=== PATIENT | male | born 1945 | race Caucasian/White ===

== ENCOUNTER 2017-01-08 10:52 | Inpatient (IN) ==
[2017-01-08] MEDS ORDERED: CeFAZolin Pre 2,000 MG/100 ML 2,000 MG/100 ML BAG IVPB ONE (11:15)
[2017-01-08] MEDS ORDERED: Ringers Solution, Lactated 1,000 ML IVC SCH (11:15)
[2017-01-08] MEDS ORDERED: Albuterol 2.5 MG/3 ML NEBULIZER IH ONE (11:15)
--- NOTE | 2017-01-08 11:17 | Anesthesia Evaluation PreOp ---
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: Other (carotid stenosis (bilateral)) Other Medical History: Renal (CKD), Diabetes Type II (uses insulin), GERD Anesthesia History: No Prior Anesthetic Complications, Past Anesthesia (CABG) Alcohol Use: none Drug use: none Medications and Allergies Atorvastatin [Lipitor] 40 mg PO HS 03/12/15 [History] Insulin Aspart Prot/Insuln Asp [Novolog Mix 70-30 Flexpen Syrn] 35 unit SQ HS [History] Levothyroxine [Synthroid] 50 mcg PO QAM 03/12/15 [History] NIFEdipine [Nifedipine ER] 30 mg PO QAM 03/12/15 [History] Cholecalciferol (Vitamin D3) [Vitamin D3] 2,000 unit PO DAILY 03/27/15 [History] Losartan [Cozaar] 50 mg PO DAILY 03/27/15 [History] Aspirin 81 mg PO DAILY #30 tab.chew 04/02/15 [Rx] Metoprolol XL (24 HR) Succ [Toprol XL] 100 mg PO DAILY 04/12/15 [History] Furosemide [Lasix] 40 mg PO DAILY 12/07/16 [History] Omeprazole [PriLOSEC] 20 mg PO DAILY 12/07/16 [History] 3 Allergy/AdvReac Type Severity Reaction Status Date / Time No Known Allergies Allergy Verified 03/12/15 15:44 - Meds/Allergy Pre-op Review Medications Reviewed: Yes Allergies Reviewed: Yes Beta Blockers on Current Med List: Yes (metoprolol) If Beta Blockers taken, Date/Time (Last Dose taken): 01-08-17 metoprolol 6 am Anesthesia Results - Labs Laboratory Tests 04/13/15 08/01/16 08/01/16 11:15 07:41 07:41 WBC Hgb Hct Plt Count PT INR APTT Sodium Potassium Chloride Carbon Dioxide BUN Creatinine Est GFR ( Amer) Est GFR (Non-Af Amer) POC Glucose 218 H BUN/Creatinine Ratio Glucose Est Mean Plasma Glucose 186 Hemoglobin A1c 8.1 H Calculated Osmolality Calcium Phosphorus 3.2 12/05/16 12/05/16 12/05/16 16:32 16:32 16:32 WBC 8.7 Hgb 14.5 Hct 45.2 Plt Count 162 PT 14.6 H INR 1.3 APTT 38.0 H Sodium 138 Potassium 4.2 Chloride 104 Carbon Dioxide 24 BUN 23 Creatinine 1.38 H Est GFR ( Amer) > 60 Est GFR (Non-Af Amer) 51 L POC Glucose BUN/Creatinine Ratio 17 Glucose 127 H Est Mean Plasma Glucose Hemoglobin A1c Calculated Osmolality 291 Calcium 9.4 Phosphorus - Imaging EKG: report reviewed, image reviewed (Normal sinus rhythm SEPTAL MYOCARDIAL INFARCTION, PROBABLY OLD) Additional studies: TTE: Impressions: LVEF 35-40%. There is evidence of severely elevated filling pressures of the left ventricle. Normal RV size with moderate reduction in function. Normal right atrial size. Mildly enlarged left atrial size. Mild mitral regurgitation. Mild tricuspid regurgitation. Estimated RVSP was 31 mmHg. No pulmonary hypertension. The IVC is not dilated. Anesthesia Exam Last Vital Signs Temp 97.4 F L 01/08/17 11:14 Pulse 69 01/08/17 11:14 Resp 18 01/08/17 11:14 BP 141/75 01/08/17 11:14 Pulse Ox 95 01/08/17 11:14 Blood glucose: 64 Weight: 94 kg - HEENT Pupil (Motor): Pupils equal, EOMI Mallampati: III Teeth: Edentulous Oral Opening: Greater than 3 - APPLICATION DESIGNER LOC: Oriented APPLICATION DESIGNER Motor: Normal RUE, Normal LUE, Normal RLE, Normal LLE, Normal Face - Cardiac Rhythm: Regular Murmur: None - Pulmonary Breath Sounds: bilateral Clear Respiratory Effort: Symmetrical Anesthesia Assess/Plan ASA Score: 3 Modified Maria M Scale for Level of Consciousness: Cooperative, oriented, and tranquil Anesthetic Plan: General Monitoring Plan: Standard Monitors, A-Line Recovery Plan: PACU
--- NOTE | 2017-01-08 11:29 | History & Physical Report ---
Date of Encounter: 01/08/17 Time of Encounter: 11:29 24 Hour HP Update - Instructions Instructions: If the History and Physical is less than 30 days old and was completed prior to A.M. admission and or procedure and has NOT been updated on calendar day of procedure please complete this update prior to performing procedure. - Update Patient reports changes in Medical Condition: No Changes in examination, assessment, or condition: No Changes in Medication: No Preop tests/diagnostics Reviewed: Yes Surgery Remains Indicated: Yes Consent for Planned Operative Procedure(s) Verified: Yes - Pre-Operative Checklist Preoperative Checklist Indicated: Yes Prophylactic Antibiotic Ordered: Yes Home Medications Include Beta Elda: Yes Beta Elda Taken Today (Day of Surgery): Yes Beta Elda Taken Yesterday (Day Prior to Surgery): Yes Is VTE Prophylaxis Indicated?: Yes
[2017-01-08] MEDS ORDERED: Lidocaine 1% 20 ML MDV ONE (11:40)
[2017-01-08] MEDS ORDERED: Heparin 1,000 UNITS/500 mL NS 500 ML ONE (11:41)
[2017-01-08] MEDS ORDERED: *HR* FentaNYL (PF) 100 MCG/2 ML VIAL ONE (11:41)
[2017-01-08] MEDS ORDERED: Dexmedetomidine HCl 200 MCG/50 ML MLS IVC ONE (11:45)
[2017-01-08] MEDS ORDERED: Acetaminophen IV 1,000 MG/100 ML INFUS..BTL ONE (11:49)
[2017-01-08] MEDS ORDERED: Ondansetron 4 MG/2 ML VIAL IVP PRN ×2 (11:52→16:35)
[2017-01-08] MEDS ORDERED: *HR* Labetalol 20 MG/4 ML SYRINGE IVP PRN (11:52)
[2017-01-08] MEDS ORDERED: *HR* HYDROmorphone (PF) 1 MG/ML SYRINGE IVP PRN (11:52)
[2017-01-08] MEDS ORDERED: *HR* Etomidate 40 MG/20 ML VIAL IVP ONE (11:58)
--- NOTE | 2017-01-08 12:46 | Anesthesia Procedures ---
Date of Encounter: 01/08/17 Time of Encounter: 12:15 Procedures: Anesthesia - Arterial Line Consent obtained: written consent Time out performed: Yes Sedation: Fentanyl (mcg): 100 Supplemental Oxygen via Nasal Cannula (L/min): 15 (circuit) Local Anesthetic: Lidocaine 1% Amount of Anesthetic used (mls): 1 Size (Gauge): 20 Length (inches): 1 3/4 Technique Used: sterile prep, guide wire technique, direct puncture technique Post-Procedure: line taped into place, dry sterile dressing placed Patient tolerated procedure: well, no complications Complications: none Site: Radial L Vitals: see anesthesia record
[2017-01-08] MEDS ORDERED: EPHEDrine 50 MG/ML VIAL ONE (12:49)
[2017-01-08] MEDS ORDERED: *HR* Heparin 5,000 UNIT/ML VIAL ONE ×2 (13:02→14:25)
[2017-01-08] MEDS ORDERED: Neostigmine Methylsulfate 3 MG/3 ML SYRINGE ONE (13:53)
[2017-01-08] MEDS ORDERED: Dexamethasone 4 MG/ML VIAL ONE (13:53)
[2017-01-08] MEDS ORDERED: Ondansetron 4 MG/2 ML VIAL ONE (13:53)
[2017-01-08] MEDS ORDERED: Ketorolac 30 MG/ML VIAL ONE (14:15)
[2017-01-08] MEDS ORDERED: *HR* Dextrose 50 % in Water (Syg) 50 ML SYRINGE ONE (14:23)
--- NOTE | 2017-01-08 15:31 | Operative Note ---
Date of procedure: 01/08/17 Pre-op diagnosis: right carotid stenosis Post-op diagnosis: same Procedure: right carotid endarterectomy with 8 Fr shunt and patch angioplasty Complications: none Anesthesia: HERLINDAA Surgeon: Marcelino Ruiz Estimated blood loss (cc): 150 Specimen: none Condition: stable Disposition: PACU Procedure in Detail: History Torrey Beaulieu is a 71-year-old white male who has known peripheral vascular and coronary vascular disease. He was discovered to have a worsening carotid system and an abnormal duplex scan. He then went on to have an angiogram which demonstrated a significant right internal carotid artery stenosis. He now comes to the operating room for surgical correction of this lesion. He is neurologically asymptomatic. Procedure After informed consent was obtained the patient was taken to the operating room. General endotracheal anesthesia was established under teary line pressure monitoring. The right neck was sterilely prepped and draped. The patient had a clearly demarcated skin crease that ran transversely in the neck. This was selected then as the site for placement of the incision. After a timeout protocol an incision was then made in a transverse orientation. Dissection was then carried down to reveal the anterior border of the sternocleidomastoid muscle. The muscle was retracted laterally and dissection was carried to into the carotid sheath. Selective control was obtained of the carotid arteries. The nervous structures were preserved. 5000 units of heparin were administered intravenously. The vessels were then clamped with the internal carotid artery clamped first. Using an 11 blade knife and Corcoran scissors the artery was opened. An 8 [place] shunt was then inserted atraumatically. Patency of the shunt was confirmed by the use of intraoperative Doppler. Evaluation of the plaque revealed a homogeneous thick plaque that extended more proximally than indicated by the angiogram and as well up into the external carotid artery. In order to find an appropriate dissection plane the dissection was actually begun on the internal carotid artery and was then carried proximally to the common carotid. The amount of plaque at the common required that an extension of the arteriotomy be made for distance of approximately 1 cm. This allowed the residual bulk of the plaque proximally to be removed. The orifice of the external carotid artery was endarterectomized that there was residual material. This required a transverse incision distal to this. Thyroid artery. With this done the plaque could be dissected and removed totally. The endpoint on the internal carotid artery was smooth. No tacking sutures were necessary. The bed of the vessel was then inspected for any residual debris. After this was assured a Hemashield patch was then sewn onto the arteriotomy. This was sewn in position using 2 6-0 Prolene sutures. Leaving a small space open on the suture line the 8 [place] shunt was clamped divided and removed. The final few sutures were then placed. The internal was allowed to backbleed and then reclamped. The external and common were opened and finally the internal was reopened. The patient tolerated this maneuver without hemodynamic distress. Excellent Doppler signals and palpable pulses were identified throughout the carotid system. Hemostasis was achieved. A superficial cervical block using half percent Marcaine was performed. The wound was then closed in layers using absorbable suture. No drains were placed. A dry sterile dressing was applied. The patient was then extubated. He was found to be neurologically intact. He was then transported from the operating room to the recovery room in stable condition.
--- NOTE | 2017-01-08 16:09 | Anesthesia Evaluation Post Op ---
Date of Encounter: 01/08/17 Time of Encounter: 16:09 - Vital Signs Vital Signs: Vital Signs/O2 Sat/Glucose, Most Current Temp Pulse Resp BP Pulse Ox 01/08/17 16:01 57 16 83/60 98 01/08/17 15:51 58 12 88/61 100 01/08/17 15:41 97.2 F L 59 14 97/62 97 - Lungs Lungs: Clear Ascult./Percussion - Airway Airway: Non-obstructed - Cardiovascular Regular Rate - Mental Status Mental Status: Alert & Oriented, Answers Appropriately - Pain Pain Scale: 0 - Nausea Vomiting Nausea Vomiting: Not Present - Hydration Hydration: Ice chips - Discharge PostOp Status: Transfer Patient to floor
[2017-01-08] MEDS ORDERED: ceFAZolin 2,000 MG in D5% in Water 100 ML IVPB SCH (16:35)
[2017-01-08] MEDS ORDERED: *HR* HYDROcodone/Acet 5/325 mg TABLET PO PRN (16:35)
[2017-01-08] MEDS ORDERED: Naloxone 0.4 MG/ML INJ IVP PRN (16:35)
[2017-01-08] MEDS ORDERED: Acetaminophen 325 MG TABLET PO PRN (16:35)
[2017-01-08] MEDS ORDERED: *HR* Morphine 2 MG/ML SYRINGE IVP PRN (16:35)
[2017-01-08] MEDS ORDERED: Dextrose Gel 15 GM PO PRN ×2 (16:58)
[2017-01-08] MEDS ORDERED: *HR* Dextrose 50 % in Water (Syg) 50 ML SYRINGE IVP PRN (16:58)
[2017-01-08] MEDS ORDERED: D5% in Water 1,000 ML IVC PRN (16:58)
[2017-01-08] MEDS ORDERED: Insulin NPH/REG 70/30 100 UNIT/ML (x5UNIT) SQ SCH (21:00)
[2017-01-08] MEDS ORDERED: *HR* Metformin 500 MG TABLET PO SCH (21:00)
[2017-01-08] MEDS: ceFAZolin 2,000 MG in D5% in Water 100 ML IVPB SCH (21:19)
[2017-01-09 04:05] LABS: Basophils % 0.3 %; Hematocrit 38.6 % (37.5-50.1); Hemoglobin 12.7 g/dL (12.9-16.9); Immature Granulocytes % 0.3 % (0-4); Lymphocytes # 0.6 K/mcL (0.6-4.6); Lymphocytes % 8.1 %; Mean Corpuscular HGB Conc 32.9 g/dL (31.6-35.5); Mean Corpuscular Hemoglobin 29.3 pg (28.0-33.3); Mean Corpuscular Volume 89.1 fL (83.0-100.0); Mean Platelet Volume 11.3 fL (9.4-12.4); Monocytes # 0.4 K/mcL (0.0-1.3); Monocytes % 5.7 %; Neutrophils # 6.5 K/mcL (1.6-8.9); Platelet Count 134 K/mcL (140-400); Red Blood Count 4.33 M/mcL (4.19-5.50); Red Cell Distribution Width 15.2 % (11.5-14.5); Segmented Neutrophils % 85.6 %
[2017-01-09 04:21] LABS: BUN/Creatinine Ratio 22 (6-26); Blood Urea Nitrogen 28 mg/dL (8-26); Calcium 8.5 mg/dL (8.6-10.8); Carbon Dioxide 22 mEq/L (19-29); Chloride 104 mEq/L (98-109); Glucose 93 mg/dL (70-99); Osmolality,Calculated 287 (280-300); Potassium 4.5 mEq/L (3.5-4.5); Sodium 136 mEq/L (136-145); eGFR For African Americans > 60 (> 60); eGFR For Non-African Americans 54 (> 60)
[2017-01-09] MEDS: ceFAZolin 2,000 MG in D5% in Water 100 ML IVPB SCH ×2 (04:53→11:37)
[2017-01-09] MEDS: Metoprolol XL (24 HR) Succ 50 MG TAB.ER.24H PO SCH ×2 (07:23→08:40)
[2017-01-09] MEDS ORDERED: Aspirin 81 MG TAB.CHEW PO SCH (09:00)
[2017-01-09] MEDS ORDERED: NIFEdipine XL (24 HR) 30 MG TAB.ER.24 PO SCH (09:00)
[2017-01-09] MEDS ORDERED: Cholecalciferol (D-3) 1,000 UNIT TABLET PO SCH (09:00)
[2017-01-09] MEDS ORDERED: Furosemide 40 MG TABLET PO SCH (09:00)
[2017-01-09 16:41] VITALS: BP 121/75
--- NOTE | 2017-01-09 17:40 | Discharge Summary ---
Date of Encounter: 01/09/17 Time of Encounter: 17:38 - Discharge Diagnosis (1) Carotid arterial disease Priority: Primary Status: Acute Comments: Patient was identified as having a significant right carotid artery stenosis by duplex scanning and confirmed on angiography. He underwent a right carotid endarterectomy without incident. He had an uneventful postoperative course. Qualifiers: Laterality: right Qualified Code(s): I77.9 - Disorder of arteries and arterioles, unspecified (2) CAD (coronary artery disease) Priority: Secondary Status: Chronic Comments: Patient is under medical treatment for his coronary artery disease. He is status post previous open heart bypass grafting. Qualifiers: Coronary Disease-Associated Artery/Lesion type: [place] artery [place] vs. transplanted heart: [place] heart Associated angina: without angina Qualified Code(s): I25.10 - Atherosclerotic heart disease of [place] coronary artery without angina pectoris (3) DM2 (diabetes mellitus, type 2) Priority: Secondary Status: Chronic Comments: Patient is under medical control for his diabetes. Qualifiers: Diabetes mellitus complication status: with circulatory complication Diabetes mellitus complication detail: with peripheral angiopathy without gangrene Diabetes mellitus terminal gauger insulin use: with terminal gauger use Qualified Code(s): E11.51 - Type 2 diabetes mellitus with diabetic peripheral angiopathy without gangrene; Z79.4 - custodial (current) use of insulin (4) Tobacco abuse Priority: Secondary Status: Chronic Comments: Patient was counseled again about complete tobacco cessation. - Discharge Medications Home Medications: Atorvastatin [Lipitor] 40 mg PO HS 03/12/15 [History] Insulin Aspart Prot/Insuln Asp [Novolog Mix 70-30 Flexpen Syrn] 35 unit SQ HS [History] Levothyroxine [Synthroid] 50 mcg PO QAM 03/12/15 [History] NIFEdipine [Nifedipine ER] 30 mg PO QAM 03/12/15 [History] Cholecalciferol (Vitamin D3) [Vitamin D3] 2,000 unit PO DAILY 03/27/15 [History] Losartan [Cozaar] 50 mg PO DAILY 03/27/15 [History] Aspirin 81 mg PO DAILY #30 tab.chew 04/02/15 [Rx] Metoprolol XL (24 HR) Succ [Toprol XL] 100 mg PO DAILY 04/12/15 [History] Furosemide [Lasix] 40 mg PO DAILY 12/07/16 [History] Omeprazole [PriLOSEC] 20 mg PO DAILY 12/07/16 [History] metFORMIN [Glucophage] 1,500 mg PO HS 01/08/17 [History] Allergies/Adverse Reactions: 3 Allergy/AdvReac Type Severity Reaction Status Date / Time No Known Allergies Allergy Verified 01/08/17 11:33 Date of admission: 01/08/17 16:22 Primary care physician: Osman Martinez MD Consults: None Procedure(s) Performed: Right carotid endarterectomy with patch angioplasty Discharging clinician: Marcelino Ruiz Anticipated date of discharge: 01/09/17 - Patient Status Disposition: Home, Self-Care Condition: Good Functional capacity at discharge: independent ambulation Overall status at discharge: patient is progressing back to baseline - Discharge Instructions Follow Up With: Osman Martinez MD [Primary Care Provider] - (SENT WEB REQUEST ON 01-08-17@ [phone] ) Marcelino Ruiz MD [Partnered Physician] - 01/30/17 10:45 am Additional Instructions: Use ice pack on right neck for the next 2-3 days at home Continue usual home medicines No lifting greater than 10 pounds. No automobile driving. No manual labor. Keep right neck incision dry for a total of 5 days following surgery. - Diet and Activity Activity: increase activity as tolerated Diet: diabetic diet, low fat, low cholesterol - Hospital Course Hospital course: Mr. Beaulieu is a 71 year old male With significant right carotid artery disease. He underwent a right carotid endarterectomy with patch angioplasty. The patient had no periprocedural complications. He did well following surgery and was neurologically intact. He was felt fit for discharge on the afternoon of postoperative day #1. Time spent discussing smoking cessation with patient: 3 to 10 minutes - Time Spent with Patient Total time spent providing and/or coordinating discharge services: Exam Vital Signs, Last 4 Hours Temp Pulse Resp BP Pulse Ox 01/09/17 16:36 97.5 F L 63 16 121/75 98 General: Present: Conversant, No Apparent Distress, Well developed, Well nourished HEENT: Present: Atraumatic, Normocephaly, Trachea midline, Pupils equal Neck: Absent: JVD, Left Carotid bruit, Right Carotid bruit, Midline deformity, Tracheal deviation Cardiac: Present: Reg Rate and Rhythm, Normal S1 and S2, No Murmur Lungs: Present: Normal Breath Sounds Neuro: Present: Alert and responsive, No focal deficits noted, Cranial nerves grossly intact, Motor nerves grossly intact, Sensory nerves grossly intact Abdomen: Present: Soft Vascular: Present: Normal capillary refill - VTE Documentation of Mechanical Device: Intermittent pneumatic compression device
== END 2017-01-09 18:15 | disposition home or self-care (01) | DRG 38 ==
LOC: SAMDAY 10:52 → 2NNU 16:22
PROVIDERS: ADMIT Surgery Vascular Surgery; ATTEND Surgery Vascular Surgery

== ENCOUNTER 2017-11-26 09:56 | Inpatient (IN) ==
[~2017-11-26 09:56] MED LIST: Vancomycin 1,000 MG, Sodium Chloride IRRigation 1,000 ML IR ONE; ceFAZolin 1,000 MG, Sodium Chloride IRRigation 1,000 ML IR ONE
[2017-11-26] MEDS ORDERED: CeFAZolin Syr 2,000MG/20 ML 2,000 MG/20 ML SYRINGE IVPB ONE (10:15)
[2017-11-26] MEDS ORDERED: Ringers Solution, Lactated 1,000 ML IVC SCH (10:15)
[2017-11-26] MEDS ORDERED: LIDOCAINE 1% PF 2 ML AMPUL ONE (10:38)
[2017-11-26] MEDS ORDERED: Albuterol 2.5 MG/3 ML NEBULIZER IH ONE (10:39)
[2017-11-26] MEDS ORDERED: Albuterol 2.5 MG/3 ML NEBULIZER ONE (10:41)
--- NOTE | 2017-11-26 11:04 | Anesthesia Evaluation PreOp ---
Date of Encounter: 11/26/17 Time of Encounter: 11:02 - Past History Planned Operation: R brachial aa cut down, R angioplasty Cardiac History: CHF (ECHO 08/2017: Impressions: LVEF 35%. Atypical septal motion consistent with post-operative status. RV is mildly dilated. There is moderate reduction in function. No significant valvular dysfunction. No pulmonary hypertension.), HTN, Hyperlipidemia, Cardiac Surgery (CAD s/p CABG), Cardiac Stent (s/p stent placed 09/2017 on DAPT, took plavix today), Other ([facility] Procedures Performed: LEFT HEART CATH W/ GRAFTS Stent w/ PTCA Single Major Vessel Indications: Cardiomyopathy, Unstable Angina Impressions: There is severe three vessel coronary artery disease. Mild global LV dysfunction. EF 45% Patient had successful PTCA/Drug-Eluting Stent placement in the distal Left Main/ramus. S/P CABG 2 of 4 patent bypass grafts. Recommendations: DAPT. Optimal medical therapy of patient's disease. 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: Other (carotid stenosis) Other Medical History: Renal (CKD) Anesthesia History: No Prior Anesthetic Complications, Past Anesthesia (CABG, hernia repair, R subclavian stent, renal stent) Alcohol Use: none Drug use: none Medications and Allergies Albuterol Sulfate [Albuterol Inhaler] 2 puff IH Q4HR PRN 11/26/17 [History] Aspirin [Lo-Dose Aspirin EC] 81 mg PO HS 11/26/17 [History] Atorvastatin [Lipitor] 40 mg PO HS 11/26/17 [History] Cholecalciferol (D-3) [Vitamin D] 2,000 unit PO HS 11/26/17 [History] Clopidogrel [Plavix] 75 mg PO DAILY 11/26/17 [History] Furosemide [Lasix] 40 mg PO DAILY 11/26/17 [History] Levothyroxine [Synthroid] 50 mcg PO 0630 11/26/17 [History] Losartan [Cozaar] 25 mg PO DAILY 11/26/17 [History] Metoprolol Succinate [Toprol Xl] 25 mg PO DAILY 11/26/17 [History] Omeprazole [PriLOSEC] 20 mg PO DAILY 11/26/17 [History] Spironolactone [Aldactone] 50 mg PO DAILY 11/26/17 [History] metFORMIN [Glucophage] 500 mg PO HS 11/26/17 [History] 3 Allergy/AdvReac Type Severity Reaction Status Date / Time No Known Allergies Allergy Verified 11/26/17 10:55 - Meds/Allergy Pre-op Review Medications Reviewed: Yes Allergies Reviewed: Yes Beta Blockers on Current Med List: Yes If Beta Blockers taken, Date/Time (Last Dose taken): 1800 11/25/17 Anesthesia Results - Labs Laboratory Tests 10/16/17 11/11/17 11/11/17 16:56 14:32 14:32 WBC 8.6 Hgb 13.4 Hct 39.1 Plt Count 275 PT INR APTT Sodium 134 L Potassium 4.3 Chloride 101 Carbon Dioxide 26 BUN 26 H Creatinine 1.49 H Glucose 191 H POC Glucose 92 Est Mean Plasma Glucose Hemoglobin A1c 11/11/17 11/21/17 14:32 07:01 WBC Hgb Hct Plt Count PT 12.3 H INR 1.1 APTT 37.8 H Sodium Potassium Chloride Carbon Dioxide BUN Creatinine Glucose POC Glucose Est Mean Plasma Glucose 160 Hemoglobin A1c 7.2 H - Imaging EKG: report reviewed (09/2017 : Interpretive Statements sinus rhythm WITH FREQUENT VENTRICULAR PREMATURE COMPLEXES ST DEVIATION AND MODERATE T-WAVE ABNORMALITY, CONSIDER LATERAL ISCHEMIA ST DEVIATION AND MODERATE T-WAVE ABNORMALITY, CONSIDER INFERIOR ISCHEMIA Electronically Signed On 10-17-2017 8:48: 38 EDT by Praful Rodriguez) Anesthesia Exam O2 Sat Height 1.8 m Height 1.8 m Weight 83.007 kg Weight 83.007 kg O2 Sat by Pulse Oximetry 99 Vital Signs Temp Pulse Resp BP Pulse Ox 97.5 F L 62 18 142/63 99 11/26/17 10:34 11/26/17 10:34 11/26/17 10:34 11/26/17 10:34 11/26/17 10:34 Blood glucose: 91 Height: 71" Weight: 182lbs NPO (# of Hours): >8 Pain Scale: 0 Pain Scale Used: Numeric (1 - 10) - HEENT Pupil (Motor): Pupils equal, 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
[2017-11-26] MEDS ORDERED: *HR* FentaNYL (PF) 100 MCG/2 ML VIAL ONE (11:21)
[2017-11-26] MEDS ORDERED: *HR* Propofol 200 MG/20 ML VIAL IVP ONE (11:21)
[2017-11-26] MEDS ORDERED: Lidocaine -MPF 2% 2 ML VIAL ONE (11:22)
[2017-11-26] MEDS ORDERED: *HR* Succinylcholine 200 MG/10 ML VIAL IVP ONE (11:23)
[2017-11-26] MEDS ORDERED: Lidocaine -MPF 4% 5 ML AMPUL ONE (11:24)
[2017-11-26] MEDS ORDERED: Heparin 1,000 UNITS/500 mL 500 ML ONE (11:28)
[2017-11-26] MEDS ORDERED: *HR* Remifentanil 1 MG VIAL IVP ONE (11:55)
[2017-11-26] MEDS ORDERED: *HR* Phenylephrine 10 MG/ML VIAL ONE (12:00)
[2017-11-26] MEDS ORDERED: Heparin 1,000 UNITS/500 mL 1,000 ML ONE (12:03)
[2017-11-26] MEDS ORDERED: Bupivacaine-MPF 0.25% 10 ML VIAL ONE (12:03)
--- NOTE | 2017-11-26 12:10 | History & Physical Report ---
Date of Encounter: 11/26/17 Time of Encounter: 12:10 24 Hour HP Update - Instructions Instructions: If the History and Physical is less than 30 days old and was completed prior to A.M. admission and or procedure and has NOT been updated on calendar day of procedure please complete this update prior to performing procedure. - Update Patient reports changes in Medical Condition: No Changes in examination, assessment, or condition: No Changes in Medication: No Preop tests/diagnostics Reviewed: Yes Surgery Remains Indicated: Yes Consent for Planned Operative Procedure(s) Verified: Yes - Pre-Operative Checklist Preoperative Checklist Indicated: Yes Prophylactic Antibiotic Ordered: Yes Home Medications Include Beta Elda: Yes Beta Elda Taken Today (Day of Surgery): Yes Beta Elda Taken Yesterday (Day Prior to Surgery): Yes Is VTE Prophylaxis Indicated?: Yes
[2017-11-26] MEDS ORDERED: Isovue-300 50 ML VIAL IVP ONE ×2 (13:26→14:59)
[2017-11-26] MEDS ORDERED: Dexamethasone 4 MG/ML VIAL ONE (13:58)
[2017-11-26] MEDS ORDERED: Ondansetron 4 MG/2 ML VIAL ONE (13:58)
[2017-11-26] MEDS ORDERED: *HR* HYDROmorphone 2 MG/ML SYRINGE IVP PRN (14:15)
[2017-11-26] MEDS ORDERED: Ondansetron 4 MG/2 ML VIAL IVP PRN ×2 (14:15→17:46)
[2017-11-26] MEDS ORDERED: *HR* Labetalol 100 MG/20 ML MDV IVP PRN (14:15)
[2017-11-26] MEDS ORDERED: *HR* Heparin 5,000 UNIT/ML VIAL ONE (14:39)
[2017-11-26] MEDS ORDERED: Heparin 1,000 UNITS/500 mL 1,500 ML ONE (14:51)
[2017-11-26] MEDS ORDERED: Isovue-300 150 ML INFUS..BTL IV ONE (14:59)
--- NOTE | 2017-11-26 16:04 | Operative Note ---
Date of procedure: 11/26/17 Pre-op diagnosis: ischemic right fingers/right subclavian stent occlusion Post-op diagnosis: same Procedure: open exposure of right brachial artery right upper extremity angiogram balloon angioplasty of occluded right subclavian stent and right subclavian artery stenosis with standard and drug coated balloons Complications: none Anesthesia: GETA Surgeon: Marcelino Ruiz Was there an school bus driver/teacher assistant present: No Estimated blood loss (cc): 100 Specimen: 0 Condition: stable Disposition: PACU Procedure in Detail: History Torrey Beaulieu is a 71-year-old white male with known severe vascular disease affecting both the peripheral vasculature as his, cerebral vasculature, and coronary arteries. He has undergone previous multiple interventions. He was found to have ischemia of the right digits. Workup revealed occlusion of the right subclavian artery stent. Attempts at endovascular manipulation from an antegrade approach were unsuccessful. The patient now comes the operating room for retrograde approach through her open brachial exposure. Procedure After informed consent was obtained the patient was taken to the operating room. General endotracheal anesthesia was established under arterial line pressure monitoring. The right neck shoulder and right upper extremity were sterilely prepped and draped. A timeout protocol was observed. An oblique incision was made at the distal anteromedial aspect of the right forearm. Dissection was carried down in the subfascial location. The median nerve as well as the brachial veins were identified as was the brachial artery. Brachial artery was normal in size. The vessels soft. There were no pulses in the vessel as expected. The patient did have a flat and monophasic Doppler signal present. Control was obtained of this vessel. Using a micropuncture technique the vessel was punctured in a retrograde fashion. The guidewire was then inserted. This was followed by a 4-Malawian sheath and dilator. The dilator was removed and the sheath was flushed and aspirated. A guidewire was then inserted and under fluoroscopic control it was placed immediately distal to the occluded right subclavian stent. A 4-Malawian sheath was then placed. A 65 cm long angle-tipped glide catheter was then placed over the wire. Using this as support the guidewire was gently manipulated into the stent. The catheter was then passed behind the wire. The wire was then removed. A 30 gm [employer] wire was then advanced through the catheter. This was then gently advanced through the entire length of the occluded right subclavian stent. It was ascertained that the true lumen had been reentered into the aorta with contrast injection. The 4-Malawian glide catheter was then gently advanced through the stent and out into the arch of the aorta. The Victory wire was removed and the guidewire was reinserted. The tip of the guidewire was placed in the proximal abdominal aorta. With this done the sheath was exchanged for a 6-Malawian sheath in order to perform endovascular interventions. It should be noted that 5000 units heparin were administered once the guidewire and micropuncture device were used. A 4 mm x 40 balloon was then placed into the occluded stent. This was gently inflated in order to open a channel. With this done the balloon was then removed. A repeat Angiogram was performed of this area and then a 6 mm x 40 mm drug-coated balloon was placed into the occluded stent. This was inflated in position in the stent for 3 minutes. After this the balloon was deflated and gently removed. A completion angiogram demonstrated patency to the subclavian stent. However, an area of stenosis approximately 1 cm distal to the distal end of the subclavian stent was now identified. This was then treated with the drug-coated balloon again and a second completion angiogram was performed. This demonstrated resolution of the stenosis and wide patency of the stent with retrograde flow into the innominate artery and right common carotid artery. There was also flow noted in the right internal mammary artery and thyrocervical trunk. No flow was noted in the right vertebral artery. This was also not seen on the preliminary angiogram from earlier in the case as well as in the arch aortogram performed last week. With this done the devices were removed. The puncture site at the right brachial artery was evaluated and closed with a 6-0 Prolene suture. After appropriate backbleeding and flushing the artery was opened. Pulsatile flow was then returned to the right forearm and hand. The patient had excellent Doppler signals identified at the radial and ulnar artery at the wrist as well as in the distal hand in the area at the base of the long finger. The right arm incision was then irrigated and hemostasis achieved. The wound was closed in layers using absorbable suture. A dry sterile dressing was applied. The patient was extubated in the operating room. He was found to be neurologically intact. He was then transported from the operating room to the recovery room in stable condition. There were no intraoperative complications.
--- NOTE | 2017-11-26 16:56 | Anesthesia Evaluation Post Op ---
Date of Encounter: 11/26/17 Time of Encounter: 16:52 - Vital Signs Vital Signs: vss - Lungs Lungs: Clear Ascult./Percussion - Airway Airway: Non-obstructed - Cardiovascular Baseline Rhythm - Mental Status Mental Status: Alert & Oriented, Answers Appropriately - Pain Pain Scale used: Seth (Faces) - Nausea Vomiting Nausea Vomiting: Not Present - Hydration Hydration: Ice chips - Discharge PostOp Status: Transfer Patient to floor
[2017-11-26] MEDS ORDERED: Acetaminophen 325 MG TABLET PO PRN (17:46)
[2017-11-26] MEDS ORDERED: *HR* Labetalol 20 MG/4 ML SYRINGE IVP PRN (17:46)
[2017-11-26] MEDS ORDERED: *HR* OxyCODONE Immed Rel 5 MG TABLET PO PRN (17:46)
[2017-11-26] MEDS ORDERED: *HR* HYDROcodone/Acet 5/325 mg TABLET PO PRN (17:46)
[2017-11-26] MEDS ORDERED: Naloxone 0.4 MG/ML INJ IVP PRN (17:46)
[2017-11-26] MEDS: *HR* Metoprolol 5 MG/5 ML VIAL IVP SCH (18:48)
[2017-11-26] MEDS ORDERED: Aspirin Enteric Coated 81 MG Tablet PO SCH (21:00)
[2017-11-26] MEDS ORDERED: Cholecalciferol (D-3) 1,000 UNIT TABLET PO SCH (21:00)
[2017-11-27] MEDS: *HR* Metoprolol 5 MG/5 ML VIAL IVP SCH ×2 (01:05→05:50)
[2017-11-27 05:34] LABS: Basophils % 0.1 %; Hemoglobin 12.1 g/dL (12.9-16.9); Immature Granulocytes % 0.6 % (0-4); Lymphocytes # 0.9 K/mcL (0.6-4.6); Lymphocytes % 10.4 %; Mean Corpuscular HGB Conc 35.6 g/dL (31.6-35.5); Mean Corpuscular Hemoglobin 32.8 pg (28.0-33.3); Mean Corpuscular Volume 92.1 fL (83.0-100.0); Mean Platelet Volume 10.3 fL (9.4-12.4); Monocytes # 0.5 K/mcL (0.0-1.3); Monocytes % 5.3 %; Neutrophils # 7.3 K/mcL (1.6-8.9); Platelet Count 195 K/mcL (140-400); Red Blood Count 3.69 M/mcL (4.19-5.50); Red Cell Distribution Width 13.4 % (11.5-14.5); Segmented Neutrophils % 83.6 %
[2017-11-27 05:59] LABS: BUN/Creatinine Ratio 22 (6-26); Blood Urea Nitrogen 25 mg/dL (8-23); Calcium 8.7 mg/dL (8.6-10.3); Carbon Dioxide 20 mEq/L (23-29); Chloride 103 mEq/L (98-107); Glucose 174 mg/dL (70-105); Osmolality,Calculated 283 (280-300); Potassium 4.7 mEq/L (3.5-5.1); Sodium 132 mEq/L (136-145); eGFR For African Americans > 60 (> 60); eGFR For Non-African Americans > 60 (> 60)
[2017-11-27 06:28] LABS: Troponin I 0.03 ng/mL (< 0.04)
[2017-11-27] MEDS ORDERED: Metoprolol XL (24 HR) Succ 25 MG TAB.ER.24H PO SCH (09:00)
[2017-11-27] MEDS ORDERED: Furosemide 40 MG TABLET PO SCH (09:00)
[2017-11-27 16:28] VITALS: BP 94/43
--- NOTE | 2017-11-27 18:18 | Discharge Summary ---
Date of Encounter: 11/27/17 Time of Encounter: 18:15 - Discharge Diagnosis (1) S/P coronary artery stent placement Priority: Secondary Status: Chronic Comments: Patient has history of coronary artery disease and open heart bypass grafting. Patient had recent intervention. 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 This was addressed via a retrograde approach through a right brachial artery cutdown. This area was able to be angioplastied open using both a standard and then a drug coated balloon. The patient had lutheran of flow to the right (3) Carotid arterial disease Priority: Secondary Status: Chronic Comments: Patient is a carotid endarterectomy in 2017 Qualifiers: Laterality: bilateral Qualified Code(s): I77.9 - Disorder of arteries and arterioles, unspecified (4) DM2 (diabetes mellitus, type 2) Priority: Secondary Status: Chronic Comments: Patient has chronic history of diabetes Qualifiers: Diabetes mellitus intermediate designer insulin use: without longterm use Diabetes mellitus complication status: with circulatory complication Diabetes mellitus complication detail: with peripheral angiopathy without gangrene Qualified Code(s): E11.51 - Type 2 diabetes mellitus with diabetic peripheral angiopathy without gangrene - Hospital Course Hospital course: Mr. Beaulieu is a 71 year old male With ulcerations on the right third, fourth, and fifth fingers. Patient was identified as having a previous carotid subclavian artery bypass performed many years ago at [facility] which had occluded. The patient also had a right subclavian stent placed at an unknown hospital in the past and this was occluded. Attempts at addressing this disease in an antegrade fashion were unsuccessful. The patient was admitted for a brachial artery cutdown and intraoperative manipulation. This was successful and the occluded right subclavian stent was able to be angioplastied open. Patient had no periprocedural complications. He was feeling well. He is felt that for discharge on postoperative day #1. Postoperative teaching regarding wound care and medications were provided to the patient prior to discharge. - Time Spent with Patient Total time spent providing and/or coordinating discharge services: - Discharge Medications Home Medications: Albuterol Sulfate [Albuterol Inhaler] 2 puff IH Q4HR PRN 11/26/17 [History] Aspirin [Lo-Dose Aspirin EC] 81 mg PO HS 11/26/17 [History] Atorvastatin [Lipitor] 40 mg PO HS 11/26/17 [History] Cholecalciferol (D-3) [Vitamin D] 2,000 unit PO HS 11/26/17 [History] Clopidogrel [Plavix] 75 mg PO DAILY 11/26/17 [History] Furosemide [Lasix] 40 mg PO DAILY 11/26/17 [History] Levothyroxine [Synthroid] 50 mcg PO 0630 11/26/17 [History] Losartan [Cozaar] 25 mg PO DAILY 11/26/17 [History] Metoprolol Succinate [Toprol Xl] 25 mg PO DAILY 11/26/17 [History] Omeprazole [PriLOSEC] 20 mg PO DAILY 11/26/17 [History] Spironolactone [Aldactone] 50 mg PO DAILY 11/26/17 [History] metFORMIN [Glucophage] 500 mg PO HS 11/26/17 [History] Allergies/Adverse Reactions: 3 Allergy/AdvReac Type Severity Reaction Status Date / Time No Known Allergies Allergy Verified 11/26/17 10:55 Date of admission: 11/26/17 17:32 Primary care physician: Osman Martinez MD Consults: None Procedure(s) Performed: Right upper extremity angiogram Right subclavian artery stent balloon angioplasty with standard and drug coated balloons Discharging clinician: Marcelino Ruiz Anticipated date of discharge: 11/27/17 Exam Vital Signs, Last 4 Hours Temp Pulse Resp BP Pulse Ox 11/27/17 16:23 97.8 F 64 20 94/43 98 General: Present: Conversant, No Apparent Distress HEENT: Present: Atraumatic Neck: Absent: JVD Vascular: Present: Normal capillary refill, Pulse, absent (Was not able to palpate pulses at the right wrist but patient had excellent Doppler signals at both the radial and ulnar artery at the wrist and at the distal palmar area.), Color/Temperature (Right hand and fingers are warm and pink.), Surgical incisions (Right upper arm incision is clean and dry. Patient does have ecchymosis around the surgical site.) Skin: Present: No rashes noted on visualized skin - Patient Status Disposition: Home, Self-Care Condition: Good Functional capacity at discharge: independent ambulation Overall status at discharge: patient is progressing back to baseline - Discharge Instructions Follow Up With: Osman Martinez MD [Primary Care Provider] - 12/03/17 9:30 am Marcelino Ruiz MD [Partnered Physician] - 12/11/17 11:45 am Additional Instructions: Keep surgical site dry for total of 5 days following surgery. No lifting greater than 10 pounds with right upper extremity. No manual labor. Resume usual home medications with the exception of no metformin for a total of 2 days following surgery. - Diet and Activity Activity: increase activity as tolerated Diet: advance to your usual diet - VTE Documentation of Mechanical Device: Intermittent pneumatic compression device
--- NOTE | 2017-11-28 06:54 | Electrocardiograph Report ---
[address] [place], [place] [address] Test Date: 2017-11-27 Pat Name: Tor[facility] Department: 110 Room: 2N15 Gender: M Nursing Home Assistant: : 1945 Requested By: Tra Nickerson Order Number: [id number] Reading MD: Ric Díaz Measurements Intervals [place] Rate: 99 P: 78 MO: 194 QRS: 11 QRSD: 98 T: -52 QT: 368 QTc: 424 Interpretive Statements SINUS RHYTHM Poor R wave progression INFERIOR ISCHEMIA Electronically Signed On 11-28-2017 6:52:28 EDT by Ric Díaz
== END 2017-11-27 18:30 | disposition home or self-care (01) | DRG 253 ==
LOC: SAMDAY 09:56 → 2NNU 17:32
PROVIDERS: ADMIT Surgery Vascular Surgery; ATTEND Surgery Vascular Surgery

== ENCOUNTER 2018-11-06 08:29 | Inpatient (IN) ==
[2018-11-06] MEDS ORDERED: CeFAZolin Syr 2,000MG/20 ML 2,000 MG/20 ML SYRINGE IVPB ONE (09:05)
[2018-11-06] MEDS ORDERED: Ringers Solution, Lactated 1,000 ML IVC SCH (09:15)
[2018-11-06] MEDS ORDERED: Albuterol 2.5 MG/3 ML NEBULIZER ONE (09:28)
[2018-11-06] MEDS ORDERED: Albuterol 2.5 MG/3 ML NEBULIZER IH ONE (09:35)
[2018-11-06] MEDS ORDERED: Acetaminophen IV 1,000 MG/100 ML INFUS..BTL IVPB ONE (09:35)
[2018-11-06] MEDS ORDERED: Ondansetron 4 MG/2 ML VIAL IVP ONE (09:35)
[2018-11-06] MEDS ORDERED: *HR* Labetalol 20 MG/4 ML SYRINGE IVP PRN (09:35)
[2018-11-06] MEDS ORDERED: Famotidine 20 MG/2 ML VIAL IVP ONE (09:35)
[2018-11-06] MEDS ORDERED: Gabapentin 300 MG CAPSULE PO ONE (09:35)
[2018-11-06] MEDS ORDERED: *HR* OxyCODONE Immed Rel 5 MG TABLET PO PRN (09:35)
[2018-11-06] MEDS ORDERED: *HR* FentaNYL (PF) 100 MCG/2 ML VIAL IVP PRN (09:35)
[2018-11-06] MEDS ORDERED: *HR* Promethazine 25 MG/ML VIAL IVP PRN (09:35)
[2018-11-06] MEDS ORDERED: Lidocaine -MPF 2% 2 ML VIAL ONE (10:43)
[2018-11-06] MEDS ORDERED: *HR* Succinylcholine 200 MG/10 ML VIAL IVP ONE (10:43)
[2018-11-06] MEDS ORDERED: Dexamethasone 4 MG/ML VIAL ONE (10:43)
[2018-11-06] MEDS ORDERED: Ondansetron 4 MG/2 ML VIAL ONE (10:43)
[2018-11-06] MEDS ORDERED: *HR* FentaNYL (PF) 100 MCG/2 ML VIAL ONE (10:44)
[2018-11-06] MEDS ORDERED: *HR* Propofol 200 MG/20 ML VIAL IVP ONE (10:44)
[2018-11-06] MEDS ORDERED: *HR* Vasopressin 20 UNIT/ML VIAL ONE (10:46)
[2018-11-06] MEDS ORDERED: EPHEDrine 50 MG/ML VIAL ONE ×2 (11:34→13:46)
[2018-11-06] MEDS ORDERED: Albumin Human 5% 25.0 GM/500 ML VIAL ONE (13:09)
[2018-11-06 13:53] LABS: VBG Base Excess -7 mEq/L; VBG Chloride 106 mEq/L (98-107); VBG Glucose 85 mg/dl (65-95); VBG HCO3 20 mEq/L (21-27); VBG Ionized Calcium 1.13 mmol/L (1.15-1.35); VBG Oxygen Saturation 32 %; VBG PCO2 49 mmHg (41-51); VBG PH 7.23 pH Units (7.32-7.42); VBG PO2 24 mmHg (25-50); VBG Total CO2 22 mEq/L
[2018-11-06] MEDS ORDERED: Naloxone 0.4 MG/ML INJ IVP PRN (15:12)
[2018-11-06] MEDS ORDERED: *HR* HYDROcodone/Acet 5/325 mg TABLET PO PRN (15:12)
[2018-11-06] MEDS ORDERED: Insulin Regular, Human 100 UNIT/ML SQ PRN (15:12)
[2018-11-06 15:59] LABS: Hematocrit 27.2 % (37.5-50.1); Mean Corpuscular HGB Conc 33.1 g/dL (31.6-35.5); Mean Corpuscular Hemoglobin 30.1 pg (28.0-33.3); Mean Platelet Volume 10.7 fL (9.4-12.4); Platelet Count 170 K/mcL (140-400); Red Blood Count 2.99 M/mcL (4.19-5.50); Red Cell Distribution Width 14.2 % (11.5-14.5); White Blood Count 17.8 K/mcL (4.3-11.1)
[2018-11-06 16:16] LABS: Calcium 8.4 mg/dL (8.6-10.3); Potassium 5.4 mEq/L (3.5-5.1)
[2018-11-06] MEDS ORDERED: 0.9 % Sodium Chloride 250 ML ONE (16:26)
[2018-11-06] MEDS: Ipratropium/Albuterol Neb 3 ML IH SCH ×2 (16:36→20:02)
[2018-11-06] MEDS: 0.9 % Sodium Chloride 1,000 ML IVC SCH ×2 (16:53→23:10)
[2018-11-06] MEDS: Gabapentin 300 MG CAPSULE PO SCH ×2 (17:03→20:35)
[2018-11-06] MEDS: *HR* HYDROmorphone 2 MG/ML SYRINGE IVP PRN (18:40)
[2018-11-06] MEDS: Sennosides/Docusate Sodium TABLET PO SCH (20:35)
[2018-11-06] MEDS: Insulin DETEMIR 100 UNIT/ML X5UNITS SQ SCH (20:36)
[2018-11-06] MEDS: *HR* Heparin 5,000 UNIT/ML VIAL SQ SCH (20:36)
[2018-11-06] MEDS: Aspirin Enteric Coated 81 MG Tablet PO SCH (20:36)
[2018-11-06] MEDS: Famotidine 20 MG TABLET PO SCH (20:36)
[2018-11-06] MEDS: Latanoprost 2.5 ML BOTTLE LEFT EYE SCH (20:37)
[2018-11-06] MEDS ORDERED: *HR* Metformin 500 MG TABLET PO SCH (21:00)
[2018-11-07] MEDS: Ipratropium/Albuterol Neb 3 ML IH SCH ×7 (00:31→23:35)
[2018-11-07] MEDS: 0.9 % Sodium Chloride 1,000 ML IVC SCH ×3 (04:10→15:02)
[2018-11-07 04:53] LABS: Hematocrit 26.2 % (37.5-50.1); Hemoglobin 8.6 g/dL (12.9-16.9); Mean Corpuscular HGB Conc 32.8 g/dL (31.6-35.5); Mean Corpuscular Hemoglobin 29.8 pg (28.0-33.3); Mean Corpuscular Volume 90.7 fL (83.0-100.0); Mean Platelet Volume 11.6 fL (9.4-12.4); Platelet Count 181 K/mcL (140-400); Red Blood Count 2.89 M/mcL (4.19-5.50); Red Cell Distribution Width 15.2 % (11.5-14.5); White Blood Count 11.6 K/mcL (4.3-11.1)
[2018-11-07 05:05] LABS: Calcium 8.1 mg/dL (8.6-10.3); Magnesium 1.7 mg/dL (1.6-2.6); Potassium 5.8 mEq/L (3.5-5.1)
[2018-11-07] MEDS: *HR* Heparin 5,000 UNIT/ML VIAL SQ SCH ×3 (06:34→21:06)
[2018-11-07] MEDS: Famotidine 20 MG TABLET PO SCH ×2 (08:24→21:05)
[2018-11-07] MEDS: Isosorbide MONOnitrate (24 HR) 30 MG TAB.ER.24H PO SCH (08:24)
[2018-11-07] MEDS: Sennosides/Docusate Sodium TABLET PO SCH ×2 (08:24→21:05)
[2018-11-07] MEDS: Gabapentin 300 MG CAPSULE PO SCH ×2 (08:24→21:05)
[2018-11-07] MEDS ORDERED: Magnesium Sulfate 3 GM in 0.9 % Sodium Chloride 100 ML IVPB ONE (08:47)
[2018-11-07] MEDS ORDERED: Metoprolol XL (24 HR) Succ 50 MG TAB.ER.24H PO SCH (09:00)
[2018-11-07] MEDS ORDERED: D5% in Water 1,000 ML IVC PRN (10:14)
[2018-11-07] MEDS ORDERED: Dextrose Gel 15 GM/37.5 ML TUBE PO PRN ×2 (10:14)
[2018-11-07] MEDS ORDERED: *HR* Dextrose 50 % in Water (Syg) 50 ML SYRINGE IVP PRN (10:14)
[2018-11-07] MEDS ORDERED: 0.9 % Sodium Chloride 500 ML ONE (11:08)
[2018-11-07] MEDS: Insulin LISPRO 300 UNITS/3 ML VIAL SQ SCH ×3 (11:48→20:59)
[2018-11-07] MEDS ORDERED: Furosemide 40 MG TABLET PO SCH (14:26)
[2018-11-07] MEDS: Ondansetron 4 MG/2 ML VIAL IVP PRN (15:03)
[2018-11-07] MEDS ORDERED: 0.9 % Sodium Chloride 1,000 ML IVC ONE (15:50)
[2018-11-07] MEDS: Insulin DETEMIR 100 UNIT/ML X5UNITS SQ SCH (21:06)
[2018-11-07] MEDS: Aspirin Enteric Coated 81 MG Tablet PO SCH (21:06)
[2018-11-07] MEDS: Latanoprost 2.5 ML BOTTLE LEFT EYE SCH (21:06)
[2018-11-08] MEDS: *HR* HYDROcodone/Acet 7.5/325 mg TABLET PO PRN ×4 (01:22→16:46)
[2018-11-08] MEDS: *HR* HYDROmorphone 2 MG/ML SYRINGE IVP PRN (02:27)
[2018-11-08] MEDS: Ipratropium/Albuterol Neb 3 ML IH SCH ×6 (03:31→23:38)
[2018-11-08 04:36] LABS: Hematocrit 27.1 % (37.5-50.1); Hemoglobin 8.6 g/dL (12.9-16.9); Mean Corpuscular HGB Conc 31.7 g/dL (31.6-35.5); Mean Corpuscular Hemoglobin 28.9 pg (28.0-33.3); Mean Corpuscular Volume 90.9 fL (83.0-100.0); Mean Platelet Volume 11.1 fL (9.4-12.4); Platelet Count 140 K/mcL (140-400); Red Blood Count 2.98 M/mcL (4.19-5.50); Red Cell Distribution Width 15.7 % (11.5-14.5); White Blood Count 11.6 K/mcL (4.3-11.1)
[2018-11-08 04:59] LABS: Calcium 8.1 mg/dL (8.6-10.3); Potassium 5.5 mEq/L (3.5-5.1)
[2018-11-08] MEDS: *HR* Heparin 5,000 UNIT/ML VIAL SQ SCH ×3 (05:56→21:25)
[2018-11-08] MEDS: Gabapentin 300 MG CAPSULE PO SCH ×2 (07:42→21:24)
[2018-11-08] MEDS: Famotidine 20 MG TABLET PO SCH ×2 (07:43→21:24)
[2018-11-08] MEDS: Sennosides/Docusate Sodium TABLET PO SCH ×2 (07:43→21:24)
[2018-11-08] MEDS: 0.9 % Sodium Chloride 1,000 ML IVC SCH ×3 (07:43→16:46)
[2018-11-08] MEDS: Metoprolol XL (24 HR) Succ 25 MG TAB.ER.24H PO SCH (07:43)
[2018-11-08] MEDS: Isosorbide MONOnitrate (24 HR) 30 MG TAB.ER.24H PO SCH (07:43)
[2018-11-08] MEDS: Insulin LISPRO 300 UNITS/3 ML VIAL SQ SCH ×4 (07:44→21:26)
[2018-11-08] MEDS ORDERED: Naloxone 0.4 MG/ML INJ IVC ONE (09:35)
[2018-11-08] MEDS ORDERED: *HR* Atropine Sulfate 1 MG/10 ML SYRINGE IV ONE (09:35)
[2018-11-08 13:59] LABS: Sodium, Urine 31.2 mEq/L
[2018-11-08 15:04] LABS: Uric Acid 8.6 mg/dL (2.3-7.6)
[2018-11-08] MEDS: D5% in 0.45% NACL 1,000 ML IVC SCH (18:08)
[2018-11-08] MEDS ORDERED: Amiodarone Premix 150 MG/100 ML BAG IVPB ONE (21:05)
[2018-11-08] MEDS ORDERED: Amiodarone Premix 360 MG/200 ML BAG IVC ONE (21:05)
[2018-11-08] MEDS ORDERED: Amiodarone Premix 360 MG/200 ML BAG IVC SCH (21:15)
[2018-11-08] MEDS: Insulin DETEMIR 100 UNIT/ML X5UNITS SQ SCH (21:24)
[2018-11-08] MEDS: Aspirin Enteric Coated 81 MG Tablet PO SCH (21:24)
[2018-11-08] MEDS: Latanoprost 2.5 ML BOTTLE LEFT EYE SCH (21:28)
[2018-11-09] MEDS: Ipratropium/Albuterol Neb 3 ML IH SCH ×6 (03:51→23:30)
[2018-11-09] MEDS: *HR* Heparin 5,000 UNIT/ML VIAL SQ SCH ×3 (05:22→21:11)
[2018-11-09] MEDS: *HR* HYDROcodone/Acet 7.5/325 mg TABLET PO PRN ×2 (06:14→12:03)
[2018-11-09 06:56] LABS: Basophils # 0.1 K/mcL (0.0-0.2); Basophils % 0.4 %; Eosinophils # 0.1 K/mcL (0.0-0.6); Eosinophils % 0.3 %; Hemoglobin 8.9 g/dL (12.9-16.9); Immature Granulocytes % 0.5 % (0-4); Lymphocytes # 0.9 K/mcL (0.6-4.6); Lymphocytes % 6.6 %; Mean Corpuscular HGB Conc 31.8 g/dL (31.6-35.5); Mean Corpuscular Hemoglobin 29.6 pg (28.0-33.3); Mean Platelet Volume 11.8 fL (9.4-12.4); Monocytes # 1.7 K/mcL (0.0-1.3); Monocytes % 11.6 %; Neutrophils # 11.5 K/mcL (1.6-8.9); Nucleated Red Blood Cells 0.2 /100 WBC (0); Platelet Count 137 K/mcL (140-400); Red Blood Count 3.01 M/mcL (4.19-5.50); Red Cell Distribution Width 15.8 % (11.5-14.5); Segmented Neutrophils % 80.6 %; White Blood Count 14.3 K/mcL (4.3-11.1)
[2018-11-09 07:15] LABS: BUN/Creatinine Ratio 33 (6-26); Blood Urea Nitrogen 43 mg/dL (8-23); Calcium 8.3 mg/dL (8.6-10.3); Carbon Dioxide 19 mEq/L (23-29); Chloride 106 mEq/L (98-107); Glucose 190 mg/dL (70-105); Osmolality,Calculated 290 (280-300); Sodium 132 mEq/L (136-145); eGFR For African Americans > 60 (> 60); eGFR For Non-African Americans 53 (> 60)
[2018-11-09] MEDS: D5% in 0.45% NACL 1,000 ML IVC SCH ×2 (08:21→21:01)
[2018-11-09] MEDS: Insulin LISPRO 300 UNITS/3 ML VIAL SQ SCH ×4 (08:22→21:01)
[2018-11-09] MEDS: Gabapentin 300 MG CAPSULE PO SCH ×2 (08:33→21:10)
[2018-11-09] MEDS: Isosorbide MONOnitrate (24 HR) 30 MG TAB.ER.24H PO SCH (08:33)
[2018-11-09] MEDS: Famotidine 20 MG TABLET PO SCH ×2 (08:33→21:09)
[2018-11-09] MEDS: Sennosides/Docusate Sodium TABLET PO SCH ×2 (08:33→21:09)
[2018-11-09] MEDS: Metoprolol XL (24 HR) Succ 25 MG TAB.ER.24H PO SCH (08:33)
[2018-11-09 11:08] LABS: Bilirubin,Urine Small (Negative); Blood,Urine Large (Negative); Clarity,Urine Cloudy (Clear); Color,Urine Dark Yellow (Yellow); Glucose,Urine (UA) Normal (Normal); Ketones,Urine Negative (Negative); Leukocyte Esterase,Urine Negative (Negative); Nitrite,Urine Negative (Negative); Protein,Urine 100 mg/dL (Neg-Trace); Specific Gravity,Urine 1.011 (1.010-1.025); Urobilinogen,Urine Normal (Normal)
[2018-11-09 11:10] LABS: Bacteria,Urine None Seen per hpf (None-Few); Hyaline Casts,Urine Moderate per lpf (None-Few); Squamous Epithelial Cell,Urine Many per lpf (None-Few)
[2018-11-09 11:18] LABS: Creatine Kinase 750 Units/L (30-223); Uric Acid 7.9 mg/dL (2.3-7.6)
[2018-11-09 11:18] LABS: RBC,Urine 30-50 per hpf (0-3)
[2018-11-09] MEDS: Aspirin Enteric Coated 81 MG Tablet PO SCH (21:10)
[2018-11-09] MEDS: Latanoprost 2.5 ML BOTTLE LEFT EYE SCH (21:12)
[2018-11-09] MEDS: Insulin DETEMIR 100 UNIT/ML X5UNITS SQ SCH (21:12)
[2018-11-10] MEDS: Ipratropium/Albuterol Neb 3 ML IH SCH ×6 (04:15→23:48)
[2018-11-10 04:33] LABS: Basophils # 0.1 K/mcL (0.0-0.2); Basophils % 0.5 %; Eosinophils # 0.1 K/mcL (0.0-0.6); Eosinophils % 0.4 %; Hematocrit 30.6 % (37.5-50.1); Hemoglobin 9.4 g/dL (12.9-16.9); Immature Granulocytes % 0.6 % (0-4); Lymphocytes # 1.6 K/mcL (0.6-4.6); Lymphocytes % 9.3 %; Mean Corpuscular HGB Conc 30.7 g/dL (31.6-35.5); Mean Corpuscular Hemoglobin 29.5 pg (28.0-33.3); Mean Corpuscular Volume 95.9 fL (83.0-100.0); Monocytes % 16.9 %; Neutrophils # 12.6 K/mcL (1.6-8.9); Nucleated Red Blood Cells 0.7 /100 WBC (0); Platelet Count 178 K/mcL (140-400); Red Blood Count 3.19 M/mcL (4.19-5.50); Red Cell Distribution Width 15.4 % (11.5-14.5); Segmented Neutrophils % 72.3 %; White Blood Count 17.4 K/mcL (4.3-11.1)
[2018-11-10 04:52] LABS: Calcium 8.4 mg/dL (8.6-10.3); Potassium 5.6 mEq/L (3.5-5.1)
[2018-11-10 05:00] LABS: Monocytes # 2.9 K/mcL (0.0-1.3)
[2018-11-10 05:01] LABS: Ovalocytes 2+ (Not Present)
[2018-11-10 05:02] LABS: Burr Cells 1+ (Not Present); Platelet Estimate Slight Decrease (Normal)
[2018-11-10] MEDS: *HR* Heparin 5,000 UNIT/ML VIAL SQ SCH ×2 (06:50→19:31)
[2018-11-10] MEDS: Insulin LISPRO 300 UNITS/3 ML VIAL SQ SCH ×4 (08:12→20:21)
[2018-11-10] MEDS: Famotidine 20 MG TABLET PO SCH ×3 (09:25→20:48)
[2018-11-10] MEDS: Gabapentin 300 MG CAPSULE PO SCH ×3 (09:27→20:48)
[2018-11-10] MEDS: Sennosides/Docusate Sodium TABLET PO SCH ×3 (09:27→20:48)
[2018-11-10] MEDS: Isosorbide MONOnitrate (24 HR) 30 MG TAB.ER.24H PO SCH (09:27)
[2018-11-10] MEDS: Metoprolol XL (24 HR) Succ 25 MG TAB.ER.24H PO SCH (09:27)
[2018-11-10] MEDS ORDERED: *HR* Heparin 5,000 UNIT/ML VIAL IVP ONE (16:14)
[2018-11-10] MEDS ORDERED: *HR* Heparin 5,000 UNIT/ML VIAL IVP PRN ×2 (16:14)
[2018-11-10] MEDS: Heparin 25,000 UNIT/250 ML D5W 25,000 UNIT/250 ML IV.SOLN IVC SCH (17:11)
[2018-11-10] MEDS: levoFLOXacin 500 MG/100 ML 500 MG/100 ML BAG IVPB SCH (17:13)
[2018-11-10 17:53] LABS: Hemoglobin 9.4 g/dL (12.9-16.9); Mean Corpuscular HGB Conc 31.3 g/dL (31.6-35.5); Mean Corpuscular Hemoglobin 29.7 pg (28.0-33.3); Mean Corpuscular Volume 94.9 fL (83.0-100.0); Mean Platelet Volume 11.9 fL (9.4-12.4); Platelet Count 223 K/mcL (140-400); Red Blood Count 3.16 M/mcL (4.19-5.50); Red Cell Distribution Width 15.6 % (11.5-14.5); White Blood Count 16.2 K/mcL (4.3-11.1)
[2018-11-10 18:05] LABS: Heparin anti-factor XA UFH 0.04 IU/mL (0.30-0.70); INR 1.3; Prothrombin Time 14.7 Seconds (9.4-12.1)
[2018-11-10] MEDS ORDERED: Perflutren Lipid Microsphere 1.3 ML in 0.9 % Sodium Chloride 8.7 ML IVP ONE (18:57)
[2018-11-10] MEDS: D5% in 0.45% NACL 1,000 ML IVC SCH (19:31)
[2018-11-10] MEDS: Latanoprost 2.5 ML BOTTLE LEFT EYE SCH (20:20)
[2018-11-10] MEDS: Aspirin Enteric Coated 81 MG Tablet PO SCH (20:20)
[2018-11-10] MEDS: Insulin DETEMIR 100 UNIT/ML X5UNITS SQ SCH (20:58)
[2018-11-11] MEDS: Ipratropium/Albuterol Neb 3 ML IH SCH ×5 (04:07→20:13)
[2018-11-11 04:26] LABS: Hematocrit 28.2 % (37.5-50.1); Hemoglobin 9.2 g/dL (12.9-16.9); Mean Corpuscular HGB Conc 32.6 g/dL (31.6-35.5); Mean Corpuscular Hemoglobin 29.5 pg (28.0-33.3); Mean Corpuscular Volume 90.4 fL (83.0-100.0); Platelet Count 204 K/mcL (140-400); Red Blood Count 3.12 M/mcL (4.19-5.50); Red Cell Distribution Width 15.8 % (11.5-14.5); White Blood Count 18.5 K/mcL (4.3-11.1)
[2018-11-11 04:34] LABS: Calcium 8.5 mg/dL (8.6-10.3); Magnesium 2.3 mg/dL (1.6-2.6); Potassium 6.1 mEq/L (3.5-5.1)
[2018-11-11] MEDS: Gabapentin 300 MG CAPSULE PO SCH (07:50)
[2018-11-11] MEDS: Famotidine 20 MG TABLET PO SCH ×2 (07:50→21:07)
[2018-11-11] MEDS: Isosorbide MONOnitrate (24 HR) 30 MG TAB.ER.24H PO SCH (07:52)
[2018-11-11] MEDS: Sennosides/Docusate Sodium TABLET PO SCH ×2 (07:52→21:51)
[2018-11-11] MEDS: Metoprolol XL (24 HR) Succ 25 MG TAB.ER.24H PO SCH (07:52)
[2018-11-11] MEDS: levoFLOXacin 500 MG/100 ML 500 MG/100 ML BAG IVPB SCH (07:52)
[2018-11-11] MEDS: Insulin LISPRO 300 UNITS/3 ML VIAL SQ SCH ×4 (07:53→21:07)
[2018-11-11] MEDS: Sodium Bicarbonate 50 MEQ in 0.45 % Sodium Chloride 1,000 ML IVC SCH (13:13)
[2018-11-11 16:41] LABS: Calcium 8.5 mg/dL (8.6-10.3); Potassium 5.6 mEq/L (3.5-5.1)
[2018-11-11] MEDS: Nicotine 14 MG PATCH.TD24 TD SCH (21:06)
[2018-11-11] MEDS: Aspirin Enteric Coated 81 MG Tablet PO SCH (21:07)
[2018-11-11] MEDS: Latanoprost 2.5 ML BOTTLE LEFT EYE SCH (21:08)
[2018-11-12] MEDS: Ipratropium/Albuterol Neb 3 ML IH SCH ×7 (00:12→23:58)
[2018-11-12] MEDS: Sodium Bicarbonate 50 MEQ in 0.45 % Sodium Chloride 1,000 ML IVC SCH (00:20)
[2018-11-12] MEDS: Heparin 25,000 UNIT/250 ML D5W 25,000 UNIT/250 ML IV.SOLN IVC SCH ×2 (00:30→18:37)
[2018-11-12 02:17] LABS: Basophils % 0.2 %; Eosinophils # 0.1 K/mcL (0.0-0.6); Eosinophils % 0.8 %; Hematocrit 25.4 % (37.5-50.1); Hematocrit 25.6 % (37.5-50.1); Hemoglobin 8.3 g/dL (12.9-16.9); Mean Corpuscular HGB Conc 32.4 g/dL (31.6-35.5); Mean Corpuscular HGB Conc 32.7 g/dL (31.6-35.5); Mean Corpuscular Hemoglobin 29.7 pg (28.0-33.3); Mean Corpuscular Hemoglobin 30.1 pg (28.0-33.3); Mean Corpuscular Volume 92.8 fL (83.0-100.0); Mean Platelet Volume 10.9 fL (9.4-12.4); Monocytes # 1.8 K/mcL (0.0-1.3); Monocytes % 13.1 %; Neutrophils # 10.7 K/mcL (1.6-8.9); Nucleated Red Blood Cells 1.5 /100 WBC (0); Platelet Count 206 K/mcL (140-400); Platelet Count 209 K/mcL (140-400); Red Blood Count 2.76 M/mcL (4.19-5.50); Red Blood Count 2.79 M/mcL (4.19-5.50); Red Cell Distribution Width 15.7 % (11.5-14.5); Red Cell Distribution Width 15.9 % (11.5-14.5); Segmented Neutrophils % 77.9 %; White Blood Count 13.8 K/mcL (4.3-11.1)
[2018-11-12 02:29] LABS: Calcium 8.2 mg/dL (8.6-10.3); Potassium 4.9 mEq/L (3.5-5.1)
[2018-11-12] MEDS: Ondansetron 4 MG/2 ML VIAL IVP PRN ×2 (02:43→09:35)
[2018-11-12] MEDS: Nicotine 14 MG PATCH.TD24 TD SCH (08:14)
[2018-11-12] MEDS: Sennosides/Docusate Sodium TABLET PO SCH ×2 (08:15→21:14)
[2018-11-12] MEDS: Isosorbide MONOnitrate (24 HR) 30 MG TAB.ER.24H PO SCH (08:15)
[2018-11-12] MEDS: Metoprolol XL (24 HR) Succ 25 MG TAB.ER.24H PO SCH (08:15)
[2018-11-12] MEDS: levoFLOXacin 500 MG/100 ML 500 MG/100 ML BAG IVPB SCH (08:15)
[2018-11-12] MEDS: Famotidine 20 MG TABLET PO SCH ×2 (08:15→21:46)
[2018-11-12] MEDS: Insulin LISPRO 300 UNITS/3 ML VIAL SQ SCH ×4 (08:23→20:31)
[2018-11-12] MEDS: *HR* HYDROcodone/Acet 7.5/325 mg TABLET PO PRN (12:55)
[2018-11-12] MEDS ORDERED: Lidocaine -MPF 1% 5 ML AMPUL INFILT ONE (13:02)
[2018-11-12] MEDS: Aspirin Enteric Coated 81 MG Tablet PO SCH (21:46)
[2018-11-12] MEDS: Latanoprost 2.5 ML BOTTLE LEFT EYE SCH (21:47)
[2018-11-13] MEDS: *HR* HYDROcodone/Acet 7.5/325 mg TABLET PO PRN (02:52)
[2018-11-13] MEDS: Ipratropium/Albuterol Neb 3 ML IH SCH ×5 (04:01→19:55)
[2018-11-13 05:08] LABS: Hematocrit 27.1 % (37.5-50.1); Hemoglobin 8.7 g/dL (12.9-16.9); Mean Corpuscular HGB Conc 32.1 g/dL (31.6-35.5); Mean Corpuscular Hemoglobin 29.4 pg (28.0-33.3); Mean Corpuscular Volume 91.6 fL (83.0-100.0); Mean Platelet Volume 10.9 fL (9.4-12.4); Platelet Count 234 K/mcL (140-400); Red Blood Count 2.96 M/mcL (4.19-5.50); Red Cell Distribution Width 15.9 % (11.5-14.5); White Blood Count 8.1 K/mcL (4.3-11.1)
[2018-11-13 05:23] LABS: BUN/Creatinine Ratio 36 (6-26); Blood Urea Nitrogen 36 mg/dL (8-23); Calcium 7.8 mg/dL (8.6-10.3); Carbon Dioxide 21 mEq/L (23-29); Chloride 103 mEq/L (98-107); Glucose 163 mg/dL (70-105); Osmolality,Calculated 284 (280-300); Potassium 4.4 mEq/L (3.5-5.1); Sodium 131 mEq/L (136-145); eGFR For African Americans > 60 (> 60); eGFR For Non-African Americans > 60 (> 60)
[2018-11-13] MEDS: Heparin 25,000 UNIT/250 ML D5W 25,000 UNIT/250 ML IV.SOLN IVC SCH ×2 (05:31→20:22)
[2018-11-13] MEDS: *HR* Metoprolol 5 MG/5 ML VIAL IVP ONE ×2 (06:35→06:53)
[2018-11-13] MEDS ORDERED: Furosemide 40 MG/4 ML VIAL IVP ONE (08:09)
[2018-11-13] MEDS ORDERED: Iron Sucrose Complex 400 MG in 0.9 % Sodium Chloride 250 ML IVPB ONE (08:16)
[2018-11-13] MEDS: levoFLOXacin 500 MG/100 ML 500 MG/100 ML BAG IVPB SCH (08:46)
[2018-11-13] MEDS: Insulin LISPRO 300 UNITS/3 ML VIAL SQ SCH ×4 (08:49→20:23)
[2018-11-13] MEDS: Isosorbide MONOnitrate (24 HR) 30 MG TAB.ER.24H PO SCH (08:50)
[2018-11-13] MEDS: Famotidine 20 MG TABLET PO SCH ×2 (08:51→20:23)
[2018-11-13] MEDS: Sennosides/Docusate Sodium TABLET PO SCH ×2 (08:51→20:23)
[2018-11-13] MEDS: Metoprolol XL (24 HR) Succ 25 MG TAB.ER.24H PO SCH (08:52)
[2018-11-13] MEDS: Nicotine 14 MG PATCH.TD24 TD SCH (08:57)
[2018-11-13 14:45] LABS: BUN/Creatinine Ratio 32 (6-26); Blood Urea Nitrogen 30 mg/dL (8-23); Calcium 7.4 mg/dL (8.6-10.3); Carbon Dioxide 24 mEq/L (23-29); Chloride 102 mEq/L (98-107); Glucose 115 mg/dL (70-105); Magnesium 1.7 mg/dL (1.6-2.6); Osmolality,Calculated 281 (280-300); Potassium 3.9 mEq/L (3.5-5.1); Sodium 132 mEq/L (136-145); eGFR For African Americans > 60 (> 60); eGFR For Non-African Americans > 60 (> 60)
[2018-11-13] MEDS ORDERED: Magnesium Sulfate 4 GM in 0.9 % Sodium Chloride 100 ML IVPB ONE (15:12)
[2018-11-13] MEDS ORDERED: D5% in Water 1,000 ML IVC PRN (18:15)
[2018-11-13] MEDS ORDERED: *HR* Heparin 5,000 UNIT/ML VIAL IVP PRN ×2 (18:15)
[2018-11-13] MEDS ORDERED: Naloxone 0.4 MG/ML INJ IVP PRN (18:15)
[2018-11-13] MEDS ORDERED: Dextrose Gel 15 GM/37.5 ML TUBE PO PRN ×2 (18:15)
[2018-11-13] MEDS ORDERED: *HR* Dextrose 50 % in Water (Syg) 50 ML SYRINGE IVP PRN (18:15)
[2018-11-13] MEDS ORDERED: Ondansetron 4 MG/2 ML VIAL IVP PRN (18:15)
[2018-11-13] MEDS: Aspirin Enteric Coated 81 MG Tablet PO SCH (20:23)
[2018-11-13] MEDS: Latanoprost 2.5 ML BOTTLE LEFT EYE SCH (20:23)
[2018-11-14] MEDS: Ipratropium/Albuterol Neb 3 ML IH SCH ×6 (00:35→20:02)
[2018-11-14 03:51] LABS: Basophils % 0.6 %; Eosinophils # 0.3 K/mcL (0.0-0.6); Hemoglobin 8.2 g/dL (12.9-16.9); Immature Granulocytes % 1.4 % (0-4); Lymphocytes # 0.8 K/mcL (0.6-4.6); Mean Corpuscular HGB Conc 32.8 g/dL (31.6-35.5); Mean Corpuscular Hemoglobin 29.6 pg (28.0-33.3); Mean Corpuscular Volume 90.3 fL (83.0-100.0); Mean Platelet Volume 10.5 fL (9.4-12.4); Monocytes # 1.6 K/mcL (0.0-1.3); Monocytes % 22.6 %; Neutrophils # 4.4 K/mcL (1.6-8.9); Platelet Count 216 K/mcL (140-400); Red Blood Count 2.77 M/mcL (4.19-5.50); Red Cell Distribution Width 15.9 % (11.5-14.5); Segmented Neutrophils % 60.4 %; White Blood Count 7.2 K/mcL (4.3-11.1)
[2018-11-14 03:59] LABS: Heparin anti-factor XA UFH 0.36 IU/mL (0.30-0.70); INR 1.3; Prothrombin Time 15.2 Seconds (9.4-12.1)
[2018-11-14 04:13] LABS: BUN/Creatinine Ratio 27 (6-26); Blood Urea Nitrogen 25 mg/dL (8-23); Calcium 7.5 mg/dL (8.6-10.3); Carbon Dioxide 23 mEq/L (23-29); Chloride 103 mEq/L (98-107); Glucose 128 mg/dL (70-105); Magnesium 2.3 mg/dL (1.6-2.6); Osmolality,Calculated 280 (280-300); Platelet Estimate Normal (Normal); Potassium 4.4 mEq/L (3.5-5.1); Sodium 132 mEq/L (136-145); eGFR For African Americans > 60 (> 60); eGFR For Non-African Americans > 60 (> 60)
[2018-11-14 04:15] LABS: Anisocytosis 1+ (Not Present)
[2018-11-14 04:17] LABS: Poikilocytosis 1+ (Not Present); Polychromasia 1+ (Not Present)
[2018-11-14] MEDS: Insulin LISPRO 300 UNITS/3 ML VIAL SQ SCH ×4 (08:43→21:55)
[2018-11-14] MEDS: Famotidine 20 MG TABLET PO SCH ×2 (08:47→20:38)
[2018-11-14] MEDS ORDERED: Furosemide 20 MG/2 ML VIAL IVP ONE (08:47)
[2018-11-14] MEDS: Isosorbide MONOnitrate (24 HR) 30 MG TAB.ER.24H PO SCH (08:47)
[2018-11-14] MEDS: Metoprolol XL (24 HR) Succ 25 MG TAB.ER.24H PO SCH (08:48)
[2018-11-14] MEDS: *HR* Acetylcysteine 20% 600 MG/3 ML ORAL SYRINGE PO SCH ×2 (08:49→20:38)
[2018-11-14] MEDS: Sennosides/Docusate Sodium TABLET PO SCH ×2 (08:54→20:37)
[2018-11-14] MEDS: Nicotine 14 MG PATCH.TD24 TD SCH (08:54)
[2018-11-14] MEDS ORDERED: levoFLOXacin 500 MG TABLET PO SCH (09:00)
[2018-11-14] MEDS: Heparin 25,000 UNIT/250 ML D5W 25,000 UNIT/250 ML IV.SOLN IVC SCH (12:10)
[2018-11-14] MEDS: *HR* HYDROcodone/Acet 7.5/325 mg TABLET PO PRN ×2 (16:27→23:28)
[2018-11-14] MEDS: Aspirin Enteric Coated 81 MG Tablet PO SCH (20:38)
[2018-11-14] MEDS: Latanoprost 2.5 ML BOTTLE LEFT EYE SCH (20:40)
[2018-11-15] MEDS: Ipratropium/Albuterol Neb 3 ML IH SCH ×7 (00:32→23:27)
[2018-11-15 06:22] LABS: Hematocrit 25.2 % (37.5-50.1); Hemoglobin 7.8 g/dL (12.9-16.9); Mean Corpuscular Hemoglobin 28.4 pg (28.0-33.3); Mean Corpuscular Volume 91.6 fL (83.0-100.0); Mean Platelet Volume 10.4 fL (9.4-12.4); Platelet Count 201 K/mcL (140-400); Red Blood Count 2.75 M/mcL (4.19-5.50); Red Cell Distribution Width 16.4 % (11.5-14.5)
[2018-11-15 06:40] LABS: % Iron Saturation 24 % (20-55); Iron 48 mcg/dL (65-175); Transferrin 142 mg/dL (203-362)
[2018-11-15 06:41] LABS: BUN/Creatinine Ratio 23 (6-26); Blood Urea Nitrogen 25 mg/dL (8-23); Calcium 7.6 mg/dL (8.6-10.3); Carbon Dioxide 24 mEq/L (23-29); Chloride 99 mEq/L (98-107); Glucose 168 mg/dL (70-105); Osmolality,Calculated 282 (280-300); Potassium 4.1 mEq/L (3.5-5.1); Sodium 132 mEq/L (136-145); eGFR For African Americans > 60 (> 60); eGFR For Non-African Americans > 60 (> 60)
[2018-11-15] MEDS: Isosorbide MONOnitrate (24 HR) 30 MG TAB.ER.24H PO SCH (08:09)
[2018-11-15] MEDS: Metoprolol XL (24 HR) Succ 25 MG TAB.ER.24H PO SCH (08:09)
[2018-11-15] MEDS: Famotidine 20 MG TABLET PO SCH ×2 (08:09→20:04)
[2018-11-15] MEDS: Insulin LISPRO 300 UNITS/3 ML VIAL SQ SCH ×4 (08:10→20:06)
[2018-11-15] MEDS: Sennosides/Docusate Sodium TABLET PO SCH ×2 (08:10→20:04)
[2018-11-15] MEDS: *HR* Acetylcysteine 20% 600 MG/3 ML ORAL SYRINGE PO SCH ×2 (08:10→20:04)
[2018-11-15] MEDS: Nicotine 14 MG PATCH.TD24 TD SCH (08:16)
[2018-11-15] MEDS ORDERED: Iron Sucrose Complex 400 MG in 0.9 % Sodium Chloride 250 ML IVPB ONE ×2 (08:57→09:00)
[2018-11-15] MEDS: Furosemide 20 MG/2 ML VIAL IVP SCH ×2 (11:54→20:05)
[2018-11-15] MEDS: Heparin 25,000 UNIT/250 ML D5W 25,000 UNIT/250 ML IV.SOLN IVC SCH (15:25)
[2018-11-15] MEDS: *HR* HYDROcodone/Acet 7.5/325 mg TABLET PO PRN (20:03)
[2018-11-15] MEDS: Aspirin Enteric Coated 81 MG Tablet PO SCH (20:04)
[2018-11-15] MEDS: Latanoprost 2.5 ML BOTTLE LEFT EYE SCH (20:08)
[2018-11-16] MEDS: Ipratropium/Albuterol Neb 3 ML IH SCH ×6 (03:36→23:18)
[2018-11-16] MEDS: *HR* HYDROcodone/Acet 7.5/325 mg TABLET PO PRN (05:58)
[2018-11-16 06:09] LABS: Hematocrit 24.3 % (37.5-50.1); Hemoglobin 7.7 g/dL (12.9-16.9); Mean Corpuscular HGB Conc 31.7 g/dL (31.6-35.5); Mean Corpuscular Hemoglobin 29.2 pg (28.0-33.3); Mean Platelet Volume 10.1 fL (9.4-12.4); Platelet Count 194 K/mcL (140-400); Red Blood Count 2.64 M/mcL (4.19-5.50); Red Cell Distribution Width 16.8 % (11.5-14.5); White Blood Count 8.3 K/mcL (4.3-11.1)
[2018-11-16 06:26] LABS: BUN/Creatinine Ratio 20 (6-26); Blood Urea Nitrogen 20 mg/dL (8-23); Calcium 7.7 mg/dL (8.6-10.3); Carbon Dioxide 26 mEq/L (23-29); Chloride 98 mEq/L (98-107); Glucose 155 mg/dL (70-105); Osmolality,Calculated 280 (280-300); Potassium 3.8 mEq/L (3.5-5.1); Sodium 132 mEq/L (136-145); eGFR For African Americans > 60 (> 60); eGFR For Non-African Americans > 60 (> 60)
[2018-11-16] MEDS: Famotidine 20 MG TABLET PO SCH ×2 (09:36→19:58)
[2018-11-16] MEDS: Sennosides/Docusate Sodium TABLET PO SCH ×2 (09:36→19:58)
[2018-11-16] MEDS: Furosemide 20 MG/2 ML VIAL IVP SCH ×2 (09:36→19:57)
[2018-11-16] MEDS: Isosorbide MONOnitrate (24 HR) 30 MG TAB.ER.24H PO SCH (09:36)
[2018-11-16] MEDS: Metoprolol XL (24 HR) Succ 25 MG TAB.ER.24H PO SCH (09:37)
[2018-11-16] MEDS: Insulin LISPRO 300 UNITS/3 ML VIAL SQ SCH ×4 (09:37→21:12)
[2018-11-16] MEDS: Nicotine 14 MG PATCH.TD24 TD SCH (09:37)
[2018-11-16] MEDS: Heparin 25,000 UNIT/250 ML D5W 25,000 UNIT/250 ML IV.SOLN IVC SCH (18:26)
[2018-11-16] MEDS: Latanoprost 2.5 ML BOTTLE LEFT EYE SCH (20:00)
[2018-11-16] MEDS: Aspirin Enteric Coated 81 MG Tablet PO SCH (20:00)
[2018-11-17 02:31] LABS: Hematocrit 26.7 % (37.5-50.1); Hemoglobin 8.3 g/dL (12.9-16.9); Mean Corpuscular HGB Conc 31.1 g/dL (31.6-35.5); Mean Corpuscular Hemoglobin 28.6 pg (28.0-33.3); Mean Corpuscular Volume 92.1 fL (83.0-100.0); Mean Platelet Volume 10.1 fL (9.4-12.4); Platelet Count 203 K/mcL (140-400); Red Cell Distribution Width 17.4 % (11.5-14.5)
[2018-11-17 02:32] LABS: White Blood Count 13.5 K/mcL (4.3-11.1)
[2018-11-17 02:51] LABS: BUN/Creatinine Ratio 19 (6-26); Blood Urea Nitrogen 18 mg/dL (8-23); Calcium 7.8 mg/dL (8.6-10.3); Carbon Dioxide 26 mEq/L (23-29); Chloride 100 mEq/L (98-107); Glucose 117 mg/dL (70-105); Magnesium 1.7 mg/dL (1.6-2.6); Osmolality,Calculated 279 (280-300); Sodium 133 mEq/L (136-145); eGFR For African Americans > 60 (> 60); eGFR For Non-African Americans > 60 (> 60)
[2018-11-17] MEDS: Ipratropium/Albuterol Neb 3 ML IH SCH ×6 (03:09→23:22)
[2018-11-17] MEDS: Famotidine 20 MG TABLET PO SCH ×2 (07:39→19:50)
[2018-11-17] MEDS: *HR* HYDROcodone/Acet 7.5/325 mg TABLET PO PRN ×3 (07:40→17:45)
[2018-11-17] MEDS: Sennosides/Docusate Sodium TABLET PO SCH ×2 (07:40→19:50)
[2018-11-17] MEDS: Metoprolol XL (24 HR) Succ 25 MG TAB.ER.24H PO SCH (07:40)
[2018-11-17] MEDS: Nicotine 14 MG PATCH.TD24 TD SCH (07:40)
[2018-11-17] MEDS: Isosorbide MONOnitrate (24 HR) 30 MG TAB.ER.24H PO SCH (07:40)
[2018-11-17] MEDS: Insulin LISPRO 300 UNITS/3 ML VIAL SQ SCH ×4 (07:41→21:30)
[2018-11-17] MEDS: Heparin 25,000 UNIT/250 ML D5W 25,000 UNIT/250 ML IV.SOLN IVC SCH (12:27)
[2018-11-17] MEDS: Aspirin Enteric Coated 81 MG Tablet PO SCH (19:50)
[2018-11-17] MEDS: Latanoprost 2.5 ML BOTTLE LEFT EYE SCH (19:50)
[2018-11-18] MEDS: Ipratropium/Albuterol Neb 3 ML IH SCH ×6 (03:30→23:35)
[2018-11-18 04:48] LABS: Hematocrit 26.2 % (37.5-50.1); Hemoglobin 8.2 g/dL (12.9-16.9); Mean Corpuscular HGB Conc 31.3 g/dL (31.6-35.5); Mean Corpuscular Hemoglobin 29.8 pg (28.0-33.3); Mean Corpuscular Volume 95.3 fL (83.0-100.0); Mean Platelet Volume 10.2 fL (9.4-12.4); Platelet Count 189 K/mcL (140-400); Red Blood Count 2.75 M/mcL (4.19-5.50); Red Cell Distribution Width 18.4 % (11.5-14.5); White Blood Count 16.7 K/mcL (4.3-11.1)
[2018-11-18 05:07] LABS: BUN/Creatinine Ratio 18 (6-26); Blood Urea Nitrogen 17 mg/dL (8-23); Calcium 7.9 mg/dL (8.6-10.3); Carbon Dioxide 24 mEq/L (23-29); Chloride 99 mEq/L (98-107); Glucose 109 mg/dL (70-105); Osmolality,Calculated 272 (280-300); Potassium 4.3 mEq/L (3.5-5.1); Sodium 130 mEq/L (136-145); eGFR For African Americans > 60 (> 60); eGFR For Non-African Americans > 60 (> 60)
[2018-11-18] MEDS: Insulin LISPRO 300 UNITS/3 ML VIAL SQ SCH ×4 (07:23→21:59)
[2018-11-18] MEDS: Furosemide 40 MG TABLET PO SCH (07:23)
[2018-11-18] MEDS: Isosorbide MONOnitrate (24 HR) 30 MG TAB.ER.24H PO SCH (07:23)
[2018-11-18] MEDS: Famotidine 20 MG TABLET PO SCH ×2 (07:24→19:49)
[2018-11-18] MEDS: Nicotine 14 MG PATCH.TD24 TD SCH (07:24)
[2018-11-18] MEDS: Sennosides/Docusate Sodium TABLET PO SCH ×2 (07:25→19:49)
[2018-11-18] MEDS: Potassium Citrate 10 MEQ TABLET.ER PO SCH (07:25)
[2018-11-18] MEDS: Metoprolol XL (24 HR) Succ 25 MG TAB.ER.24H PO SCH (07:25)
[2018-11-18] MEDS: 0.9 % Sodium Chloride 1,000 ML IVC SCH ×2 (07:26→19:58)
[2018-11-18] MEDS: *HR* HYDROcodone/Acet 7.5/325 mg TABLET PO PRN ×4 (07:27→21:52)
[2018-11-18] MEDS: Heparin 25,000 UNIT/250 ML D5W 25,000 UNIT/250 ML IV.SOLN IVC SCH (07:42)
[2018-11-18] MEDS: cefTRIAXone 2,000 MG in Water for inj. (sterile) 20 ML IVP SCH (13:18)
[2018-11-18] MEDS: Aspirin Enteric Coated 81 MG Tablet PO SCH (19:49)
[2018-11-18] MEDS: Latanoprost 2.5 ML BOTTLE LEFT EYE SCH (19:50)
[2018-11-18] MEDS ORDERED: Furosemide 20 MG/2 ML VIAL IVP ONE (21:47)
[2018-11-18] MEDS: Furosemide 20 MG/2 ML VIAL IVP ONE ×2 (21:52→21:53)
[2018-11-19] MEDS: 0.9 % Sodium Chloride 1,000 ML IVC SCH ×2 (01:56→08:09)
[2018-11-19] MEDS: Ipratropium/Albuterol Neb 3 ML IH SCH ×6 (04:09→23:05)
[2018-11-19 04:19] LABS: Hematocrit 27.4 % (37.5-50.1); Hemoglobin 8.5 g/dL (12.9-16.9); Mean Corpuscular Hemoglobin 29.8 pg (28.0-33.3); Mean Corpuscular Volume 96.1 fL (83.0-100.0); Mean Platelet Volume 10.2 fL (9.4-12.4); Platelet Count 176 K/mcL (140-400); Red Blood Count 2.85 M/mcL (4.19-5.50); Red Cell Distribution Width 18.6 % (11.5-14.5); White Blood Count 17.3 K/mcL (4.3-11.1)
[2018-11-19 04:36] LABS: BUN/Creatinine Ratio 19 (6-26); Blood Urea Nitrogen 21 mg/dL (8-23); Calcium 8.1 mg/dL (8.6-10.3); Carbon Dioxide 24 mEq/L (23-29); Chloride 98 mEq/L (98-107); Glucose 176 mg/dL (70-105); Osmolality,Calculated 279 (280-300); Potassium 4.4 mEq/L (3.5-5.1); Sodium 131 mEq/L (136-145); eGFR For African Americans > 60 (> 60); eGFR For Non-African Americans > 60 (> 60)
[2018-11-19] MEDS: Sennosides/Docusate Sodium TABLET PO SCH ×2 (08:07→20:35)
[2018-11-19] MEDS: Potassium Citrate 10 MEQ TABLET.ER PO SCH (08:08)
[2018-11-19] MEDS: Famotidine 20 MG TABLET PO SCH ×2 (08:08→20:35)
[2018-11-19] MEDS: Furosemide 40 MG TABLET PO SCH (08:08)
[2018-11-19] MEDS: Metoprolol XL (24 HR) Succ 25 MG TAB.ER.24H PO SCH (08:09)
[2018-11-19] MEDS: Insulin LISPRO 300 UNITS/3 ML VIAL SQ SCH ×4 (08:09→20:39)
[2018-11-19] MEDS: Nicotine 14 MG PATCH.TD24 TD SCH (08:10)
[2018-11-19] MEDS: Isosorbide MONOnitrate (24 HR) 30 MG TAB.ER.24H PO SCH (08:10)
[2018-11-19] MEDS: cefTRIAXone 2,000 MG in Water for inj. (sterile) 20 ML IVP SCH (12:58)
[2018-11-19] MEDS: Aspirin Enteric Coated 81 MG Tablet PO SCH (20:35)
[2018-11-19] MEDS: Latanoprost 2.5 ML BOTTLE LEFT EYE SCH (20:35)
[2018-11-20] MEDS: Ipratropium/Albuterol Neb 3 ML IH SCH ×5 (03:24→20:03)
[2018-11-20] MEDS: *HR* HYDROcodone/Acet 7.5/325 mg TABLET PO PRN ×4 (03:26→18:10)
[2018-11-20 06:41] LABS: Hematocrit 26.3 % (37.5-50.1); Mean Corpuscular HGB Conc 30.4 g/dL (31.6-35.5); Mean Corpuscular Hemoglobin 29.2 pg (28.0-33.3); Mean Platelet Volume 10.3 fL (9.4-12.4); Platelet Count 158 K/mcL (140-400); Red Blood Count 2.74 M/mcL (4.19-5.50); Red Cell Distribution Width 18.7 % (11.5-14.5); White Blood Count 17.4 K/mcL (4.3-11.1)
[2018-11-20 07:00] LABS: % Iron Saturation 5 % (20-55); BUN/Creatinine Ratio 19 (6-26); Blood Urea Nitrogen 21 mg/dL (8-23); Calcium 8.2 mg/dL (8.6-10.3); Carbon Dioxide 25 mEq/L (23-29); Chloride 95 mEq/L (98-107); Glucose 155 mg/dL (70-105); Iron 10 mcg/dL (65-175); Magnesium 1.8 mg/dL (1.6-2.6); Osmolality,Calculated 274 (280-300); Potassium 4.3 mEq/L (3.5-5.1); Sodium 129 mEq/L (136-145); Transferrin 130 mg/dL (203-362); eGFR For African Americans > 60 (> 60); eGFR For Non-African Americans > 60 (> 60)
[2018-11-20] MEDS: Metoprolol XL (24 HR) Succ 25 MG TAB.ER.24H PO SCH (08:59)
[2018-11-20] MEDS: Furosemide 40 MG TABLET PO SCH (08:59)
[2018-11-20] MEDS: Isosorbide MONOnitrate (24 HR) 30 MG TAB.ER.24H PO SCH (08:59)
[2018-11-20] MEDS: Famotidine 20 MG TABLET PO SCH ×2 (09:00→21:16)
[2018-11-20] MEDS: Nicotine 14 MG PATCH.TD24 TD SCH (09:00)
[2018-11-20] MEDS: Sennosides/Docusate Sodium TABLET PO SCH ×2 (09:01→21:16)
[2018-11-20] MEDS: Potassium Citrate 10 MEQ TABLET.ER PO SCH (09:01)
[2018-11-20] MEDS: Insulin LISPRO 300 UNITS/3 ML VIAL SQ SCH ×4 (09:07→21:16)
[2018-11-20] MEDS: cefTRIAXone 2,000 MG in Water for inj. (sterile) 20 ML IVP SCH (12:24)
[2018-11-20] MEDS: Aspirin Enteric Coated 81 MG Tablet PO SCH (21:16)
[2018-11-20] MEDS: Latanoprost 2.5 ML BOTTLE LEFT EYE SCH (21:17)
[2018-11-21] MEDS: Ipratropium/Albuterol Neb 3 ML IH SCH ×7 (00:37→23:50)
[2018-11-21 04:47] LABS: Hematocrit 24.4 % (37.5-50.1); Hemoglobin 7.4 g/dL (12.9-16.9); Mean Corpuscular HGB Conc 30.3 g/dL (31.6-35.5); Mean Corpuscular Hemoglobin 28.9 pg (28.0-33.3); Mean Corpuscular Volume 95.3 fL (83.0-100.0); Platelet Count 143 K/mcL (140-400); Red Blood Count 2.56 M/mcL (4.19-5.50); Red Cell Distribution Width 18.3 % (11.5-14.5); White Blood Count 11.9 K/mcL (4.3-11.1)
[2018-11-21 05:13] LABS: Blood Urea Nitrogen 19 mg/dL (8-23); Calcium 6.7 mg/dL (8.6-10.3); Carbon Dioxide 21 mEq/L (23-29); Chloride 103 mEq/L (98-107); Glucose 117 mg/dL (70-105); Osmolality,Calculated 279 (280-300); Potassium 3.8 mEq/L (3.5-5.1); Sodium 133 mEq/L (136-145)
[2018-11-21 05:30] LABS: BUN/Creatinine Ratio 20 (6-26); eGFR For African Americans > 60 (> 60); eGFR For Non-African Americans > 60 (> 60)
[2018-11-21] MEDS: Nicotine 14 MG PATCH.TD24 TD SCH (08:10)
[2018-11-21] MEDS: Metoprolol XL (24 HR) Succ 25 MG TAB.ER.24H PO SCH (08:11)
[2018-11-21] MEDS: Insulin LISPRO 300 UNITS/3 ML VIAL SQ SCH ×4 (08:11→21:44)
[2018-11-21] MEDS: Famotidine 20 MG TABLET PO SCH ×2 (08:11→21:43)
[2018-11-21] MEDS: Potassium Citrate 10 MEQ TABLET.ER PO SCH (08:11)
[2018-11-21] MEDS: Furosemide 40 MG TABLET PO SCH (08:11)
[2018-11-21] MEDS: Sennosides/Docusate Sodium TABLET PO SCH ×2 (08:11→21:43)
[2018-11-21] MEDS: Isosorbide MONOnitrate (24 HR) 30 MG TAB.ER.24H PO SCH (08:11)
[2018-11-21] MEDS: cefTRIAXone 2,000 MG in Water for inj. (sterile) 20 ML IVP SCH (11:55)
[2018-11-21] MEDS: *HR* HYDROcodone/Acet 7.5/325 mg TABLET PO PRN (14:26)
[2018-11-21] MEDS ORDERED: *HR* Alteplase (Cathflo) 2 MG VIAL IVP ONE (19:50)
[2018-11-21] MEDS ORDERED: *HR* LORazepam 2 MG/ML VIAL IVP PRN (20:27)
[2018-11-21] MEDS: Latanoprost 2.5 ML BOTTLE LEFT EYE SCH (21:43)
[2018-11-21] MEDS: Aspirin Enteric Coated 81 MG Tablet PO SCH (21:43)
[2018-11-22] MEDS: Ipratropium/Albuterol Neb 3 ML IH SCH ×5 (04:01→20:25)
[2018-11-22] MEDS: Isosorbide MONOnitrate (24 HR) 30 MG TAB.ER.24H PO SCH (08:56)
[2018-11-22] MEDS: Famotidine 20 MG TABLET PO SCH ×2 (08:56→20:12)
[2018-11-22] MEDS: Sennosides/Docusate Sodium TABLET PO SCH ×2 (08:56→20:12)
[2018-11-22] MEDS: Metoprolol XL (24 HR) Succ 25 MG TAB.ER.24H PO SCH (08:56)
[2018-11-22] MEDS: Potassium Citrate 10 MEQ TABLET.ER PO SCH (08:56)
[2018-11-22] MEDS: Furosemide 40 MG TABLET PO SCH (08:56)
[2018-11-22] MEDS: Nicotine 14 MG PATCH.TD24 TD SCH (08:57)
[2018-11-22] MEDS: Insulin LISPRO 300 UNITS/3 ML VIAL SQ SCH ×4 (08:58→20:14)
[2018-11-22] MEDS: cefTRIAXone 2,000 MG in Water for inj. (sterile) 20 ML IVP SCH (12:45)
[2018-11-22] MEDS: *HR* HYDROcodone/Acet 7.5/325 mg TABLET PO PRN (14:21)
[2018-11-22] MEDS: Aspirin Enteric Coated 81 MG Tablet PO SCH (20:12)
[2018-11-22] MEDS: Latanoprost 2.5 ML BOTTLE LEFT EYE SCH (20:58)
[2018-11-23] MEDS: Ipratropium/Albuterol Neb 3 ML IH SCH ×7 (00:19→23:43)
[2018-11-23] MEDS: Insulin LISPRO 300 UNITS/3 ML VIAL SQ SCH ×4 (08:14→20:00)
[2018-11-23] MEDS: Potassium Citrate 10 MEQ TABLET.ER PO SCH (08:14)
[2018-11-23] MEDS: Famotidine 20 MG TABLET PO SCH ×2 (08:15→20:14)
[2018-11-23] MEDS: Isosorbide MONOnitrate (24 HR) 30 MG TAB.ER.24H PO SCH (08:15)
[2018-11-23] MEDS: Metoprolol XL (24 HR) Succ 25 MG TAB.ER.24H PO SCH (08:15)
[2018-11-23] MEDS: Sennosides/Docusate Sodium TABLET PO SCH ×2 (08:15→20:15)
[2018-11-23] MEDS: Furosemide 40 MG TABLET PO SCH (08:15)
[2018-11-23] MEDS: Nicotine 14 MG PATCH.TD24 TD SCH (08:16)
[2018-11-23] MEDS: cefTRIAXone 2,000 MG in Water for inj. (sterile) 20 ML IVP SCH (11:01)
[2018-11-23] MEDS: Aspirin Enteric Coated 81 MG Tablet PO SCH (20:15)
[2018-11-23] MEDS: Latanoprost 2.5 ML BOTTLE LEFT EYE SCH (20:17)
[2018-11-24 03:55] LABS: BUN/Creatinine Ratio 12 (6-26); Blood Urea Nitrogen 14 mg/dL (8-23); Calcium 8.5 mg/dL (8.6-10.3); Carbon Dioxide 28 mEq/L (23-29); Chloride 91 mEq/L (98-107); Glucose 154 mg/dL (70-105); Osmolality,Calculated 274 (280-300); Potassium 4.4 mEq/L (3.5-5.1); Sodium 130 mEq/L (136-145); eGFR For African Americans > 60 (> 60); eGFR For Non-African Americans > 60 (> 60)
[2018-11-24] MEDS: Ipratropium/Albuterol Neb 3 ML IH SCH ×3 (03:58→11:08)
[2018-11-24 04:35] LABS: Basophils # 0.1 K/mcL (0.0-0.2); Basophils % 0.5 %; Eosinophils # 0.3 K/mcL (0.0-0.6); Eosinophils % 2.5 %; Hematocrit 28.9 % (37.5-50.1); Hemoglobin 8.9 g/dL (12.9-16.9); Immature Granulocytes % 0.8 % (0-4); Lymphocytes # 0.9 K/mcL (0.6-4.6); Lymphocytes % 6.8 %; Mean Corpuscular HGB Conc 30.8 g/dL (31.6-35.5); Mean Corpuscular Hemoglobin 28.4 pg (28.0-33.3); Mean Corpuscular Volume 92.3 fL (83.0-100.0); Mean Platelet Volume 10.3 fL (9.4-12.4); Monocytes # 1.4 K/mcL (0.0-1.3); Monocytes % 10.1 %; Nucleated Red Blood Cells 0.1 /100 WBC (0); Platelet Count 240 K/mcL (140-400); Red Blood Count 3.13 M/mcL (4.19-5.50); Red Cell Distribution Width 18.7 % (11.5-14.5); Segmented Neutrophils % 79.3 %; White Blood Count 13.6 K/mcL (4.3-11.1)
[2018-11-24 04:37] LABS: Neutrophils # 10.8 K/mcL (1.6-8.9)
[2018-11-24 04:40] LABS: Anisocytosis 1+ (Not Present); Macrocytosis Present (Not Present); Microcytosis Present (Not Present); Platelet Estimate Normal (Normal); Polychromasia 1+ (Not Present)
[2018-11-24 07:28] VITALS: BP 116/61
[2018-11-24] MEDS: Insulin LISPRO 300 UNITS/3 ML VIAL SQ SCH (08:00)
[2018-11-24] MEDS: Potassium Citrate 10 MEQ TABLET.ER PO SCH (08:02)
[2018-11-24] MEDS: Furosemide 40 MG TABLET PO SCH (08:03)
[2018-11-24] MEDS: Isosorbide MONOnitrate (24 HR) 30 MG TAB.ER.24H PO SCH (08:03)
[2018-11-24] MEDS: Famotidine 20 MG TABLET PO SCH (08:04)
[2018-11-24] MEDS: Nicotine 14 MG PATCH.TD24 TD SCH ×2 (08:04→08:42)
[2018-11-24] MEDS: Sennosides/Docusate Sodium TABLET PO SCH (08:04)
[2018-11-24] MEDS: Metoprolol XL (24 HR) Succ 25 MG TAB.ER.24H PO SCH (08:05)
== END 2018-11-24 12:24 | disposition home or self-care (01) | DRG 166 ==
LOC: SAMDAY 08:29 → ICNU 15:10 → 2NNU 11-14 14:25
PROVIDERS: ADMIT Thoracic Surgery (Cardiothoracic Vascular Surgery); ATTEND Thoracic Surgery (Cardiothoracic Vascular Surgery)

== ENCOUNTER 2018-12-10 13:02 | Inpatient (IN) ==
[2018-12-10] MEDS ORDERED: levoFLOXacin 750 MG/150 ML 750 MG/150 ML BAG IVPB ONE (13:45)
[2018-12-10] MEDS ORDERED: Piperacillin/Tazobactam 3.375 GM in Water for inj. (sterile) 20 ML IVP ONE (13:45)
[2018-12-10] MEDS ORDERED: Isovue-370 500 ML BOTTLE IVP ONE (13:58)
[2018-12-10 14:07] LABS: Basophils # 0.2 K/mcL (0.0-0.2); Eosinophils # 0.4 K/mcL (0.0-0.6); Eosinophils % 2.5 %; Hematocrit 33.6 % (37.5-50.1); Hemoglobin 10.2 g/dL (12.9-16.9); Immature Granulocytes % 0.5 % (0-4); Lymphocytes # 0.9 K/mcL (0.6-4.6); Lymphocytes % 5.9 %; Mean Corpuscular HGB Conc 30.4 g/dL (31.6-35.5); Mean Corpuscular Hemoglobin 28.7 pg (28.0-33.3); Mean Corpuscular Volume 94.4 fL (83.0-100.0); Monocytes # 1.8 K/mcL (0.0-1.3); Monocytes % 11.5 %; Platelet Count 272 K/mcL (140-400); Red Blood Count 3.56 M/mcL (4.19-5.50); Red Cell Distribution Width 19.1 % (11.5-14.5); Segmented Neutrophils % 78.6 %; White Blood Count 15.3 K/mcL (4.3-11.1)
[2018-12-10 14:17] LABS: INR 1.5; Prothrombin Time 16.9 Seconds (9.4-12.1)
[2018-12-10 14:20] LABS: Activated Partial Thrombo Time 37.9 Seconds (26.0-36.0)
[2018-12-10 14:34] LABS: Albumin 2.9 g/dL (3.5-5.7); Albumin/Globulin Ratio 0.7 (1.1-2.2); Bilirubin,Direct 0.5 mg/dL (0.0-0.2); Bilirubin,Indirect 0.6 mg/dL (0.0-1.2); Bilirubin,Total 1.1 mg/dL (0.3-1.0); Globulin 4.2 g/dL (2.4-3.5); Magnesium 1.7 mg/dL (1.6-2.6); Phosphorous 3.2 mg/dL (2.7-4.5); Potassium 5.3 mEq/L (3.5-5.1); Total Protein 7.1 g/dL (6.4-8.9); Troponin I 0.07 ng/mL (< 0.04)
--- NOTE | 2018-12-10 15:07 | Emergency Department Note ---
Disposition Clinical Impression: Thoracostomy tube in place, Hospital-acquired pneumonia, Leukocytosis Disposition: Admitted As Inpatient Condition: Fair Time of Disposition: 16:13 General Adult HPI - General Chief complaint: ED General Medical Stated complaint: Multiple complaints Time Seen by Provider: 12/10/18 13:18 Source: patient Limitations: no limitations Nursing Notes Reviewed: Yes Vital Signs Reviewed: Yes - History of Present Illness HPI Narrative: 73-year-old male presented to the emergency department with chest tube drainage. Patient recently had a lobectomy approximately 4 weeks [address] done [address] Angel due to having a lung mass. He did have to undergo a few rounds of treatment prior to having the lobectomy done. She did have a pretty extensive surgical process reexpanded up having a right-sided FL during the procedure and then went into acute kidney injury. He was doing well then discharged approximately one week ago from the hospital. Has been doing well at home exudate did have follow-up with the cardiothoracic surgeon who said everything is going well. Approximately 3 days ago started knowing green/brown fluid coming from the chest tube that then became very foul-smelling. There is been no fevers no tachycardia they said he has been more weak and deftly altered were is not answering all questions and talking like he used to. Otherwise there is no other complaints at this time. Pain Scale: 0 - Related Data Home Medications Medication Instructions Recorded Confirmed Aspirin [Lo-Dose Aspirin EC] 81 mg PO HS 11/26/17 12/10/18 Atorvastatin [Lipitor] 40 mg PO DAILY 11/26/17 12/10/18 Cholecalciferol (D-3) [Vitamin D] 2,000 unit PO DAILY 11/26/17 12/10/18 Clopidogrel [Plavix] 75 mg PO DAILY 08/11/18 12/10/18 Latanoprost [Xalatan] 1 drop LEFT EYE HS 08/11/18 12/10/18 Spironolactone 50 mg PO DAILY 08/11/18 12/10/18 Insulin Glargine [Lantus] 28 unit SQ HS PRN 08/14/18 12/10/18 Metoprolol XL (24 HR) Succ [Toprol 25 mg PO DAILY 08/14/18 12/10/18 Xl] Omeprazole [PriLOSEC] 20 mg PO DAILY@0730 08/14/18 12/10/18 Albuterol Sulfate [Proair Hfa] 2 puff IH Q6H PRN 10/29/18 12/10/18 Budesonide/Formoterol 160/4.5 2 puff IH BIDR 10/29/18 12/10/18 [Symbicort 160/4.5] Furosemide [Lasix] 40 mg PO DAILY 10/29/18 12/10/18 Insulin Regular, Human [Novolin R] 12 unit SQ DAILY PRN 10/29/18 12/10/18 Isosorbide MONOnitrate [Isosorbide 30 mg PO DAILY 10/29/18 12/10/18 Mononitrate ER] Levothyroxine [Synthroid] 50 mcg PO DAILY 10/29/18 12/10/18 Nitroglycerin [Nitrostat] 0.4 mg SL Q5MIN PRN 10/29/18 12/10/18 Tiotropium [place] [Spiriva 2 puff IH DAILY 10/29/18 12/10/18 Respimat] Allergies Allergy/AdvReac Type Severity Reaction Status Date / Time gabapentin [From Neurontin] AdvReac Hallucinati Verified 11/13/18 07:15 ng lisinopril AdvReac See Verified 11/06/18 10:14 Comments Varenicline [From Chantix] AdvReac Hallucinati Verified 11/06/18 10:14 ng All systems ED: reviewed and negative except as stated. Review of Systems: As Per HPI Past Medical History - Past Medical History Attestation: Yes The following information was validated with the patient. Source: patient Medical history: Reports: CHF, coronary artery disease, diabetes, GERD, GI bleed, hyperlipidemia, hypertension, myocardial infarction, peripheral artery disease, renal disease Surgical history: Reports: cancer surgery, cholecystectomy, coronary bypass (CABG) Psychiatric history: Reports: no psych history - Social History Smoking Status: Former smoker Smokeless Tobacco Status: No Alcohol use: Reports: none Drug use: Reports: none Physical Exam - General Limitations: no limitations General appearance: alert - Head Head exam: atraumatic, normocephalic, normal inspection - Eye Eye exam: Present: normal appearance, PERRL, EOMI - ENT ENT exam: normal exam, normal oropharynx, mucous membranes moist - Neck Neck exam: Present: normal inspection, full ROM, trachea midline - Chest Chest inspection: Present: normal inspection, symmetric chest wall rise, other (Chest tube placed and left side of the chest. There is green/brown foul- smelling fluid coming from the in the Pleur-evac. There does seem to be a good seal at this time. It is currently draining at this time.) - Respiratory Respiratory exam: Present: normal lung sounds bilaterally - Cardiovascular Cardiovascular exam: Present: regular rate, normal rhythm, normal heart sounds - Abdominal Exam Abdominal exam: Present: soft, Non-Tender, normal bowel sounds. Absent: tenderness, distention, guarding, rebound, rigidity - Extremities Exam Extremities exam: Present: normal inspection, full ROM. Absent: tenderness, pedal edema - Back Exam Back exam: Present: normal inspection, full ROM. Absent: tenderness - Neurological Exam Neurological exam: Present: alert, oriented X3 - Skin Skin exam: Present: warm, dry, intact, normal color Course Course Narrative: Will get CBC BMP lactate blood cultures as well as a fluid culture coming from the chest tube. We will part start patient on broad-spectrum antibiotics including Zosyn, Levaquin, vancomycin. We will get chest CT with contrast to rule out any signs of abscess. Patient did have some history of kidney failure so we will be judicious with our vancomycin as well as creatinine. EKG as well will be done. - Consultations Consultation #1: I spoke with Dr. Angel who agreed with our management and recommended we speak with Dr. Faye as he is online marketing coordinator for cardiothoracic surgery and for him to speak with him if he has any questions. He recommended admission to the hospital with ID consultation CT consultation. Time: 13:30 Consultation #2: Spoke with infectious disease Dr. Ceja who agreed with my selection of antibiotics and recommended to continue the vancomycin trend keep troughs around 10 due to the history of acute kidney injury. They said they will consult when the patient gets to the floor. Time: 13:56 Consultation #3: Spoke with the on-call cart a thoracic surgeon Dr. Faye who agrees her plan says he will see the patient consultation when they get admitted. No further recommendations from Dr. Faye at this time. Time: 15:59 Vital Signs Temperature 97.3 F L 12/10/18 13:08 Pulse Rate 111 12/10/18 13:08 Respiratory Rate 12 12/10/18 13:08 Blood Pressure 123/74 12/10/18 13:08 O2 Sat by Pulse Oximetry 97 12/10/18 13:08 Temperature 97.3 F L 12/10/18 13:35 Pulse Rate 69 12/10/18 14:14 Respiratory Rate 18 12/10/18 14:14 Blood Pressure 117/66 12/10/18 14:14 O2 Sat by Pulse Oximetry 100 12/10/18 14:14 Oxygen Delivery Oxygen Delivery Nasal Cannula Medical Decision Making - MDM Narrative Medical decision making narrative: 73-year-old male presented to the emergency department complaining of a foul green/brown colored fluid coming out of his chest tube on the left side. Patient is stable at this time. He does not meet any Sirs criteria by believe he possibly could be septic as he is altered. Is unable to answer all the questions at this time. He is not having any chest pain at this time. Spoke with the surgeon that did the procedure and he recommended admission consult ID and starting antibiotics. We started vancomycin as well as Zosyn as well as Levaquin to get double pseudomonal coverage as well as is covering MRSA. I did consult with ID and agree with this plan. Spoke with Dr. Faye the procedures on-call for her thoracic surgeon he is okay to consult the patient as well. Blood cultures were received. Lactate was normal patient did have leukocytosis probably secondary to his multifocal pneumonia that occurring in the area of the chest tube. Chest tube looks well on exam. Patient will be admitted to the hospitalist service for further evaluation at this time. Spoke with Dr. Zuleta agreed to accept the patient to the hospitalist service. With consultations to infectious disease and cardiothoracic surgery. Chest CT 12/10/18 13:58 IMPRESSION: 1. Status post left lower lobectomy. 2. Moderate-sized left hydropneumothorax with chest tube in place. 3. Multifocal lung consolidation involving the lingula, right upper lobe, and right lower lobe. Findings most likely represent multifocal pneumonia. 4. Slightly enlarged mediastinal and right hilar lymph nodes since 09/04/2018. The nodes are likely reactive to the pneumonia. D/ / 12/10/2018 15:44:14 Wellington Sherman MD / [facility] Interpreting Provider: Wellington Sherman MD - Medical Records Medical records reviewed: Yes I reviewed the patient's medical records. - Lab Data Lab results reviewed: Yes I reviewed the patient's lab results. Result diagrams: 12/10/18 13:46 12/10/18 13:46 Lab Results 12/10/18 12/10/18 12/10/18 Range/Units 13:46 13:46 13:46 WBC 15.3 H (4.3-11.1) K/mcL RBC 3.56 L (4.19-5.50) M/mcL Hgb 10.2 L (12.9-16.9) g/dL Hct 33.6 L (37.5-50.1) % MCV 94.4 (83.0-100.0) fL MCH 28.7 (28.0-33.3) pg MCHC 30.4 L (31.6-35.5) g/dL RDW 19.1 H (11.5-14.5) % Plt Count 272 (140-400) K/mcL MPV 10.0 (9.4-12.4) fL Immature Gran % 0.5 (0-4) % Seg Neutrophils % 78.6 % Lymphocytes % 5.9 % Monocytes % 11.5 % Eosinophils % 2.5 % Basophils % 1.0 % Neutrophils # 12.0 H (1.6-8.9) K/mcL Lymphocytes # 0.9 (0.6-4.6) K/mcL Monocytes # 1.8 H (0.0-1.3) K/mcL Eosinophils # 0.4 (0.0-0.6) K/mcL Basophils # 0.2 (0.0-0.2) K/mcL PT 16.9 H (9.4-12.1) Seconds INR 1.5 APTT 37.9 H (26.0-36.0) Seconds Sodium 125 L (136-145) mEq/L Potassium 5.3 H (3.5-5.1) mEq/L Chloride 90 L (98-107) mEq/L Carbon Dioxide 29 (23-29) mEq/L BUN 21 (8-23) mg/dL Creatinine 1.60 H (0.70-1.30) mg/dL Est GFR ( Amer) 51 L (> 60) Est GFR (Non-Af Amer) 42 L (> 60) BUN/Creatinine Ratio 13 (6-26) Glucose 160 H (70-105) mg/dL Calculated Osmolality 266 L (280-300) Lactic Acid (0.5-2.2) mmol/L Calcium 9.0 (8.6-10.3) mg/dL Phosphorus 3.2 (2.7-4.5) mg/dL Magnesium 1.7 (1.6-2.6) mg/dL Total Bilirubin 1.1 H (0.3-1.0) mg/dL Direct Bilirubin 0.5 H (0.0-0.2) mg/dL Indirect Bilirubin 0.6 (0.0-1.2) mg/dL AST 23 (13-39) Units/L ALT 14 (7-52) Units/L Alkaline Phosphatase 106 H (34-104) Units/L Troponin I 0.07 H* (< 0.04) ng/mL Serum Total Protein 7.1 (6.4-8.9) g/dL Albumin 2.9 L (3.5-5.7) g/dL Globulin 4.2 H (2.4-3.5) g/dL Albumin/Globulin Ratio 0.7 L (1.1-2.2) 12/10/18 Range/Units 13:46 WBC (4.3-11.1) K/mcL RBC (4.19-5.50) M/mcL Hgb (12.9-16.9) g/dL Hct (37.5-50.1) % MCV (83.0-100.0) fL MCH (28.0-33.3) pg MCHC (31.6-35.5) g/dL RDW (11.5-14.5) % Plt Count (140-400) K/mcL MPV (9.4-12.4) fL Immature Gran % (0-4) % Seg Neutrophils % % Lymphocytes % % Monocytes % % Eosinophils % % Basophils % % Neutrophils # (1.6-8.9) K/mcL Lymphocytes # (0.6-4.6) K/mcL Monocytes # (0.0-1.3) K/mcL Eosinophils # (0.0-0.6) K/mcL Basophils # (0.0-0.2) K/mcL PT (9.4-12.1) Seconds INR APTT (26.0-36.0) Seconds Sodium (136-145) mEq/L Potassium (3.5-5.1) mEq/L Chloride (98-107) mEq/L Carbon Dioxide (23-29) mEq/L BUN (8-23) mg/dL Creatinine (0.70-1.30) mg/dL Est GFR ( Amer) (> 60) Est GFR (Non-Af Amer) (> 60) BUN/Creatinine Ratio (6-26) Glucose (70-105) mg/dL Calculated Osmolality (280-300) Lactic Acid 1.8 (0.5-2.2) mmol/L Calcium (8.6-10.3) mg/dL Phosphorus (2.7-4.5) mg/dL Magnesium (1.6-2.6) mg/dL Total Bilirubin (0.3-1.0) mg/dL Direct Bilirubin (0.0-0.2) mg/dL Indirect Bilirubin (0.0-1.2) mg/dL AST (13-39) Units/L ALT (7-52) Units/L Alkaline Phosphatase (34-104) Units/L Troponin I (< 0.04) ng/mL Serum Total Protein (6.4-8.9) g/dL Albumin (3.5-5.7) g/dL Globulin (2.4-3.5) g/dL Albumin/Globulin Ratio (1.1-2.2) - Radiology Data Radiology results reviewed: Yes I reviewed the patient's radiology results. - EKG Data EKG #2 EKG attestation: Yes I reviewed and interpreted this EKG. EKG results narrative: EKG done at 1330 review myself and the attending shows sinus rhythm at a rate of 76, DC interval 203, QRS 156, QTC 47. There is no acute ST changes no acute T- wave changes no other signs of ischemia. No signs of hypertrophy or heart rate. There is a right bundle branch block no other blocks. No WPW/Brugada/HOCM. EKG is unchanged when compared with old EKG done 11/11/18 Attestation Statement - Attestation Attestation: I, Erasmo Norris, examined this patient and my medical decision-making was reviewed with the PLANNING CONSULTANT/PA/Advanced Practice Nurse/Resident Physician. I agree with the documented findings, disposition and treatment plan as described except to the extent set forth below. 73-year-old male presents emergency department for evaluation of abnormal rashid inage from his left-sided chest tube as well as altered mental status and increased fatigue. Patient had resection of lung secondary to lung cancer by the cardiothoracic surgeon. Patient has been doing well at home however over the past few days he has had increased fatigue, confusion and today had yellow- green drainage with a foul smell from the left chest tube. states he is taking antibiotics at home but they are unsure of which one they are taking. During my evaluation the patient is awake alert and answering questions appropriately. CT showed likely loculated effusion versus multifocal pneumonia. Patient was started on Biaxin emergency department. He will be admitted to the hospitalist for further care and evaluation. Resident spoke with the cardiothoracic surgeon who agreed to follow the patient in the hospital.
[2018-12-10] MEDS ORDERED: Ondansetron 4 MG/2 ML VIAL IVP PRN (16:10)
[2018-12-10] MEDS ORDERED: Naloxone 0.4 MG/ML INJ IVP PRN (16:10)
[2018-12-10] MEDS ORDERED: Nitroglycerin 0.4 MG TAB.SUBL SL PRN (16:17)
[2018-12-10] MEDS ORDERED: NON-FORMULARY MEDICATION 1 EACH EACH (Insulin Glargine [Lantus] 28 UNIT) SQ PRN (16:17)
[2018-12-10 16:21] LABS: Bilirubin,Urine Negative (Negative); Blood,Urine Negative (Negative); Clarity,Urine Clear (Clear); Color,Urine Yellow (Yellow); Glucose,Urine (UA) Normal (Normal); Ketones,Urine Negative (Negative); Leukocyte Esterase,Urine Negative (Negative); Nitrite,Urine Negative (Negative); PH,Urine 6.5 pH Units (5.0-8.0); Protein,Urine Trace mg/dL (Neg-Trace); Specific Gravity,Urine 1.014 (1.010-1.025); Urobilinogen,Urine Normal (Normal)
[2018-12-10] MEDS ORDERED: Dextrose Gel 15 GM/37.5 ML TUBE PO PRN ×2 (16:21)
[2018-12-10] MEDS ORDERED: *HR* Dextrose 50 % in Water (Syg) 50 ML SYRINGE IVP PRN (16:21)
[2018-12-10] MEDS ORDERED: D5% in Water 1,000 ML IVC PRN (16:21)
[2018-12-10] MEDS ORDERED: Insulin DETEMIR 100 UNIT/ML X5UNITS SQ PRN (16:23)
--- NOTE | 2018-12-10 16:28 | Internal Med History&Physical ---
Date of Encounter: 12/10/18 Time of Encounter: 16:23 Internal Medicine - H&P: HPI Chief complaint: SOB and increased dirty secretions from chest tube Admitted From: Home History of present illness: Mr. Beaulieu is a 73 year old male with history of recently diagnosed lung cancer status post lobectomy 4 weeks ago status post chest tube placement, history of COPD with chronic respiratory failure on 2 L nasal cannula oxygen at home, history of insulin-dependent diabetes mellitus. Present today with possible infected chest tube, the patient is poor historian and I took the history from the medical record on from the patient's , patient had lobectomy approximately 4 weeks ago done by Dr. Angel due to a lung mass, underwent extensive surgical process with subsequent chest tube placement, patient noted increasing greenish/ brownish fluid drainage from the chest tube which became very foul-smelling sine approximately 3 days ago associated with increased shortness of breath, poor appetite, weight loss. However denied or chest pain, uncertain denied fever chills. Patient states also the patient mentation declining recently , became more drowsy, not eating much. CT chest in the ER revealed moderate-sized left hydropneumothorax with chest tube in place on there are multifocal lung consolidation involving the right upper lobe and the right lower lobe most likely representing multifocal pneumonia. Cardiothoracic surgeon was consulted by the ER physician. Past Med Surg Social Fam HX - Past Medical History Medical history: CHF, coronary artery disease, diabetes, GERD, GI bleed, hyperlipidemia, hypertension, myocardial infarction, peripheral artery disease, renal disease Additional medical history: LUMBAR DDD, CAROTID STENOSIS, [place], right eye blind Psychiatric history: no psych history - Past Surgical History Surgical History: cancer surgery, cholecystectomy, coronary bypass (CABG) Additional surgical history: Stent placed a year ago, Right subclavian bypass graft, skin cancer. - Social History Smoking Status: Former smoker Smokeless Tobacco Status: No Alcohol use: none Drug use: none - Family History Father Adopted: No Family Member Ethnicity: Non- Living Status: Hx Family Cardiac Disorders: No Hx Family Respiratory Disorders: No Hx Family Cancer: Yes Hx Family GI Disorders: No Hx Family Endocrine Disorder: No Hx Family Neuromuscular Disorders: No Hx Family Neurologic Disorders: No Hx Family HEENT Disorders: No Hx Family Autoimmune Disorders: No Mother Adopted: No Living Status: Hx Family Cardiac Disorders: No Hx Family Respiratory Disorders: No Hx Family Cancer: No Hx Family GI Disorders: No Hx Family Endocrine Disorder: No Hx Family Neuromuscular Disorders: No Hx Family Neurologic Disorders: No Hx Family HEENT Disorders: No Hx Family Autoimmune Disorders: No Internal Medicine - H&P: Meds Aspirin [Lo-Dose Aspirin EC] 81 mg PO HS 11/26/17 [History] Atorvastatin [Lipitor] 40 mg PO DAILY 11/26/17 [History] Cholecalciferol (D-3) [Vitamin D] 2,000 unit PO DAILY 11/26/17 [History] Clopidogrel [Plavix] 75 mg PO DAILY 08/11/18 [History] Latanoprost [Xalatan] 1 drop LEFT EYE HS 08/11/18 [History] Spironolactone 50 mg PO DAILY 08/11/18 [History] Insulin Glargine [Lantus] 28 unit SQ HS PRN 08/14/18 [History] Metoprolol XL (24 HR) Succ [Toprol Xl] 25 mg PO DAILY 08/14/18 [History] Omeprazole [PriLOSEC] 20 mg PO DAILY@0730 08/14/18 [History] Albuterol Sulfate [Proair Hfa] 2 puff IH Q6H PRN 10/29/18 [History] Budesonide/Formoterol 160/4.5 [Symbicort 160/4.5] 2 puff IH BIDR 10/29/18 [History] Furosemide [Lasix] 40 mg PO DAILY 10/29/18 [History] Insulin Regular, Human [Novolin R] 12 unit SQ DAILY PRN 10/29/18 [History] Isosorbide MONOnitrate [Isosorbide Mononitrate ER] 30 mg PO DAILY 10/29/18 [History] Levothyroxine [Synthroid] 50 mcg PO DAILY 10/29/18 [History] Nitroglycerin [Nitrostat] 0.4 mg SL Q5MIN PRN 10/29/18 [History] Tiotropium [place] [Spiriva Respimat] 2 puff IH DAILY 10/29/18 [History] Allergy/AdvReac Type Severity Reaction Status Date / Time gabapentin [From Neurontin] AdvReac Hallucinati Verified 11/13/18 07:15 ng lisinopril AdvReac See Verified 11/06/18 10:14 Comments Varenicline [From Chantix] AdvReac Hallucinati Verified 11/06/18 10:14 ng All Systems PM: A 10-system review of systems was performed and is negative for pertinent findings except as documented above in the HPI. Review of systems: Review of system: Regarding cardiology respiratory GI endocrine hematology musculoskeletal all negative except for multiple was mentioned in the H&P - Constitutional Vitals: Temp Pulse Resp BP Pulse Ox 97.3 F L 60 18 113/59 100 12/10/18 13:35 12/10/18 16:13 12/10/18 16:13 12/10/18 16:13 12/10/18 16:13 Exam: Physical examination: Gen.: Patient is alert but confused , in moderate respiratory distress , not in pain HEENT: perrla , EOMI, , no neck mass, supple neck Heart: S1 and S2 olvin, normal sinus rhythm, no cardiac murmur no gallop rhythm Chest: Decreased breathing bilaterally with scattered rhonchi, no wheezing, crackles or crepitation, chest tube placement noted with brownish secretion in the chest tube container Abdomen: Soft nontender nondistended positive bowel sounds, no organomegaly Extremities: +3 pitting edema, peripheral pulses palpable, no cyanosis tenderness Neuro: Able to move all 4 limbs, Internal Med - H&P Results - Labs CBC & Chem 7: 12/10/18 13:46 12/10/18 13:46 Labs: Short CBC 12/10/18 Range/Units 13:46 WBC 15.3 H (4.3-11.1) K/mcL Hgb 10.2 L (12.9-16.9) g/dL Hct 33.6 L (37.5-50.1) % Plt Count 272 (140-400) K/mcL Neutrophils # 12.0 H (1.6-8.9) K/mcL BMP 12/10/18 13:46 Sodium 125 L Potassium 5.3 H Chloride 90 L Carbon Dioxide 29 BUN 21 Creatinine 1.60 H Glucose 160 H Calcium 9.0 Cardiac Enzymes 12/10/18 Range/Units 13:46 Troponin I 0.07 H* (< 0.04) ng/mL Liver Function 12/10/18 Range/Units 13:46 Total Bilirubin 1.1 H (0.3-1.0) mg/dL Direct Bilirubin 0.5 H (0.0-0.2) mg/dL AST 23 (13-39) Units/L ALT 14 (7-52) Units/L Alkaline Phosphatase 106 H (34-104) Units/L Albumin 2.9 L (3.5-5.7) g/dL Urine 12/10/18 Range/Units 16:05 Urine Color Yellow (Yellow) Urine Clarity Clear (Clear) Urine pH 6.5 (5.0-8.0) pH Units Ur Specific [place] 1.014 (1.010-1.025) Urine Protein Trace (Neg-Trace) mg/dL Urine Glucose (UA) Normal (Normal) mg/dL - Impressions ITS Impressions Chest CT 12/10/18 13:58 IMPRESSION: 1. Status post left lower lobectomy. 2. Moderate-sized left hydropneumothorax with chest tube in place. 3. Multifocal lung consolidation involving the lingula, right upper lobe, and right lower lobe. Findings most likely represent multifocal pneumonia. 4. Slightly enlarged mediastinal and right hilar lymph nodes since 09/04/2018. The nodes are likely reactive to the pneumonia. D/ / 12/10/2018 15:44:14 Wellington Sherman MD / [facility] Interpreting Provider: Wellington Sherman MD - Summary of Assessment and Plan Summary of Assessment and Plan: 1- Infected chest tube with multifocal pneumonia and possible empyema: as ella cated by Ct chest continue on braod spectrum iv AB including vancomycin ( pharmacy does )and IV cefepime sent for pleural fluid cell count culture pH and protein CT surgery already consulted by ER for removal of chest tube and wash out of pleural space consult ID Has leukocytosis however hemodynamically stable 2- altered mental status most likely metabolic secondary to infected chest tube with pneumonia put NPO swallow evaluation check ABG 3- [place]: rubén 2/2 to prerenal due to dehydration on iv fluid hold nephrotoxic medication include lasix and spironolactone 4- hyponatremia: due to poor oral intake and possible lung cancer start on iv fluid monitor serum Na 5- mild hyperkalemia: on iv fluid hold spironolactone check another BMP at 20:00 6- insulin dependant DM: resume on long acting insulin and SSI check AIC 7- non zero troponin: rubén due to demand supply mismatch has elevated troponin follow lobectomy trend troponin has no Chest pain check ekg check echo 8- COPD with chronic respiratory failure on 2 L nasal cannula oxygen at home with recently diagnosed lung cancer status post lobectomy: Continue on supplemental oxygen and breathing treatments as needed 9- hypothyroidism on home dose levothyroxin , check TSH 10: GERD on PPI - Time Spent With Patient Total time spent is greater than 50% in coordination of care (as documented) at patient's floor/unit and/or counseling patient:
--- NOTE | 2018-12-10 16:31 | Cardiothoracic Consult Note ---
Date of Encounter: 12/10/18 Time of Encounter: 18:07 Assessment and Plan (1) Empyema lung Current Visit: Yes Status: Acute The patient has a possible left pleural empyema as result of his left lung pneumonia after his left lower lobectomy. He is being admitted for IV antibiotic therapy. He may require a left thoracotomy with decortication if the antibiotics do not clear his infection. The assessment and plan as outlined above was discussed with the patient and/or family members who expressed understanding and agreement. All questions were answered. - History of Present Illness Consult date: 12/10/18 Requesting physician: Prateek Sheets Consult reason: Left chest hydropneumothorax Chief complaint: Purulent chest tube drainage History of present illness: Mr. Beaulieu is a 73 year old type II diabetic, hypertensive man with known CAD, hypercholesterolemia, and Stage IIB squamous cell carcinoma. He underwent a left thoracotomy with left lower lobe resection Dr. Tra Angel on 11/06/2018. His hospital course was complicated by NSTEMI, acute renal failure, and left lung pneumonia. His renal function returned to baseline and he was treated with antibiotics for his pneumonia. He was discharged home on POD #18 with a chest tube attached to a mini express chest tube drainage device. He has seen Dr. Angel in the office and at that visit, he had no abnormal drainage from the chest tube. His states that 3 days ago, he began having a brownish discharge from his chest tube which had a foul odor. He has remained afebrile; however, his states that his ambulation is somewhat unsteady and that he has some confusion. He was taken to [facility] emergency department by his for evaluation. He underwent a chest CT which showed patchy areas of consoli dation in the lingula as well as a moderate amount of air last gas in the left lower hemithorax. A chest tube is positioned within the fluid collection. He has been admitted for IV antibiotics and other necessary intervention. Past Med Surg Social Fam HX - Past Medical History Medical history: cancer (Stage IIB squamous cell carcinoma involving the left lower lobe a seizure resected)), CHF, coronary artery disease, diabetes, GERD, GI bleed, hyperlipidemia, hypertension, myocardial infarction, peripheral artery disease, renal disease Additional medical history: Lumbar degenerative disc disease, carotid artery disease, right eye blind Psychiatric history: no psych history - Past Surgical History Surgical History: cancer surgery (Left lower lobectomy), cholecystectomy, coronary bypass (CABG) Additional surgical history: Stent placed a year ago, Right subclavian bypass graft, skin cancer. - Social History Smoking Status: Former smoker Smokeless Tobacco Status: No Alcohol use: none Drug use: none Occupational status: retired Current living situation: Home - Independent Activity Level: Independent ambulation Recent Out of Country Travel Within the Last 8 Weeks: No Exposure or Possible Exposure to Illness During Travel: No - Family History Father Adopted: No Family Member Ethnicity: Non- Living Status: Hx Family Cardiac Disorders: No Hx Family Respiratory Disorders: No Hx Family Cancer: Yes Hx Family GI Disorders: No Hx Family Endocrine Disorder: No Hx Family Neuromuscular Disorders: No Hx Family Neurologic Disorders: No Hx Family HEENT Disorders: No Hx Family Autoimmune Disorders: No Mother Adopted: No Living Status: Hx Family Cardiac Disorders: No Hx Family Respiratory Disorders: No Hx Family Cancer: No Hx Family GI Disorders: No Hx Family Endocrine Disorder: No Hx Family Neuromuscular Disorders: No Hx Family Neurologic Disorders: No Hx Family HEENT Disorders: No Hx Family Autoimmune Disorders: No Medications and Allergies Aspirin [Lo-Dose Aspirin EC] 81 mg PO HS 11/26/17 [History] Atorvastatin [Lipitor] 40 mg PO DAILY 11/26/17 [History] Cholecalciferol (D-3) [Vitamin D] 2,000 unit PO DAILY 11/26/17 [History] Clopidogrel [Plavix] 75 mg PO DAILY 08/11/18 [History] Latanoprost [Xalatan] 1 drop LEFT EYE HS 08/11/18 [History] Spironolactone 50 mg PO DAILY 08/11/18 [History] Insulin Glargine [Lantus] 28 unit SQ HS PRN 08/14/18 [History] Metoprolol XL (24 HR) Succ [Toprol Xl] 25 mg PO DAILY 08/14/18 [History] Omeprazole [PriLOSEC] 20 mg PO DAILY@0730 08/14/18 [History] Albuterol Sulfate [Proair Hfa] 2 puff IH Q6H PRN 10/29/18 [History] Budesonide/Formoterol 160/4.5 [Symbicort 160/4.5] 2 puff IH BIDR 10/29/18 [History] Furosemide [Lasix] 40 mg PO DAILY 10/29/18 [History] Insulin Regular, Human [Novolin R] 12 unit SQ DAILY PRN 10/29/18 [History] Isosorbide MONOnitrate [Isosorbide Mononitrate ER] 30 mg PO DAILY 10/29/18 [History] Levothyroxine [Synthroid] 50 mcg PO DAILY 10/29/18 [History] Nitroglycerin [Nitrostat] 0.4 mg SL Q5MIN PRN 10/29/18 [History] Tiotropium [place] [Spiriva Respimat] 2 puff IH DAILY 10/29/18 [History] Allergy/AdvReac Type Severity Reaction Status Date / Time gabapentin [From Neurontin] AdvReac Hallucinati Verified 11/13/18 07:15 ng lisinopril AdvReac See Verified 11/06/18 10:14 Comments Varenicline [From Chantix] AdvReac Hallucinati Verified 11/06/18 10:14 ng All Systems Review: The remainder of the systems were reviewed and are negative Physical Examination Vital Signs, Last 4 Hours Temp Pulse Resp BP Pulse Ox 12/10/18 14:14 69 18 117/66 100 12/10/18 13:52 100 12/10/18 13:41 100 12/10/18 13:35 97.3 F L 111 12 123/74 97 12/10/18 13:08 97.3 F L 111 12 123/74 97 General: Conversant, No Apparent Distress HEENT: Atraumatic, Normocephaly, Trachea midline Neck: No JVD, Normal carotid pulses Cardiac: Reg Rate and Rhythm, Normal S1 and S2, No Murmur Lungs: Normal Breath Sounds (Right lung sauer), Decreased breath sounds (Left base) Neuro: Alert and responsive, No focal deficits noted Vascular: Normal capillary refill Abdomen: Soft, Non-tender Skin: No rashes noted on visualized skin Musculoskeletal: No Chest Wall Tenderness Extremities: No Clubbing, No Cyanosis, No Edema Results 12/10/18 13:46 12/10/18 13:46 Lab Results, Last 24 hours 12/10/18 12/10/18 12/10/18 13:46 13:46 13:46 WBC 15.3 H Hgb 10.2 L Hct 33.6 L Plt Count 272 INR 1.5 APTT 37.9 H Sodium 125 L Potassium 5.3 H Chloride 90 L Carbon Dioxide 29 BUN 21 Creatinine 1.60 H Glucose 160 H Calcium 9.0 Magnesium 1.7 Total Bilirubin 1.1 H AST 23 ALT 14 Alkaline Phosphatase 106 H Troponin I 0.07 H* Consult Discharge Plan - Plan Referrals: Osman Martinez MD [Primary Care Provider] -
[2018-12-10 16:58] LABS: Estimated Average Glucose 123 mg/dl
[2018-12-10] MEDS ORDERED: Vancomycin (wt based) 1,000 MG VIAL IVPB SCH (17:00)
[2018-12-10 17:28] LABS: Thyroid Stimulating Hormone 3.296 mcIU/mL (0.340-5.600); Troponin I 0.07 ng/mL (< 0.04)
[2018-12-10] MEDS: Cefepime HCl 1,000 MG in Water for inj. (sterile) 10 ML IVP SCH (18:04)
[2018-12-10] MEDS: 0.9 % Sodium Chloride 1,000 ML IVC SCH (18:33)
[2018-12-10] MEDS: Insulin LISPRO 300 UNITS/3 ML VIAL SQ SCH (18:39)
[2018-12-10] MEDS: Aspirin Enteric Coated 81 MG Tablet PO SCH (20:10)
[2018-12-10 20:22] LABS: Calcium 8.6 mg/dL (8.6-10.3); Potassium 5.1 mEq/L (3.5-5.1)
[2018-12-11] MEDS ORDERED: Cefepime HCl 2,000 MG in Water for inj. (sterile) 20 ML IVP SCH
[2018-12-11] MEDS: Cefepime HCl 1,000 MG in Water for inj. (sterile) 10 ML IVP SCH ×3 (00:18→16:55)
[2018-12-11] MEDS: 0.9 % Sodium Chloride 1,000 ML IVC SCH (02:48)
[2018-12-11 04:28] LABS: Basophils # 0.1 K/mcL (0.0-0.2); Basophils % 0.9 %; Eosinophils # 0.3 K/mcL (0.0-0.6); Eosinophils % 2.7 %; Hematocrit 33.2 % (37.5-50.1); Hemoglobin 10.1 g/dL (12.9-16.9); Immature Granulocytes % 0.5 % (0-4); Lymphocytes # 0.8 K/mcL (0.6-4.6); Mean Corpuscular HGB Conc 30.4 g/dL (31.6-35.5); Mean Corpuscular Hemoglobin 28.5 pg (28.0-33.3); Mean Corpuscular Volume 93.8 fL (83.0-100.0); Mean Platelet Volume 10.3 fL (9.4-12.4); Monocytes # 1.2 K/mcL (0.0-1.3); Monocytes % 11.6 %; Neutrophils # 7.6 K/mcL (1.6-8.9); Platelet Count 219 K/mcL (140-400); Red Blood Count 3.54 M/mcL (4.19-5.50); Red Cell Distribution Width 18.8 % (11.5-14.5); Segmented Neutrophils % 76.3 %; White Blood Count 9.9 K/mcL (4.3-11.1)
[2018-12-11 04:48] LABS: Albumin 2.8 g/dL (3.5-5.7); Albumin/Globulin Ratio 0.7 (1.1-2.2); Calcium 8.5 mg/dL (8.6-10.3); Globulin 3.8 g/dL (2.4-3.5); Magnesium 1.7 mg/dL (1.6-2.6); Phosphorous 3.1 mg/dL (2.7-4.5); Total Protein 6.6 g/dL (6.4-8.9)
[2018-12-11] MEDS: Acetaminophen 325 MG TABLET PO PRN (05:24)
--- NOTE | 2018-12-11 06:39 | Cardiothoracic Progress Note ---
Date of Encounter: 12/11/18 Time of Encounter: 06:21 - Assessment and plan (1) Empyema lung Current Visit: Yes Status: Acute The patient has a possible left pleural empyema as result of his left lung pneumonia after his left lower lobectomy. He is being admitted for IV antibiotic therapy. He may require a left thoracotomy with decortication if the antibiotics do not clear his infection. The assessment and plan as outlined above was discussed with the patient and/or family members who expressed understanding and agreement. All questions were answered. - Subjective Interval history: The patient remained hemodynamically stable overnight. He is resting comfortably in his hospital bed. Vital Signs, Last 4 Hours Temp Pulse Resp BP Pulse Ox 12/11/18 04:51 97.8 F 66 18 106/61 100 Oxgyen Flow Rate Oxygen Flow Rate (LPM) 2 Clinical Data, last 8 Hours Output, Chest Tube Drainage 40 Amount [Left Mid-Axillary Chest] Weight 12/09/18 12/10/18 12/11/18 23:59 23:59 23:59 Weight 82.4 kg 82.1 kg - Physical Examination General: Conversant, No Apparent Distress Neck: No JVD, Normal carotid pulses Cardiac: Reg Rate and Rhythm, Normal S1 and S2, No Murmur Incision: No signs of infection, Dry/intact dressing Chest tubes: Minimal drainage, Other (No air leak) Lungs: Normal Breath Sounds (Right lung sauer), Decreased breath sounds (Left lung sauer) Neuro: Alert and responsive, No focal deficits noted Vascular: Normal capillary refill Extremities: No Clubbing, No Cyanosis, No Edema - Labs 12/11/18 04:11 12/11/18 04:11 Lab Results, Last 24 hours 12/10/18 12/10/18 12/10/18 13:46 13:46 13:46 WBC 15.3 H Hgb 10.2 L Hct 33.6 L Plt Count 272 INR 1.5 APTT 37.9 H Sodium 125 L Potassium 5.3 H Chloride 90 L Carbon Dioxide 29 BUN 21 Creatinine 1.60 H Glucose 160 H Calcium 9.0 Magnesium 1.7 Total Bilirubin 1.1 H AST 23 ALT 14 Alkaline Phosphatase 106 H Troponin I 0.07 H* B-Natriuretic Peptide TSH 12/10/18 12/10/18 12/10/18 16:30 16:30 19:40 WBC Hgb Hct Plt Count INR APTT Sodium 125 L Potassium 5.1 Chloride 92 L Carbon Dioxide 30 H BUN 20 Creatinine 1.59 H Glucose 123 H Calcium 8.6 Magnesium Total Bilirubin AST ALT Alkaline Phosphatase Troponin I 0.07 H* B-Natriuretic Peptide 3129 H TSH 3.296 12/10/18 12/11/18 12/11/18 22:21 04:11 04:11 WBC 9.9 Hgb 10.1 L Hct 33.2 L Plt Count 219 INR APTT Sodium 127 L Potassium 5.0 Chloride 93 L Carbon Dioxide 26 BUN 21 Creatinine 1.63 H Glucose 65 L Calcium 8.5 L Magnesium 1.7 Total Bilirubin 1.0 AST 22 ALT 13 Alkaline Phosphatase 98 Troponin I 0.08 H* B-Natriuretic Peptide TSH 12/11/18 04:11 WBC Hgb Hct Plt Count INR APTT Sodium Potassium Chloride Carbon Dioxide BUN Creatinine Glucose Calcium Magnesium Total Bilirubin AST ALT Alkaline Phosphatase Troponin I 0.07 H* B-Natriuretic Peptide TSH Consult Discharge Plan - Plan Referrals: Osman Martinez MD [Primary Care Provider] -
[2018-12-11] MEDS ORDERED: Perflutren Lipid Microsphere 1.3 ML in 0.9 % Sodium Chloride 8.7 ML IVP ONE (07:47)
[2018-12-11] MEDS: Insulin LISPRO 300 UNITS/3 ML VIAL SQ SCH ×3 (08:11→16:44)
[2018-12-11] MEDS: Metoprolol XL (24 HR) Succ 25 MG TAB.ER.24H PO SCH ×2 (08:23→11:43)
[2018-12-11] MEDS: Cholecalciferol (D-3) 1,000 UNIT (25MCG) TABLET PO SCH (08:23)
[2018-12-11] MEDS: Isosorbide MONOnitrate (24 HR) 30 MG TAB.ER.24H PO SCH (08:24)
--- NOTE | 2018-12-11 08:30 | Internal Med Progress Note ---
Hospitalist Progress Note - Encounter Date of Encounter: 12/11/18 Time of Encounter: 08:28 - Subjective Interval History: the patient was seen and examined at bedside. denies chest pain or SOB no fever mentation is better tolerate diet d/c iv fluid, discussed with nurse , had 80 ml brownish drainage from chest tube last night - Exam Vitals: Temp Pulse Resp BP Pulse Ox 97.8 F 71 14 107/64 100 12/11/18 07:18 12/11/18 07:18 12/11/18 07:18 12/11/18 07:18 12/11/18 07:18 Exam: Physical examination: Gen.: Patient is alert and awake , not in respiratory distress , not in pain HEENT: perrla , EOMI, , no neck mass, supple neck Heart: S1 and S2 olvin, normal sinus rhythm, no cardiac murmur no gallop rhythm Chest: Decreased breathing bilaterally , no wheezing, crackles or crepitation, chest tube placement noted with brownish secretion in the chest tube container Abdomen: Soft nontender nondistended positive bowel sounds, no organomegaly Extremities: +3 pitting edema, peripheral pulses palpable, no cyanosis tenderness Neuro: Able to move all 4 limbs, DVT Prophylaxis: Heparin - Summary of Assessment and Plan Summary of Assessment and Plan: 1- Infected chest tube with left lung pneumonia and left pleural empyema: as indicated by Ct chest continue on braod spectrum iv AB including vancomycin ( pharmacy does )and IV cefepime sent for pleural fluid cell count culture pH and protein CT surgery already consulted, recommend continue on iv AB and possible left thoractomy and decortication if iv AB not clear infection consult ID hemodynamically stable no fever leuocytosis resolved follow blood culture 2- altered mental status most likely metabolic secondary to infected chest tube with pneumonia improving on diabetic diet swallow evaluation 3- ISRRAEL: likley 2/2 to prerenal due to dehydration got enough fluid serum creatinine trend up slightly to 1.63 from 1.5 chek post void bladder scan and place FC if urine retention hold nephrotoxic medication include lasix and spironolactone consider consult cylinder inspector UA clear 4- hyponatremia: due to poor oral intake and possible lung cancer serum Na 127 from 125 seems chronic d/c iv fluid monitor serum Na 5- mild hyperkalemia: seru K today 5 hold spironolactone 6- insulin dependant DM: on SSI check AIC 5.9 hold long acting insulin due to low BS 7- non zero troponin: urbén due to demand supply mismatch has elevated troponin follow lobectomy trend troponin has no Chest pain check ekg check limited echo 8- COPD with chronic respiratory failure on 2 L nasal cannula oxygen at home with recently diagnosed lung cancer status post lobectomy: Continue on supplemental oxygen and breathing treatments as needed 9- hypothyroidism on home dose levothyroxin , TSH 3.2 10: GERD on PPI - Time Spent with Patient Total time spent is greater than 50% in coordination of care (as documented) at patient's floor/unit and/or counseling patient: Internal Medicine: Result - Labs CBC & Chem 7: 12/11/18 04:11 12/11/18 04:11 Labs: Short CBC 12/10/18 12/11/18 Range/Units 13:46 04:11 WBC 15.3 H 9.9 (4.3-11.1) K/mcL Hgb 10.2 L 10.1 L (12.9-16.9) g/dL Hct 33.6 L 33.2 L (37.5-50.1) % Plt Count 272 219 (140-400) K/mcL Neutrophils # 12.0 H 7.6 (1.6-8.9) K/mcL BMP 12/10/18 12/10/18 12/11/18 13:46 19:40 04:11 Sodium 125 L 125 L 127 L Potassium 5.3 H 5.1 5.0 Chloride 90 L 92 L 93 L Carbon Dioxide 29 30 H 26 BUN 21 20 21 Creatinine 1.60 H 1.59 H 1.63 H Glucose 160 H 123 H 65 L Calcium 9.0 8.6 8.5 L Cardiac Enzymes 12/10/18 12/10/18 12/10/18 Range/Units 13:46 16:30 22:21 Troponin I 0.07 H* 0.07 H* 0.08 H* (< 0.04) ng/mL 12/11/18 Range/Units 04:11 Troponin I 0.07 H* (< 0.04) ng/mL Liver Function 12/10/18 12/11/18 Range/Units 13:46 04:11 Total Bilirubin 1.1 H 1.0 (0.3-1.0) mg/dL Direct Bilirubin 0.5 H (0.0-0.2) mg/dL AST 23 22 (13-39) Units/L ALT 14 13 (7-52) Units/L Alkaline Phosphatase 106 H 98 (34-104) Units/L Albumin 2.9 L 2.8 L (3.5-5.7) g/dL Urine 12/10/18 Range/Units 16:05 Urine Color Yellow (Yellow) Urine Clarity Clear (Clear) Urine pH 6.5 (5.0-8.0) pH Units Ur Specific [place] 1.014 (1.010-1.025) Urine Protein Trace (Neg-Trace) mg/dL Urine Glucose (UA) Normal (Normal) mg/dL - ABG Interpretation ABG results: PT/INR, D-dimer PT 16.9 Seconds (9.4-12.1) H 12/10/18 13:46 - Impressions Impressions Chest CT 12/10/18 13:58 IMPRESSION: 1. Status post left lower lobectomy. 2. Moderate-sized left hydropneumothorax with chest tube in place. 3. Multifocal lung consolidation involving the lingula, right upper lobe, and right lower lobe. Findings most likely represent multifocal pneumonia. 4. Slightly enlarged mediastinal and right hilar lymph nodes since 09/04/2018. The nodes are likely reactive to the pneumonia. D/ / 12/10/2018 15:44:14 Wellington Sherman MD / avtar Interpreting Provider: Wellington Sherman MD Consult Discharge Plan - Plan Referrals: Osman Martinez MD [Primary Care Provider] -
--- NOTE | 2018-12-11 12:38 | Infectious Disease Consult ---
Infectious Disease-Consult - Encounter Date/Time Date of Encounter: 12/11/18 Time of Encounter: 12:37 - Data of Consult Patient: new to practice Reason for consult: Fluid in the Chest tube Consult date: 12/11/18 Requesting Physician: Prateek Sheets MD Primary Care Provider: Osman Martinez MD - HPI HPI: Patient is a 73-year-old gentleman who presented to [place] emergency room 12/10/2018 with purulence drainage are on the chest tube on the left side. We are consulted on 12/11/2018 for antibiotic recommendations. Briefly, patient is a 73-year-old gentleman who has an extensive past medical history mentioned below including diabetes mellitus type 2, coronary artery disease and CHF. He was recently diagnosed was [place] cell carcinoma of the left lower lobe stage to be. Patient was evaluated by cardiothoracic surgery and underwent a left thoracotomy with left lower lobe resection by Dr. Angel on 11/06/18. His hospital stay was complicated by non-ST AK, acute renal failure and left lung pneumonia. No causative organism was identified for the pneumonia. The patient was started on Rocephin on 11/18/2018. I do not see any antibiotics on discharge. Patient tells me that she has been having worsening shortness of breath. He denied any fevers or chills or night sweats. He denied worsening cough. He also had drainage from around his chest tube with foul-smelling pus. Patient's complaint were nonspecific and I do not think he was the best historian. Since admission, patient has been afebrile, tachycardic initially, without tachypnea. His presenting WC was 15.3 thousand with 79% neutrophils. Chemistry revealed BUN 20 creatinine 1.59 BNP 3129. A urinalysis was within normal limit. Blood cultures 2 were obtained and are no growth to date. Initial imaging revealed a CT chest which read "status post left lower lobectomy, moderate sized left hydropneumothorax was chest tube in place. Multifocal lung consolidation involving the lingula, right upper lobe, and right lower lobe. Findings most likely represent multifocal pneumonia." Patient was started empirically on vancomycin and cefepime were asked to evaluate the patient and make further recommendations. - ROS Review of Systems: 10 point review of systems done, negative other for what is mentioned in the history of present illness - Results CBC & Chem 7: 12/11/18 04:11 12/11/18 13:53 - Exam Vitals: Temp Pulse Resp BP Pulse Ox 97.8 F 71 14 120/71 100 12/11/18 11:47 12/11/18 11:47 12/11/18 11:47 12/11/18 11:47 12/11/18 11:47 Exam: GENERAL: Laying in bed, appears comfortable. HEAD: Normocephalic atraumatic EYES: PERRLA, EOMI, no conjunctival hemorrhage, sclera anicteric ENT: Mucous membranes moist, no oral thrush NECK: Supple. No meningeal signs. No masses LUNGS: Chest expanding symmetrically. Lungs sounds audible both lung sauer. No wheezing, no rhonchi CV: RRR, S1S2, ABDOMEN: Soft, nontender, nondistended. Bowel sounds audible BACK: No CVA tenderness. Normal inspection. No tenderness over the spine EXTREMITY: Adequate perfusion. No joint effusion. SKIN: Normal color. No rash. NEURO: Awake alert oriented 3. No obvious focal deficit PSYCH: Calm and appropriate. No agitation. Aspirin [Lo-Dose Aspirin EC] 81 mg PO HS 11/26/17 [History] Atorvastatin [Lipitor] 40 mg PO DAILY 11/26/17 [History] Cholecalciferol (D-3) [Vitamin D] 2,000 unit PO DAILY 11/26/17 [History] Clopidogrel [Plavix] 75 mg PO DAILY 08/11/18 [History] Latanoprost [Xalatan] 1 drop LEFT EYE HS 08/11/18 [History] Spironolactone 50 mg PO DAILY 08/11/18 [History] Insulin Glargine [Lantus] 28 unit SQ HS PRN 08/14/18 [History] Metoprolol XL (24 HR) Succ [Toprol Xl] 25 mg PO DAILY 08/14/18 [History] Omeprazole [PriLOSEC] 20 mg PO DAILY@0730 08/14/18 [History] Albuterol Sulfate [Proair Hfa] 2 puff IH Q6H PRN 10/29/18 [History] Budesonide/Formoterol 160/4.5 [Symbicort 160/4.5] 2 puff IH BIDR 10/29/18 [History] Furosemide [Lasix] 40 mg PO DAILY 10/29/18 [History] Insulin Regular, Human [Novolin R] 12 unit SQ DAILY PRN 10/29/18 [History] Isosorbide MONOnitrate [Isosorbide Mononitrate ER] 30 mg PO DAILY 10/29/18 [History] Levothyroxine [Synthroid] 50 mcg PO DAILY 10/29/18 [History] Nitroglycerin [Nitrostat] 0.4 mg SL Q5MIN PRN 10/29/18 [History] Tiotropium [employer] [Spiriva Respimat] 2 puff IH DAILY 10/29/18 [History] Allergy/AdvReac Type Severity Reaction Status Date / Time gabapentin [From Neurontin] AdvReac Hallucinati Verified 11/13/18 07:15 ng lisinopril AdvReac See Verified 11/06/18 10:14 Comments Varenicline [From Chantix] AdvReac Hallucinati Verified 11/06/18 10:14 ng - Assessment and Plan (1) Sepsis Current Visit: Yes Status: Acute 2 SIRS criteria on admission (tachycardia and leukocytosis) secondary to HCAP and infection around chest tube site and possible empyema? Qualifiers: Sepsis type: sepsis due to unspecified organism Qualified Code(s): A41.9 - Sepsis, unspecified organism SNOMED Code(s): 64968251 (2) Multifocal pneumonia Current Visit: Yes Status: Acute causative organism unknown Back in early October BAL 10/21/18 previous pneumonia in early November with unknown causative organism and was treated with 6 days of Rocephin 11/18-11/23 and previous to that received [address] chest 12/10: Moderate sized L hydropneumothorax with chest tube in place; multifocal lung consolidation involving the lingula, RUL and RLL. Appreciate CTS eval and recommendations; await to see if they are planning to send thoracentesis fluid for cell count, chemistry, gram stain and cultures? in the mean time, check MRSA screen, Urine antigen, sputum culture if possible agree with HCAP treatment add levofloxacin to the vanc/cefepime for now goal vanc trough around 10-15 monitor labs and for dug toxicity SNOMED Code(s): 527770564 (3) ISRRAEL (acute kidney injury) Current Visit: No Status: Acute likely multifactorial if continues to worsen, might have to stop vanc and start zyvox or ceftaroline SNOMED Code(s): 03199189, 24278146 (4) Cancer of lower lobe of left lung Current Visit: No Status: Acute Stage IIB Squamous cell carcinoma of the lung (cT1c cN1 M0) SNOMED Code(s): 188002748 (5) Diabetes mellitus, insulin dependent (IDDM), controlled Current Visit: No Status: Chronic SNOMED Code(s): 78897127, 228992078 (6) Hospital-acquired pneumonia Current Visit: Yes Status: Acute SNOMED Code(s): 406788229 (7) CAD (coronary artery disease) Current Visit: No Status: Chronic Qualifiers: Coronary Disease-Associated Artery/Lesion type: jackson artery [place] vs. transplanted heart: jackson heart Associated angina: angina presence unspecified Qualified Code(s): I25.10 - Atherosclerotic heart disease of jackson coronary artery without angina pectoris SNOMED Code(s): 46400328 (8) DM2 (diabetes mellitus, type 2) Current Visit: No Status: Chronic Qualifiers: Diabetes mellitus mcc insulin use: with financial center manager use Diabetes mellitus complication status: with circulatory complication Diabetes mellitus complication detail: with peripheral angiopathy without gangrene Qualified Code(s): E11.51 - Type 2 diabetes mellitus with diabetic peripheral angiopathy without gangrene; Z79.4 - rose grader (current) use of insulin SNOMED Code(s): 24333366 (9) Congestive heart failure Current Visit: No Status: Chronic SNOMED Code(s): 48491012 (10) Pleural effusion Current Visit: No Status: Acute SNOMED Code(s): 04237811 Past Med Surg Social Fam HX - Past Medical History Medical history: cancer, CHF, coronary artery disease, diabetes, GERD, GI bleed, hyperlipidemia, hypertension, myocardial infarction, peripheral artery disease, renal disease Additional medical history: Lumbar degenerative disc disease, carotid artery disease, right eye blind Psychiatric history: no psych history - Past Surgical History Surgical History: cancer surgery, cholecystectomy, coronary bypass (CABG) Additional surgical history: Stent placed a year ago, Right subclavian bypass graft, skin cancer. - Social History Smoking Status: Former smoker Smokeless Tobacco Status: No Alcohol use: none Drug use: none - Family History Father Adopted: No Family Member Ethnicity: Non- Living Status: Hx Family Cardiac Disorders: No Hx Family Respiratory Disorders: No Hx Family Cancer: Yes Hx Family GI Disorders: No Hx Family Endocrine Disorder: No Hx Family Neuromuscular Disorders: No Hx Family Neurologic Disorders: No Hx Family HEENT Disorders: No Hx Family Autoimmune Disorders: No Mother Adopted: No Living Status: Hx Family Cardiac Disorders: No Hx Family Respiratory Disorders: No Hx Family Cancer: No Hx Family GI Disorders: No Hx Family Endocrine Disorder: No Hx Family Neuromuscular Disorders: No Hx Family Neurologic Disorders: No Hx Family HEENT Disorders: No Hx Family Autoimmune Disorders: No Consult Discharge Plan - Plan Referrals: Osman Martinez MD [Primary Care Provider] -
--- NOTE | 2018-12-11 13:37 | Electrocardiograph Report ---
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
[2018-12-11 14:38] LABS: Uric Acid 6.5 mg/dL (2.3-7.6)
--- NOTE | 2018-12-11 15:57 | Nephrology Consult Note ---
Date of Encounter: 12/11/18 Time of Encounter: 15:54 Assessment and Plan (1) ISRRAEL (acute kidney injury) Current Visit: No Status: Acute ISRRAEL likely to dehydration. Urine and serum studies ordered. Retroperitoneal US ordered. 500 cc NS order for gentle hydration. Continue to hold nephrotoxic medications. Strict I/O Daily weights. Renal diet advised. 1.5 liter fluid restriction. (2) Empyema lung Current Visit: Yes Status: Acute Per ID. (3) Hospital-acquired pneumonia Current Visit: Yes Status: Acute Per ID. (4) Hyponatremia Current Visit: Yes Status: Acute 127 today. 1.5 Liter fluid restriction. Serum and urine studies ordered. NS ordered. (5) Hyperkalemia Current Visit: Yes Status: Acute K is 5. Renal diet advised. History of Present Illness - Reason for Consult Consult date: 12/11/18 Acute Kidney Injury, hyponatremia, hyperkalemia - Chief Complaint chest tube drainage - History of Present Illness Mr. Beaulieu is a 73 year old male who presented to ED with chest tube drainage. He underwent a left thoracotomy with left lower lobe resection Dr. Tra Angel on 11/06/2018. He presented to ED with drainage on 12/10/18. PMH: HTN, CAD and CKD. He is seen by Dr. Watters in the office. Denies chest pain or shortness of breath. Denies nausea, vomiting, diarrhea. Denies fever chills. GFR fluctuates often. GFR is 44 today, has leighann 60 in the past. ISRRAEL workup ordered. NA is 127, hyponatremia workup ordered. Pt is slightly hyperkalemic at 5. He lives at home with . He is a former smoker. Denies etoh or illicit drug use. Denies FH of CKD or HD. Has never been on HD in the past. Past Med Surg Social Fam HX - Past Medical History Medical history: cancer, CHF, coronary artery disease, diabetes, GERD, GI bleed, hyperlipidemia, hypertension, myocardial infarction, peripheral artery disease, renal disease Additional medical history: Lumbar degenerative disc disease, carotid artery disease, right eye blind Psychiatric history: no psych history - Past Surgical History Surgical History: cancer surgery, cholecystectomy, coronary bypass (CABG) Additional surgical history: Stent placed a year ago, Right subclavian bypass graft, skin cancer. - Social History Smoking Status: Former smoker Smokeless Tobacco Status: No Alcohol use: none Drug use: none - Family History Father Adopted: No Family Member Ethnicity: Non- Living Status: Hx Family Cardiac Disorders: No Hx Family Respiratory Disorders: No Hx Family Cancer: Yes Hx Family GI Disorders: No Hx Family Endocrine Disorder: No Hx Family Neuromuscular Disorders: No Hx Family Neurologic Disorders: No Hx Family HEENT Disorders: No Hx Family Autoimmune Disorders: No Mother Adopted: No Living Status: Hx Family Cardiac Disorders: No Hx Family Respiratory Disorders: No Hx Family Cancer: No Hx Family GI Disorders: No Hx Family Endocrine Disorder: No Hx Family Neuromuscular Disorders: No Hx Family Neurologic Disorders: No Hx Family HEENT Disorders: No Hx Family Autoimmune Disorders: No Medications and Allergies Aspirin [Lo-Dose Aspirin EC] 81 mg PO HS 11/26/17 [History] Atorvastatin [Lipitor] 40 mg PO DAILY 11/26/17 [History] Cholecalciferol (D-3) [Vitamin D] 2,000 unit PO DAILY 11/26/17 [History] Clopidogrel [Plavix] 75 mg PO DAILY 08/11/18 [History] Latanoprost [Xalatan] 1 drop LEFT EYE HS 08/11/18 [History] Spironolactone 50 mg PO DAILY 08/11/18 [History] Insulin Glargine [Lantus] 28 unit SQ HS PRN 08/14/18 [History] Metoprolol XL (24 HR) Succ [Toprol Xl] 25 mg PO DAILY 08/14/18 [History] Omeprazole [PriLOSEC] 20 mg PO DAILY@0730 08/14/18 [History] Albuterol Sulfate [Proair Hfa] 2 puff IH Q6H PRN 10/29/18 [History] Budesonide/Formoterol 160/4.5 [Symbicort 160/4.5] 2 puff IH BIDR 10/29/18 [Histo ry] Furosemide [Lasix] 40 mg PO DAILY 10/29/18 [History] Insulin Regular, Human [Novolin R] 12 unit SQ DAILY PRN 10/29/18 [History] Isosorbide MONOnitrate [Isosorbide Mononitrate ER] 30 mg PO DAILY 10/29/18 [History] Levothyroxine [Synthroid] 50 mcg PO DAILY 10/29/18 [History] Nitroglycerin [Nitrostat] 0.4 mg SL Q5MIN PRN 10/29/18 [History] Tiotropium [place] [Spiriva Respimat] 2 puff IH DAILY 10/29/18 [History] Allergy/AdvReac Type Severity Reaction Status Date / Time gabapentin [From Neurontin] AdvReac Hallucinati Verified 11/13/18 07:15 ng lisinopril AdvReac See Verified 11/06/18 10:14 Comments Varenicline [From Chantix] AdvReac Hallucinati Verified 11/06/18 10:14 ng Review of Systems All Systems review (narrative): The remainder of the systems are negative. Constitutional: no chills, no fatigue, no fever(s) Cardiovascular: no chest pain, no dyspnea Respiratory: no cough Gastrointestinal: no change in bowel habits, no diarrhea, no nausea, no vomiting Genitourinary Male: no hematuria, no urinary frequency, no urinary hesitancy Exam - Vital Signs Vital signs: Initial Vital Signs Temp Pulse Resp BP Pulse Ox 97.3 F L 111 12 123/74 97 12/10/18 13:08 12/10/18 13:08 12/10/18 13:08 12/10/18 13:08 12/10/18 13:08 Vital Signs - Last 8 Hours Temp Pulse Resp BP Pulse Ox 12/11/18 15:02 97.8 F 60 14 130/64 100 12/11/18 11:47 97.8 F 71 14 120/71 100 Intake and Output 12/10/18 12/11/18 12/11/18 23:59 07:59 15:59 Intake Total 460 / 480 1550 / 1550 0 / 1550 Output Total 250 / 250 245 / 535 290 / 535 Balance 210 / 230 1305 / 1015 -290 / 1015 Intake: IV Fluids 400 / 420 1010 / 1010 0.9 % Sodium Chloride 1,000 ML 1000 / 1000 @ 125 mls/hr IVC .Q8H [facility] Rx#: [id number] Maxipime 1,000 MG In Water for 10 inj. (sterile) 10 ML @ 300 mls/ hr IVP Q8H [facility] Rx#:[id number] Vancocin 1,250 MG In 0.9 % 250 / 250 Sodium Chloride 250 ML @ 167 mls/hr IVPB ONCE ONE Rx#: [id number] Levaquin Premix 750mg/150 mL 150 / 150 750 mg In 150 ml @ 100 mls/hr IVPB ONCE ONE Rx#:[id number] Oral 60 / 60 540 / 540 0 / 540 Output: Urine 250 / 250 125 / 375 250 / 375 Chest Tube Drainage 120 / 160 40 / 160 Left Mid-Axillary Chest 120 / 160 40 / 160 Other: Meal Lunch Percent of Meal Consumed 10% Weight 82.4 kg 82.1 kg Blood Glucose* 77 56 76 Patient Weight 12/11/18 23:59 Weight 82.1 kg - General Appearance General appearance: well-developed, well-nourished EENT: ATNC, hearing intact, vision intact Neck: supple Respiratory: clear Cardiology: no edema, normal S1, normal S2 Gastrointestinal: normoactive bowel sounds, no tenderness, no guarding Integumentary: no rash, warm and dry Neurologic: no focal deficit, alert and oriented x3 Musculoskeletal: no deformities, no erythema Psychiatric: mood/affect appropriate, cooperative Results - Lab Results 12/11/18 04:11 12/11/18 13:53 Most recent lab results 12/11/18 04:11 Calcium 8.5 L Phosphorus 3.1 Magnesium 1.7 Consult Discharge Plan - Plan Referrals: Osman Martinez MD [Primary Care Provider] -
[2018-12-11] MEDS ORDERED: 0.9 % Sodium Chloride 500 ML IVC SCH (16:00)
[2018-12-11 16:06] LABS: Appearance of Pleural Fl Cloudy (Clear)
[2018-12-11 16:09] LABS: Amylase,Pleural Fluid 12 Units/L (No Ref Range); Glucose,Pleural Fluid < 10 mg/dL (No Ref Range); LDH,Pleural Fluid > 1200 Units/L (No Ref Range); Total Protein,Pleural Fluid 3.4 g/dL
[2018-12-11] MEDS: *HR* Heparin 5,000 UNIT/ML VIAL SQ SCH ×2 (16:55→21:47)
[2018-12-11 17:42] LABS: Protein/Creatinine Ratio,Urine 0.46 mg/mg (0.00-0.20)
[2018-12-11] MEDS: Aspirin Enteric Coated 81 MG Tablet PO SCH (19:44)
[2018-12-11] MEDS: Nystatin SUSP 5 ML UD.LIQ PO SCH (19:45)
[2018-12-11] MEDS: Latanoprost 2.5 ML BOTTLE LEFT EYE SCH (19:46)
[2018-12-12] MEDS: Cefepime HCl 1,000 MG in Water for inj. (sterile) 10 ML IVP SCH ×2 (00:39→08:45)
[2018-12-12 05:29] LABS: Basophils # 0.1 K/mcL (0.0-0.2); Basophils % 0.9 %; Eosinophils # 0.2 K/mcL (0.0-0.6); Eosinophils % 2.6 %; Hematocrit 34.3 % (37.5-50.1); Hemoglobin 10.6 g/dL (12.9-16.9); Immature Granulocytes % 0.4 % (0-4); Lymphocytes # 0.7 K/mcL (0.6-4.6); Lymphocytes % 7.2 %; Mean Corpuscular HGB Conc 30.9 g/dL (31.6-35.5); Mean Corpuscular Hemoglobin 28.6 pg (28.0-33.3); Mean Corpuscular Volume 92.7 fL (83.0-100.0); Mean Platelet Volume 10.7 fL (9.4-12.4); Monocytes # 1.1 K/mcL (0.0-1.3); Neutrophils # 7.1 K/mcL (1.6-8.9); Platelet Count 212 K/mcL (140-400); Red Cell Distribution Width 18.8 % (11.5-14.5); Segmented Neutrophils % 76.9 %; White Blood Count 9.2 K/mcL (4.3-11.1)
[2018-12-12] MEDS: *HR* Heparin 5,000 UNIT/ML VIAL SQ SCH ×3 (05:31→21:37)
[2018-12-12 05:47] LABS: Albumin 2.7 g/dL (3.5-5.7); Albumin/Globulin Ratio 0.7 (1.1-2.2); Calcium 8.6 mg/dL (8.6-10.3); Globulin 3.7 g/dL (2.4-3.5); Magnesium 1.7 mg/dL (1.6-2.6); Phosphorous 2.5 mg/dL (2.7-4.5); Total Protein 6.4 g/dL (6.4-8.9)
[2018-12-12 06:02] LABS: Thyroid Stimulating Hormone 3.042 mcIU/mL (0.340-5.600)
[2018-12-12] MEDS ORDERED: Aminoglycoside Consult 1 EACH MC ONE (07:51)
[2018-12-12] MEDS: Nystatin SUSP 5 ML UD.LIQ PO SCH ×4 (08:45→19:58)
[2018-12-12] MEDS: Cholecalciferol (D-3) 1,000 UNIT (25MCG) TABLET PO SCH (08:45)
[2018-12-12] MEDS: levoFLOXacin 750 MG/150 ML 750 MG/150 ML BAG IVPB SCH (08:46)
[2018-12-12] MEDS: Isosorbide MONOnitrate (24 HR) 30 MG TAB.ER.24H PO SCH (08:47)
[2018-12-12] MEDS: Metoprolol XL (24 HR) Succ 25 MG TAB.ER.24H PO SCH (08:49)
--- NOTE | 2018-12-12 09:09 | Cardiothoracic Progress Note ---
Date of Encounter: 12/12/18 Time of Encounter: 09:07 - Assessment and plan (1) Cancer of lower lobe of left lung Current Visit: No Status: Acute The assessment and plan as outlined above was discussed with the patient and/or family members who expressed understanding and agreement. All questions were answered. The patient has been afebrile and his white blood cell count is decreasing. He has a chest tube in place which has minimal drainage. - Subjective Interval history: The patient has no complaints. He states that his appetite is poor. Vital Signs, Last 4 Hours Temp Pulse Resp BP Pulse Ox 12/12/18 07:57 97.5 F L 82 16 80/56 100 12/12/18 07:50 97.5 F L 12/12/18 07:16 92 16 89/66 100 Oxgyen Flow Rate Oxygen Flow Rate (LPM) 3 Weight 12/10/18 12/11/18 12/12/18 23:59 23:59 23:59 Weight 82.4 kg 82.1 kg Lungs are clear to percussion and auscultation. Heart is in a regular rate and rhythm. - Labs 12/12/18 04:40 12/12/18 04:40 Lab Results, Last 24 hours 12/11/18 12/12/18 12/12/18 13:53 04:40 04:40 WBC 9.2 Hgb 10.6 L Hct 34.3 L Plt Count 212 Sodium 126 L Potassium 5.0 Chloride 93 L Carbon Dioxide 25 BUN 22 Creatinine 1.55 H 1.49 H Glucose 130 H Calcium 8.6 Magnesium 1.7 Total Bilirubin 1.0 AST 21 ALT 14 Alkaline Phosphatase 108 H TSH 12/12/18 04:40 WBC Hgb Hct Plt Count Sodium Potassium Chloride Carbon Dioxide BUN Creatinine Glucose Calcium Magnesium Total Bilirubin AST ALT Alkaline Phosphatase TSH 3.042 Consult Discharge Plan - Plan Referrals: Osman Martinez MD [Primary Care Provider] -
[2018-12-12] MEDS: Acetaminophen 325 MG TABLET PO PRN (09:10)
[2018-12-12] MEDS: Insulin LISPRO 300 UNITS/3 ML VIAL SQ SCH ×3 (09:11→17:08)
[2018-12-12] MEDS ORDERED: 0.9 % Sodium Chloride 500 ML IVC ONE (09:35)
--- NOTE | 2018-12-12 09:51 | Internal Med Progress Note ---
Hospitalist Progress Note - Encounter Date of Encounter: 12/12/18 Time of Encounter: 09:48 - Subjective Interval History: the patient was seen and examined at bedside. patient this morning alert and awake, however nurse reported acute confusion last night denies CP , SOB , dizziness or lightheadedness BP is noted to be low hold B and order 500 cc bolus no fever, BC negative echo show ef 30%, minimal chest tube drainage - Exam Vitals: Temp Pulse Resp BP Pulse Ox 97.5 F L 82 16 80/56 100 12/12/18 07:57 12/12/18 07:57 12/12/18 07:57 12/12/18 07:57 12/12/18 07:57 Exam: Physical examination: Gen.: Patient is alert and awake , not in respiratory distress , not in pain HEENT: perrla , EOMI, , no neck mass, supple neck Heart: S1 and S2 olvin, normal sinus rhythm, no cardiac murmur no gallop rhythm Chest: Decreased breathing bilaterally , no wheezing, crackles or crepitation, chest tube placement noted with brownish secretion in the chest tube container Abdomen: Soft nontender nondistended positive bowel sounds, no organomegaly Extremities: +2 pitting edema, peripheral pulses palpable, no cyanosis tenderness Neuro: Able to move all 4 limbs, DVT Prophylaxis: Heparin - Summary of Assessment and Plan Summary of Assessment and Plan: 1- Infected chest tube with left lung pneumonia and left pleural empyema: as indicated by Ct chest continue on braod spectrum iv AB including vancomycin ( pharmacy does )and IV cefepime sent for pleural fluid cell count culture pH and protein, fluid analysis indicate exudative effusion, PH 8 CT surgery already consulted, recommend continue on iv AB and possible left thoractomy and decortication if iv AB not clear infection consult ID has low BP, cause not clear no feature of sepsis, leukocytosis resolved, BC negative, no fever give 500 bolus NS and hod BB check serum AM cotisole and lactic acid echo show ef 30% consistent with compnesated systolic heart failure 2- altered mental status most likely metabolic secondary to infected chest tube with pneumonia, low BP and hyponatremia improving today morning alert and awake on diabetic diet swallow evaluation 3- ISRRAEL: likley 2/2 to prerenal due to dehydration got enough fluid serum creatinine trend down to 1.49 with BUN 22 check post void bladder scan and place FC if urine retention hold nephrotoxic medication include lasix and spironolactone 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 monitor serum Na 5- mild hyperkalemia: seru K today 5 hold spironolactone 6- insulin dependant DM: on SSI check AIC 5.9 hold long acting insulin due to low BS 7- non zero troponin: rubén due to demand supply mismatch has elevated troponin follow lobectomy trend troponin has no Chest pain check ekg limited echo show ef 30-35% 8- COPD with chronic respiratory failure on 2 L nasal cannula oxygen at home with recently diagnosed lung cancer status post lobectomy: Continue on supplemental oxygen and breathing treatments as needed 9- hypothyroidism on home dose levothyroxin , TSH 3.2 10: GERD on PPI - Time Spent with Patient Total time spent is greater than 50% in coordination of care (as documented) at patient's floor/unit and/or counseling patient: Internal Medicine: Result - Labs CBC & Chem 7: 12/12/18 04:40 12/12/18 04:40 Labs: Short CBC 12/12/18 Range/Units 04:40 WBC 9.2 (4.3-11.1) K/mcL Hgb 10.6 L (12.9-16.9) g/dL Hct 34.3 L (37.5-50.1) % Plt Count 212 (140-400) K/mcL Neutrophils # 7.1 (1.6-8.9) K/mcL BMP 12/11/18 12/12/18 13:53 04:40 Sodium 126 L Potassium 5.0 Chloride 93 L Carbon Dioxide 25 BUN 22 Creatinine 1.55 H 1.49 H Glucose 130 H Calcium 8.6 Liver Function 12/12/18 Range/Units 04:40 Total Bilirubin 1.0 (0.3-1.0) mg/dL AST 21 (13-39) Units/L ALT 14 (7-52) Units/L Alkaline Phosphatase 108 H (34-104) Units/L Albumin 2.7 L (3.5-5.7) g/dL - ABG Interpretation ABG results: PT/INR, D-dimer PT 16.9 Seconds (9.4-12.1) H 12/10/18 13:46 - Impressions Impressions Echocardiogram Limited Views 12/11/18 00:00 Impressions: LVEF 30-35%. Atypical septal motion consistent with post-operative status. Definity echo contrast was used. There is no LV thrombus. Left Ventricular Wall Motion: Rest Echo Findings The apex, apical inferior, mid inferior, basal inferior, apical anterior, mid anterior, basal anterior, apical septal, mid inferior septal, basal inferior septal, apical lateral, mid anterior lateral, basal anterior lateral, mid anterior septal, mid inferior lateral, basal anterior septal and basal inferior lateral grider were hypokinetic. Findings: Study Quality * Technically adequate exam. ECG Findings * Probably paced rhythm. Left Ventricle * LVEF 30-35%. * Atypical septal motion consistent with post-operative status. * Definity echo contrast was used. * There is no LV thrombus. Right Ventricle * Right ventricular size is normal in these images. Function not optimally evaluated on Limited Echo. Aorta * Not well visualized. Retroperitoneum Ultrasound 12/11/18 22:00 IMPRESSION: Unremarkable ultrasound of the kidneys and urinary bladder. D/ / Hans Madera MD / Hans Madera MD Interpreting Provider: Hans Madera MD Consult Discharge Plan - Plan Referrals: Osman Martinez MD [Primary Care Provider] -
[2018-12-12 09:59] LABS: ABG Base Excess -2 mEq/L (-2 to 3); ABG HCO3 22 mEq/L (21-27); ABG Oxygen Saturation 99 % (95-98); ABG PCO2 34 mmHg (35-45); ABG PH 7.42 pH Units (7.32-7.45); ABG PO2 139 mmHg (85-104); ABG TCO2 23 mEq/L (20-26)
[2018-12-12] MEDS ORDERED: 0.9 % Sodium Chloride 250 ML IVC ONE (10:13)
[2018-12-12] MEDS: Ipratropium/Albuterol Neb 3 ML IH PRN ×2 (12:11→13:40)
--- NOTE | 2018-12-12 16:13 | Electrocardiograph Report ---
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
--- NOTE | 2018-12-12 18:21 | Nephrology Progress Note ---
Date of Encounter: 12/12/18 Time of Encounter: 16:00 - Assessment and Plan (1) ISRRAEL (acute kidney injury) Status: Resolved SCr about baseline at 1.49, GFR 46, which is great UOP noted at 1625cc in the past 24hrs which is good Would start flomax and recommend voiding trial tomorrow Continue to avoid nephrotoxins if possible (2) Hyponatremia Status: Resolved Sodium noted t 126. pt has not been using salt packets per . Encouraged to use No tolvaptan use indicated for now; just fluid restriction and increase salt use (3) Empyema lung Status: Acute Per ID and CTS. (4) Hospital-acquired pneumonia Status: Acute Per ID and primary team. Subjective Interval history: Interim noted, pt seen and examined sitting in chair with and granddaughter at bedside. Feels better. Jiménez placed last night for urine retention Objective - Vital Signs Vital signs: Vital Signs Temp Pulse Resp BP Pulse Ox 12/12/18 16:58 95/64 12/12/18 16:00 98.1 F 99 12 75/43 74 12/12/18 09:50 97.6 F 73 16 90/62 100 12/12/18 07:57 97.5 F L 82 16 80/56 100 12/12/18 07:50 97.5 F L 12/12/18 07:16 92 16 89/66 100 12/12/18 04:49 98.0 F 70 16 74/54 100 12/11/18 22:28 132/65 12/11/18 20:26 97.6 F 62 17 84/52 100 12/11/18 19:53 100 Intake and Output 12/12/18 12/12/18 12/12/18 07:59 15:59 23:59 Intake Total 10 / 470 200 / 470 260 / 470 Output Total 730 / 1310 520 / 1310 60 / 1310 Balance -720 / -840 -320 / -840 200 / -840 Intake: IV Fluids 10 / 10 Maxipime 1,000 MG In Water for 10 10 inj. (sterile) 10 ML @ 300 mls/ hr IVP Q8H [facility] Rx#:[id number] Oral 200 / 460 260 / 460 Output: Urine 0 / 0 Catheter 650 / 1150 500 / 1150 Wound Drainage 80 / 80 Left Chest 80 / 80 Chest Tube Drainage 20 / 80 60 / 80 Left Mid-Axillary Chest 20 / 80 60 / 80 Other: Meal Breakfast Dinner Percent of Meal Consumed 40% 50% Stool Size Smear Moderate Stool Consistency soft soft formed Stool Characteristics Normal for Patient Stool Color Brown Brown Yellow # Bowel Movements 1 1 Blood Glucose* 198 163 - General Appearance General appearance: Present: chronically ill (NAD) EENT: Present: ATNC, mucous membranes moist Neck: Present: no JVD, supple Additional Comments: decreased BS bases Cardiology: Present: edema (LE bialt), normal S1, normal S2 Gastrointestinal: Present: no tenderness, no guarding Integumentary: Present: warm and dry Neurologic: Present: no focal deficit Musculoskeletal: Present: no deformities Psychiatric: Present: mood/affect appropriate, cooperative - Lab 12/29/18 00:53 12/29/18 00:53 Most recent lab results 12/12/18 09:55 ABG pH 7.42 ABG pCO2 34 L ABG pO2 139 H ABG HCO3 22 ABG O2 Saturation 99 H Consult Discharge Plan - Plan Instructions: Furosemide (By mouth), Doxycycline (By mouth), Laxative, St imulant (By mouth), Amoxicillin/Clavulanate Potassium (By mouth), Oxycodone, Rapid Release (By mouth), Tamsulosin (By mouth), Miconazole (On the skin), Thoracotomy (DC), Tyler-Rocha Drain Care (DC) Additional Instructions: Please go to Out Patient testing on Jan 12, 2019 around 0750 AM to get an x-ray done before you go see Dr. Angel. The office is sending the order over to out patient testing at the [facility]. Referrals: Osman Martinez MD [Primary Care Provider] - 01/02/19 1:15 pm Tra Angel MD [Partnered Physician] - 01/12/19 8:50 am Prescriptions: Amoxicillin/Clavulanate [Augmentin] 875 mg PO BIDWM 9 Days #18 tablet Doxycycline 100 mg PO BID 9 Days #18 capsule Tamsulosin [Flomax] 0.4 mg PO DAILY 30 Days #30 capsule Furosemide [Lasix] 20 mg PO DAILY 30 Days #30 tablet Clotrimazole 1% CRM [Lotrimin 1%] 1 appl TP BID 10 Days #1 tube OxyCODONE Immed Rel [Roxicodone 5 MG] 5 mg PO Q4HR PRN 5 Days #10 tablet PRN Reason: Breakthrough Pain Sennosides/Docusate Sodium [Senna Plus] 1 each PO BID 30 Days #60 tablet
[2018-12-12] MEDS: Latanoprost 2.5 ML BOTTLE LEFT EYE SCH (19:58)
[2018-12-12] MEDS: Aspirin Enteric Coated 81 MG Tablet PO SCH (19:58)
[2018-12-13] MEDS: Ipratropium/Albuterol Neb 3 ML IH PRN ×2 (03:22→18:11)
[2018-12-13] MEDS: *HR* Heparin 5,000 UNIT/ML VIAL SQ SCH ×3 (05:32→21:37)
[2018-12-13 06:00] LABS: Basophils # 0.1 K/mcL (0.0-0.2); Basophils % 1.1 %; Eosinophils # 0.3 K/mcL (0.0-0.6); Eosinophils % 2.4 %; Hematocrit 34.3 % (37.5-50.1); Hemoglobin 10.8 g/dL (12.9-16.9); Immature Granulocytes % 0.4 % (0-4); Lymphocytes # 0.8 K/mcL (0.6-4.6); Lymphocytes % 6.8 %; Mean Corpuscular HGB Conc 31.5 g/dL (31.6-35.5); Mean Corpuscular Hemoglobin 28.5 pg (28.0-33.3); Mean Corpuscular Volume 90.5 fL (83.0-100.0); Mean Platelet Volume 10.7 fL (9.4-12.4); Monocytes # 1.5 K/mcL (0.0-1.3); Monocytes % 12.7 %; Neutrophils # 8.7 K/mcL (1.6-8.9); Platelet Count 214 K/mcL (140-400); Red Blood Count 3.79 M/mcL (4.19-5.50); Red Cell Distribution Width 18.7 % (11.5-14.5); Segmented Neutrophils % 76.6 %; White Blood Count 11.4 K/mcL (4.3-11.1)
[2018-12-13 06:32] LABS: Alanine Aminotransferase 12 Units/L (7-52); Albumin 2.9 g/dL (3.5-5.7); Albumin/Globulin Ratio 0.7 (1.1-2.2); Alkaline Phosphatase 121 Units/L (34-104); Aspartate Amino Transferase 29 Units/L (13-39); BUN/Creatinine Ratio 15 (6-26); Blood Urea Nitrogen 21 mg/dL (8-23); Calcium 8.8 mg/dL (8.6-10.3); Carbon Dioxide 17 mEq/L (23-29); Chloride 94 mEq/L (98-107); Globulin 4.2 g/dL (2.4-3.5); Glucose 109 mg/dL (70-105); Magnesium 1.7 mg/dL (1.6-2.6); Osmolality,Calculated 268 (280-300); Phosphorous 1.7 mg/dL (2.7-4.5); Potassium 5.2 mEq/L (3.5-5.1); Sodium 127 mEq/L (136-145); Total Protein 7.1 g/dL (6.4-8.9); eGFR For African Americans > 60 (> 60); eGFR For Non-African Americans 51 (> 60)
[2018-12-13] MEDS: Insulin LISPRO 300 UNITS/3 ML VIAL SQ SCH ×3 (08:44→17:26)
[2018-12-13] MEDS: Isosorbide MONOnitrate (24 HR) 30 MG TAB.ER.24H PO SCH (08:50)
[2018-12-13] MEDS: Nystatin SUSP 5 ML UD.LIQ PO SCH ×4 (08:50→21:37)
[2018-12-13] MEDS: Cefepime HCl 2,000 MG in Water for inj. (sterile) 20 ML IVP SCH (08:50)
[2018-12-13] MEDS: Cholecalciferol (D-3) 1,000 UNIT (25MCG) TABLET PO SCH (08:50)
--- NOTE | 2018-12-13 09:35 | Internal Med Progress Note ---
Hospitalist Progress Note - Encounter Date of Encounter: 12/13/18 Time of Encounter: 09:31 - Subjective Interval History: patient was seen and examined at bedside. looks better sitting in chair comfortably denies CP , SOB or feeling dizzy - Exam Vitals: Temp Pulse Resp BP Pulse Ox 98.2 F 98 16 104/65 92 12/13/18 07:42 12/13/18 07:42 12/13/18 07:42 12/13/18 07:42 12/13/18 08:40 Exam: Physical examination: Gen.: Patient is alert and awake , not in respiratory distress , not in pain HEENT: perrla , EOMI, , no neck mass, supple neck Heart: S1 and S2 olvin, normal sinus rhythm, no cardiac murmur no gallop rhythm Chest: Decreased breathing bilaterally , no wheezing, crackles or crepitation, chest tube placement noted with brownish secretion in the chest tube container Abdomen: Soft nontender nondistended positive bowel sounds, no organomegaly Extremities: +1 pitting edema, peripheral pulses palpable, no cyanosis tenderness Neuro: Able to move all 4 limbs, DVT Prophylaxis: Heparin - Summary of Assessment and Plan Summary of Assessment and Plan: 1- Infected chest tube with left lung pneumonia and left pleural empyema: as indicated by Ct chest continue on braod spectrum iv AB including vancomycin ( pharmacy does )and IV cefepime sent for pleural fluid cell count culture pH and protein, fluid analysis indicate exudative effusion, PH 8 CT surgery already consulted, recommend continue on iv AB and possible left thoractomy and decortication if iv AB not clear infection consult ID BP is more stable no feature of sepsis, leukocytosis resolved, BC negative, no fever check serum AM cotisole 19 LA 1.3 echo show ef 30% consistent with compnesated systolic heart failure 2- altered mental status most likely metabolic secondary to infected chest tube with pneumonia, low BP and hyponatremia improving today morning alert and awake on diabetic diet 3- ISRRAEL: likley 2/2 to prerenal due to dehydration got enough fluid serum creatinine trend down to 1.36 with BUN 21 has urianry retention s/p FC placement started on flomax hold nephrotoxic medication include lasix and spironolactone 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 clear augment BP 4- hyponatremia: due to poor oral intake and possible lung cancer serum Na 127 seems chronic nephrology onboard, no indication of tolvaptan on fluid restriction monitor serum Na 5- mild hyperkalemia: resolved hold spironolactone Hypophostemeia: on replacement 6- insulin dependant DM: on SSI AIC 5.9 hold long acting insulin due to low BS 7- non zero troponin: rubén due to demand supply mismatch has elevated troponin follow lobectomy trend troponin has no Chest pain check ekg limited echo show ef 30-35% 8- COPD with chronic respiratory failure on 2 L nasal cannula oxygen at home with recently diagnosed lung cancer status post lobectomy: Continue on supplemental oxygen and breathing treatments as needed 9- hypothyroidism on home dose levothyroxin , TSH 3.2 10: GERD on PPI - Time Spent with Patient Total time spent is greater than 50% in coordination of care (as documented) at patient's floor/unit and/or counseling patient: Internal Medicine: Result - Labs CBC & Chem 7: 12/13/18 05:46 12/13/18 08:39 Labs: Short CBC 12/13/18 Range/Units 05:46 WBC 11.4 H (4.3-11.1) K/mcL Hgb 10.8 L (12.9-16.9) g/dL Hct 34.3 L (37.5-50.1) % Plt Count 214 (140-400) K/mcL Neutrophils # 8.7 (1.6-8.9) K/mcL BMP 12/13/18 12/13/18 05:18 08:39 Sodium 127 L Potassium 5.2 H 4.9 Chloride 94 L Carbon Dioxide 17 L BUN 21 Creatinine 1.36 H Glucose 109 H Calcium 8.8 Liver Function 12/13/18 Range/Units 05:18 Total Bilirubin 1.0 (0.3-1.0) mg/dL AST 29 (13-39) Units/L ALT 12 (7-52) Units/L Alkaline Phosphatase 121 H (34-104) Units/L Albumin 2.9 L (3.5-5.7) g/dL - ABG Interpretation ABG results: ABG ABG pH 7.42 pH Units (7.32-7.45) 12/12/18 09:55 ABG pCO2 34 mmHg (35-45) L 12/12/18 09:55 ABG pO2 139 mmHg (85-104) H 12/12/18 09:55 ABG O2 Saturation 99 % (95-98) H 12/12/18 09:55 PT/INR, D-dimer PT 16.9 Seconds (9.4-12.1) H 12/10/18 13:46 - Impressions Impressions Chest X-Ray 12/13/18 00:01 IMPRESSION: Worsening opacity in the mid right lung. No significant change otherwise. D/ / Robyn Wilson MD / Robyn Wilson MD Interpreting Provider: Robyn Wilson MD Consult Discharge Plan - Plan Referrals: Osman Martinez MD [Primary Care Provider] -
--- NOTE | 2018-12-13 10:30 | Cardiothoracic Progress Note ---
Date of Encounter: 12/13/18 Time of Encounter: 10:28 - Assessment and plan (1) Cancer of lower lobe of left lung Current Visit: No Status: Acute We will continue to treat the patient for multifocal pneumonia. - Subjective Interval history: The patient has no complaints. Vital Signs, Last 4 Hours Temp Pulse Resp BP Pulse Ox 12/13/18 08:40 92 12/13/18 07:42 98.2 F 98 16 104/65 97 Oxgyen Flow Rate Oxygen Flow Rate (LPM) 2 Clinical Data, last 8 Hours Output, Chest Tube Drainage 40 Amount [Left Mid-Axillary Chest] Output, Urine Amount 0 Weight 12/11/18 12/12/18 12/13/18 23:59 23:59 23:59 Weight 82.1 kg 82 kg Lungs are clear to percussion and auscultation. The chest tube has an air leak and has purulent drainage. Chest x-ray reveals no pneumothorax. - Labs 12/13/18 05:46 12/13/18 08:39 Lab Results, Last 24 hours 12/13/18 12/13/18 12/13/18 05:18 05:46 08:39 WBC 11.4 H Hgb 10.8 L Hct 34.3 L Plt Count 214 Sodium 127 L Potassium 5.2 H 4.9 Chloride 94 L Carbon Dioxide 17 L BUN 21 Creatinine 1.36 H Glucose 109 H Calcium 8.8 Magnesium 1.7 Total Bilirubin 1.0 AST 29 ALT 12 Alkaline Phosphatase 121 H Consult Discharge Plan - Plan Referrals: Osman Martinez MD [Primary Care Provider] -
[2018-12-13] MEDS: Acetaminophen 325 MG TABLET PO PRN (14:47)
[2018-12-13] MEDS: Aspirin Enteric Coated 81 MG Tablet PO SCH (21:37)
[2018-12-13] MEDS: Latanoprost 2.5 ML BOTTLE LEFT EYE SCH (21:38)
[2018-12-14 03:26] LABS: Basophils # 0.1 K/mcL (0.0-0.2); Basophils % 1.1 %; Eosinophils # 0.4 K/mcL (0.0-0.6); Eosinophils % 4.6 %; Hematocrit 31.2 % (37.5-50.1); Hemoglobin 9.9 g/dL (12.9-16.9); Immature Granulocytes % 0.5 % (0-4); Lymphocytes # 0.9 K/mcL (0.6-4.6); Lymphocytes % 10.3 %; Mean Corpuscular HGB Conc 31.7 g/dL (31.6-35.5); Mean Corpuscular Hemoglobin 29.4 pg (28.0-33.3); Mean Corpuscular Volume 92.6 fL (83.0-100.0); Mean Platelet Volume 10.7 fL (9.4-12.4); Monocytes # 1.1 K/mcL (0.0-1.3); Monocytes % 12.5 %; Neutrophils # 6.2 K/mcL (1.6-8.9); Platelet Count 204 K/mcL (140-400); Red Blood Count 3.37 M/mcL (4.19-5.50); Red Cell Distribution Width 18.7 % (11.5-14.5); White Blood Count 8.8 K/mcL (4.3-11.1)
[2018-12-14 03:44] LABS: Alanine Aminotransferase 13 Units/L (7-52); Albumin 2.7 g/dL (3.5-5.7); Albumin/Globulin Ratio 0.8 (1.1-2.2); Alkaline Phosphatase 90 Units/L (34-104); Aspartate Amino Transferase 22 Units/L (13-39); BUN/Creatinine Ratio 14 (6-26); Bilirubin,Total 0.8 mg/dL (0.3-1.0); Blood Urea Nitrogen 18 mg/dL (8-23); Calcium 8.2 mg/dL (8.6-10.3); Carbon Dioxide 23 mEq/L (23-29); Chloride 98 mEq/L (98-107); Globulin 3.5 g/dL (2.4-3.5); Glucose 116 mg/dL (70-105); Magnesium 1.5 mg/dL (1.6-2.6); Osmolality,Calculated 275 (280-300); Phosphorous 2.1 mg/dL (2.7-4.5); Potassium 4.2 mEq/L (3.5-5.1); Sodium 131 mEq/L (136-145); Total Protein 6.2 g/dL (6.4-8.9); eGFR For African Americans > 60 (> 60); eGFR For Non-African Americans 56 (> 60)
[2018-12-14] MEDS: Ipratropium/Albuterol Neb 3 ML IH PRN (04:10)
[2018-12-14] MEDS: *HR* Heparin 5,000 UNIT/ML VIAL SQ SCH ×3 (06:06→21:38)
[2018-12-14] MEDS: Insulin LISPRO 300 UNITS/3 ML VIAL SQ SCH ×3 (09:14→16:36)
[2018-12-14] MEDS: Cefepime HCl 2,000 MG in Water for inj. (sterile) 20 ML IVP SCH (09:15)
[2018-12-14] MEDS: Nystatin SUSP 5 ML UD.LIQ PO SCH ×4 (09:16→21:35)
[2018-12-14] MEDS: Cholecalciferol (D-3) 1,000 UNIT (25MCG) TABLET PO SCH (09:16)
[2018-12-14] MEDS: levoFLOXacin 750 MG/150 ML 750 MG/150 ML BAG IVPB SCH (09:17)
[2018-12-14] MEDS: Isosorbide MONOnitrate (24 HR) 30 MG TAB.ER.24H PO SCH (09:17)
--- NOTE | 2018-12-14 09:21 | Cardiothoracic Progress Note ---
Date of Encounter: 12/14/18 Time of Encounter: 09:20 - Assessment and plan (1) Cancer of lower lobe of left lung Current Visit: No Status: Acute The patient is improving. His white blood cell count is normal and he is afebrile. - Subjective Interval history: The patient looks much better and has no complaints. Vital Signs, Last 4 Hours Temp Pulse Resp BP Pulse Ox 12/14/18 07:07 98.5 F 96 16 117/61 99 Oxgyen Flow Rate Oxygen Flow Rate (LPM) 2 Clinical Data, last 8 Hours Output, Chest Tube Drainage 60 Amount [Left Mid-Axillary Chest] Weight 12/12/18 12/13/18 12/14/18 23:59 23:59 23:59 Weight 82 kg 81.8 kg Lungs are clear to percussion and auscultation. Heart is in a normal sinus rhythm. His chest tube has an air leak and has purulent drainage. - Labs 12/14/18 02:42 12/14/18 02:42 Lab Results, Last 24 hours 12/13/18 12/14/18 12/14/18 08:39 02:42 02:42 WBC 8.8 Hgb 9.9 L Hct 31.2 L Plt Count 204 Sodium 131 L Potassium 4.9 4.2 Chloride 98 Carbon Dioxide 23 BUN 18 Creatinine 1.26 Glucose 116 H Calcium 8.2 L Magnesium 1.5 L Total Bilirubin 0.8 AST 22 ALT 13 Alkaline Phosphatase 90 Consult Discharge Plan - Plan Referrals: Osman Martinez MD [Primary Care Provider] -
--- NOTE | 2018-12-14 09:40 | Internal Med Progress Note ---
Hospitalist Progress Note - Encounter Date of Encounter: 12/14/18 Time of Encounter: 09:35 - Subjective Interval History: the patient was seen and examined at bedside. feel well pleural fluid analysis growing G- rods d/c vancomycin and continue on cefepime follow ID and sensitivity - Exam Vitals: Temp Pulse Resp BP Pulse Ox 98.5 F 96 16 117/61 99 12/14/18 07:07 12/14/18 07:07 12/14/18 07:07 12/14/18 07:07 12/14/18 07:07 Exam: Physical examination: Gen.: Patient is alert and awake , not in respiratory distress , not in pain HEENT: perrla , EOMI, , no neck mass, supple neck Heart: S1 and S2 olvin, normal sinus rhythm, no cardiac murmur no gallop rhythm Chest: Decreased breathing bilaterally , no wheezing, crackles or crepitation, chest tube placement noted with brownish secretion in the chest tube container Abdomen: Soft nontender nondistended positive bowel sounds, no organomegaly Extremities: +1 pitting edema, peripheral pulses palpable, no cyanosis tenderness Neuro: Able to move all 4 limbs, DVT Prophylaxis: Heparin - Summary of Assessment and Plan Summary of Assessment and Plan: 1- Infected chest tube with left lung pneumonia and left pleural empyema: as indicated by Ct chest pleural fluid growing G negative rods d/c vancom and continue on iv cefepime follow ID and sensitivity sent for pleural fluid cell count culture pH and protein, fluid analysis indicate exudative effusion, PH 8 CT surgery already consulted, recommend continue on iv AB and possible left t horactomy and decortication if iv AB not clear infection consult ID BP is more stable, resumed on BB no feature of sepsis, leukocytosis resolved, BC negative, no fever check serum AM cotisole 19 LA 1.3 echo show ef 30% consistent with compnesated systolic heart failure 2- altered mental status most likely metabolic secondary to infected chest tube with pneumonia, low BP and hyponatremia resolving on diabetic diet 3- ISRRAEL: likley 2/2 to prerenal due to dehydration got enough fluid serum creatinine trend down to 1.26 with BUN 18 has urianry retention s/p FC placement started on flomax hold nephrotoxic medication include lasix and spironolactone 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 4- hyponatremia: due to poor oral intake and possible lung cancer serum Na 131 today seems chronic nephrology onboard, no indication of tolvaptan on fluid restriction monitor serum Na 5- mild hyperkalemia: resolved hold spironolactone Hypophostemeia: on replacement 6- insulin dependant DM: on SSI AIC 5.9 hold long acting insulin due to low BS 7- non zero troponin: tresley due to demand supply mismatch has elevated troponin follow lobectomy trend troponin has no Chest pain check ekg limited echo show ef 30-35% resumed on BB with stabilization of BP 8- COPD with chronic respiratory failure on 2 L nasal cannula oxygen at home with recently diagnosed lung cancer status post lobectomy: Continue on supplemental oxygen and breathing treatments as needed 9- hypothyroidism on home dose levothyroxin , TSH 3.2 10: GERD on PPI - Time Spent with Patient Total time spent is greater than 50% in coordination of care (as documented) at patient's floor/unit and/or counseling patient: Internal Medicine: Result - Labs CBC & Chem 7: 12/14/18 02:42 12/14/18 02:42 Labs: Short CBC 12/14/18 Range/Units 02:42 WBC 8.8 (4.3-11.1) K/mcL Hgb 9.9 L (12.9-16.9) g/dL Hct 31.2 L (37.5-50.1) % Plt Count 204 (140-400) K/mcL Neutrophils # 6.2 (1.6-8.9) K/mcL BMP 12/14/18 02:42 Sodium 131 L Potassium 4.2 Chloride 98 Carbon Dioxide 23 BUN 18 Creatinine 1.26 Glucose 116 H Calcium 8.2 L Liver Function 12/14/18 Range/Units 02:42 Total Bilirubin 0.8 (0.3-1.0) mg/dL AST 22 (13-39) Units/L ALT 13 (7-52) Units/L Alkaline Phosphatase 90 (34-104) Units/L Albumin 2.7 L (3.5-5.7) g/dL - ABG Interpretation ABG results: ABG ABG pH 7.42 pH Units (7.32-7.45) 12/12/18 09:55 ABG pCO2 34 mmHg (35-45) L 12/12/18 09:55 ABG pO2 139 mmHg (85-104) H 12/12/18 09:55 ABG O2 Saturation 99 % (95-98) H 12/12/18 09:55 PT/INR, D-dimer PT 16.9 Seconds (9.4-12.1) H 12/10/18 13:46 Consult Discharge Plan - Plan Referrals: Osman Martinez MD [Primary Care Provider] -
--- NOTE | 2018-12-14 10:14 | Nephrology Progress Note ---
Date of Encounter: 12/13/18 Time of Encounter: 15:00 - Assessment and Plan (1) ISRRAEL (acute kidney injury) Current Visit: No Status: Acute SCr improve morecat 1.36, GFR 51, which is great UOP noted at 1330cc in the past 24hrs which is good Will start flomax and voiding trial today, nurse informed Continue to avoid nephrotoxins if possible (2) Hyponatremia Current Visit: Yes Status: Acute Sodium noted at 127, slightly improved with salt packets with meals. No tolvaptan use indicated for now; just fluid restriction and increase salt use (3) Empyema lung Current Visit: Yes Status: Acute Per ID and CTS. (4) Hospital-acquired pneumonia Current Visit: Yes Status: Acute Per ID and primary team. (5) Hyperkalemia Current Visit: Yes Status: Acute K is 4.9, resolved. Continue renal diet advised. Subjective Interval history: Pt seen and examined sitting in bed, feels better and appears at baseline mental status. wants hanna removed Objective - Vital Signs Vital signs: Vital Signs Temp Pulse Resp BP Pulse Ox 12/14/18 07:07 98.5 F 96 16 117/61 99 12/14/18 04:12 97.4 F L 94 15 115/81 94 12/14/18 04:10 16 98 12/14/18 00:33 98.5 F 87 16 121/79 98 12/13/18 21:06 97.6 F 88 16 128/91 99 12/13/18 18:13 16 96 12/13/18 15:22 97.6 F 76 16 110/69 96 12/13/18 11:47 97.6 F 80 16 126/66 96 Intake and Output 12/13/18 12/14/18 12/14/18 23:59 07:59 15:59 Intake Total 0 / 140 120 / 120 Output Total 430 / 1610 80 / 80 0 / 80 Balance -430 / -1470 -80 / 40 120 / 40 Intake: Oral 0 / 120 120 / 120 Output: Catheter 300 / 1400 Wound Drainage 20 / 60 Left Chest 20 / 60 Chest Tube Drainage 110 / 150 80 / 80 0 / 80 Left Mid-Axillary Chest 110 / 150 80 / 80 0 / 80 Other: Meal Dinner Breakfast Percent of Meal Consumed 0% 100% Stool Size Small Stool Consistency soft # Bowel Movements 1 Weight 81.8 kg Blood Glucose* 155 145 Patient Weight 12/14/18 23:59 Weight 81.8 kg - General Appearance General appearance: Present: chronically ill (NAD) EENT: Present: ATNC, mucous membranes moist Neck: Present: no JVD, supple Additional Comments: Good areation ant bilat with chest tube in place Cardiology: Present: edema (trace LE bilat), normal S1, normal S2 Gastrointestinal: Present: no tenderness, no guarding Integumentary: Present: warm and dry Neurologic: Present: no focal deficit Musculoskeletal: Present: no deformities Psychiatric: Present: mood/affect appropriate, cooperative - Lab 12/14/18 02:42 12/14/18 02:42 Most recent lab results 12/14/18 02:42 Calcium 8.2 L Phosphorus 2.1 L Magnesium 1.5 L Consult Discharge Plan - Plan Referrals: Osman Martinez MD [Primary Care Provider] -
--- NOTE | 2018-12-14 10:21 | Nephrology Progress Note ---
Date of Encounter: 12/14/18 Time of Encounter: 10:00 - Assessment and Plan (1) ISRRAEL (acute kidney injury) Status: Resolved SCr improved more at 1.26, GFR 56, which is great and better than baseline UOP noted at 1400cc in the past 24hrs which is good Continue to avoid nephrotoxins if possible Will sign off, please reconsult prn (2) Hyponatremia Status: Resolved Sodium noted at 131, improving with salt packets with meals. No tolvaptan use indicated for now; just fluid restriction and increase salt use (3) Empyema lung Status: Acute Per ID and CTS. (4) Hospital-acquired pneumonia Status: Acute Per ID and primary team. (5) Hyperkalemia Status: Acute K is 4.2, resolved. Continue renal diet advised. Subjective Interval history: Pt seen and examined with at bedside, no new complaints. Objective - Vital Signs Vital signs: Vital Signs Temp Pulse Resp BP Pulse Ox 12/14/18 07:07 98.5 F 96 16 117/61 99 12/14/18 04:12 97.4 F L 94 15 115/81 94 12/14/18 04:10 16 98 12/14/18 00:33 98.5 F 87 16 121/79 98 12/13/18 21:06 97.6 F 88 16 128/91 99 12/13/18 18:13 16 96 12/13/18 15:22 97.6 F 76 16 110/69 96 12/13/18 11:47 97.6 F 80 16 126/66 96 Intake and Output 12/13/18 12/14/18 12/14/18 23:59 07:59 15:59 Intake Total 0 / 140 120 / 120 Output Total 430 / 1610 80 / 80 0 / 80 Balance -430 / -1470 -80 / 40 120 / 40 Intake: Oral 0 / 120 120 / 120 Output: Catheter 300 / 1400 Wound Drainage 20 / 60 Left Chest 20 / 60 Chest Tube Drainage 110 / 150 80 / 80 0 / 80 Left Mid-Axillary Chest 110 / 150 80 / 80 0 / 80 Other: Meal Dinner Breakfast Percent of Meal Consumed 0% 100% Stool Size Small Stool Consistency soft # Bowel Movements 1 Weight 81.8 kg Blood Glucose* 155 145 Patient Weight 12/14/18 23:59 Weight 81.8 kg - General Appearance General appearance: Present: chronically ill (NAD) EENT: Present: ATNC, mucous membranes moist Neck: Present: no JVD, supple Additional Comments: decreased BS bases bilat Cardiology: Present: edema (trace LE bilat), normal S1, normal S2 Gastrointestinal: Present: no tenderness Integumentary: Present: warm and dry Neurologic: Present: no focal deficit Musculoskeletal: Present: no deformities Psychiatric: Present: mood/affect appropriate - Lab 12/29/18 00:53 12/29/18 00:53 Most recent lab results 12/14/18 02:42 Calcium 8.2 L Phosphorus 2.1 L Magnesium 1.5 L Consult Discharge Plan - Plan Instructions: Furosemide (By mouth), Doxycycline (By mouth), Laxative, St imulant (By mouth), Amoxicillin/Clavulanate Potassium (By mouth), Oxycodone, Rapid Release (By mouth), Tamsulosin (By mouth), Miconazole (On the skin), Thoracotomy (DC), Tyler-Rocha Drain Care (DC) Additional Instructions: Please go to Out Patient testing on Jan 12, 2019 around 0750 AM to get an x-ray done before you go see Dr. Angel. The office is sending the order over to out patient testing at the [facility]. Referrals: Osman Martinez MD [Primary Care Provider] - 01/02/19 1:15 pm Tra Angel MD [Partnered Physician] - 01/12/19 8:50 am Prescriptions: Amoxicillin/Clavulanate [Augmentin] 875 mg PO BIDWM 9 Days #18 tablet Doxycycline 100 mg PO BID 9 Days #18 capsule Tamsulosin [Flomax] 0.4 mg PO DAILY 30 Days #30 capsule Furosemide [Lasix] 20 mg PO DAILY 30 Days #30 tablet Clotrimazole 1% CRM [Lotrimin 1%] 1 appl TP BID 10 Days #1 tube OxyCODONE Immed Rel [Roxicodone 5 MG] 5 mg PO Q4HR PRN 5 Days #10 tablet PRN Reason: Breakthrough Pain Sennosides/Docusate Sodium [Senna Plus] 1 each PO BID 30 Days #60 tablet
[2018-12-14] MEDS: Metoprolol XL (24 HR) Succ 25 MG TAB.ER.24H PO SCH (11:25)
[2018-12-14] MEDS: Acetaminophen 325 MG TABLET PO PRN ×2 (14:33→21:36)
[2018-12-14] MEDS: Aspirin Enteric Coated 81 MG Tablet PO SCH (21:34)
[2018-12-14] MEDS: Latanoprost 2.5 ML BOTTLE LEFT EYE SCH (21:34)
[2018-12-15] MEDS ORDERED: traMADol 50 MG TABLET PO ONE (01:45)
[2018-12-15] MEDS: *HR* Heparin 5,000 UNIT/ML VIAL SQ SCH ×3 (07:43→21:37)
[2018-12-15 08:04] LABS: Hematocrit 32.3 % (37.5-50.1); Hemoglobin 10.2 g/dL (12.9-16.9); Mean Corpuscular HGB Conc 31.6 g/dL (31.6-35.5); Mean Corpuscular Hemoglobin 29.4 pg (28.0-33.3); Mean Corpuscular Volume 93.1 fL (83.0-100.0); Mean Platelet Volume 10.3 fL (9.4-12.4); Platelet Count 191 K/mcL (140-400); Red Blood Count 3.47 M/mcL (4.19-5.50); White Blood Count 8.9 K/mcL (4.3-11.1)
[2018-12-15] MEDS: Insulin LISPRO 300 UNITS/3 ML VIAL SQ SCH ×3 (08:22→15:34)
[2018-12-15] MEDS: Cholecalciferol (D-3) 1,000 UNIT (25MCG) TABLET PO SCH (08:23)
[2018-12-15] MEDS: Nystatin SUSP 5 ML UD.LIQ PO SCH ×4 (08:23→21:38)
[2018-12-15] MEDS: Metoprolol XL (24 HR) Succ 25 MG TAB.ER.24H PO SCH (08:23)
[2018-12-15] MEDS: Isosorbide MONOnitrate (24 HR) 30 MG TAB.ER.24H PO SCH (08:24)
[2018-12-15 08:25] LABS: Alanine Aminotransferase 12 Units/L (7-52); Albumin 2.8 g/dL (3.5-5.7); Albumin/Globulin Ratio 0.7 (1.1-2.2); Alkaline Phosphatase 106 Units/L (34-104); Aspartate Amino Transferase 22 Units/L (13-39); BUN/Creatinine Ratio 11 (6-26); Bilirubin,Total 0.8 mg/dL (0.3-1.0); Blood Urea Nitrogen 13 mg/dL (8-23); Calcium 8.6 mg/dL (8.6-10.3); Carbon Dioxide 26 mEq/L (23-29); Chloride 97 mEq/L (98-107); Globulin 3.9 g/dL (2.4-3.5); Glucose 134 mg/dL (70-105); Magnesium 1.5 mg/dL (1.6-2.6); Osmolality,Calculated 274 (280-300); Phosphorous 2.3 mg/dL (2.7-4.5); Potassium 4.6 mEq/L (3.5-5.1); Sodium 131 mEq/L (136-145); Total Protein 6.7 g/dL (6.4-8.9); eGFR For African Americans > 60 (> 60); eGFR For Non-African Americans 58 (> 60)
[2018-12-15] MEDS: Cefepime HCl 2,000 MG in Water for inj. (sterile) 20 ML IVP SCH (08:26)
--- NOTE | 2018-12-15 09:21 | Internal Med Progress Note ---
Hospitalist Progress Note - Encounter Date of Encounter: 12/15/18 Time of Encounter: 09:14 - Subjective Interval History: the patient was seen and examined at bedside. doing well fluid culture is growing proteus and G+ cocci on cefepime , add oral doxycycline to cover gram positive until get ID had 100 cc brownish fluid output last night - Exam Vitals: Temp Pulse Resp BP Pulse Ox 97.8 F 90 18 111/54 98 12/15/18 07:30 12/15/18 07:30 12/15/18 07:30 12/15/18 07:30 12/15/18 07:30 Exam: Physical examination: Gen.: Patient is alert and awake , not in respiratory distress , not in pain HEENT: perrla , EOMI, , no neck mass, supple neck Heart: S1 and S2 olvin, normal sinus rhythm, no cardiac murmur no gallop rhythm Chest: Decreased breathing bilaterally , no wheezing, crackles or crepitation, chest tube placement noted with brownish secretion in the chest tube container Abdomen: Soft nontender nondistended positive bowel sounds, no organomegaly Extremities: +1 pitting edema, peripheral pulses palpable, no cyanosis tenderness Neuro: Able to move all 4 limbs, DVT Prophylaxis: Heparin - Summary of Assessment and Plan Summary of Assessment and Plan: 1- Infected chest tube with left lung pneumonia and left pleural empyema: as indicated by Ct chest pleural fluid growing Proteus mirabilis and gram positive cocci continue on iv cefepime, add Po doxycyline 100 mg bid follow ID and sensitivity sent for pleural fluid cell count culture pH and protein, fluid analysis indicate exudative effusion, PH 8 CT surgery already consulted, recommend continue on iv AB and possible left t horactomy and decortication if iv AB not clear infection consult ID BP is more stable, resumed on BB no feature of sepsis, leukocytosis resolved, BC negative, no fever echo show ef 30% consistent with compnesated systolic heart failure 2- altered mental status most likely metabolic secondary to infected chest tube with pneumonia, low BP and hyponatremia resolving on diabetic diet 3- ISRRAEL: likley 2/2 to prerenal due to dehydration, resolved got enough fluid serum creatinine trend down to 1.26 with BUN 18 consistent with baseline has urianry retention s/p FC placement started on flomax hold nephrotoxic medication include lasix and spironolactone 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 4- hyponatremia: due to poor oral intake and possible lung cancer serum Na 131 today seems chronic nephrology onboard, no indication of tolvaptan on fluid restriction monitor serum Na 5- mild hyperkalemia: resolved hold spironolactone Hypophostemeia adn hypomagnesemia : on replacement 6- insulin dependant DM: on SSI AIC 5.9 hold long acting insulin due to low BS 7- non zero troponin: rubén due to demand supply mismatch has elevated troponin follow lobectomy trend troponin has no Chest pain limited echo show ef 30-35% resumed on BB with stabilization of BP 8- COPD with chronic respiratory failure on 2 L nasal cannula oxygen at home with recently diagnosed lung cancer status post lobectomy: Continue on supplemental oxygen and breathing treatments as needed 9- hypothyroidism on home dose levothyroxin , TSH 3.2 10: GERD on PPI - Time Spent with Patient Total time spent is greater than 50% in coordination of care (as documented) at patient's floor/unit and/or counseling patient: Internal Medicine: Result - Labs CBC & Chem 7: 12/15/18 07:46 12/15/18 07:46 Labs: Short CBC 12/15/18 Range/Units 07:46 WBC 8.9 (4.3-11.1) K/mcL Hgb 10.2 L (12.9-16.9) g/dL Hct 32.3 L (37.5-50.1) % Plt Count 191 (140-400) K/mcL BMP 12/15/18 07:46 Sodium 131 L Potassium 4.6 Chloride 97 L Carbon Dioxide 26 BUN 13 Creatinine 1.22 Glucose 134 H Calcium 8.6 Liver Function 12/15/18 Range/Units 07:46 Total Bilirubin 0.8 (0.3-1.0) mg/dL AST 22 (13-39) Units/L ALT 12 (7-52) Units/L Alkaline Phosphatase 106 H (34-104) Units/L Albumin 2.8 L (3.5-5.7) g/dL - ABG Interpretation ABG results: ABG ABG pH 7.42 pH Units (7.32-7.45) 12/12/18 09:55 ABG pCO2 34 mmHg (35-45) L 12/12/18 09:55 ABG pO2 139 mmHg (85-104) H 12/12/18 09:55 ABG O2 Saturation 99 % (95-98) H 12/12/18 09:55 PT/INR, D-dimer PT 16.9 Seconds (9.4-12.1) H 12/10/18 13:46 Consult Discharge Plan - Plan Referrals: Osman Martinez MD [Primary Care Provider] -
[2018-12-15] MEDS: traMADol 50 MG TABLET PO PRN (09:41)
--- NOTE | 2018-12-15 11:24 | Cardiology Consult Note ---
<Yamil Broderick - Last Filed: 12/15/18 13:04> Date of Encounter: 12/15/18 Time of Encounter: 11:23 Assessment and Plan (1) Elevated troponin Current Visit: No Status: Acute Troponins were 0.07, 0.07, 0.08, 0.07, 0.10 in setting of infected chest tube with left lung pneumonia and left pleural empyema: as indicated by Ct chest--pleural fluid growing Proteus mirabilis and gram positive cocci, [place] now resolved. Suspect demand ischemia, nondiagnostic for ACS. Of note, peak troponin 20.26 with downtrend on 11/12 and ischemic ECG changes s/p left thoractomy and left lower lobectomy on 11/06/18 for lung cancer. Post operative complications included NSTEMI (type I vs II), anemia (s/p 2 units PRBC), and [place]. TTE 11/10/18: LVEF 30-35%, severe global systolic dysfunction with regional variations--unchanged from previous (08/2018): LVEF 35%. Current TTE EF 30%, unchanged. Most recent [facility] 09/2017: EF 45%, successful PTCA/ROBER in the distal LM/ramus, s/p 2 of 4 patent bypass grafts. Decision was previously made to optimize medical therapy with no invasive evaluation at this time. Continue ASA, Plavix, Statin, BB. (2) CAD (coronary artery disease) Current Visit: No Status: Chronic Most recent [facility] 09/2017: EF 45%, successful PTCA/ROBER in the distal LM/ramus, s/p 2 of 4 patent bypass grafts. Continue ASA, Statin, Plavix, BB. Qualifiers: Coronary Disease-Associated Artery/Lesion type: [place] artery [place] vs. transplanted heart: [place] heart Associated angina: angina presence un specified Qualified Code(s): I25.10 - Atherosclerotic heart disease of [place] coronary artery without angina pectoris (3) Ischemic cardiomyopathy Current Visit: No Status: Chronic Known ICMP, LVEF 30%. TTE this admission demonstrates similar LVEF. Continue BB. Would recommend ACEi/ARB if BP/renal function will tolerate. Na/fluid restricted diet. Plan for outpatient consideration of ICD for primary prevention. (4) Arrhythmia Current Visit: Yes Status: Acute ECG 12/12/18 appears to be irregular rhythm. No documented hx of A-Fib. Currently SR on tele. Hx of GI bleed and had PRBC transfusion as recent as 10/2018 post op. Not a candidate for full AC. Continue ASA and Plavix. Continue to monitor tele. Qualifiers: Arrhythmia type: unspecified cardiac arrhythmia Qualified Code(s): I49.9 - Cardiac arrhythmia, unspecified Discussion w patient/family: The assessment and plan as outlined above was discussed with the patient and/or family members who expressed understanding and agreement. All questions were answered. Thank you for involving us in the care of your patient. Please call with any questions. History of Present Illness Consult date: 12/15/18 Consult reason: Elevated troponin, CMP History of present illness: Mr. Beaulieu is a 73 year old male with a relevant past medical history of CAD s/p CABG and PCI, ICM, DM, HTN, HLD, MT, carotid stenosis s/p CEA, CHF, GI bleed, cirrhosis, PAD s/p peripheral intervention, s/p lobectomy for lung cancer on 11/06/18 that presented 12/10 for brownish discharge from his chest tube which had a foul odor, confusion and weakness. He has been found to have and infected chest tube with left lung pneumonia and left pleural empyema: as indicated by Ct chest--pleural fluid growing Proteus mirabilis and gram positive cocci, [place] now resolved. Troponins were 0.07, 0.07, 0.08, 0.07, 0.10. Cardiology consulted for further recs. He denies chest pain or dyspnea. Reports BLE edema. Prior CV testing: [facility] 09/17/17: There is severe three vessel coronary artery disease. Mild global LV dysfunction. EF 45%. Patient had successful PTCA/Drug-Eluting Stent placement in the distal Left Main/ramus. S/P CABG 2 of 4 patent bypass grafts. TTE 09/16/18: Sinus bradycardia, HR 50's. LVEF 35%. Atypical septal motion consistent with post-operative status. LV diastolic dysfunction with elevated filling pressures. Definity echo contrast was used. There is no LV thrombus. Right ventricle is dilated with moderate reduction in function. Bi-atrial enlargement. Mild mitral regurgitation. Mild tricuspid regurgitation. Mild pul monary hypertension. TTE 12/11/18: LVEF 30-35%. Atypical septal motion consistent with post-operative status. Definity echo contrast was used. There is no LV thrombus. Past Med Surg Social Fam HX - Past Medical History Medical history: cancer, CHF, coronary artery disease, diabetes, GERD, GI bleed, hyperlipidemia, hypertension, myocardial infarction, peripheral artery disease, renal disease Additional medical history: Lumbar degenerative disc disease, carotid artery disease, right eye blind Psychiatric history: no psych history - Past Surgical History Surgical History: cancer surgery, cholecystectomy, coronary bypass (CABG) Additional surgical history: Stent placed a year ago, Right subclavian bypass graft, skin cancer. - Social History Smoking Status: Former smoker Smokeless Tobacco Status: No Alcohol use: none Drug use: none - Family History Father Adopted: No Family Member Ethnicity: Non- Living Status: Hx Family Cardiac Disorders: No Hx Family Respiratory Disorders: No Hx Family Cancer: Yes Hx Family GI Disorders: No Hx Family Endocrine Disorder: No Hx Family Neuromuscular Disorders: No Hx Family Neurologic Disorders: No Hx Family HEENT Disorders: No Hx Family Autoimmune Disorders: No Mother Adopted: No Living Status: Hx Family Cardiac Disorders: No Hx Family Respiratory Disorders: No Hx Family Cancer: No Hx Family GI Disorders: No Hx Family Endocrine Disorder: No Hx Family Neuromuscular Disorders: No Hx Family Neurologic Disorders: No Hx Family HEENT Disorders: No Hx Family Autoimmune Disorders: No Medications and Allergies RX: Aspirin [Lo-Dose Aspirin EC] 81 mg PO DAILY 11/26/17 [History] RX: Atorvastatin [Lipitor] 40 mg PO HS 11/26/17 [History] RX: Clopidogrel [Plavix] 75 mg PO DAILY 08/11/18 [History] RX: Latanoprost [Xalatan] 1 drop LEFT EYE HS 08/11/18 [History] RX: Metoprolol XL (24 HR) Succ [Toprol Xl] 25 mg PO DAILY 08/14/18 [History] RX: Omeprazole [PriLOSEC] 20 mg PO DAILY@0730 08/14/18 [History] Albuterol Sulfate [Proair Hfa] 2 puff IH Q6H PRN 10/29/18 [History] Budesonide/Formoterol 160/4.5 [Symbicort 160/4.5] 2 puff IH BIDR 10/29/18 [History] Furosemide [Lasix] 40 mg PO DAILY 10/29/18 [History] Isosorbide MONOnitrate [Isosorbide Mononitrate ER] 30 mg PO DAILY 10/29/18 [History] Nitroglycerin [Nitrostat] 0.4 mg SL Q5MIN PRN 10/29/18 [History] Tiotropium [place] [Spiriva Respimat] 2 puff IH DAILY 10/29/18 [History] Cefdinir [Omnicef] 300 mg PO BID 12/11/18 [History] Cholecalciferol (Vitamin D3) [Vitamin D] 2,000 unit PO DAILY 12/11/18 [History] Levothyroxine Sodium [Levoxyl] 50 mcg PO QAM 12/11/18 [History] RX: Fluconazole [Diflucan] 100 mg PO DAILY 12/11/18 [History] RX: Nystatin [Nystatin Suspension] 500,000 unit PO QID PRN 12/11/18 [History] Spironolactone [Aldactone] 50 mg PO DAILY 12/11/18 [History] Timolol Maleate 0.5% 1 drop LEFT EYE QAM 12/11/18 [History] Tramadol HCl [Ultram] 50 mg PO Q6H PRN 12/11/18 [History] Allergy/AdvReac Type Severity Reaction Status Date / Time gabapentin [From Neurontin] AdvReac Hallucinati Verified 12/11/18 17:43 ng lisinopril AdvReac Cough Verified 12/11/18 17:43 Varenicline [From Chantix] AdvReac Nightmare Verified 12/11/18 17:43 All Systems Review: The remainder of the systems were reviewed and are negative - Cardiovascular Cardiovascular: leg edema Physical Examination Vital Signs, Last 4 Hours Temp Pulse Resp BP Pulse Ox 12/15/18 07:30 97.8 F 90 18 111/54 98 Vital Signs Temp Pulse Resp BP Pulse Ox 12/15/18 07:30 97.8 F 90 18 111/54 98 12/15/18 04:41 97.8 F 94 18 135/59 98 12/14/18 20:07 98 F 103 17 105/65 98 12/14/18 15:28 97.8 F 98 16 106/83 99 Intake and Output 12/14/18 12/15/18 12/15/18 23:59 07:59 15:59 Intake Total 240 / 380 260 / 260 Output Total 1100 / 1180 100 / 100 Balance -860 / -800 -100 / 160 260 / 160 Intake: IV Fluids Maxipime 2,000 MG In Water for inj. (sterile) 20 ML @ 300 mls/ hr IVP Q24H [facility] Rx#:[id number] Oral 240 / 360 240 / 240 Output: Urine 800 / 800 Chest Tube Drainage 300 / 380 100 / 100 Left Mid-Axillary Chest 300 / 380 100 / 100 Other: Meal Lunch Breakfast Percent of Meal Consumed 0% 5% Stool Size Small Stool Consistency formed Stool Characteristics [place] Stool Color Brown # Bowel Movements 1 Blood Glucose* 169 135 General: Conversant, No Apparent Distress HEENT: Atraumatic, Normocephaly, Mucus Membranes Moist Neck: No JVD, Normal carotid pulses Cardiac: Reg Rate and Rhythm, Normal S1 and S2, No Murmur Lungs: Normal Breath Sounds, No Wheeze, Rales, Rhonchi Neuro: Alert and responsive, No focal deficits noted Abdomen: Soft, Non-Tender Skin: No rashes noted on visualized skin Musculoskeletal: No Chest Wall Tenderness Extremities: Other (moderate BLE edema) Results 12/15/18 07:46 12/15/18 07:46 Lab Results 12/15/18 12/15/18 07:46 07:46 WBC 8.9 Hgb 10.2 L Hct 32.3 L Plt Count 191 Sodium 131 L Potassium 4.6 Chloride 97 L Carbon Dioxide 26 BUN 13 Creatinine 1.22 Glucose 134 H Calcium 8.6 Magnesium 1.5 L Total Bilirubin 0.8 AST 22 ALT 12 Alkaline Phosphatase 106 H Troponin I 0.10 H* Short CBC 12/15/18 Range/Units 07:46 WBC 8.9 (4.3-11.1) K/mcL Hgb 10.2 L (12.9-16.9) g/dL Hct 32.3 L (37.5-50.1) % Plt Count 191 (140-400) K/mcL BMP 12/15/18 Range/Units 07:46 Sodium 131 L (136-145) mEq/L Potassium 4.6 (3.5-5.1) mEq/L Chloride 97 L (98-107) mEq/L Carbon Dioxide 26 (23-29) mEq/L BUN 13 (8-23) mg/dL Creatinine 1.22 (0.70-1.30) mg/dL Glucose 134 H (70-105) mg/dL Calcium 8.6 (8.6-10.3) mg/dL Cardiac Enzymes 12/15/18 Range/Units 07:46 Troponin I 0.10 H* (< 0.04) ng/mL Liver Function 12/15/18 Range/Units 07:46 Total Bilirubin 0.8 (0.3-1.0) mg/dL AST 22 (13-39) Units/L ALT 12 (7-52) Units/L Alkaline Phosphatase 106 H (34-104) Units/L Albumin 2.8 L (3.5-5.7) g/dL Active Medications Acetaminophen (Tylenol) 650 mg PO Q6HR PRN PRN Reason: Mild Pain/Fever Stop: 06/11/19 16:11 Last Admin: 12/14/18 21:36 Dose: 650 mg Documented by: Albuterol/Ipratropium (Duoneb) 3 ml IH [id number] PRN PRN Reason: Shortness Of Breath/Wheezing Stop: 06/11/19 16:35 Last Admin: 12/14/18 04:10 Dose: 3 ml Documented by: Aspirin (Aspirin Ec) 81 mg PO HS DAVIE Stop: 06/11/19 21:01 Last Admin: 12/14/18 21:34 Dose: 81 mg Documented by: Atorvastatin Calcium (Lipitor) 40 mg PO DAILY DAVIE Stop: 06/12/19 09:01 Last Admin: 12/15/18 08:24 Dose: 40 mg Documented by: Clopidogrel Bisulfate (Plavix) 75 mg PO DAILY DAVIE Stop: 06/12/19 09:01 Last Admin: 12/15/18 08:24 Dose: 75 mg Documented by: Dextrose/Water (Dextrose 50% (Syg)) 25 ml IVP AD PRN PRN Reason: Hypoglycemia Stop: 06/11/19 16:22 Doxycycline Hyclate (Doxycycline) 100 mg PO BID DAVIE Stop: 06/16/19 21:01 Glucagon (Glucagen) 1 mg IM ONCE PRN PRN Reason: Hypoglycemia Stop: 06/11/19 16:22 Glucose (Gluctose) 15 gm PO ONCE PRN PRN Reason: Hypoglycemia Stop: 06/11/19 16:22 Glucose (Gluctose) 30 gm PO ONCE PRN PRN Reason: Hypoglycemia Stop: 06/11/19 16:22 Heparin Sodium (Porcine) (Heparin) 5,000 unit SQ Q8HCO [facility] Stop: 06/12/19 14:01 Last Admin: 12/15/18 07:43 Dose: Not Given Documented by: Dextrose (Dextrose 5%) 1,000 mls @ 100 mls/hr IVC .Q10H PRN PRN Reason: HYPOGLYCEMIA Stop: 06/11/19 16:22 Cefepime HCl 2,000 mg/ Sterile (Water) 20 mls @ 300 mls/hr IVP Q24H [facility] Stop: 06/14/19 09:01 Last Infusion: 12/15/18 08:45 Dose: Infused Documented by: Sodium Phosphate 30 mmol/ (Sodium Chloride) 260 mls @ 42 mls/hr IVPB ONCE ONE Stop: 12/15/18 15:23 Insulin Human Lispro (Humalog) 0 units SQ TIDAC [facility]; Protocol Stop: 06/11/19 16:31 Last Admin: 12/15/18 08:22 Dose: Not Given Documented by: Isosorbide Mononitrate (Imdur) 30 mg PO DAILY [facility] Stop: 06/12/19 09:01 Last Admin: 12/15/18 08:24 Dose: 30 mg Documented by: Latanoprost (Xalatan) 1 drop LEFT EYE HS [facility]; Protocol Stop: 06/12/19 21:01 Last Admin: 12/14/18 21:34 Dose: 1 drop Documented by: Levothyroxine Sodium (Synthroid) 50 mcg PO 0630 [facility] Stop: 06/12/19 06:31 Last Admin: 12/15/18 07:38 Dose: 50 mcg Documented by: Metoprolol Succinate (Toprol Xl) 12.5 mg PO DAILY [facility] Stop: 06/15/19 09:46 Last Admin: 12/15/18 08:23 Dose: 12.5 mg Documented by: Naloxone HCl (Narcan) 0.4 mg IVP Q2MPRN PRN PRN Reason: SEE COMMENTS Stop: 06/11/19 16:11 Nitroglycerin (Nitroglycerin) 0.4 mg SL Q5MIN PRN PRN Reason: Chest Pain Stop: 06/11/19 16:18 Nystatin (Mycostatin Suspension) 5 ml PO QID [facility] Stop: 06/12/19 21:01 Last Admin: 12/15/18 08:23 Dose: 5 ml Documented by: Omeprazole (Prilosec) 20 mg PO DAILY@0730 [facility]; Protocol Stop: 06/12/19 07:31 Last Admin: 12/15/18 08:24 Dose: 20 mg Documented by: Ondansetron HCl (Zofran) 4 mg IVP Q8HR PRN PRN Reason: Nausea And Vomiting Stop: 06/11/19 16:11 Tamsulosin HCl (Flomax) 0.4 mg PO DAILY [facility]; Protocol Stop: 06/14/19 16:46 Last Admin: 12/15/18 08:24 Dose: 0.4 mg Documented by: Timolol Maleate (Timolol Maleate 0.5%) 1 drop LEFT EYE QAM [facility]; Protocol Stop: 06/13/19 09:01 Last Admin: 12/15/18 08:32 Dose: 1 drop Documented by: Tramadol HCl (Ultram) 25 mg PO Q6HR PRN PRN Reason: Pain Stop: 06/16/19 08:11 Last Admin: 12/15/18 09:41 Dose: 25 mg Documented by: Vitamin D (Vitamin D) 1,000 unit PO DAILY [facility] Stop: 06/12/19 09:01 Last Admin: 12/15/18 08:23 Dose: 1,000 unit Documented by: - Imaging and Cardiology Echo: report reviewed - EKG Interpretation EKG results cardiology: personally reviewed (SR, RBBB, anterior MT.), other (12 hr tele AVG HR 88, SR) Consult Discharge Plan - Plan Referrals: Osman Martinez MD [Primary Care Provider] - <Lena Noel - Last Filed: 12/15/18 16:35> Date of Encounter: 12/15/18 - Attending Attestation I examined this patient and my medical decision-making was reviewed with the Resident Physician. I agree with the documented findings, disposition and treatment plan as described. Mr. Beaulieu presents with left pleural empyema with chest tube in place. Troponins are flat and adynamic not telephone sales representative of ACS. Echo demonstrates no new changes in LVEF. No ischemic ECG changes. Patient without chest pain. No further cardiac testing appears warranted at this time. Assessment and Plan Discussion w patient/family: The assessment and plan as outlined above was discussed with the patient and/or family members who expressed understanding and agreement. All questions were answered. Thank you for involving us in the care of your patient. Please call with any questions. History of Present Illness History of present illness: Mr. Beaulieu is a 73 year old male All Systems Review: The remainder of the systems were reviewed and are negative Physical Examination Vital Signs, Last 4 Hours Temp Pulse Resp BP Pulse Ox 12/15/18 15:18 97.9 F 82 16 120/66 100 Results 12/15/18 07:46 12/15/18 07:46 Lab Results 12/15/18 12/15/18 12/15/18 07:46 07:46 14:18 WBC 8.9 Hgb 10.2 L Hct 32.3 L Plt Count 191 Sodium 131 L Potassium 4.6 Chloride 97 L Carbon Dioxide 26 BUN 13 Creatinine 1.22 Glucose 134 H Calcium 8.6 Magnesium 1.5 L Total Bilirubin 0.8 AST 22 ALT 12 Alkaline Phosphatase 106 H Troponin I 0.10 H* 0.09 H*
--- NOTE | 2018-12-15 11:25 | Infectious Disease Progress No ---
ID Progress Note Date of Encounter: 12/15/18 Time of Encounter: 11:24 - Subjective Subjective: Patient seen and examined. No acute events noted overnight. Patient states overall he feels well. Complains of chronic lower back pain and pain in his buttocks from lying in bed. Denies fevers, chills, or rigors. Denies chest pain, shortness of breath, or cough. Denies nausea, vomiting, or diarrhea. Denies abdominal pain or urinary complaints. Denies oral thrush or skin rashes. - Objective CBC & Chem 7: 12/15/18 07:46 12/15/18 07:46 - Line Documentation Line Documentation: Chest Tube (Left lateral chest wall) - Exam Vitals: Temp Pulse Resp BP Pulse Ox 97.8 F 90 18 111/54 98 12/15/18 07:30 12/15/18 07:30 12/15/18 07:30 12/15/18 07:30 12/15/18 07:30 Exam: Head: Atraumatic, normal inspection, normocephalic. Eye: EOMI, PERRLA, no scleral icterus noted. ENT: Mucous membranes moist. No odontogenic infection noted. Neck: Normal inspection, no meningismus. Respiratory: Crackles noted to the right base. Left base diminished. No respiratory distress, rhonchi, or wheezes noted. Chest tube noted to the left lateral chest wall with purulent drainage noted. No crepitus or air leak. Cardiovascular: Regular rate and rhythm, S1 and S2 audible. No murmurs, rubs, or gallops. GI: Soft, nondistended, normal bowel sounds. Non-tender. Extremities:No joint swelling, pedal edema, or tenderness noted. Neurological: Alert, oriented 3, no focal deficits. Psychiatric: normal affect, normal mood. Skin: Dry, intact, warm. Normal color. No rashes. - Assessment and Plan (1) Sepsis Current Visit: Yes Status: Acute The patient had two SIRS criteria on admission. Likely secondary to empyema and multifocal PNA. Improved. Blood cultures drawn 12/10/18 are negative x 2 sets. Qualifiers: Sepsis type: sepsis due to unspecified organism Qualified Code(s): A41.9 - Sepsis, unspecified organism SNOMED Code(s): 70143046 (2) Empyema lung Current Visit: Yes Status: Acute Location: Left lung. Causative organism: P. mirabilis and GPC, final ID and sensitivity pending. Cardiothoracic surgery consulted and following. Currently on Levaquin and Cefepime. SNOMED Code(s): 175311918 (3) Multifocal pneumonia Current Visit: Yes Status: Acute Causative organism: Unclear. Previous BAL cultures 10/2018 positive for PSEA. Previous PNA in early November (unknown causative organism) treated with 6 days of Rocephin 11/18-11/23 with Levaquin x 4 days prior to that. CT chest 12/10/18 moderate sized left hydropneumothorax with chest tube in place and multifocal lung consolidation involving the lingula, RUL, and RLL. MRSA screen negative. S. pneumo and Legionella UATs negative. Low index of suspicion for aspiration. Currently on Levaquin and cefepime. SNOMED Code(s): 726707970 (4) [place] (acute kidney injury) Current Visit: No Status: Acute Likely multifactorial. Resolved. SNOMED Code(s): 82413525, 63060944 (5) CAD (coronary artery disease) Current Visit: No Status: Chronic Qualifiers: Coronary Disease-Associated Artery/Lesion type: bypass graft [place] vs. 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 Status post diagnostic VATS, staging bronchoscopy, left thoracotomy pneumolysis, left lower lobectomy, and mediastinal lymph node dissection 11/06/[address] nAgel. SNOMED Code(s): 581067629 (7) Congestive heart failure Current Visit: No Status: Chronic Qualifiers: Heart failure type: unspecified Heart failure chronicity: chronic Qualified Code(s): I50.9 - Heart failure, unspecified SNOMED Code(s): 38962986 (8) Diabetes mellitus, insulin dependent (IDDM), controlled Current Visit: No Status: Chronic SNOMED Code(s): 38242409, 901267511 - Recommendations Recommendations: Await final ID and sensitivities on pleural fluid. Chest tube management per the CTS team. Continue cefepime 2 grams IV Q12H. Discontinue Levaquin. Duration of treatment depends on the clinical picture. Monitor renal function and dose-adjust antibiotics. Consult Discharge Plan - Plan Referrals: Osman Martinez MD [Primary Care Provider] - - Attending Attestation I have personally performed a face to face evaluation on this patient. I have reviewed and agree with the care plan. History and Exam by me shows: Assessment and plan: 1.Sepsis 2.Empyema of the long 3.Multifocal pneumonia 4.Acute kidney injury resolved Commendations Causative organism of the left lung empyema is Proteus mirabilis and gram- positive cocci For now continue cefepime and doxycycline Okay to DC levofloxacin Await cultures to finalize Discussed with Dr. Angel, patient will need a flap
[2018-12-15] MEDS: Ipratropium/Albuterol Neb 3 ML IH PRN (13:45)
--- NOTE | 2018-12-15 13:55 | Cardiothoracic Progress Note ---
Date of Encounter: 12/15/18 Time of Encounter: 13:53 - Assessment and plan (1) Empyema of pleura Current Visit: Yes Status: Acute The assessment and plan as outlined above was discussed with the patient and/or family members who expressed understanding and agreement. All questions were answered. patient will need a mm flap to obliterate the cavity in the lower chest (2) Elevated troponin Current Visit: No Status: Acute The assessment and plan as outlined above was discussed with the patient and/or family members who expressed understanding and agreement. All questions were an swered. patient will need a heart cath with or without intervention prior to thoracotomy and mm flap - Subjective Interval history: feels better since antibx and admission Vital Signs, Last 4 Hours Temp Pulse Resp BP Pulse Ox 12/15/18 11:45 97.9 F 86 16 115/73 97 [place] Flow Rate Oxygen Flow Rate (LPM) 2 Weight 12/13/18 12/14/18 12/15/18 23:59 23:59 23:59 Weight 82 kg 81.8 kg - Physical Examination General: Conversant, No Apparent Distress, Well developed, Well nourished HEENT: Atraumatic, Normocephaly Neck: No JVD Chest tubes: Minimal drainage, Air leak Neuro: Alert and responsive, No focal deficits noted, Cranial nerves intact - Labs 12/15/18 07:46 12/15/18 07:46 Lab Results, Last 24 hours 12/15/18 12/15/18 07:46 07:46 WBC 8.9 Hgb 10.2 L Hct 32.3 L Plt Count 191 Sodium 131 L Potassium 4.6 Chloride 97 L Carbon Dioxide 26 BUN 13 Creatinine 1.22 Glucose 134 H Calcium 8.6 Magnesium 1.5 L Total Bilirubin 0.8 AST 22 ALT 12 Alkaline Phosphatase 106 H Troponin I 0.10 H* Consult Discharge Plan - Plan Referrals: Osman Martinez MD [Primary Care Provider] -
[2018-12-15] MEDS ORDERED: Doxycycline 100 MG CAPSULE PO SCH (21:00)
[2018-12-15] MEDS: Doxycycline 100 MG CAPSULE PO SCH (21:38)
[2018-12-15] MEDS: Aspirin Enteric Coated 81 MG Tablet PO SCH (21:38)
[2018-12-15] MEDS: Latanoprost 2.5 ML BOTTLE LEFT EYE SCH (21:40)
[2018-12-16] MEDS: *HR* Heparin 5,000 UNIT/ML VIAL SQ SCH ×3 (06:13→21:32)
[2018-12-16] MEDS: Insulin LISPRO 300 UNITS/3 ML VIAL SQ SCH ×4 (07:52→17:34)
[2018-12-16] MEDS: Isosorbide MONOnitrate (24 HR) 30 MG TAB.ER.24H PO SCH (07:54)
[2018-12-16] MEDS: Metoprolol XL (24 HR) Succ 25 MG TAB.ER.24H PO SCH (07:54)
[2018-12-16] MEDS: Doxycycline 100 MG CAPSULE PO SCH ×2 (07:55→21:29)
[2018-12-16] MEDS: Cholecalciferol (D-3) 1,000 UNIT (25MCG) TABLET PO SCH (07:55)
[2018-12-16] MEDS: Nystatin SUSP 5 ML UD.LIQ PO SCH ×4 (07:56→21:29)
[2018-12-16] MEDS: Cefepime HCl 2,000 MG in Water for inj. (sterile) 20 ML IVP SCH (07:56)
--- NOTE | 2018-12-16 10:13 | Infectious Disease Progress No ---
ID Progress Note Date of Encounter: 12/16/18 Time of Encounter: 10:11 - Subjective Subjective: Patient seen and examined. No acute events noted overnight. Patient states overall he feels well. Denies pain this morning. Denies fevers, chills, or rigors. Denies chest pain, shortness of breath, or cough. Denies nausea, vomiting, or diarrhea. Denies abdominal pain or urinary complaints. Denies oral thrush or skin rashes. States appetite is good, but is currently NPO pending cardiology evaluation. - Objective CBC & Chem 7: 12/18/18 05:03 12/18/18 05:03 - Line Documentation Line Documentation: Chest Tube (Left lateral chest wall) - Exam Vitals: Temp Pulse Resp BP Pulse Ox 97.7 F 80 14 121/64 99 12/16/18 06:52 12/16/18 06:52 12/16/18 06:52 12/16/18 06:52 12/16/18 06:52 Exam: Head: Atraumatic, normal inspection, normocephalic. Eye: EOMI, PERRLA, no scleral icterus noted. ENT: Mucous membranes moist. No odontogenic infection noted. Neck: Normal inspection, no meningismus. Respiratory: Diminished bilateral bases. No respiratory distress, rhonchi, or wheezes noted. Chest tube noted to the left lateral chest wall with purulent drainage noted. No crepitus or air leak. Cardiovascular: Regular rate and rhythm, S1 and S2 audible. No murmurs, rubs, or gallops. GI: Soft, nondistended, normal bowel sounds. Non-tender. Extremities:No joint swelling, pedal edema, or tenderness noted. Neurological: Alert, oriented 3, no focal deficits. Psychiatric: normal affect, normal mood. Skin: Dry, intact, warm. Normal color. No rashes. - Assessment and Plan (1) Sepsis Current Visit: Yes Status: Acute The patient had two SIRS criteria on admission. Likely secondary to empyema and multifocal PNA. Improved. Blood cultures drawn 12/10/18 are negative x 2 sets. Qualifiers: Sepsis type: sepsis due to unspecified organism Qualified Code(s): A41.9 - Sepsis, unspecified organism SNOMED Code(s): 51220534 (2) Empyema lung Current Visit: Yes Status: Acute Location: Left lung. Causative organism: P. mirabilis and S. epi (oxacillin resistant). Cardiothoracic surgery consulted and following. Planning further intervention once cleared by cardiology. Currently on Cefepime and doxycycline. SNOMED Code(s): 995455844 (3) Multifocal pneumonia Current Visit: Yes Status: Acute Causative organism: Unclear. Previous BAL cultures 10/2018 positive for PSEA. Previous PNA in early November (unknown causative organism) treated with 6 days of Rocephin 11/18-11/23 with Levaquin x 4 days prior to that. CT chest 12/10/18 moderate sized left hydropneumothorax with chest tube in place and multifocal lung consolidation involving the lingula, RUL, and RLL. MRSA screen negative. S. pneumo and Legionella UATs negative. Low index of suspicion for aspiration. Currently on Po doxycycline and cefepime. SNOMED Code(s): 308703551 (4) ISRRAEL (acute kidney injury) Current Visit: Yes Status: Acute Likely multifactorial. Resolved. SNOMED Code(s): 25356428, 78527132 (5) CAD (coronary artery disease) Current Visit: No Status: Chronic Qualifiers: Coronary Disease-Associated Artery/Lesion type: bypass graft [place] vs. transplanted heart: [place] heart Associated angina: without angina Qualified Code(s): I25.810 - Atherosclerosis of coronary artery bypass graft(s) without angina pectoris SNOMED Code(s): 94086817 (6) Cancer of lower lobe of left lung Current Visit: No Status: Acute Stage IIB Squamous cell carcinoma of the lung (cT1c cN1 M0). Status post diagnostic VATS, staging bronchoscopy, left thoracotomy pneumolysis, left lower lobectomy, and mediastinal lymph node dissection 11/06/[address] Angel. SNOMED Code(s): 158226642 (7) Congestive heart failure Current Visit: No Status: Chronic Qualifiers: Heart failure type: unspecified Heart failure chronicity: chronic Qualified Code(s): I50.9 - Heart failure, unspecified SNOMED Code(s): 97156753 (8) Diabetes mellitus, insulin dependent (IDDM), controlled Current Visit: No Status: Chronic SNOMED Code(s): 53184304, 283138375 - Recommendations Recommendations: Repeat CBC and BMP. Chest tube management and further surgical intervention per the CTS team. Await recommendations from cardiology. Discontinue cefepime. Start Zosyn 3.375 grams IV Q8H (CrCl ~45). Continue doxycycline 100mg PO BID. Duration of treatment depends on the clinical picture. Monitor renal function and dose-adjust antibiotics. Consult Discharge Plan - Plan Referrals: Osman Martinez MD [Primary Care Provider] - - Attending Attestation I have personally performed a face to face evaluation on this patient. I have reviewed and agree with the care plan. History and Exam by me shows: Assessment and plan: 1.Sepsis 2.Empyema of the long 3.Multifocal pneumonia 4.Acute kidney injury resolved Recommendations: Start Zosyn 3.375 grams IV Q8H (CrCl ~45). Continue doxycycline 100mg PO BID. Duration of treatment depends on the clinical picture.
--- NOTE | 2018-12-16 12:32 | Cardiothoracic Progress Note ---
Date of Encounter: 12/16/18 Time of Encounter: 12:30 - Assessment and plan (1) Empyema of pleura Current Visit: Yes Status: Acute The assessment and plan as outlined above was discussed with the patient and/or family members who expressed understanding and agreement. All questions were answered. patient will need a mm flap to obliterate the cavity in the lower chest (2) Elevated troponin Current Visit: No Status: Acute The assessment and plan as outlined above was discussed with the patient and/or family members who expressed understanding and agreement. All questions were an swered. patient will need a heart cath with or without intervention prior to thoracotomy and mm flap given the intraoperative mi and renal failure during his last surgery, he needs a heart cath, preferably soon so kidneys can recover from any potential contrast prior to surgery this saturday - Subjective Interval history: feels better since antibx and admission frustrated waiting to hear about heart cath Vital Signs, Last 4 Hours Temp Pulse Resp BP Pulse Ox 12/16/18 11:20 97.8 F 81 14 108/61 99 [place]gy[place] Flow Rate Oxygen Flow Rate (LPM) 2 Clinical Data, last 8 Hours Output, Chest Tube Drainage 60 Amount [Left Mid-Axillary Chest] Output, Urine Amount 200 Output, Urine Amount 0 Weight 12/14/18 12/15/18 12/16/18 23:59 23:59 23:59 Weight 81.8 kg - Physical Examination General: Conversant, No Apparent Distress, Well developed, Well nourished HEENT: Atraumatic, Normocephaly Cardiac: Reg Rate and Rhythm, Normal S1 and S2 Incision: No signs of infection Chest tubes: Minimal drainage, Air leak Lungs: Decreased breath sounds Neuro: Alert and responsive, No focal deficits noted, Cranial nerves intact - Labs 12/15/18 07:46 12/15/18 07:46 Lab Results, Last 24 hours 12/15/18 14:18 Troponin I 0.09 H* Consult Discharge Plan - Plan Referrals: Osman Martinez MD [Primary Care Provider] -
[2018-12-16] MEDS: traMADol 50 MG TABLET PO PRN (15:51)
[2018-12-16] MEDS: Piperacillin/Tazobactam 3.375 GM in 0.9 % Sodium Chloride Mini Bag 100 ML IVPB SCH (15:52)
--- NOTE | 2018-12-16 16:39 | Cardiology Progress Note ---
<Clemencia Saleh - Last Filed: 12/16/18 16:37> Date of Encounter: 12/16/18 Time of Encounter: 11:30 Assessment and Plan (1) Elevated troponin Current Visit: No Status: Acute Per cardiology: -Troponins were 0.07, 0.07, 0.08, 0.07, 0.10, 0.09 in setting of infected chest tube with left lung pneumonia and left pleural empyema: as indicated by Ct chest--pleural fluid growing Proteus mirabilis and gram positive cocci, ISRRAEL now resolved. Suspect demand ischemia, nondiagnostic for ACS. -Of note, peak troponin 20.26 with downtrend on 11/12 and ischemic ECG changes s/p left thoractomy and left lower lobectomy on 11/06/18 for lung cancer. Post operative complications included NSTEMI (type I vs II), anemia (s/p 2 units PRBC), and ISRRAEL. -TTE 11/10/18: LVEF 30-35%, severe global systolic dysfunction with regional variations--unchanged from previous (08/2018): LVEF 35%. -Current TTE EF 30%, unchanged. -Most recent [facility] 09/2017: EF 45%, successful PTCA/ROBER in the distal LM/ramus, s/p 2 of 4 patent bypass grafts. -Demand ischemia, no cardiac rehab consult warranted. (2) Ischemic cardiomyopathy Current Visit: No Status: Chronic Per cardiology: -Known ICMP, LVEF 30%. TTE this admission demonstrates similar LVEF. -Continue BB. Would recommend ACEi/ARB if BP/renal function will tolerate. Na/fluid restricted diet. -Plan for outpatient consideration of ICD for primary prevention. (3) Arrhythmia Current Visit: Yes Status: Acute Per cardiology: -ECG 12/12/18 appears to be irregular rhythm. No documented hx of A-Fib. Currently SR on tele. -Hx of GI bleed and had PRBC transfusion as recent as 10/2018 post op. Not a candidate for full AC. Continue ASA and Plavix. -Continue to monitor tele. Qualifiers: Arrhythmia type: unspecified cardiac arrhythmia Qualified Code(s): I49.9 - Cardiac arrhythmia, unspecified (4) CAD (coronary artery disease) Current Visit: No Status: Chronic Per cardiology: -Most recent [facility] 09/2017: EF 45%, successful PTCA/ROBER in the distal LM/ramus, s/p 2 of 4 patent bypass grafts. -Continue current medical management. Qualifiers: Coronary Disease-Associated Artery/Lesion type: [place] artery [place] vs. transplanted heart: [place] heart Associated angina: angina presence unspecified Qualified Code(s): I25.10 - Atherosclerotic heart disease of [place] coronary artery without angina pectoris Discussion w patient/family: The assessment and plan as outlined above was discussed with the patient and/or family members who expressed understanding and agreement. All questions were answered. Thank you for involving us in the care of your patient. Please call with any questions. Discussed and reviewed with . Subjective Principal diagnosis: Empyema Interval history: Patient denies chest pain. Reports shortness of breath about baseline. Objective Vital Signs, Last 4 Hours Temp Pulse Resp BP Pulse Ox 12/16/18 15:33 97.9 F 80 14 99/69 99 General: Conversant, No Apparent Distress HEENT: Atraumatic, Normocephaly, Mucus Membranes Moist Neck: No JVD, Normal carotid pulses Cardiac: Reg Rate and Rhythm, Normal S1 and S2, No Murmur Lungs: Other (Lung sounds diminished to left lung. Left chest tube noted. ) Neuro: Alert and responsive, No focal deficits noted Abdomen: Soft, Non-Tender Skin: No rashes noted on visualized skin Musculoskeletal: No Chest Wall Tenderness Extremities: No Clubbing, No Cyanosis, No Edema, Normal Pulses Results 12/15/18 07:46 12/15/18 07:46 Active Medications Acetaminophen (Tylenol) 650 mg PO Q6HR PRN PRN Reason: Mild Pain/Fever Stop: 06/11/19 16:11 Last Admin: 12/14/18 21:36 Dose: 650 mg Documented by: Albuterol/Ipratropium (Duoneb) 3 ml IH [id number] PRN PRN Reason: Shortness Of Breath/Wheezing Stop: 06/11/19 16:35 Last Admin: 12/15/18 13:45 Dose: 3 ml Documented by: Atorvastatin Calcium (Lipitor) 40 mg PO DAILY [facility] Stop: 06/12/19 09:01 Last Admin: 12/16/18 07:55 Dose: 40 mg Documented by: Clopidogrel Bisulfate (Plavix) 75 mg PO DAILY [facility] Stop: 01/24/20 09:01 Last Admin: 12/16/18 07:55 Dose: 75 mg Documented by: Dextrose/Water (Dextrose 50% (Syg)) 25 ml IVP AD PRN PRN Reason: Hypoglycemia Stop: 06/11/19 16:22 Doxycycline Hyclate (Doxycycline) 100 mg PO BID [facility] [place] Stop: 06/16/19 21:01 Last Admin: 12/16/18 07:55 Dose: 100 mg Documented by: Glucagon (Glucagen) 1 mg IM ONCE PRN PRN Reason: Hypoglycemia Stop: 06/11/19 16:22 Glucose (Gluctose) 15 gm PO ONCE PRN PRN Reason: Hypoglycemia Stop: 06/11/19 16:22 Glucose (Gluctose) 30 gm PO ONCE PRN PRN Reason: Hypoglycemia Stop: 06/11/19 16:22 Heparin Sodium (Porcine) (Heparin) 5,000 unit SQ Q8HCO [facility] [place] Stop: 06/12/19 14:01 Last Admin: 12/16/18 15:41 Dose: Not Given Documented by: Dextrose (Dextrose 5%) 1,000 mls @ 100 mls/hr IVC .Q10H PRN PRN Reason: HYPOGLYCEMIA Stop: 06/11/19 16:22 Piperacillin Sod/Tazobactam (Sod 3.375 gm/ Sodium Chloride) 100 mls @ 25 mls/hr IVPB Q8HR [facility] [place] Stop: 06/17/19 16:01 Last Admin: 12/16/18 15:52 Dose: 25 mls/hr Documented by: Insulin Human Lispro (Humalog) 0 units SQ TIDAC [facility]; Protocol Stop: 06/11/19 16:31 Last Admin: 12/16/18 15:41 Dose: Not Given Documented by: Isosorbide Mononitrate (Imdur) 30 mg PO DAILY [facility] [place] Stop: 06/12/19 09:01 Last Admin: 12/16/18 07:54 Dose: 30 mg Documented by: Latanoprost (Xalatan) 1 drop LEFT EYE HS [facility] [place]; Protocol Stop: 06/12/19 21:01 Last Admin: 12/15/18 21:40 Dose: 1 drop Documented by: Levothyroxine Sodium (Synthroid) 50 mcg PO 0630 [facility] [place] Stop: 06/12/19 06:31 Last Admin: 12/16/18 06:20 Dose: 50 mcg Documented by: Metoprolol Succinate (Toprol Xl) 12.5 mg PO DAILY [facility] Stop: 06/15/19 09:46 Last Admin: 12/16/18 07:54 Dose: 12.5 mg Documented by: Naloxone HCl (Narcan) 0.4 mg IVP Q2MPRN PRN PRN Reason: SEE COMMENTS Stop: 06/11/19 16:11 Nitroglycerin (Nitroglycerin) 0.4 mg SL Q5MIN PRN PRN Reason: Chest Pain Stop: 06/11/19 16:18 Nystatin (Mycostatin Suspension) 5 ml PO QID [facility] [place] Stop: 06/12/19 21:01 Last Admin: 12/16/18 12:06 Dose: 5 ml Documented by: Omeprazole (Prilosec) 20 mg PO DAILY@729 [facility] [place]; Protocol Stop: 06/12/19 07:31 Last Admin: 12/16/18 07:55 Dose: 20 mg Documented by: Ondansetron HCl (Zofran) 4 mg IVP Q8HR PRN PRN Reason: Nausea And Vomiting Stop: 06/11/19 16:11 Tamsulosin HCl (Flomax) 0.4 mg PO DAILY [facility]; Protocol Stop: 06/14/19 16:46 Last Admin: 12/16/18 07:54 Dose: 0.4 mg Documented by: Timolol Maleate (Timolol Maleate 0.5%) 1 drop LEFT EYE QAM [facility] [place]; Protocol Stop: 06/13/19 09:01 Last Admin: 12/16/18 12:06 Dose: 1 drop Documented by: Tramadol HCl (Ultram) 25 mg PO Q6HR PRN PRN Reason: Pain Stop: 06/16/19 08:11 Last Admin: 12/16/18 15:51 Dose: 25 mg Documented by: Vitamin D (Vitamin D) 1,000 unit PO DAILY [facility] [place] Stop: 06/12/19 09:01 Last Admin: 12/16/18 07:55 Dose: 1,000 unit Documented by: Laboratory Tests 12/10/18 12/10/18 12/10/18 13:46 16:30 22:21 Hgb Creatinine Troponin I 0.07 H* 0.07 H* 0.08 H* 12/11/18 12/15/18 12/15/18 04:11 07:46 07:46 Hgb 10.2 L Creatinine 1.22 Troponin I 0.07 H* 0.10 H* 12/15/18 14:18 Hgb Creatinine Troponin I 0.09 H* - Imaging and Cardiology Chest Xray: report reviewed Echo: report reviewed Cardiac cath: report reviewed - EKG Interpretation EKG results cardiology: other (Telemetry reviewed with average HR previous 12 hours noted to be 83, SR. PVCs, couplets, PACs noted.) Consult Discharge Plan - Plan Referrals: Osman Martinez MD [Primary Care Provider] - <CassidyviridianaLena - Last Filed: 12/16/18 16:51> Date of Encounter: 12/16/18 Assessment and Plan Discussion w patient/family: I examined this patient and my medical decision-making was reviewed with the [facility]. I agree with the documented findings, disposition and treatment plan as described. Reviewed CTS progress notes requesting LHC prior to procedure. Discussed case with Interventional Cardiology. Plan for diagnostic LHC . Patient remains hemodynamically stable. No chest pain symptoms. LVEF stable. Recommend stopping aspirin in anticipation of surgery given recent history of bleeding requiring multiple transfusions. Plavix will be continued. Recommendations discussed with patient and and are in agreement with the plan. Objective Vital Signs, Last 4 Hours Temp Pulse Resp BP Pulse Ox 12/16/18 15:33 97.9 F 80 14 99/69 99 Results 12/15/18 07:46 12/15/18 07:46
--- NOTE | 2018-12-16 20:59 | Internal Med Progress Note ---
Hospitalist Progress Note - Encounter Date of Encounter: 12/16/18 Time of Encounter: 18:00 - Subjective Interval History: Per CT and cardiology consult Mr Beaulieu is planned for left heart catheter and thoracotomy Saturday GEN: Denies fever, chills or malaise HEENT: Denies headache blurriness, or dysphagia RESP: Denies SOB or cough CV: Denies chest pain or palpitations GI: Denies Nausea, vomiting, diarrhea or constipation Reviewed current in hospital medications with modifications see orders Reviewed Routine labs - Exam Vitals: Temp Pulse Resp BP Pulse Ox 97.7 F 79 14 115/67 100 12/16/18 20:17 12/16/18 20:17 12/16/18 20:17 12/16/18 20:17 12/16/18 20:17 Exam: GEN: NAD, A&O x 3, Pleasant and conversant SKIN: [place] warm acyanotic not jaundice HEART: RRR, no murmurs LUNGS: Diminished worse on the left side no wheeze or crackles, overall non labored chest tube noted ABDOMEN; Soft, non tender or distended, BS x 4 normactive EXT: No LE edema, Pedal pulses 1+, radial pulses 2+ PSYCH: Mood and affect is appropriate - Assessment and Plan (1) Empyema lung Current Visit: Yes Status: Acute Assessment and Plan: On Vanco cefepime and Zosyn, he is afebrile leukocytosis. Surgical intervention planned for Saturday we appreciate cardiothoracic team input as well as cardiology (2) Encephalopathy acute Current Visit: Yes Status: Acute Assessment and Plan: Resolved back to baseline (3) Hyponatremia Current Visit: Yes Status: Acute Assessment and Plan: Na is trending up 127-131-131, would monitor for now (4) ISRRAEL (acute kidney injury) Current Visit: Yes Status: Acute Assessment and Plan: Resolved creatinine trended down to 1.22 (5) DM2 (diabetes mellitus, type 2) Current Visit: Yes Status: Chronic Assessment and Plan: A1c was 5.9. appears controlled, insulin per protocol (6) Hypothyroidism Current Visit: No Status: Chronic Assessment and Plan: TSH within normal limits 3.296 DVT Prophylaxis: Heparin subcutaneous - Time Spent with Patient Total time spent is greater than 50% in coordination of care (as documented) at patient's floor/unit and/or counseling patient: Internal Medicine: Result - Labs CBC & Chem 7: 12/15/18 07:46 12/15/18 07:46 - ABG Interpretation ABG results: ABG ABG pH 7.42 pH Units (7.32-7.45) 12/12/18 09:55 ABG pCO2 34 mmHg (35-45) L 12/12/18 09:55 ABG pO2 139 mmHg (85-104) H 12/12/18 09:55 ABG O2 Saturation 99 % (95-98) H 12/12/18 09:55 PT/INR, D-dimer PT 16.9 Seconds (9.4-12.1) H 12/10/18 13:46 Consult Discharge Plan - Plan Referrals: Osman Martinez MD [Primary Care Provider] - (5) DM2 (diabetes mellitus, type 2) Qualifiers: 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
[2018-12-16] MEDS: Latanoprost 2.5 ML BOTTLE LEFT EYE SCH (21:29)
[2018-12-17] MEDS: Piperacillin/Tazobactam 3.375 GM in 0.9 % Sodium Chloride Mini Bag 100 ML IVPB SCH ×3 (00:51→16:08)
[2018-12-17] MEDS: *HR* Heparin 5,000 UNIT/ML VIAL SQ SCH ×3 (05:10→20:43)
[2018-12-17 05:55] LABS: Basophils # 0.1 K/mcL (0.0-0.2); Basophils % 1.3 %; Eosinophils # 0.8 K/mcL (0.0-0.6); Eosinophils % 8.4 %; Hematocrit 34.6 % (37.5-50.1); Hemoglobin 10.7 g/dL (12.9-16.9); Immature Granulocytes % 0.2 % (0-4); Lymphocytes % 11.3 %; Mean Corpuscular HGB Conc 30.9 g/dL (31.6-35.5); Mean Corpuscular Hemoglobin 28.9 pg (28.0-33.3); Mean Corpuscular Volume 93.5 fL (83.0-100.0); Mean Platelet Volume 10.6 fL (9.4-12.4); Monocytes % 10.6 %; Neutrophils # 6.1 K/mcL (1.6-8.9); Platelet Count 186 K/mcL (140-400); Red Cell Distribution Width 18.7 % (11.5-14.5); Segmented Neutrophils % 68.2 %
[2018-12-17 06:16] LABS: BUN/Creatinine Ratio 12 (6-26); Blood Urea Nitrogen 13 mg/dL (8-23); Calcium 8.5 mg/dL (8.6-10.3); Carbon Dioxide 23 mEq/L (23-29); Chloride 97 mEq/L (98-107); Glucose 114 mg/dL (70-105); Magnesium 1.7 mg/dL (1.6-2.6); Osmolality,Calculated 273 (280-300); Potassium 4.5 mEq/L (3.5-5.1); Sodium 131 mEq/L (136-145); eGFR For African Americans > 60 (> 60); eGFR For Non-African Americans > 60 (> 60)
[2018-12-17] MEDS: Nystatin SUSP 5 ML UD.LIQ PO SCH ×4 (08:00→20:42)
[2018-12-17] MEDS: Cholecalciferol (D-3) 1,000 UNIT (25MCG) TABLET PO SCH (08:00)
[2018-12-17] MEDS: Metoprolol XL (24 HR) Succ 25 MG TAB.ER.24H PO SCH (08:00)
[2018-12-17] MEDS: Doxycycline 100 MG CAPSULE PO SCH ×2 (08:00→20:43)
[2018-12-17] MEDS: Isosorbide MONOnitrate (24 HR) 30 MG TAB.ER.24H PO SCH (08:01)
[2018-12-17] MEDS: Insulin LISPRO 300 UNITS/3 ML VIAL SQ SCH ×3 (08:02→16:12)
--- NOTE | 2018-12-17 09:32 | Infectious Disease Progress No ---
ID Progress Note Date of Encounter: 12/17/18 Time of Encounter: 09:30 - Subjective Subjective: Patient seen and examined sitting up in the bedside chair. No acute events noted overnight. Patient states overall he feels well. Denies pain this morning. Denies fevers, chills, or rigors. Denies chest pain or cough, but states he feels a little more short of breath and has a scratchy throat. Denies nausea, vomiting, or diarrhea. Denies abdominal pain or urinary complaints. Denies oral thrush or skin rashes. States appetite is good. - Objective CBC & Chem 7: 12/19/18 05:24 12/19/18 05:24 - Line Documentation Line Documentation: Chest Tube (Left lateral chest wall) - Exam Vitals: Temp Pulse Resp BP Pulse Ox 98.0 F 78 16 113/53 98 12/17/18 07:26 12/17/18 07:26 12/17/18 04:35 12/17/18 07:26 12/17/18 04:35 Exam: Head: Atraumatic, normal inspection, normocephalic. Eye: EOMI, PERRLA, no scleral icterus noted. ENT: Mucous membranes moist. No odontogenic infection noted. Neck: Normal inspection, no meningismus. Respiratory: Diminished left base, crackles noted to the right base. No respiratory distress, rhonchi, or wheezes noted. Chest tube noted to the left lateral chest wall with purulent drainage noted. No crepitus or air leak. Cardiovascular: Regular rate and rhythm, S1 and S2 audible. No murmurs, rubs, or gallops. GI: Soft, nondistended, normal bowel sounds. Non-tender. Extremities:No joint swelling, pedal edema, or tenderness noted. Neurological: Alert, oriented 3, no focal deficits. Psychiatric: normal affect, normal mood. Skin: Dry, intact, warm. Normal color. No rashes. - Assessment and Plan (1) Sepsis Current Visit: Yes Status: Acute The patient had two SIRS criteria on admission. Likely secondary to empyema and multifocal PNA. Improved. Blood cultures drawn 12/10/18 are negative x 2 sets. Qualifiers: Sepsis type: sepsis due to unspecified organism SNOMED Code(s): 59536200 (2) Empyema lung Current Visit: Yes Status: Acute Location: Left lung. Causative organism: P. mirabilis and S. epi (oxacillin resistant). Cardiothoracic surgery consulted and following. Planning further intervention once cleared by cardiology. Currently on Zosyn and doxycycline. SNOMED Code(s): 104732840 (3) Multifocal pneumonia Current Visit: Yes Status: Acute Causative organism: Unclear. Previous BAL cultures 10/2018 positive for PSEA. Previous PNA in early November (unknown causative organism) treated with 6 days of Rocephin 11/18-11/23 with Levaquin x 4 days prior to that. CT chest 12/10/18 moderate sized left hydropneumothorax with chest tube in place and multifocal lung consolidation involving the lingula, RUL, and RLL. MRSA screen negative. S. pneumo and Legionella UATs negative. Low index of suspicion for aspiration. Currently on PO doxycycline and Zosyn. SNOMED Code(s): 324597703 (4) ISRRAEL (acute kidney injury) Current Visit: Yes Status: Acute Likely multifactorial. Resolved. SNOMED Code(s): 69494429, 50967828 (5) CAD (coronary artery disease) Current Visit: No Status: Chronic Cardiology consulted. [facility] planned for . Qualifiers: Coronary Disease-Associated Artery/Lesion type: bypass graft [place] vs. transplanted heart: [place] heart Associated angina: without angina Qualified Code(s): I25.810 - Atherosclerosis of coronary artery bypass graft(s) without angina pectoris SNOMED Code(s): 54441480 (6) Cancer of lower lobe of left lung Current Visit: No Status: Acute Stage IIB Squamous cell carcinoma of the lung (cT1c cN1 M0). Status post diagnostic VATS, staging bronchoscopy, left thoracotomy pneumolysis, left lower lobectomy, and mediastinal lymph node dissection 11/06/[address] Angel. SNOMED Code(s): 843083047 (7) Congestive heart failure Current Visit: No Status: Chronic Qualifiers: Heart failure type: unspecified Heart failure chronicity: chronic Qualified Code(s): I50.9 - Heart failure, unspecified SNOMED Code(s): 51935789 (8) Diabetes mellitus, insulin dependent (IDDM), controlled Current Visit: No Status: Chronic SNOMED Code(s): 77566933, 286199206 - Recommendations Recommendations: Chest tube management and further surgical intervention per the CTS team. Continue Zosyn 3.375 grams IV Q8H (CrCl ~45). Continue doxycycline 100mg PO BID. Duration of treatment depends on the clinical picture. Monitor renal function and dose-adjust antibiotics. Consult Discharge Plan - Plan Referrals: Osman Martinez MD [Primary Care Provider] - - Attending Attestation I have personally performed a face to face evaluation on this patient. I have reviewed and agree with the care plan. History and Exam by me shows: Assessment and plan: 1.Sepsis 2.Empyema of the long 3.Multifocal pneumonia 4.Acute kidney injury resolved Recommendations: Chest tube management and further surgical intervention per the CTS team. Continue Zosyn 3.375 grams IV Q8H (CrCl ~45). Continue doxycycline 100mg PO BID. Duration of treatment depends on the clinical picture. Monitor renal function and dose-adjust antibiotics.
--- NOTE | 2018-12-17 09:32 | Cardiothoracic Progress Note ---
Date of Encounter: 12/17/18 Time of Encounter: : - Assessment and plan (1) Empyema of pleura Current Visit: Yes Status: Acute The assessment and plan as outlined above was discussed with the patient and/or family members who expressed understanding and agreement. All questions were answered. patient will need a mm flap to obliterate the cavity in the lower chest (2) Elevated troponin Current Visit: No Status: Acute The assessment and plan as outlined above was discussed with the patient and/or family members who expressed understanding and agreement. All questions were an swered. cardiology planning heart cath on - Subjective Interval history: feels better since antibx and admission frustrated waiting to hear about heart cath Vital Signs, Last 4 Hours Temp Pulse BP 12/17/18 07:26 98.0 F 78 113/53 Oxgyen Flow Rate Oxygen Flow Rate (LPM) 2 Clinical Data, last 8 Hours Output, Urine Amount 0 Weight 12/15/18 12/16/18 12/17/18 23:59 23:59 23:59 Weight 81.5 kg - Physical Examination General: Conversant, No Apparent Distress, Well developed HEENT: Atraumatic, Normocephaly Cardiac: Reg Rate and Rhythm, Normal S1 and S2 Chest tubes: Minimal drainage, Air leak Lungs: Decreased breath sounds Neuro: Alert and responsive, No focal deficits noted Vascular: Normal capillary refill Extremities: Other (edema) - Labs 12/17/18 05:35 12/17/18 05:35 Lab Results, Last 24 hours 12/17/18 12/17/18 05:35 05:35 WBC 9.0 Hgb 10.7 L Hct 34.6 L Plt Count 186 Sodium 131 L Potassium 4.5 Chloride 97 L Carbon Dioxide 23 BUN 13 Creatinine 1.09 Glucose 114 H Calcium 8.5 L Magnesium 1.7 Consult Discharge Plan - Plan Referrals: Osman Martinez MD [Primary Care Provider] -
--- NOTE | 2018-12-17 11:57 | Cardiology Progress Note ---
Date of Encounter: 12/17/18 Time of Encounter: 09:30 Assessment and Plan (1) Elevated troponin Current Visit: No Status: Acute Per cardiology: -Troponins were 0.07, 0.07, 0.08, 0.07, 0.10, 0.09 in setting of infected chest tube with left lung pneumonia and left pleural empyema: as indicated by Ct chest--pleural fluid growing Proteus mirabilis and gram positive cocci, ISRRAEL now resolved. Suspect demand ischemia, nondiagnostic for ACS. -Of note, peak troponin 20.26 with downtrend on 11/12 and ischemic ECG changes s/p left thoractomy and left lower lobectomy on 11/06/18 for lung cancer. Post operative complications included NSTEMI (type I vs II), anemia (s/p 2 units PRBC), and ISRRAEL. -TTE 11/10/18: LVEF 30-35%, severe global systolic dysfunction with regional variations--unchanged from previous (08/2018): LVEF 35%. -Current TTE EF 30%, unchanged. -Most recent LHC 09/2017: EF 45%, successful PTCA/ROBER in the distal LM/ramus, s/p 2 of 4 patent bypass grafts. -Demand ischemia, no cardiac rehab consult warranted. -Discussion has been had with and cardiology team. Plan for LHC on . Patient and family aware. Risks versus benefits of LHC explained to patient and family, who state understanding and agreeable to proceed. -Will make NPO after midnight -Further recs pending LHC. (2) Ischemic cardiomyopathy Current Visit: No Status: Chronic Per cardiology: -Known ICMP, LVEF 30%. TTE this admission demonstrates similar LVEF. -Continue BB. Would recommend ACEi/ARB if BP/renal function will tolerate. Na/fluid restricted diet. -Plan for outpatient consideration of ICD for primary prevention. (3) Arrhythmia Current Visit: Yes Status: Acute Per cardiology: -ECG 12/12/18 appears to be irregular rhythm. No documented hx of A-Fib. Currently SR on tele. -Hx of GI bleed and had PRBC transfusion as recent as 10/2018 post op. Not a candidate for full AC. Continue ASA and Plavix. -Continue to monitor tele. Qualifiers: Arrhythmia type: unspecified cardiac arrhythmia Qualified Code(s): I49.9 - Cardiac arrhythmia, unspecified (4) CAD (coronary artery disease) Current Visit: No Status: Chronic Per cardiology: -Most recent [facility] 09/2017: EF 45%, successful PTCA/ROBER in the distal LM/ramus, s/p 2 of 4 patent bypass grafts. -Decision has been made to stop ASA, continue plavix to reduce risk of bleeding with upcoming surgery. Qualifiers: Coronary Disease-Associated Artery/Lesion type: [place] artery [place] vs. transplanted heart: [place] heart Associated angina: angina presence uns pecified Qualified Code(s): I25.10 - Atherosclerotic heart disease of [place] coronary artery without angina pectoris Discussion w patient/family: The assessment and plan as outlined above was discussed with the patient and/or family members who expressed understanding and agreement. All questions were answered. Thank you for involving us in the care of your patient. Please call with any questions. Discussed and reviewed with . Subjective Principal diagnosis: Empyema Interval history: Patient denies chest pain. Reports shortness of breath about baseline. Patient sitting in chair. Family at bedside. Objective Vital Signs Temperature 97.3 F L 12/10/18 13:08 Pulse Rate 111 12/10/18 13:08 Respiratory Rate 12 12/10/18 13:08 Blood Pressure 123/74 12/10/18 13:08 O2 Sat by Pulse Oximetry 97 12/10/18 13:08 Temperature 98.0 F 12/17/18 07:26 Pulse Rate 78 12/17/18 07:26 Respiratory Rate 16 12/17/18 04:35 Blood Pressure 113/53 12/17/18 07:26 O2 Sat by Pulse Oximetry 98 12/17/18 04:35 Oxygen Delivery Oxygen Delivery Nasal Cannula General: Conversant, No Apparent Distress HEENT: Atraumatic, Normocephaly, Mucus Membranes Moist Neck: No JVD, Normal carotid pulses Cardiac: Reg Rate and Rhythm, Normal S1 and S2, No Murmur Lungs: Other (Lung sounds diminished throughout. ) Neuro: Alert and responsive, No focal deficits noted Abdomen: Soft, Non-Tender Skin: No rashes noted on visualized skin Musculoskeletal: No Chest Wall Tenderness Extremities: No Clubbing, No Cyanosis, No Edema, Normal Pulses Results 12/17/18 05:35 12/17/18 05:35 Lab Results Active Medications Acetaminophen (Tylenol) 650 mg PO Q6HR PRN PRN Reason: Mild Pain/Fever Stop: 06/11/19 16:11 Last Admin: 12/14/18 21:36 Dose: 650 mg Documented by: Albuterol/Ipratropium (Duoneb) 3 ml IH [id number] PRN PRN Reason: Shortness Of Breath/Wheezing Stop: 06/11/19 16:35 Last Admin: 12/15/18 13:45 Dose: 3 ml Documented by: Atorvastatin Calcium (Lipitor) 40 mg PO DAILY [facility] Stop: 06/12/19 09:01 Last Admin: 12/17/18 08:01 Dose: 40 mg Documented by: Clopidogrel Bisulfate (Plavix) 75 mg PO DAILY [facility] Stop: 06/12/19 09:01 Last Admin: 12/17/18 08:00 Dose: 75 mg Documented by: Dextrose/Water (Dextrose 50% (Syg)) 25 ml IVP AD PRN PRN Reason: Hypoglycemia Stop: 06/11/19 16:22 Doxycycline Hyclate (Doxycycline) 100 mg PO BID [facility] Stop: 06/16/19 21:01 Last Admin: 12/17/18 08:00 Dose: 100 mg Documented by: Glucagon (Glucagen) 1 mg IM ONCE PRN PRN Reason: Hypoglycemia Stop: 06/11/19 16:22 Glucose (Gluctose) 15 gm PO ONCE PRN PRN Reason: Hypoglycemia Stop: 06/11/19 16:22 Glucose (Gluctose) 30 gm PO ONCE PRN PRN Reason: Hypoglycemia Stop: 06/11/19 16:22 Heparin Sodium (Porcine) (Heparin) 5,000 unit SQ Q8HCO [facility] Stop: 06/12/19 14:01 Last Admin: 12/17/18 05:10 Dose: 5,000 unit Documented by: Dextrose (Dextrose 5%) 1,000 mls @ 100 mls/hr IVC .Q10H PRN PRN Reason: HYPOGLYCEMIA Stop: 06/11/19 16:22 Piperacillin Sod/Tazobactam (Sod 3.375 gm/ Sodium Chloride) 100 mls @ 25 mls/hr IVPB Q8HR [facility] Stop: 06/17/19 16:01 Last Admin: 12/17/18 08:01 Dose: 25 mls/hr Documented by: Insulin Human Lispro (Humalog) 0 units SQ TIDAC [facility]; Protocol Stop: 06/11/19 16:31 Last Admin: 12/17/18 08:02 Dose: Not Given Documented by: Isosorbide Mononitrate (Imdur) 30 mg PO DAILY [facility] Stop: 06/12/19 09:01 Last Admin: 12/17/18 08:01 Dose: 30 mg Documented by: Latanoprost (Xalatan) 1 drop LEFT EYE HS [facility]; Protocol Stop: 06/12/19 21:01 Last Admin: 12/16/18 21:29 Dose: 1 drop Documented by: Levothyroxine Sodium (Synthroid) 50 mcg PO 0630 [facility] Stop: 06/12/19 06:31 Last Admin: 12/17/18 05:10 Dose: 50 mcg Documented by: Metoprolol Succinate (Toprol Xl) 12.5 mg PO DAILY [facility] Stop: 06/15/19 09:46 Last Admin: 12/17/18 08:00 Dose: 12.5 mg Documented by: Naloxone HCl (Narcan) 0.4 mg IVP Q2MPRN PRN PRN Reason: SEE COMMENTS Stop: 06/11/19 16:11 Nitroglycerin (Nitroglycerin) 0.4 mg SL Q5MIN PRN PRN Reason: Chest Pain Stop: 06/11/19 16:18 Nystatin (Mycostatin Suspension) 5 ml PO QID [facility] Stop: 06/12/19 21:01 Last Admin: 12/17/18 08:00 Dose: 5 ml Documented by: Omeprazole (Prilosec) 20 mg PO DAILY@0730 [facility]; Protocol Stop: 06/12/19 07:31 Last Admin: 12/17/18 08:01 Dose: 20 mg Documented by: Ondansetron HCl (Zofran) 4 mg IVP Q8HR PRN PRN Reason: Nausea And Vomiting Stop: 06/11/19 16:11 Tamsulosin HCl (Flomax) 0.4 mg PO DAILY [facility]; Protocol Stop: 06/14/19 16:46 Last Admin: 12/17/18 08:00 Dose: 0.4 mg Documented by: Timolol Maleate (Timolol Maleate 0.5%) 1 drop LEFT EYE [facility] [place]; Protocol Stop: 06/13/19 09:01 Last Admin: 12/17/18 08:05 Dose: 1 drop Documented by: Tramadol HCl (Ultram) 25 mg PO Q6HR PRN PRN Reason: Pain Stop: 06/16/19 08:11 Last Admin: 12/16/18 15:51 Dose: 25 mg Documented by: Vitamin D (Vitamin D) 1,000 unit PO DAILY [facility] Stop: 06/12/19 09:01 Last Admin: 12/17/18 08:00 Dose: 1,000 unit Documented by: Laboratory Tests 12/17/18 12/17/18 05:35 05:35 Hgb 10.7 L Creatinine 1.09 - Imaging and Cardiology Chest Xray: report reviewed Echo: report reviewed Cardiac cath: report reviewed - EKG Interpretation EKG results cardiology: other (Telemetry reviewed with average HR previous 12 hours noted to be 82, SR. PVCs, PACs noted.) Consult Discharge Plan - Plan Referrals: Osman Martinez MD [Primary Care Provider] -
[2018-12-17] MEDS: traMADol 50 MG TABLET PO PRN (12:55)
[2018-12-17] MEDS: Ipratropium/Albuterol Neb 3 ML IH PRN (12:56)
--- NOTE | 2018-12-17 16:40 | Internal Med Progress Note ---
Hospitalist Progress Note - Encounter Date of Encounter: 12/17/18 Time of Encounter: 14:47 - Subjective Interval History: Mr Beaulieu is given for left heart catheter tomorrow and planned for cardio thoracic surgery Saturday. GEN: Denies fever, chills or malaise HEENT: Denies headache blurriness, or dysphagia RESP: Denies SOB or cough CV: Denies chest pain or palpitations GI: Denies Nausea, vomiting, diarrhea or constipation Reviewed current in hospital medications with modifications see orders Reviewed Routine labs - Exam Vitals: Temp Pulse Resp BP Pulse Ox 98.1 F 82 16 104/61 94 12/17/18 15:27 12/17/18 15:27 12/17/18 12:57 12/17/18 15:27 12/17/18 12:57 Exam: GEN: NAD, A&O x 3, Pleasant and conversant, and a female family friend were at the bedside SKIN: [place] warm acyanotic not jaundice HEART: RRR, no murmurs LUNGS: Diminished worse on the left side no wheeze or crackles, overall non labored chest tube noted with mucopurulent drainage in the reservoir ABDOMEN; Soft, non tender or distended, BS x 4 normactive EXT: No LE edema, Pedal pulses 1+, radial pulses 2+ PSYCH: Mood and affect is appropriate - Assessment and Plan (1) Empyema lung Current Visit: Yes Status: Acute Assessment and Plan: On doxycycline and Zosyn, he has been followed by ID, he is afebrile and no leukocytosis. Surgical intervention planned for Saturday we appreciate cardiothoracic team input as well as cardiology and ID (2) Encephalopathy acute Current Visit: Yes Status: Acute Assessment and Plan: Resolved back to baseline, likely infectious/septic given his empyema (3) Hyponatremia Current Visit: Yes Status: Acute Assessment and Plan: Na is trending up 127-131-131, would monitor for now, today 131 anticipate to improve his oral intake improves, of note legionella antigen was negative and no obvious drug causes (4) ISRRAEL (acute kidney injury) Current Visit: Yes Status: Acute Assessment and Plan: Resolved creatinine normalized (5) DM2 (diabetes mellitus, type 2) Current Visit: Yes Status: Chronic Assessment and Plan: A1c was 5.9. appears controlled, insulin per protocol (6) Hypothyroidism Current Visit: No Status: Chronic Assessment and Plan: TSH within normal limits 3.296, continue levothyroxine DVT Prophylaxis: Heparin subcutaneous - Time Spent with Patient Total time spent is greater than 50% in coordination of care (as documented) at patient's floor/unit and/or counseling patient: Internal Medicine: Result - Labs CBC & Chem 7: 12/17/18 05:35 12/17/18 05:35 Labs: Short CBC 12/17/18 Range/Units 05:35 WBC 9.0 (4.3-11.1) K/mcL Hgb 10.7 L (12.9-16.9) g/dL Hct 34.6 L (37.5-50.1) % Plt Count 186 (140-400) K/mcL Neutrophils # 6.1 (1.6-8.9) K/mcL BMP 12/17/18 05:35 Sodium 131 L Potassium 4.5 Chloride 97 L Carbon Dioxide 23 BUN 13 Creatinine 1.09 Glucose 114 H Calcium 8.5 L - ABG Interpretation ABG results: ABG ABG pH 7.42 pH Units (7.32-7.45) 12/12/18 09:55 ABG pCO2 34 mmHg (35-45) L 12/12/18 09:55 ABG pO2 139 mmHg (85-104) H 12/12/18 09:55 ABG O2 Saturation 99 % (95-98) H 12/12/18 09:55 PT/INR, D-dimer PT 16.9 Seconds (9.4-12.1) H 12/10/18 13:46 Consult Discharge Plan - Plan Referrals: Osman Martinez MD [Primary Care Provider] - (5) DM2 (diabetes mellitus, type 2) Qualifiers: 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
[2018-12-17] MEDS: Latanoprost 2.5 ML BOTTLE LEFT EYE SCH (20:47)
[2018-12-18] MEDS: Piperacillin/Tazobactam 3.375 GM in 0.9 % Sodium Chloride Mini Bag 100 ML IVPB SCH ×3 (04:01→20:26)
[2018-12-18] MEDS: Ipratropium/Albuterol Neb 3 ML IH PRN (04:13)
[2018-12-18 05:19] LABS: Basophils # 0.1 K/mcL (0.0-0.2); Eosinophils # 0.8 K/mcL (0.0-0.6); Eosinophils % 9.2 %; Hematocrit 33.4 % (37.5-50.1); Hemoglobin 10.1 g/dL (12.9-16.9); Immature Granulocytes % 0.5 % (0-4); Lymphocytes % 12.1 %; Mean Corpuscular HGB Conc 30.2 g/dL (31.6-35.5); Mean Corpuscular Hemoglobin 28.3 pg (28.0-33.3); Mean Corpuscular Volume 93.6 fL (83.0-100.0); Mean Platelet Volume 10.5 fL (9.4-12.4); Monocytes % 11.5 %; Neutrophils # 5.4 K/mcL (1.6-8.9); Platelet Count 176 K/mcL (140-400); Red Blood Count 3.57 M/mcL (4.19-5.50); Red Cell Distribution Width 18.4 % (11.5-14.5); Segmented Neutrophils % 65.7 %; White Blood Count 8.2 K/mcL (4.3-11.1)
[2018-12-18 05:36] LABS: BUN/Creatinine Ratio 11 (6-26); Blood Urea Nitrogen 12 mg/dL (8-23); Calcium 8.4 mg/dL (8.6-10.3); Carbon Dioxide 27 mEq/L (23-29); Chloride 97 mEq/L (98-107); Glucose 163 mg/dL (70-105); Magnesium 1.9 mg/dL (1.6-2.6); Osmolality,Calculated 277 (280-300); Potassium 4.7 mEq/L (3.5-5.1); Sodium 132 mEq/L (136-145); eGFR For African Americans > 60 (> 60); eGFR For Non-African Americans > 60 (> 60)
[2018-12-18] MEDS: *HR* Heparin 5,000 UNIT/ML VIAL SQ SCH ×3 (06:19→20:32)
[2018-12-18] MEDS: Isosorbide MONOnitrate (24 HR) 30 MG TAB.ER.24H PO SCH (08:04)
[2018-12-18] MEDS: Doxycycline 100 MG CAPSULE PO SCH ×2 (08:04→20:32)
[2018-12-18] MEDS: Nystatin SUSP 5 ML UD.LIQ PO SCH ×4 (08:04→20:32)
[2018-12-18] MEDS: Metoprolol XL (24 HR) Succ 25 MG TAB.ER.24H PO SCH (08:05)
[2018-12-18] MEDS: Cholecalciferol (D-3) 1,000 UNIT (25MCG) TABLET PO SCH (08:05)
[2018-12-18] MEDS: Insulin LISPRO 300 UNITS/3 ML VIAL SQ SCH ×3 (08:14→18:44)
--- NOTE | 2018-12-18 10:00 | Infectious Disease Progress No ---
ID Progress Note Date of Encounter: 12/18/18 Time of Encounter: 09:59 - Subjective Subjective: Patient seen and examined. No acute events noted overnight. Patient states overall he feels well. Denies pain this morning. Denies fevers, chills, or rigors. Denies chest pain or cough or shortness of breath. Denies nausea, vomiting, or diarrhea. Denies abdominal pain or urinary complaints. Denies oral thrush or skin rashes. States appetite is good, but is currently NPO for [facility] today. - Objective CBC & Chem 7: 12/19/18 05:24 12/19/18 05:24 - Line Documentation Line Documentation: Chest Tube (Left lateral chest wall) - Exam Vitals: Temp Pulse Resp BP Pulse Ox 97.6 F 87 16 113/75 98 12/18/18 07:19 12/18/18 07:19 12/18/18 07:19 12/18/18 07:19 12/18/18 07:19 Exam: Head: Atraumatic, normal inspection, normocephalic. Eye: EOMI, PERRLA, no scleral icterus noted. ENT: Mucous membranes moist. No odontogenic infection noted. Neck: Normal inspection, no meningismus. Respiratory: Diminished right base, crackles noted to the left base. No respiratory distress, rhonchi, or wheezes noted. Chest tube noted to the left lateral chest wall with purulent drainage noted. No crepitus or air leak. Cardiovascular: Regular rate and rhythm, S1 and S2 audible. No murmurs, rubs, or gallops. GI: Soft, nondistended, normal bowel sounds. Non-tender. Extremities:No joint swelling, pedal edema, or tenderness noted. Neurological: Alert, oriented 3, no focal deficits. Psychiatric: normal affect, normal mood. Skin: Dry, intact, warm. Normal color. No rashes. - Assessment and Plan (1) Sepsis Current Visit: Yes Status: Resolved The patient had two SIRS criteria on admission. Likely secondary to empyema and multifocal PNA. Improved. Blood cultures drawn 12/10/18 are negative x 2 sets. Qualifiers: Sepsis type: sepsis due to unspecified organism SNOMED Code(s): 62847737 (2) Empyema lung Current Visit: Yes Status: Acute Location: Left lung. Causative organism: P. mirabilis and S. epi (oxacillin resistant). Cardiothoracic surgery consulted and following. Planning further intervention once cleared by cardiology. Currently on Zosyn and doxycycline. SNOMED Code(s): 028036435 (3) Multifocal pneumonia Current Visit: Yes Status: Acute Causative organism: Unclear. Previous BAL cultures 10/2018 positive for PSEA. Previous PNA in early November (unknown causative organism) treated with 6 days of Rocephin 11/18-11/23 with Levaquin x 4 days prior to that. CT chest 12/10/18 moderate sized left hydropneumothorax with chest tube in place and multifocal lung consolidation involving the lingula, RUL, and RLL. MRSA screen negative. S. pneumo and Legionella UATs negative. Low index of suspicion for aspiration. Currently on PO doxycycline and Zosyn. SNOMED Code(s): 578849341 (4) ISRRAEL (acute kidney injury) Current Visit: Yes Status: Acute Likely multifactorial. Resolved. SNOMED Code(s): 53151905, 49251367 (5) CAD (coronary artery disease) Current Visit: No Status: Chronic Cardiology consulted. [facility] planned for . Qualifiers: Coronary Disease-Associated Artery/Lesion type: bypass graft [place] vs. 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 Status post diagnostic VATS, staging bronchoscopy, left thoracotomy pneumolysis, left lower lobectomy, and mediastinal lymph node dissection 11/06/[address] Angel. SNOMED Code(s): 603459641 (7) Congestive heart failure Current Visit: No Status: Chronic Qualifiers: Heart failure type: unspecified Heart failure chronicity: chronic Qualified Code(s): I50.9 - Heart failure, unspecified SNOMED Code(s): 51797120 (8) Diabetes mellitus, insulin dependent (IDDM), controlled Current Visit: No Status: Chronic SNOMED Code(s): 62043435, 728751595 - Recommendations Recommendations: Chest tube management and further surgical intervention per the CTS team. Continue Zosyn 3.375 grams IV Q8H (CrCl ~45). Continue doxycycline 100mg PO BID. Duration of treatment depends on the clinical picture. Monitor renal function and dose-adjust antibiotics. Consult Discharge Plan - Plan Referrals: Osman Martinez MD [Primary Care Provider] - - Attending Attestation I have personally performed a face to face evaluation on this patient. I have reviewed and agree with the care plan. History and Exam by me shows: Assessment and plan: 1.Sepsis 2.Empyema of the long 3.Multifocal pneumonia 4.Acute kidney injury resolved Recommendations: Chest tube management and further surgical intervention per the CTS team. Continue Zosyn 3.375 grams IV Q8H (CrCl ~45). Continue doxycycline 100mg PO BID. Duration of treatment depends on the clinical picture. Monitor renal function and dose-adjust antibiotics. Going for angiogram today
[2018-12-18] MEDS ORDERED: Heparin 1,000 UNITS/500 mL 500 ML ONE (11:09)
[2018-12-18] MEDS ORDERED: *HR* Heparin 10,000 UNIT/10 ML VIAL ONE (11:09)
[2018-12-18] MEDS ORDERED: 0.9 % Sodium Chloride 1,000 ML ONE ×2 (11:09→11:32)
[2018-12-18] MEDS ORDERED: ISOVUE-370 200 ML INFUS..BTL ONE (11:09)
[2018-12-18] MEDS ORDERED: Nitroglycerin 1,000 MCG/10 ML VIAL IV ONE (11:10)
--- NOTE | 2018-12-18 11:15 | Pre-Sedation Evaluation ---
Pre-sedation evaluation - Pre-sedation checklist Procedure: cath Recent Vitals: Last Vital Signs Temp 97.6 F 12/18/18 07:19 Pulse 87 12/18/18 07:19 Resp 16 12/18/18 07:19 BP 113/75 12/18/18 07:19 Pulse Ox 98 12/18/18 07:19 H&P (including ROS) documented in medical record: Yes Previous reaction to sedatives/anesthetics: Yes; explain in comment Dietary Status: NPO after Midnight Airway Assessment: Patient can open mouth completely, TMJ function normal Dentition: full dentition Possible difficult airway: No ASA Classification *see protocol: CLASS III-Severe systemic disease Plan of Care: Pt appropriate candidate for procedure/moderate/conscious sedation
[2018-12-18] MEDS ORDERED: *HR* Midazolam HCl 2 MG/2 ML VIAL ONE (11:32)
--- NOTE | 2018-12-18 12:06 | Event Note ---
Date of Encounter: 12/18/18 Time of Encounter: 12:02 - Cardiology Event Note Cath Completed. LVEF 40% with inferior akinesis RCA mid 75% SVG to distal rca patent. SVG to om occluded MALLOY to LAD patent [place] left- left main occluded.. Recommend continued medical therapy. Given CAD history patient is above average risk but can proceed on medical therapy.
--- NOTE | 2018-12-18 12:38 | Invasive Diagnostic Lab Proc ---
Name: Torrey Beaulieu Date of Study: 12/18/2018 Date: 1945 Ht: 68.9in Medical Record#: [id number] Age: 73 Wt: 180.78lb Gender: Male BSA: 1.98 Order #: [id number] BMI: 26.78 Physicians Procedure Physician: Aidan Mak MD Referring MD: Referring MD: Staff Name Position Time In Elizabeth Arizmendi RT (R) Scrub 11:38 AM RejiTiffany RT (R) Certified Orthotist Practice Manager 11:38 AM Shaji León RN Certified Orthotist Practice Manager 11:38 AM Brianne Sage RN Monitor 11:38 AM Procedures Performed Procedure L HRT ART/GRFT ANGIO Pre-Procedure Checklist Informed consent is complete signed and on chart. H&P is on chart. ID band is on and ID verified with patient. Patient NPO for procedure The procedure was described for the patient and questions were answered. Blood Pressure: 123/64 ECG is on chart. Rhythm: NSR Plan of Care Patient will tolerate the procedure without complications. Adequate level of comfort will be maintained. Hemodynamics will remain stable Patient will recover from procedure without complications. Respiratory function will be maintained. Cardiac rhythm will remain stable. Patient temperature will be maintained. Patient and/or family have verbalized understanding of the procedure. Patient Education Chief Complaint/Reason for Test: Cardiac Cath Developmental Category: Adult (18-64 years) Developmentally Appropriate for Age: Yes Learning Barriers: None Education Needs: Procedure Education Method: Verbal Information Taught: Cardiac Cath Educational Evaluation: Able to repeat information Intravenous Access Time IV Size Location DC'd Fluid/Drip Rate Units RN 11:41 AM 20g 1 05/23" Patent On Arrival Lt Wrist 0.9NaCl 25 ml/hr Shaji León RN Allergies lisinopril Varenicline gabapentin Vital Signs Time BP (mmHg) HR (bpm) O2 Sat. RR (bpm) LOC 11:40 AM / % 5 = Fully awake and oriented or at pre-proc level 11:40 AM / % 5 = Fully awake and oriented or at pre-proc level 11:37 AM 123 / 64 87 98 % 21 11:42 AM 119 / 70 86 98 % 14 11:46 AM 120 / 85 75 99 % 14 11:51 AM 93 / 50 73 99 % 15 11:57 AM 94 / 57 78 98 % 17 12:02 PM 92 / 56 72 100 % 17 12:09 PM 106 / 61 80 99 % 18 12:12 PM 110 / 66 81 99 % 18 12:06 PM / % 5 = Fully awake and oriented or at pre-proc level Procedural Medications Time Medication Dose Units Method Given By 11:39 AM Oxygen 2 L/min nasal cannula Shaji León RN 11:42 AM Versed 2 mg Intravenous Shaji León RN 11:46 AM Lidocaine 2% 10 ml Subcutaneous Aidan Mak MD ASA Classification: CLASS II- Mild systemic disease (i.e. well-controlled diabetes, hypertension, asthma, cigarette smoking) Kenna Score Preprocedure Postprocedure Activity 2- Moves 4 extremities sustained head lift Activity 2- Moves 4 extremities sustained head lift Circulation 2- SBP +/= 20 points of pre-anesthetic level Circulation 2- SBP +/= 20 points of pre-anesthetic level Consciousness 2- Awake and alert oriented x 3 Consciousness 2- Awake and alert oriented x 3 O2 Saturation 2- Able to maintain O2 satruation of 92% on room air O2 Saturation 2- Able to maintain O2 satruation of 92% on room air Respiratory 2- Able to deep breathe and cough well Respiratory 2- Able to deep breathe and cough well Total Score 10 Total Score 10 Contrast Agent: Isovue Diagnostic Contrast: 75 ml Total Contrast: 75 ml Fluoro Dose: 18 mGy Procedure Log Time Note Enter By 11:36 AM Vitals capture started with the following parameters, Patient=Adult, Interval=5 min, Initial Jokondrk=980 mmHg, Deflation Rate=3 mmHg, Cuff placed on Right Arm 11:37 AM HR=87 bpm, OBIK=005/64 mmhg, SpO2=98.0 %, Resp=21 B/min 11:38 AM 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 Bilateral groin prepped with Chloraprep by Tiffany Mendoza (R), then patient was draped. Skin intact. ejohnson 11:39 AM Physician arrived 11:39 ejohnson 11:39 AM ASA Class CLASS II- Mild systemic disease (i.e. well-controlled diabetes, hypertension, asthma, cigarette smoking) ejohnson 11:39 AM Meet and greet completed ejohnson 11:39 AM Sign in performed according to hospital policy. Informed consent was obtained. ejohnson 11:39 AM Procedure start :39 ejohnson 11:40 AM Time: 11:39 Oxygen on at 2 L/min per nasal cannula by Shaji León RN [email or web address] :40 AM Time: 11:40 Patient comfortable and pain free: Yes ejohnson :40 AM Time: :40LOC: 5 = Fully awake and oriented or at pre-proc level ejohnson :40 AM Time: 11:40 Patient comfortable and pain free: Yes ejohnson 11:40 AM Time: 11:40LOC: 5 = Fully awake and oriented or at pre-proc level ejohnson 11:42 AM HR=86 bpm, HBBB=784/70 mmhg, SpO2=98.0 %, Resp=14 B/min, Comment=sr 11:42 AM Time: 11:42 Versed 2 mg Intravenous Given by Shaji León RN [email or web address] 11:46 AM Time out was performed according to hospital policy. Conscious sedation and anesthesia was achieved (see medication log with in this report above) ejohnson 11:46 AM Time: 11:46 10 ml Lidocaine 2% to right groin Subcutaneous Given by Aidan Mak MD [email or web address] 11:46 AM Pressure channel 2 zeroed. 11:46 AM HR=75 bpm, EQAZ=954/85 mmhg, SpO2=99.0 %, Resp=14 B/min, Comment=sr 11:47 AM Access obtained by percutaneous puncture. 6Fr 10cm Terumo [place] sheath placed in right Femoral artery. [id number] ejohnson 11:47 AM 5Fr Pigtail catheter inserted over the wire DNC ejohnson 11:48 AM Catheter crossed the aortic valve and was selectively placed in the left ventricle. Pressures recorded on pullback for left heart catheterization. ejohnson 11:48 AM Recorded Pressure: LV, HR=79, Condition=Condition 1 (Left Ventricle) LV 111/4/13 11:48 AM Recorded Pressure: LV, HR=79, Condition=Condition 1 (Left Ventricle) LV 113/4/13 11:48 AM Recorded Pressure: LV, Ao, HR=82, Condition=Condition 1 (Left Ventricle) LV 113/-1/13, (Aorta) Ao 124/35/74 11:49 AM Bolus angiogram of left Ventricle complete: hand injection of 10 mll of contrast ejohnson 11:49 AM Catheter removed ejohnson 11:49 AM 6Fr FR 4 catheter inserted over the wire DNC ejohnson 11:50 AM RCA angiography performed in multiple views. ejohnson 11:50 AM Recorded Pressure: Ao, HR=76, Condition=Condition 1 (Aorta) Ao 66/22/38 11:50 AM NIBP STAT measurement started. 11:51 AM Pressure channel 2 zeroed. 11:51 AM HR=73 bpm, NIBP=93/50 mmhg, SpO2=99 %, Resp=15 B/min 11:51 AM Recorded Pressure: Ao, HR=71, Condition=Condition 1 (Aorta) Ao 98/33/55 11:52 AM Recorded Pressure: Ao, HR=74, Condition=Condition 1 (Aorta) Ao 95/46/64 11:54 AM SVG to the LCX occluded ejohnson 11:54 AM Left SOTO to the LAD angio performed in multiple views. ejohnson 11:55 AM Recorded Pressure: Ao, HR=71, Condition=Condition 1 (Aorta) Ao 98/5/55 11:55 AM Catheter removed ejohnson 11:55 AM 6Fr FL 4 catheter inserted over the wire DNC ejohnson 11:56 AM LCA angiography performed ejohnson 11:57 AM HR=78 bpm, NIBP=94/57 mmhg, SpO2=98.0 %, Resp=17 B/min, Comment=sr 11:58 AM Catheter removed ejohnson 11:58 AM hand injection of right femoral for inssertion site visuaization ejohnson 12:00 PM Sign out completed: Radiation Dose 157.33 mGy, 18.2 Gy/cm2 Fluoro Time: 3.2 Isovue 370 - 200ml contrast 75 ml given by Aidan Mak MD. Complications: None. 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 Sedation minutes 19. Cardiac Rehab Consult needed: No. Confirmed administered medications: Yes ejohnson 12:00 PM Procedure completed at 12:01 12/18/2018 ejohnson 12:00 PM Arterial sheath pulled and pressure being help with sterile 4x4 per Tiffany Mendoza, RT. Pressure will be held for 15 minutes ejohnson 12:02 PM HR=72 bpm, NIBP=92/56 mmhg, LdJ3=006 %, Resp=17 B/min 12:05 PM Estimated Blood Loss: minimal ejohnson 12:05 PM Post ECG NSR ejohnson 12:05 PM Post Blood Pressure 92/56 ejohnson 12:05 PM 12:05 Post Pulses Bilateral DP & PT 1+ ejohnson 12:06 PM Information taught Cardiac Cath ejohnson 12:06 PM Education needs Plan of Care, Disease Process, and Responsibilities of Patient in Care ejohnson 12:06 PM Learning barriers :None ejohnson 12:06 PM Education Methods Verbal ejohnson 12:06 PM Education evaluation Able to repeat information ejohnson 12:06 PM Plavix, Effient or Brilinta given No ejohnson 12:07 PM HR=78 bpm, NIBP=65/40 mmhg, SpO2=98.0 %, Resp=19 B/min, Comment=sr 12:07 PM Coronary Dominance: right ejohnson 12:08 PM NIBP STAT measurement started. 12:09 PM HR=80 bpm, YJUD=436/61 mmhg, SpO2=99.0 %, Resp=18 B/min, Comment=sr 12:09 PM Lesion found in Proximal LMCA. Pre Stenosis: 100 ejohnson 12:09 PM Lesion found in Proximal LAD. Pre Stenosis: 100 ejohnson 12:10 PM Lesion found in Proximal Circumflex. Pre Stenosis: 100 ejohnson 12:10 PM Lesion found in Mid RCA. Pre Stenosis: 75 Pre MERNA Flow: ejohnson 12:11 PM Left Main Coronary Artery with 0% stenosis ejohnson 12:11 PM Proximal Left Anterior Descending Coronary Artery with 100% stenosis. If graft is supplying this territory, 0 % stenosis. ejohnson 12:12 PM Mid/Distal Left Anterior Descending Coronary Artery and diagonal branches with 100% stenosis. If graft is supplying this area, 0 % stenosis ejohnson 12:12 PM HR=81 bpm, WCKR=487/66 mmhg, SpO2=99 %, Resp=18 B/min 12:12 PM Circumflex, Obtuse Marginal, Left Posterior Descending, and Left Posterolateral Coronary Arteries with 100 % stenosis. If graft is supplying this area, 0 % stenosis ejohnson 12:12 PM Right Coronary, Right Posterior Descending Arteries with Right Posterolateral and Acute Marginal branches with 75 % stenosis. If graft is supplying this area, 0 % stenosis ejohnson 12:17 PM Site status No bleeding/ No Hematoma - Rt Groin as reported by Tiffany Mendoza RT (R) at 12:17 ejohnson 12:21 PM Time: 12:06LOC: 5 = Fully awake and oriented or at pre-proc level ejohnson 12:21 PM Time: 12:06 Patient comfortable and pain free: Yes ejohnson 12:23 PM Report given to Brianna REYNA Pt taken to 2NE Room #31. 12:23 ejohnson 12:24 PM Plavix, Effient or Brilinta given No ejohnson 12:24 PM Patient out of room: 12:24 ejohnson 12:25 PM Family placed in consult room. ejohnson 12:25 PM Complications: None ejohnson Complications Complication None Hemodynamics Pressures Site Systolic/A Wave Diastolic/V Wave Mean LV 111 4 13 LV 113 4 13 LV 113 -1 13 AO 124 35 74 AO 98 33 55 AO 95 46 64 AO 98 5 55 Post Procedure Information Blood Pressure: 92/56 mmHg Rhythm: NSR Post procedural instructions were given Site Checks Time Location Status Staff Sheath In? Note 12:17 PM Rt Groin No bleeding/ No Hematoma Tiffany Mendoza RT (R) Pulses Time Site Pre-Procedure Post-Procedure Note Bilateral DP & PT 2+ Bilateral radial 2+ 12:05:00 PM Bilateral DP & PT 1+ Updated by Brianne Sage RN on 12/18/2018 12:31:05 PM Brianne Sage RN electronically signed on 12/18/2018 12:31:48 PM with status of Final
--- NOTE | 2018-12-18 14:58 | Cardiothoracic Progress Note ---
Date of Encounter: 12/18/18 Time of Encounter: 14:57 - Assessment and plan (1) Empyema of pleura Current Visit: Yes Status: Acute The assessment and plan as outlined above was discussed with the patient and/or family members who expressed understanding and agreement. All questions were answered. patient will need a mm flap to obliterate the cavity in the lower chest (2) Elevated troponin Current Visit: No Status: Acute The assessment and plan as outlined above was discussed with the patient and/or family members who expressed understanding and agreement. All questions were an swered. cardiology did not have to place any new or angioplasty any old stent. - Subjective Interval history: feels better since antibx and admission frustrated waiting to hear about heart cath Oxgyen Flow Rate Oxygen Flow Rate (LPM) 2 Weight 12/16/18 12/17/18 12/18/18 23:59 23:59 23:59 Weight 81.5 kg 84.8 kg - Physical Examination General: Conversant, No Apparent Distress, Well developed, Well nourished Cardiac: Reg Rate and Rhythm Incision: No signs of infection, Dry/intact dressing Chest tubes: Minimal drainage, Air leak Lungs: Decreased breath sounds Neuro: Alert and responsive, No focal deficits noted, Cranial nerves intact, Motor nerves intact - Labs 12/18/18 05:03 12/18/18 05:03 Lab Results, Last 24 hours 12/18/18 12/18/18 05:03 05:03 WBC 8.2 Hgb 10.1 L Hct 33.4 L Plt Count 176 Sodium 132 L Potassium 4.7 Chloride 97 L Carbon Dioxide 27 BUN 12 Creatinine 1.07 Glucose 163 H Calcium 8.4 L Magnesium 1.9 Consult Discharge Plan - Plan Referrals: Osman Martinez MD [Primary Care Provider] -
--- NOTE | 2018-12-18 17:58 | Internal Med Progress Note ---
Hospitalist Progress Note - Encounter Date of Encounter: 12/18/18 Time of Encounter: 14:45 - Subjective Interval History: Fee status post left heart catheter no intervention was performed. GEN: Denies fever, chills or malaise HEENT: Denies headache blurriness, or dysphagia RESP: Denies SOB or cough CV: Denies chest pain or palpitations GI: Denies Nausea, vomiting, diarrhea or constipation Reviewed current in hospital medications with modifications see orders Reviewed Routine labs - Exam Vitals: Temp Pulse Resp BP Pulse Ox 97.8 F 82 14 113/66 98 12/18/18 14:59 12/18/18 14:59 12/18/18 14:59 12/18/18 14:59 12/18/18 14:59 Exam: GEN: NAD, A&O x 3, Pleasant and conversant no family at the bedside today SKIN: [place] warm acyanotic not jaundice HEART: RRR, no murmurs LUNGS: Diminished worse on the left side no wheeze or crackles, overall non labored chest tube noted with mucopurulent drainage in the reservoir ABDOMEN; Soft, non tender or distended, BS x 4 normactive EXT: No LE edema, Pedal pulses 1+, radial pulses 2+ PSYCH: Mood and affect is appropriate - Assessment and Plan (1) Empyema lung Current Visit: Yes Status: Acute Assessment and Plan: Patient was likely sepsis on presentation given his sirs criteria and empyema. This improved with empiric antibiotic treatment On doxycycline and Zosyn, he has been followed by ID, he is afebrile and no leukocytosis. Surgical intervention planned for Saturday we appreciate cardiothoracic team input as well as cardiology and ID (2) DM2 (diabetes mellitus, type 2) Current Visit: Yes Status: Chronic Assessment and Plan: A1c was 5.9. appears controlled, insulin per protocol, POC 108-216 still within goal (3) Hyponatremia Current Visit: Yes Status: Acute Assessment and Plan: Na is trending up 127-131-131, would monitor for now, today 132 anticipate to improve his oral intake improves, of note legionella antigen was negative and no obvious drug causes (4) ISRRAEL (acute kidney injury) Current Visit: Yes Status: Acute Assessment and Plan: Resolved creatinine normalized (5) Hypothyroidism Current Visit: No Status: Chronic Assessment and Plan: TSH within normal limits 3.296, continue levothyroxine (6) Sepsis Current Visit: Yes Status: Acute Assessment and Plan: Sepsis on initial presentation currently resolved. Sirs criteria, empyema and altered mental status (7) Encephalopathy acute Current Visit: Yes Status: Acute Assessment and Plan: Resolved back to baseline, likely infectious/septic given his empyema. DVT Prophylaxis: Heparin per protocol - Time Spent with Patient Total time spent is greater than 50% in coordination of care (as documented) at patient's floor/unit and/or counseling patient: Internal Medicine: Result - Labs CBC & Chem 7: 12/18/18 05:03 12/18/18 05:03 Labs: Short CBC 12/18/18 Range/Units 05:03 WBC 8.2 (4.3-11.1) K/mcL Hgb 10.1 L (12.9-16.9) g/dL Hct 33.4 L (37.5-50.1) % Plt Count 176 (140-400) K/mcL Neutrophils # 5.4 (1.6-8.9) K/mcL BMP 12/18/18 05:03 Sodium 132 L Potassium 4.7 Chloride 97 L Carbon Dioxide 27 BUN 12 Creatinine 1.07 Glucose 163 H Calcium 8.4 L - ABG Interpretation ABG results: ABG ABG pH 7.42 pH Units (7.32-7.45) 12/12/18 09:55 ABG pCO2 34 mmHg (35-45) L 12/12/18 09:55 ABG pO2 139 mmHg (85-104) H 12/12/18 09:55 ABG O2 Saturation 99 % (95-98) H 12/12/18 09:55 PT/INR, D-dimer PT 16.9 Seconds (9.4-12.1) H 12/10/18 13:46 Consult Discharge Plan - Plan Referrals: Osman Martinez MD [Primary Care Provider] - (2) DM2 (diabetes mellitus, type 2) Qualifiers: Diabetes mellitus assisted insulin use: with assisted use Diabetes mellitus complication status: with circulatory complication Diabetes mellitus complication detail: with peripheral angiopathy without gangrene Qualified Code(s): E11.51 - Type 2 diabetes mellitus with diabetic peripheral angiopathy without gangrene; Z79.4 - [facility] (current) use of insulin (5) Hypothyroidism Qualifiers: Hypothyroidism type: acquired Qualified Code(s): E03.9 - Hypothyroidism, unspecified
[2018-12-19] MEDS: Latanoprost 2.5 ML BOTTLE LEFT EYE SCH ×2 (01:34→20:55)
[2018-12-19] MEDS: Piperacillin/Tazobactam 3.375 GM in 0.9 % Sodium Chloride Mini Bag 100 ML IVPB SCH ×3 (04:04→20:46)
[2018-12-19] MEDS: *HR* Heparin 5,000 UNIT/ML VIAL SQ SCH ×3 (05:18→20:58)
[2018-12-19 06:15] LABS: Basophils # 0.1 K/mcL (0.0-0.2); Basophils % 1.3 %; Eosinophils # 0.6 K/mcL (0.0-0.6); Eosinophils % 8.4 %; Hematocrit 31.6 % (37.5-50.1); Hemoglobin 9.7 g/dL (12.9-16.9); Immature Granulocytes % 0.3 % (0-4); Lymphocytes # 0.8 K/mcL (0.6-4.6); Lymphocytes % 11.3 %; Mean Corpuscular HGB Conc 30.7 g/dL (31.6-35.5); Mean Corpuscular Hemoglobin 28.5 pg (28.0-33.3); Mean Corpuscular Volume 92.9 fL (83.0-100.0); Mean Platelet Volume 10.4 fL (9.4-12.4); Monocytes # 0.9 K/mcL (0.0-1.3); Monocytes % 12.7 %; Neutrophils # 4.9 K/mcL (1.6-8.9); Platelet Count 170 K/mcL (140-400); Red Cell Distribution Width 18.5 % (11.5-14.5); White Blood Count 7.4 K/mcL (4.3-11.1)
[2018-12-19 06:30] LABS: BUN/Creatinine Ratio 11 (6-26); Blood Urea Nitrogen 11 mg/dL (8-23); Calcium 8.2 mg/dL (8.6-10.3); Carbon Dioxide 24 mEq/L (23-29); Chloride 102 mEq/L (98-107); Glucose 172 mg/dL (70-105); Magnesium 1.7 mg/dL (1.6-2.6); Osmolality,Calculated 273 (280-300); Potassium 4.6 mEq/L (3.5-5.1); Sodium 130 mEq/L (136-145); eGFR For African Americans > 60 (> 60); eGFR For Non-African Americans > 60 (> 60)
[2018-12-19] MEDS: Nystatin SUSP 5 ML UD.LIQ PO SCH ×4 (07:53→20:46)
[2018-12-19] MEDS: Cholecalciferol (D-3) 1,000 UNIT (25MCG) TABLET PO SCH (07:53)
[2018-12-19] MEDS: Metoprolol XL (24 HR) Succ 25 MG TAB.ER.24H PO SCH (07:54)
[2018-12-19] MEDS: Doxycycline 100 MG CAPSULE PO SCH ×2 (07:54→20:46)
[2018-12-19] MEDS: Isosorbide MONOnitrate (24 HR) 30 MG TAB.ER.24H PO SCH (07:55)
[2018-12-19] MEDS: Insulin LISPRO 300 UNITS/3 ML VIAL SQ SCH ×3 (07:56→17:41)
[2018-12-19] MEDS: Ipratropium/Albuterol Neb 3 ML IH PRN ×2 (08:22→20:24)
--- NOTE | 2018-12-19 09:15 | Cardiothoracic Progress Note ---
Date of Encounter: 12/19/18 Time of Encounter: 09:13 - Assessment and plan (1) Empyema of pleura Current Visit: Yes Status: Acute The assessment and plan as outlined above was discussed with the patient and/or family members who expressed understanding and agreement. All questions were answered. patient will need a mm flap to obliterate the cavity in the lower chest preop orders completed for surgery tomorrow reviewed plans for surgery, risks of surgery, plans for icu stay after surgery. (2) Elevated troponin Current Visit: No Status: Acute The assessment and plan as outlined above was discussed with the patient and/or family members who expressed understanding and agreement. All questions were answered. cardiology did not have to place any new or angioplasty any old stent. - Subjective Interval history: feels better since antibx and admission frustrated waiting to hear about heart cath Vital Signs, Last 4 Hours Temp Pulse Resp BP Pulse Ox 12/19/18 08:22 18 98 12/19/18 07:11 98.1 F 76 16 109/64 98 Oxgyen Flow Rate Oxygen Flow Rate (LPM) 2 Clinical Data, last 8 Hours Output, Urine Amount 400 Output, Urine Amount 0 Weight 12/17/18 12/18/18 12/19/18 23:59 23:59 23:59 Weight 81.5 kg 84.8 kg 84.2 kg - Physical Examination General: Conversant, No Apparent Distress, Well developed HEENT: Atraumatic, Normocephaly Cardiac: Reg Rate and Rhythm, Normal S1 and S2 Incision: No signs of infection, Dry/intact dressing Chest tubes: Minimal drainage, Air leak Lungs: Decreased breath sounds Neuro: Alert and responsive, No focal deficits noted, Cranial nerves intact, Motor nerves intact Extremities: Other (1+ peripheral edema ) - Labs 12/19/18 05:24 12/19/18 05:24 Lab Results, Last 24 hours 12/19/18 12/19/18 05:24 05:24 WBC 7.4 Hgb 9.7 L Hct 31.6 L Plt Count 170 Sodium 130 L Potassium 4.6 Chloride 102 Carbon Dioxide 24 BUN 11 Creatinine 0.98 Glucose 172 H Calcium 8.2 L Magnesium 1.7 Consult Discharge Plan - Plan Referrals: Osman Martinez MD [Primary Care Provider] -
--- NOTE | 2018-12-19 10:51 | Infectious Disease Progress No ---
ID Progress Note Date of Encounter: 12/19/18 Time of Encounter: 10:49 - Subjective Subjective: Patient seen and examined. No acute events noted overnight. Patient states overall he feels well. Denies pain this morning. Denies fevers, chills, or rigors. Denies chest pain or cough or shortness of breath. Denies nausea, vomiting, or diarrhea. Denies abdominal pain or urinary complaints. Denies oral thrush or skin rashes. States appetite is good. Surgery planned for tomorrow. - Objective CBC & Chem 7: 12/19/18 05:24 12/19/18 05:24 - Line Documentation Line Documentation: Chest Tube (Left lateral chest wall) - Exam Vitals: Temp Pulse Resp BP Pulse Ox 98.1 F 76 18 109/64 98 12/19/18 07:11 12/19/18 07:11 12/19/18 08:22 12/19/18 07:11 12/19/18 08:22 Exam: Head: Atraumatic, normal inspection, normocephalic. Eye: EOMI, PERRLA, no scleral icterus noted. ENT: Mucous membranes moist. No odontogenic infection noted. Neck: Normal inspection, no meningismus. Respiratory: Diminished right base, crackles noted to the left base. No respiratory distress, rhonchi, or wheezes noted. Chest tube noted to the left lateral chest wall with purulent drainage noted. No crepitus or air leak. Cardiovascular: Regular rate and rhythm, S1 and S2 audible. No murmurs, rubs, or gallops. GI: Soft, nondistended, normal bowel sounds. Non-tender. Extremities:No joint swelling, pedal edema, or tenderness noted. Neurological: Alert, oriented 3, no focal deficits. Psychiatric: normal affect, normal mood. Skin: Dry, intact, warm. Normal color. No rashes. - Assessment and Plan (1) Sepsis Current Visit: Yes Status: Resolved The patient had two SIRS criteria on admission. Likely secondary to empyema and multifocal PNA. Improved. Blood cultures drawn 12/10/18 are negative x 2 sets. Qualifiers: Sepsis type: sepsis due to unspecified organism SNOMED Code(s): 85155671 (2) Empyema lung Current Visit: Yes Status: Acute Location: Left lung. Causative organism: P. mirabilis and S. epi (oxacillin resistant). Cardiothoracic surgery consulted and following. Planning further intervention tomorrow. Currently on Zosyn and doxycycline. SNOMED Code(s): 406243041 (3) Multifocal pneumonia Current Visit: Yes Status: Acute Causative organism: Unclear. Previous BAL cultures 10/2018 positive for PSEA. Previous PNA in early November (unknown causative organism) treated with 6 days of Rocephin 11/18-11/23 with Levaquin x 4 days prior to that. CT chest 12/10/18 moderate sized left hydropneumothorax with chest tube in place and multifocal lung consolidation involving the lingula, RUL, and RLL. MRSA screen negative. S. pneumo and Legionella UATs negative. Low index of suspicion for aspiration. Currently on PO doxycycline and Zosyn. SNOMED Code(s): 352274056 (4) ISRRAEL (acute kidney injury) Current Visit: Yes Status: Acute Likely multifactorial. Resolved. SNOMED Code(s): 66748704, 12456964 (5) CAD (coronary artery disease) Current Visit: No Status: Chronic Cardiology consulted. Status post [facility] 12/18/18. Qualifiers: Coronary Disease-Associated Artery/Lesion type: bypass graft [place] vs. 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 Status post diagnostic VATS, staging bronchoscopy, left thoracotomy pneumolysis, left lower lobectomy, and mediastinal lymph node dissection 11/06/[address] Angel. SNOMED Code(s): 406564483 (7) Congestive heart failure Current Visit: No Status: Chronic Qualifiers: Heart failure type: unspecified Heart failure chronicity: chronic Qualified Code(s): I50.9 - Heart failure, unspecified SNOMED Code(s): 47168955 (8) Diabetes mellitus, insulin dependent (IDDM), controlled Current Visit: No Status: Chronic SNOMED Code(s): 02926454, 532238270 - Recommendations Recommendations: Chest tube management and further surgical intervention per the CTS team. Continue Zosyn 3.375 grams IV Q8H (CrCl ~45). Continue doxycycline 100mg PO BID. Duration of treatment depends on the clinical picture. Monitor renal function and dose-adjust antibiotics. Consult Discharge Plan - Plan Referrals: Osman Martinez MD [Primary Care Provider] -
--- NOTE | 2018-12-19 13:06 | Internal Med Progress Note ---
Hospitalist Progress Note - Encounter Date of Encounter: 12/19/18 Time of Encounter: 12:55 - Subjective Interval History: Mr Beaulieu is planned for cardiothoracic surgery tomorrow. He is complaining of blistering lesions in his third digit of his left foot. GEN: Denies fever, chills or malaise HEENT: Denies headache blurriness, or dysphagia RESP: Denies SOB or cough CV: Denies chest pain or palpitations GI: Denies Nausea, vomiting, diarrhea or constipation Reviewed current in hospital medications with modifications see orders Reviewed Routine labs - Exam Vitals: Temp Pulse Resp BP Pulse Ox 98.1 F 76 18 109/64 98 12/19/18 07:11 12/19/18 07:11 12/19/18 08:22 12/19/18 07:11 12/19/18 08:22 Exam: GEN: NAD, A&O x 3, Pleasant and conversant SKIN: [place] warm acyanotic not jaundice HEART: RRR, no murmurs LUNGS: Diminished worse on the left side no wheeze or crackles, overall non labored chest tube noted with mucopurulent drainage in the reservoir ABDOMEN; Soft, non tender or distended, BS x 4 normactive EXT: No LE edema, Pedal pulses 1+, radial pulses 2+, upon examination of the left foot the inter-digital fold between the second and third toes are intact. Still have healing foot fungus PSYCH: Mood and affect is appropriate - Assessment and Plan (1) Empyema lung Current Visit: Yes Status: Acute Assessment and Plan: Patient was likely sepsis on presentation given his sirs criteria and empyema. This improved with empiric antibiotic treatment On doxycycline and Zosyn, he has been followed by ID, he is afebrile and no leukocytosis. Surgical intervention planned for Saturday we appreciate cardiothoracic team input as well as cardiology and ID (2) DM2 (diabetes mellitus, type 2) Current Visit: Yes Status: Chronic Assessment and Plan: A1c was 5.9. appears controlled, insulin per protocol, POC 139-262, has slightly trended up would add basal insulin coverage (3) Hyponatremia Current Visit: Yes Status: Acute Assessment and Plan: Na was trending up 127-131-131, would monitor for now, today 132 anticipate to improve his oral intake improves, of note legionella antigen was negative and no obvious drug causes, today 130 although in the setting of him being NPO yesterday for [facility]. will trend and place on fluid restriction. He does not appear to be volume overloaded but rather euvolemic. TSH is normal Repeat BMP in the morning (4) ISRRAEL (acute kidney injury) Current Visit: Yes Status: Acute Assessment and Plan: Resolved creatinine normalized (5) Hypothyroidism Current Visit: No Status: Chronic Assessment and Plan: TSH within normal limits 3.296, continue levothyroxine (6) Sepsis Current Visit: Yes Status: Acute Assessment and Plan: Sepsis on initial presentation currently resolved. Sirs criteria, empyema and altered mental status (7) Encephalopathy acute Current Visit: Yes Status: Acute Assessment and Plan: Resolved back to baseline, likely infectious/septic given his empyema. (8) Athlete's foot on left Current Visit: Yes Status: Acute Assessment and Plan: Patient and his has been complaining about his left foot, physical exam admission was unremarkable suspect athlete's foot clotrimazole ordered DVT Prophylaxis: Heparin subcutaneous - Time Spent with Patient Total time spent is greater than 50% in coordination of care (as documented) at patient's floor/unit and/or counseling patient: Internal Medicine: Result - Labs CBC & Chem 7: 12/19/18 05:24 12/19/18 05:24 Labs: Short CBC 12/19/18 Range/Units 05:24 WBC 7.4 (4.3-11.1) K/mcL Hgb 9.7 L (12.9-16.9) g/dL Hct 31.6 L (37.5-50.1) % Plt Count 170 (140-400) K/mcL Neutrophils # 4.9 (1.6-8.9) K/mcL BMP 12/19/18 05:24 Sodium 130 L Potassium 4.6 Chloride 102 Carbon Dioxide 24 BUN 11 Creatinine 0.98 Glucose 172 H Calcium 8.2 L - ABG Interpretation ABG results: ABG ABG pH 7.42 pH Units (7.32-7.45) 12/12/18 09:55 ABG pCO2 34 mmHg (35-45) L 12/12/18 09:55 ABG pO2 139 mmHg (85-104) H 12/12/18 09:55 ABG O2 Saturation 99 % (95-98) H 12/12/18 09:55 PT/INR, D-dimer PT 16.9 Seconds (9.4-12.1) H 12/10/18 13:46 - Impressions Impressions Chest X-Ray 12/19/18 08:00 IMPRESSION: Left apical pneumothorax is not seen on the current study. Multifocal airspace opacities stable on the left and developing on the right. D/ / Michael James MD / Michael James MD Interpreting Provider: Michael James MD Consult Discharge Plan - Plan Referrals: Osman Martinez MD [Primary Care Provider] - (2) DM2 (diabetes mellitus, type 2) Qualifiers: Diabetes mellitus nursing home insulin use: with nursing home use Diabetes mellitus complication status: with circulatory complication Diabetes mellitus complication detail: with peripheral angiopathy without gangrene Qualified Code(s): E11.51 - Type 2 diabetes mellitus with diabetic peripheral angiopathy without gangrene; Z79.4 - custodial (current) use of insulin (5) Hypothyroidism Qualifiers: Hypothyroidism type: acquired Qualified Code(s): E03.9 - Hypothyroidism, unspecified
--- NOTE | 2018-12-19 20:16 | Anesthesia Evaluation PreOp ---
Date of Encounter: 12/19/18 Time of Encounter: 20:14 - Past History Planned Operation: Left Thoracotomy and muscle flap, Bronchoscopy Cardiac History: [place] (NSTEMI last admission 11/06/18 , no intervention), CHF (EF 35-40% stable), HTN, Hyperlipidemia, Cardiac Surgery (CABG 2010 and / grafts patent), Cardiac Stent (09/2017) Pulmonary History: Former smoker, Asthma, COPD (2 L oxygen qhs), Other (Lung CA, Stage IIB squamous cell carcinoma, Empyema of pleura) Other Medical History: Renal (CRD), Diabetes Type II (PO and insulin), Thyroid (Hypo), GERD, Other (lumbar DDD) Anesthesia History: No Prior Anesthetic Complications, Past Anesthesia ( robotic LLL lobectomy, CABG, hernia, R subclavian stent, john, vascular surgeries) Alcohol Use: none Drug use: none Medications and Allergies Aspirin [Lo-Dose Aspirin EC] 81 mg PO DAILY 11/26/17 [History] Atorvastatin [Lipitor] 40 mg PO HS 11/26/17 [History] Clopidogrel [Plavix] 75 mg PO DAILY 08/11/18 [History] Latanoprost [Xalatan] 1 drop LEFT EYE HS 08/11/18 [History] Metoprolol XL (24 HR) Succ [Toprol Xl] 25 mg PO DAILY 08/14/18 [History] Omeprazole [PriLOSEC] 20 mg PO DAILY@0730 08/14/18 [History] Albuterol Sulfate [Proair Hfa] 2 puff IH Q6H PRN 10/29/18 [History] Budesonide/Formoterol 160/4.5 [Symbicort 160/4.5] 2 puff IH BIDR 10/29/18 [History] Furosemide [Lasix] 40 mg PO DAILY 10/29/18 [History] Isosorbide MONOnitrate [Isosorbide Mononitrate ER] 30 mg PO DAILY 10/29/18 [History] Nitroglycerin [Nitrostat] 0.4 mg SL Q5MIN PRN 10/29/18 [History] Tiotropium [place] [Spiriva Respimat] 2 puff IH DAILY 10/29/18 [History] Cefdinir [Omnicef] 300 mg PO BID 12/11/18 [History] Cholecalciferol (Vitamin D3) [Vitamin D] 2,000 unit PO DAILY 12/11/18 [History] Fluconazole [Diflucan] 100 mg PO DAILY 12/11/18 [History] Levothyroxine Sodium [Levoxyl] 50 mcg PO QAM 12/11/18 [History] Nystatin [Nystatin Suspension] 500,000 unit PO QID PRN 12/11/18 [History] Spironolactone [Aldactone] 50 mg PO DAILY 12/11/18 [History] Timolol Maleate 0.5% 1 drop LEFT EYE QAM 12/11/18 [History] Tramadol HCl [Ultram] 50 mg PO Q6H PRN 12/11/18 [History] Allergy/AdvReac Type Severity Reaction Status Date / Time gabapentin [From Neurontin] AdvReac Hallucinati Verified 12/11/18 17:43 ng lisinopril AdvReac Cough Verified 12/11/18 17:43 Varenicline [From Chantix] AdvReac Nightmare Verified 12/11/18 17:43 - Meds/Allergy Pre-op Review Medications Reviewed: Yes Allergies Reviewed: Yes Beta Blockers on Current Med List: Yes Anesthesia Results - Labs 12/19/18 05:24 12/19/18 05:24 - Imaging Additional studies: Name: Torrey Beaulieu Date of Study: 12/18/2018 LEFT HEART CATH W/ GRAFTS Indications: ACS > 24 hrs Impressions: There is severe three vessel coronary artery disease. The left ventricle is EF 40% S/P CABG 2 of 3 patent bypass grafts patent. Recommendations: Optimal medical therapy of patient's disease. Patient has stable CAD and proceed with surgery at above average risk on current medical regimen. Wall Motion: HACKETT Anterobasal Normal Anterolateral Normal Apical: Normal Inferoapical Normal Inferobasal Akinesis Coronary Dominance: right Lesion Findings/Interventions * Left Main Coronary Artery There is a 100% stenosis in the Proximal LMCA. * Left Anterior Descending There is a 100% stenosis in the Proximal LAD. * Circumflex There is a 100% stenosis in the Proximal Circumflex. * Right Coronary Artery There is a 75% stenosis in the Mid RCA. SVG to OM/Circ is occluded. MALLOY to LAD patent SVG to RCA patent with graft to the intraventricular groove artery that provide right to left collaterals. Beyond the insertion the is tubular disease of 55%. Additional Findings: Grafts * The saphenous vein graft to the Mid RCA is patent. MERNA flow is 3. * The left internal mammary graft to the Mid LAD is patent. MERNA flow is 3. * The saphenous vein graft to the Mid Circumflex is occluded. 08/2018 echocardiogram w enhance Impressions: Sinus bradycardia, HR 50's. LVEF 35%. Atypical septal motion consistent with post-operative status. LV diastolic dysfunction with elevated filling pressures. Definity echo contrast was used. There is no LV thrombus. Right ventricle is dilated with moderate reduction in function. Bi-atrial enlargement. Mild mitral regurgitation. Mild tricuspid regurgitation. Mild pulmonary hypertension. Left Ventricular Wall Motion: Rest Echo Findings The apex, apical inferior, mid inferior, basal inferior, apical anterior, mid anterior, basal anterior, apical septal, mid inferior septal, basal inferior septal, apical lateral, mid anterior lateral, basal anterior lateral, mid anterior septal, mid inferior lateral, basal anterior septal and basal inferior lateral grider were hypokinetic. PFT 09/2018 INTERPRETATION: Adequate for Interpretation Spirometry shows severe airway obstructive pattern. GOLD stage 3. Following Bronchodilator, there is significant improvement in FVC by 13%. Lung Volume: total lung capacity is mildly reduced. Diffusion Capacity: not able to complete. Flow Volume Loop: Obstructive Anesthesia Exam Vital Signs/O2 Sat, Most Current Temp Pulse Resp BP Pulse Ox 97.7 F 76 16 114/67 100 12/19/18 15:23 12/19/18 15:23 12/19/18 15:23 12/19/18 15:23 12/19/18 15:23 - HEENT Pupil (Motor): Pupils equal, EOMI Mallampati: II Teeth: Edentulous Oral Opening: Greater than 3 - PULPER TENDER LOC: Oriented PULPER TENDER Motor: Normal RUE, Normal LUE, Normal RLE, Normal LLE, Normal Face PULPER TENDER Sensory: Normal: RUE, LUE, RLE, LLE, Face - Cardiac Rhythm: Regular Murmur: None JVD: No Carotid Bruit: No - Pulmonary Breath Sounds: bilateral Clear Respiratory Effort: Symmetrical Anesthesia Assess/Plan ASA Score: 4 Level of consciousness: Cooperative Anesthetic Plan: General Autologous Blood: Yes Monitoring Plan: Standard Monitors, A-Line (possible) Recovery Plan: PACU
[2018-12-19] MEDS: Clotrimazole 1% CRM 15 GM TUBE TP SCH (20:56)
[2018-12-19] MEDS ORDERED: Insulin DETEMIR 100 UNIT/ML X5UNITS SQ SCH (21:00)
[2018-12-20] MEDS: Piperacillin/Tazobactam 3.375 GM in 0.9 % Sodium Chloride Mini Bag 100 ML IVPB SCH ×3 (06:26→20:41)
[2018-12-20] MEDS: *HR* Heparin 5,000 UNIT/ML VIAL SQ SCH ×3 (06:26→20:42)
[2018-12-20] MEDS ORDERED: EPHEDrine 50 MG/ML VIAL ONE (07:23)
[2018-12-20] MEDS ORDERED: *HR* FentaNYL (PF) 100 MCG/2 ML VIAL ONE (07:23)
[2018-12-20] MEDS ORDERED: *HR* Propofol 200 MG/20 ML VIAL IVP ONE (07:23)
[2018-12-20] MEDS ORDERED: *HR* Midazolam HCl 2 MG/2 ML VIAL ONE (07:23)
[2018-12-20] MEDS ORDERED: *HR* Succinylcholine 200 MG/10 ML VIAL IVP ONE (07:27)
[2018-12-20] MEDS ORDERED: Lidocaine -MPF 2% 2 ML VIAL ONE ×3 (07:27→10:38)
[2018-12-20] MEDS ORDERED: Ondansetron 4 MG/2 ML VIAL ONE (07:27)
[2018-12-20] MEDS ORDERED: *HR* Phenylephrine 10 MG/ML VIAL ONE (07:27)
[2018-12-20] MEDS ORDERED: *HR* Rocuronium Bromide 50 MG/5 ML VIAL ONE ×2 (07:27→09:47)
[2018-12-20] MEDS ORDERED: Lidocaine HCL 4 ML Topical Solution (Laryng-O-Jet Kit Sterile Pak) TP ONE (07:27)
[2018-12-20] MEDS ORDERED: *HR* Atropine Sulfate 8 MG/20 ML VIAL IVP ONE (07:27)
[2018-12-20 07:35] LABS: Basophils # 0.1 K/mcL (0.0-0.2); Basophils % 1.8 %; Eosinophils # 0.7 K/mcL (0.0-0.6); Eosinophils % 8.8 %; Hematocrit 33.6 % (37.5-50.1); Hemoglobin 10.3 g/dL (12.9-16.9); Immature Granulocytes % 0.4 % (0-4); Lymphocytes # 1.1 K/mcL (0.6-4.6); Lymphocytes % 13.9 %; Mean Corpuscular HGB Conc 30.7 g/dL (31.6-35.5); Mean Corpuscular Hemoglobin 28.8 pg (28.0-33.3); Mean Corpuscular Volume 93.9 fL (83.0-100.0); Mean Platelet Volume 10.3 fL (9.4-12.4); Monocytes # 0.9 K/mcL (0.0-1.3); Monocytes % 12.2 %; Neutrophils # 4.8 K/mcL (1.6-8.9); Platelet Count 215 K/mcL (140-400); Red Blood Count 3.58 M/mcL (4.19-5.50); Red Cell Distribution Width 18.4 % (11.5-14.5); Segmented Neutrophils % 62.9 %; White Blood Count 7.7 K/mcL (4.3-11.1)
[2018-12-20] MEDS ORDERED: *HR* Vasopressin 20 UNIT/ML VIAL ONE (07:38)
[2018-12-20 07:54] LABS: % Iron Saturation 18 % (20-55); Iron 40 mcg/dL (65-175); Transferrin 156 mg/dL (203-362)
[2018-12-20 07:57] LABS: BUN/Creatinine Ratio 12 (6-26); Blood Urea Nitrogen 12 mg/dL (8-23); Calcium 8.6 mg/dL (8.6-10.3); Carbon Dioxide 25 mEq/L (23-29); Chloride 100 mEq/L (98-107); Glucose 78 mg/dL (70-105); Magnesium 1.9 mg/dL (1.6-2.6); Osmolality,Calculated 275 (280-300); Potassium 4.5 mEq/L (3.5-5.1); Sodium 133 mEq/L (136-145); eGFR For African Americans > 60 (> 60); eGFR For Non-African Americans > 60 (> 60)
[2018-12-20] MEDS ORDERED: *HR* Magnesium Sulfate 1 GM/2 ML VIAL ONE (08:07)
[2018-12-20] MEDS ORDERED: *HR* Remifentanil 1 MG VIAL IVP ONE (08:07)
--- NOTE | 2018-12-20 11:06 | Event Note ---
Date of Encounter: 12/20/18 Time of Encounter: 11:04 - Nephrology Event Note Consulted to evaluate patient for hyponatremia. Patient not in the room and likely in the OR. Will revisit later if he has returned or in the am. Patient with stable hyponatremia. Work-up ordered.
--- NOTE | 2018-12-20 11:24 | Operative Note ---
Date of procedure: 12/20/18 Pre-op diagnosis: empyema Post-op diagnosis: same Procedure: bronchoscopy, left thoracotomy partial rib resection, serratus and latissimus mm flaps Anesthesia: HERLINDAA Surgeon: Tra Angel Was there an assistant professor of surgery present: No Estimated blood loss (cc): 200 Specimen: o Condition: stable Disposition: ICU Procedure in Detail: The patient was brought to the operating room and placed on the operating table in the supine position. After undergoing general anesthesia with sequential compressive devices on bilateral lower extremities and perioperative antibiotics on board bronchoscopy was performed to rule out a disruption of the bronchial stump status post left lower lobectomy with a postoperative bronchopleural fistula and empyema. The bronchial stump was intact therefore the leak was coming from the staple line the upper lobe from the lower lobe. Patient was then placed on the operating room table in the right lateral decubitus position with care to pad all pressure points prepped with DuraPrep and draped in the usual sterile fashion. Thoracotomy incision was made #15 scalpel blade through the skin down of the subcutaneous tissues with the Bovie used to control hemostasis and to continue the dissection down to the chest wall the latissimus muscle and serratus anterior muscles were mobilized from the deep dermal attachments then the insertion of the muscles was taken down and mobilized up to the origin with great care to identify and preserve the neurovascular bundle to the serratus anterior and latissimus muscle flaps. A portion of the fifth rib was resected so that the chest to be entered the empyema cavity debridement and the muscle flaps placed in the chest without any constriction on their muscular neurovascular bundle. A 32 right angle chest tube was placed into the chest into 24 Wilfrid drains placed in the deep dermal area where the latissimus and serratus muscle flaps were mobilized. All of the drains were secured into place with Ethibond sutures. The incision closed with 1 Vicryl then 0 Vicryl and surgical kyle. Sterile dressings were applied. Patient was extubated and taken to the intensive care unit
[2018-12-20] MEDS ORDERED: Ondansetron 4 MG/2 ML VIAL IVP PRN (11:43)
[2018-12-20] MEDS ORDERED: Ipratropium/Albuterol Neb 3 ML IH PRN (11:43)
[2018-12-20] MEDS ORDERED: D5% in Water 1,000 ML IVC PRN (11:43)
[2018-12-20] MEDS ORDERED: Iron Sucrose Complex 400 MG in 0.9 % Sodium Chloride 250 ML IVPB ONE (11:43)
[2018-12-20] MEDS ORDERED: Naloxone 0.4 MG/ML INJ IVP PRN (11:43)
[2018-12-20] MEDS ORDERED: *HR* Dextrose 50 % in Water (Syg) 50 ML SYRINGE IVP PRN (11:43)
[2018-12-20] MEDS ORDERED: Dextrose Gel 15 GM/37.5 ML TUBE PO PRN ×2 (11:43)
[2018-12-20] MEDS ORDERED: Nitroglycerin 0.4 MG TAB.SUBL SL PRN (11:43)
[2018-12-20] MEDS ORDERED: Acetaminophen 325 MG TABLET PO PRN (11:43)
[2018-12-20] MEDS ORDERED: *HR* Etomidate 40 MG/20 ML VIAL IVP ONE (12:32)
[2018-12-20 13:28] LABS: Hematocrit 25.7 % (37.5-50.1)
[2018-12-20 13:48] LABS: Hemoglobin 7.8 g/dL (12.9-16.9)
[2018-12-20] MEDS: traMADol 50 MG TABLET PO PRN ×3 (13:49→22:14)
[2018-12-20] MEDS ORDERED: Furosemide 40 MG/4 ML VIAL IVP ONE (16:12)
[2018-12-20] MEDS: Insulin LISPRO 300 UNITS/3 ML VIAL SQ SCH (18:18)
[2018-12-20] MEDS: 0.9 % Sodium Chloride 1,000 ML IVC SCH (18:20)
[2018-12-20] MEDS: Nystatin SUSP 5 ML UD.LIQ PO SCH ×3 (18:56→21:16)
--- NOTE | 2018-12-20 19:12 | Anesthesia Evaluation Post Op ---
Date of Encounter: 12/20/18 Time of Encounter: 11:30 - Vital Signs Vital Signs: see Anesthesia/ICU note - Lungs Lungs: Rhonchi - Airway Airway: Non-obstructed - Cardiovascular Regular Rate, Baseline Rhythm - Mental Status Mental Status: Baseline Status - Pain Pain Scale: 2 Pain Scale used: RosalesKaila (Faces) (2) - Nausea Vomiting Nausea Vomiting: Not Present - Hydration Hydration: NPO, Has not voided - Discharge PostOp Status: Transfer Patient to floor (ICU from OR) Attestation: Pt VSS and was transferred directly to ICU4 from OR Per surgeon's request. - MD Ivan
[2018-12-20] MEDS: Doxycycline 100 MG CAPSULE PO SCH (20:41)
[2018-12-20] MEDS: Clotrimazole 1% CRM 15 GM TUBE TP SCH (20:42)
[2018-12-20] MEDS: Latanoprost 2.5 ML BOTTLE LEFT EYE SCH (20:43)
[2018-12-20] MEDS ORDERED: Insulin DETEMIR 100 UNIT/ML X5UNITS SQ SCH (21:00)
[2018-12-20] MEDS ORDERED: Calcium Gluconate 1gm/50mL 1 GM/50 ML BAG IVPB ONE (23:15)
[2018-12-21 02:17] LABS: Basophils # 0.1 K/mcL (0.0-0.2); Basophils % 0.6 %; Eosinophils # 0.4 K/mcL (0.0-0.6); Eosinophils % 1.9 %; Hematocrit 31.2 % (37.5-50.1); Immature Granulocytes % 0.4 % (0-4); Lymphocytes # 0.7 K/mcL (0.6-4.6); Lymphocytes % 3.6 %; Mean Corpuscular HGB Conc 31.4 g/dL (31.6-35.5); Mean Corpuscular Hemoglobin 29.4 pg (28.0-33.3); Mean Corpuscular Volume 93.7 fL (83.0-100.0); Mean Platelet Volume 10.2 fL (9.4-12.4); Monocytes # 1.6 K/mcL (0.0-1.3); Monocytes % 7.9 %; Neutrophils # 17.6 K/mcL (1.6-8.9); Platelet Count 164 K/mcL (140-400); Red Blood Count 3.33 M/mcL (4.19-5.50); Red Cell Distribution Width 17.9 % (11.5-14.5); Segmented Neutrophils % 85.6 %
[2018-12-21 02:18] LABS: Hemoglobin 9.8 g/dL (12.9-16.9); White Blood Count 20.5 K/mcL (4.3-11.1)
[2018-12-21 02:34] LABS: BUN/Creatinine Ratio 13 (6-26); Blood Urea Nitrogen 16 mg/dL (8-23); Carbon Dioxide 20 mEq/L (23-29); Chloride 104 mEq/L (98-107); Glucose 91 mg/dL (70-105); Osmolality,Calculated 277 (280-300); Potassium 5.1 mEq/L (3.5-5.1); Sodium 133 mEq/L (136-145); eGFR For African Americans > 60 (> 60); eGFR For Non-African Americans 55 (> 60)
[2018-12-21] MEDS: *HR* Heparin 5,000 UNIT/ML VIAL SQ SCH ×3 (04:52→20:25)
[2018-12-21] MEDS: Piperacillin/Tazobactam 3.375 GM in 0.9 % Sodium Chloride Mini Bag 100 ML IVPB SCH ×3 (04:52→20:23)
[2018-12-21] MEDS: 0.9 % Sodium Chloride 1,000 ML IVC SCH ×2 (04:53→07:59)
[2018-12-21] MEDS: traMADol 50 MG TABLET PO PRN ×2 (04:53→14:42)
--- NOTE | 2018-12-21 06:49 | Pulmonology Consult Note ---
Date of Encounter: 12/21/18 Time of Encounter: 06:49 Assessment and Plan (1) Empyema lung Current Visit: Yes Status: Acute S/P left thoracotomy partial rib resection, serratus and latissimus mm flaps - defer mngt to Thoracic Surgery Doing well ABx per ID IS/OOBT/Ambulation/PTOT consult (2) COPD (chronic obstructive pulmonary disease) Current Visit: Yes Status: Acute W/o exacerbation acceptable oxygenation on room air . schedule duo nebs and will add Symbicort 160/4.52 puffs twice a day Pulmonary will sign off Do not hesitate to call me with any questions or concerns Loi Farleyjose m [phone] Qualifiers: Emphysema type: unspecified Qualified Code(s): J43.9 - Emphysema, un specified History of Present Illness Consult date: 12/21/18 Requesting physician: Desirae Dias Reason for consult: hypoxemia Chief complaint: Difficulty in Breathing History of present illness: Torrey Beaulieu is a very pleasant 73-year-old gentleman known to the pulmonary service from last admission where he was treated for empyema and decortication unfortunately he has had recurrent empyema s/p left thoracotomy partial rib resection, serratus and latissimus mm flaps. He was successfully extubated after the procedure done by Dr. Angel. He tells me that he is feeling good today a little bit tender at the incision site but otherwise feels like he is made good recovery so far. Denies any fevers or chills cough sputum production hemoptysis. He does feel like he needs some breathing treatments which is not been scheduled he does have a history of COPD. Denies any nausea vomiting diarrhea or blood in the stools Past Med Surg Social Fam HX - Past Medical History Medical history: cancer, CHF, coronary artery disease, diabetes, GERD, GI bleed, hyperlipidemia, hypertension, myocardial infarction, peripheral artery disease, renal disease Additional medical history: Lumbar degenerative disc disease, carotid artery disease, right eye blind Psychiatric history: no psych history - Past Surgical History Surgical History: cancer surgery, cholecystectomy, coronary bypass (CABG) Additional surgical history: Stent placed a year ago, Right subclavian bypass graft, skin cancer. - Social History Smoking Status: Former smoker Smokeless Tobacco Status: No Alcohol use: none Drug use: none - Family History Father Adopted: No Family Member Ethnicity: Non- Living Status: Hx Family Cardiac Disorders: No Hx Family Respiratory Disorders: No Hx Family Cancer: Yes Hx Family GI Disorders: No Hx Family Endocrine Disorder: No Hx Family Neuromuscular Disorders: No Hx Family Neurologic Disorders: No Hx Family HEENT Disorders: No Hx Family Autoimmune Disorders: No Mother Adopted: No Living Status: Hx Family Cardiac Disorders: No Hx Family Respiratory Disorders: No Hx Family Cancer: No Hx Family GI Disorders: No Hx Family Endocrine Disorder: No Hx Family Neuromuscular Disorders: No Hx Family Neurologic Disorders: No Hx Family HEENT Disorders: No Hx Family Autoimmune Disorders: No Medications and Allergies Aspirin [Lo-Dose Aspirin EC] 81 mg PO DAILY 11/26/17 [History] Atorvastatin [Lipitor] 40 mg PO HS 11/26/17 [History] Clopidogrel [Plavix] 75 mg PO DAILY 08/11/18 [History] Latanoprost [Xalatan] 1 drop LEFT EYE HS 08/11/18 [History] Metoprolol XL (24 HR) Succ [Toprol Xl] 25 mg PO DAILY 08/14/18 [History] Omeprazole [PriLOSEC] 20 mg PO DAILY@0730 08/14/18 [History] Albuterol Sulfate [Proair Hfa] 2 puff IH Q6H PRN 10/29/18 [History] Budesonide/Formoterol 160/4.5 [Symbicort 160/4.5] 2 puff IH BIDR 10/29/18 [History] Furosemide [Lasix] 40 mg PO DAILY 10/29/18 [History] Isosorbide MONOnitrate [Isosorbide Mononitrate ER] 30 mg PO DAILY 10/29/18 [History] Nitroglycerin [Nitrostat] 0.4 mg SL Q5MIN PRN 10/29/18 [History] Tiotropium [place] [Spiriva Respimat] 2 puff IH DAILY 10/29/18 [History] Cefdinir [Omnicef] 300 mg PO BID 12/11/18 [History] Cholecalciferol (Vitamin D3) [Vitamin D] 2,000 unit PO DAILY 12/11/18 [History] Fluconazole [Diflucan] 100 mg PO DAILY 12/11/18 [History] Levothyroxine Sodium [Levoxyl] 50 mcg PO QAM 12/11/18 [History] Nystatin [Nystatin Suspension] 500,000 unit PO QID PRN 12/11/18 [History] Spironolactone [Aldactone] 50 mg PO DAILY 12/11/18 [History] Timolol Maleate 0.5% 1 drop LEFT EYE QAM 12/11/18 [History] Tramadol HCl [Ultram] 50 mg PO Q6H PRN 12/11/18 [History] Allergy/AdvReac Type Severity Reaction Status Date / Time gabapentin [From Neurontin] AdvReac Hallucinati Verified 12/11/18 17:43 ng lisinopril AdvReac Cough Verified 12/11/18 17:43 Varenicline [From Chantix] AdvReac Nightmare Verified 12/11/18 17:43 All Systems: The remainder of the systems were reviewed and are negative Physical Examination Vital Signs: Vital Signs, Last 4 Hours Temp Pulse Resp BP Pulse Ox 12/21/18 06:00 88 18 96/62 99 12/21/18 05:00 97.9 F 89 21 99/61 97 12/21/18 04:00 84 21 97/63 99 12/21/18 03:00 86 20 95/56 99 General appearance: no acute distress Eyes: nonicteric ENT: oropharynx moist Inspection: other (Left chest wall site is postoperative dressing clean dry and intact ANGELA drains x2 are noted with serosanguineous fluid) Auscultation: bilateral: clear Cardiovascular: regular rate and rhythm Gastrointestinal: normoactive bowel sounds Integumentary: normal Extremities: no cyanosis Musculoskeletal: no deformities normal mental status, non-focal exam mood appropriate Results - Laboratory Findings CBC and BMP: 12/21/18 14:48 12/21/18 14:00 ABG ABG pH 7.42 pH Units (7.32-7.45) 12/12/18 09:55 ABG pCO2 34 mmHg (35-45) L 12/12/18 09:55 ABG pO2 139 mmHg (85-104) H 12/12/18 09:55 ABG O2 Saturation 99 % (95-98) H 12/12/18 09:55 PT/INR, D-dimer PT 16.9 Seconds (9.4-12.1) H 12/10/18 13:46 Abnormal lab findings: Abnormal lab results WBC 20.5 K/mcL (4.3-11.1) H D 12/21/18 01:52 RBC 3.33 M/mcL (4.19-5.50) L 12/21/18 01:52 Hgb 9.8 g/dL (12.9-16.9) L D 12/21/18 01:52 Hct 31.2 % (37.5-50.1) L 12/21/18 01:52 MCHC 31.4 g/dL (31.6-35.5) L 12/21/18 01:52 RDW 17.9 % (11.5-14.5) H 12/21/18 01:52 Neutrophils # 17.6 K/mcL (1.6-8.9) H 12/21/18 01:52 Monocytes # 1.6 K/mcL (0.0-1.3) H 12/21/18 01:52 Eosinophils # 0.7 K/mcL (0.0-0.6) H 12/20/18 06:51 PT 16.9 Seconds (9.4-12.1) H 12/10/18 13:46 APTT 37.9 Seconds (26.0-36.0) H 12/10/18 13:46 ABG pCO2 34 mmHg (35-45) L 12/12/18 09:55 ABG pO2 139 mmHg (85-104) H 12/12/18 09:55 ABG O2 Saturation 99 % (95-98) H 12/12/18 09:55 Sodium 133 mEq/L (136-145) L 12/21/18 01:53 Potassium 5.2 mEq/L (3.5-5.1) H 12/13/18 05:18 Chloride 97 mEq/L (98-107) L 12/18/18 05:03 Carbon Dioxide 20 mEq/L (23-29) L 12/21/18 01:53 Creatinine 1.36 mg/dL (0.70-1.30) H 12/13/18 05:18 Est GFR ( Amer) 56 (> 60) L 12/12/18 04:40 Est GFR (Non-Af Amer) 55 (> 60) L 12/21/18 01:53 Glucose 172 mg/dL (70-105) H 12/19/18 05:24 POC Glucose 60 mg/dL (70-99) L 12/21/18 00:05 Hemoglobin A1c 5.9 % (-5.6) H 12/10/18 16:30 Serum Osmolality 273 mOsm/kg (280-300) L 12/11/18 13:53 Calculated Osmolality 277 (280-300) L 12/21/18 01:53 Calcium 8.0 mg/dL (8.6-10.3) L 12/21/18 01:53 Phosphorus 2.3 mg/dL (2.7-4.5) L 12/15/18 07:46 Magnesium 1.5 mg/dL (1.6-2.6) L 12/15/18 07:46 Iron 40 mcg/dL (65-175) L 12/20/18 06:51 % Saturation 18 % (20-55) L 12/20/18 06:51 Transferrin 156 mg/dL (203-362) L 12/20/18 06:51 Total Bilirubin 1.1 mg/dL (0.3-1.0) H 12/10/18 13:46 Direct Bilirubin 0.5 mg/dL (0.0-0.2) H 12/10/18 13:46 Alkaline Phosphatase 106 Units/L (34-104) H 12/15/18 07:46 Troponin I 0.09 ng/mL (< 0.04) H* 12/15/18 14:18 B-Natriuretic Peptide 3129 pg/mL (Less than 100) H 12/10/18 16:30 Serum Total Protein 6.2 g/dL (6.4-8.9) L 12/14/18 02:42 Albumin 2.8 g/dL (3.5-5.7) L 12/15/18 07:46 Globulin 3.9 g/dL (2.4-3.5) H 12/15/18 07:46 Albumin/Globulin Ratio 0.7 (1.1-2.2) L 12/15/18 07:46 Protein/Creatinin Ratio 0.46 mg/mg (0.00-0.20) H 12/11/18 13:49 Urine Total Protein 45 mg/dL (1-14) H 12/11/18 13:49 Pleural Appearance Cloudy (Clear) A 07/25/19 14:17 Vancomycin Trough 11 mcg/mL (5-10) H 12/12/18 17:20 MTS Gel Crossmatch See Detail 12/20/18 10:30 - Diagnostic Findings Chest x-ray: report reviewed, image reviewed - Clinical Findings Intake & Output: Intake & Output 12/20/18 12/20/18 12/21/18 15:59 23:59 07:59 Intake Total 300 / 1356 926 / 1356 420 / 420 Output Total 880 / 1559 379 / 1559 340 / 340 Balance -580 / -203 547 / -203 80 / 80 Consult Discharge Plan - Plan Referrals: Osman Martinez MD [Primary Care Provider] -
--- NOTE | 2018-12-21 09:03 | Cardiothoracic Progress Note ---
Date of Encounter: 12/21/18 Time of Encounter: 09:11 - Assessment and plan (1) Empyema lung Current Visit: Yes Status: Acute The assessment and plan as outlined above was discussed with the patient and/or family members who expressed understanding and agreement. All questions were answered. Discussion with patient/family: Assessment and plan by systems and discussed with Lillian. Neuro the patient appears alert and oriented cardiovascular. He appears stable. Respiratory symptoms mainly consist of a new productive cough. O2 requirement is increased from 2-4 L. Increased cough which is productive in addition to white count of 20 this will be sent for Gram stain and culture. I do not see operative cultures. Chest x-ray is pending. He has been receiving fluids at 75 mL an hour. If he appears fluid overloaded likely we will give a dose of lasix, but I am holding off on that right now as his creatinine is mildly elevated and he only made 510 mL of urine output yesterday. CXR later--- increased aeration left lung, but increased interstitial marking right lung. Repeat chest x-ray today actually shows increased aeration on the left side and but some fluid in the fissure on the right side. Chest tube and bulb drains will stay---more drainage from bulbs that chest tube. We will send urine and serum studies urine sodium urine on symptoms U8 to get the urine specific gravity and C-arm on symptoms to better assess volume status. GI has new cough. I suspect this is pulmonary , not GI. Nurse will do bedside speech and swallow prior to resuming his 1800 diabetic diet. FEN--He required half an amp of D50 overnight for hypoglycemia, this appears to be due to the fact that he was on Levemir. Levemir will be stopped and he will be started on low dose sliding scale insulin. If needed if speech and swallow study is okay we will allow him to eat but only in an upright position to minimize aspiration risk. Fluids and electrolytes patient only made 510 mL of urine output creatinine is elevated at 1.8. He is slightly frail person is his potassium is 5.1. 75 mL of fluids we will hep lock fluids for a pulmonary standpoint. Send urine chemistries urine sodium, urine osmolality, UA for specific gravity to assess his volume status. Would like to avoid having to give him more fluid as he did receive 2 units of cells yesterday as well as manitencace fluids in order to not exacerbate his respiratory status. I'd like to give him Lasix but I am holding off as his creatinine is elevated and recheck that at 1 pm. Normally would like to get the [place] output but only made 510 mL of when necessary, leave it in for accurate I's and O's today. Heme-- repeat hematocrit is 31 after 2 units of blood appropriately. xxxxxxxxxxxxxxxxx pm Increased K 5.6 Will give half amp D50 and insulin Also volume over loaded, urine studies indicate intravascularly dry urine osm 450, urine sg 1030, UA also reveals UTI---sent for culture, but should be covered by zosyn. Reexamined echo---ef 30%. Will start low dose dopaminergic dopamine at 3 and D51/2 NS. If this does not result in increased UO will need better cardiac support and afterload reduction for ef 30%. At this point does cedric skinner like will tolerate milrinone, perhaps low dose dobutamine. Avoiding any afterload increase levo, vaso, etc as this will only exacerbate his cardiac function. Dr. Evelina Bethea ps does not let me sign note - Subjective Interval history: is doing well overnight. He received 2 units of blood as well as 1 g of calcium chloride. His blood pressures improved. He does still have a persistent cough Vital Signs, Last 4 Hours Pulse Resp BP Pulse Ox 12/21/18 08:00 88 17 105/61 99 12/21/18 07:47 86 18 110/62 98 12/21/18 06:00 88 18 96/62 99 Oxgyen Flow Rate Oxygen Flow Rate (LPM) 4 Clinical Data, last 8 Hours Output, Chest Tube Drainage 35 Amount [Left Mid-Axillary Chest] Weight 12/19/18 12/20/18 12/21/18 23:59 23:59 23:59 Weight 84.2 kg - Physical Examination General: Conversant HEENT: Atraumatic, Trachea midline Neck: No JVD Cardiac: Reg Rate and Rhythm, No Murmur Incision: No signs of infection, Open to air Chest tubes: Minimal drainage Lungs: Normal Breath Sounds Neuro: Alert and responsive Vascular: Normal capillary refill Abdomen: Soft Skin: No rashes noted on visualized skin Musculoskeletal: Other Extremities: No Clubbing Other: Pertinent findings the incision and complaining kyle looks clean dry and intact the appearance of the bulb drain is serosanguineous appearance of the chest tube drainage is serosanguineous and old chest tube wound site has a mild amount of eschar no purulent drainage - Labs 12/21/18 14:48 12/21/18 14:00 Lab Results, Last 24 hours 12/20/18 12/21/18 12/21/18 13:00 01:52 01:53 WBC 20.5 H D Hgb 7.8 L D 9.8 L D Hct 25.7 L 31.2 L Plt Count 164 Sodium 133 L Potassium 5.1 Chloride 104 Carbon Dioxide 20 L BUN 16 Creatinine 1.28 Glucose 91 Calcium 8.0 L Consult Discharge Plan - Plan Referrals: Osman Martinez MD [Primary Care Provider] -
[2018-12-21] MEDS ORDERED: Lidocaine -MPF 1% 5 ML AMPUL INFILT ONE (09:21)
[2018-12-21] MEDS: Insulin LISPRO 300 UNITS/3 ML VIAL SQ SCH ×3 (09:27→18:35)
--- NOTE | 2018-12-21 10:12 | Nephrology Consult Note ---
Date of Encounter: 12/21/18 Time of Encounter: 10:12 Assessment and Plan (1) ISRRAEL (acute kidney injury) Current Visit: Yes Status: Acute (2) Empyema lung Current Visit: Yes Status: Acute (3) Hospital-acquired pneumonia Current Visit: Yes Status: Acute (4) Hyponatremia Current Visit: Yes Status: Acute (5) Hyperkalemia Current Visit: Yes Status: Acute History of Present Illness - Reason for Consult Consult date: 12/21/18 hyponatremia - Chief Complaint hyponatremia - History of Present Illness Mr. Beaulieu is a 73 yo man with a history of Past Med Surg Social Fam HX - Past Medical History Medical history: cancer, CHF, coronary artery disease, diabetes, GERD, GI bleed, hyperlipidemia, hypertension, myocardial infarction, peripheral artery disease, renal disease Additional medical history: Lumbar degenerative disc disease, carotid artery disease, right eye blind Psychiatric history: no psych history - Past Surgical History Surgical History: cancer surgery, cholecystectomy, coronary bypass (CABG) Additional surgical history: Stent placed a year ago, Right subclavian bypass graft, skin cancer. - Social History Smoking Status: Former smoker Smokeless Tobacco Status: No Alcohol use: none Drug use: none - Family History Father Adopted: No Family Member Ethnicity: Non- Living Status: Hx Family Cardiac Disorders: No Hx Family Respiratory Disorders: No Hx Family Cancer: Yes Hx Family GI Disorders: No Hx Family Endocrine Disorder: No Hx Family Neuromuscular Disorders: No Hx Family Neurologic Disorders: No Hx Family HEENT Disorders: No Hx Family Autoimmune Disorders: No Mother Adopted: No Living Status: Hx Family Cardiac Disorders: No Hx Family Respiratory Disorders: No Hx Family Cancer: No Hx Family GI Disorders: No Hx Family Endocrine Disorder: No Hx Family Neuromuscular Disorders: No Hx Family Neurologic Disorders: No Hx Family HEENT Disorders: No Hx Family Autoimmune Disorders: No Medications and Allergies Aspirin [Lo-Dose Aspirin EC] 81 mg PO DAILY 11/26/17 [History] Atorvastatin [Lipitor] 40 mg PO HS 11/26/17 [History] Clopidogrel [Plavix] 75 mg PO DAILY 08/11/18 [History] Latanoprost [Xalatan] 1 drop LEFT EYE HS 08/11/18 [History] Metoprolol XL (24 HR) Succ [Toprol Xl] 25 mg PO DAILY 08/14/18 [History] Omeprazole [PriLOSEC] 20 mg PO DAILY@0730 08/14/18 [History] Albuterol Sulfate [Proair Hfa] 2 puff IH Q6H PRN 10/29/18 [History] Budesonide/Formoterol 160/4.5 [Symbicort 160/4.5] 2 puff IH BIDR 10/29/18 [History] Furosemide [Lasix] 40 mg PO DAILY 10/29/18 [History] Isosorbide MONOnitrate [Isosorbide Mononitrate ER] 30 mg PO DAILY 10/29/18 [History] Nitroglycerin [Nitrostat] 0.4 mg SL Q5MIN PRN 10/29/18 [History] Tiotropium [place] [Spiriva Respimat] 2 puff IH DAILY 10/29/18 [History] Cefdinir [Omnicef] 300 mg PO BID 12/11/18 [History] Cholecalciferol (Vitamin D3) [Vitamin D] 2,000 unit PO DAILY 12/11/18 [History] Fluconazole [Diflucan] 100 mg PO DAILY 12/11/18 [History] Levothyroxine Sodium [Levoxyl] 50 mcg PO QAM 12/11/18 [History] Nystatin [Nystatin Suspension] 500,000 unit PO QID PRN 12/11/18 [History] Spironolactone [Aldactone] 50 mg PO DAILY 12/11/18 [History] Timolol Maleate 0.5% 1 drop LEFT EYE QAM 12/11/18 [History] Tramadol HCl [Ultram] 50 mg PO Q6H PRN 12/11/18 [History] Allergy/AdvReac Type Severity Reaction Status Date / Time gabapentin [From Neurontin] AdvReac Hallucinati Verified 12/11/18 17:43 ng lisinopril AdvReac Cough Verified 12/11/18 17:43 Varenicline [From Chantix] AdvReac Nightmare Verified 12/11/18 17:43 Exam - Vital Signs Vital signs: Initial Vital Signs Temp Pulse Resp BP Pulse Ox 97.3 F L 111 12 123/74 97 12/10/18 13:08 12/10/18 13:08 12/10/18 13:08 12/10/18 13:08 12/10/18 13:08 Vital Signs - Last 8 Hours Temp Pulse Resp BP Pulse Ox 12/21/18 08:00 88 17 105/61 99 12/21/18 07:47 86 18 110/62 98 12/21/18 06:00 88 18 96/62 99 12/21/18 05:00 97.9 F 89 21 99/61 97 12/21/18 04:00 84 21 97/63 99 12/21/18 03:00 86 20 95/56 99 Intake and Output 12/20/18 12/21/18 12/21/18 23:59 07:59 15:59 Intake Total 926 / 1356 1420 / 1505 85 / 1505 Output Total 379 / 1559 340 / 373 33 / 373 Balance 547 / -203 1080 / 1132 52 / 1132 Intake: IV Fluids 250 / 600 1150 / 1235 85 / 1235 0.9 % Sodium Chloride 1,000 ML 1000 / 1085 85 / 1085 @ 75 mls/hr IVC .[id number] [facility] Rx #:[id number] ALBURX 5% 12.5 gm In 250 ml @ 250 / 500 60 mls/hr IVC .Q4H10M [facility] Rx#: [id number] Calcium Gluconate 1gm/50mL 1 gm 50 / 50 In 50 ml @ 50 mls/hr IVPB ONCE ONE Rx#:[id number] Zosyn 3.375 GM In 0.9 % Sodium 0 / 0 100 / 100 Chloride (Mini-Bag +) 100 ML @ 25 mls/hr IVPB Q8H [facility] Rx#: [id number] Oral 270 / 270 Blood Product 676 / 676 Rbcs Leuko Poor As-1 Unit 326 / 326 [id number] Rbcs Leuko Poor As-1 Unit 350 / 350 [id number] Output: Catheter 150 / 300 120 / 120 Wound Drainage 175 / 490 175 / 208 33 / 208 ANGELA 2 150 / 150 125 / 145 20 / 145 Left Chest 25 / 340 50 / 63 13 / 63 Chest Tube Drainage 54 / 119 45 / 45 Left Mid-Axillary Chest 54 / 119 45 / 45 Other: Blood Glucose* 71 93 Results - Lab Results 12/21/18 01:52 12/21/18 01:53 Most recent lab results 12/21/18 01:53 Calcium 8.0 L Consult Discharge Plan - Plan Referrals: Osman Martinez MD [Primary Care Provider] -
[2018-12-21] MEDS: Isosorbide MONOnitrate (24 HR) 30 MG TAB.ER.24H PO SCH (10:29)
[2018-12-21] MEDS: Doxycycline 100 MG CAPSULE PO SCH ×2 (10:29→20:23)
[2018-12-21] MEDS: Metoprolol XL (24 HR) Succ 25 MG TAB.ER.24H PO SCH (10:30)
[2018-12-21] MEDS: Cholecalciferol (D-3) 1,000 UNIT (25MCG) TABLET PO SCH (10:30)
[2018-12-21] MEDS: Nystatin SUSP 5 ML UD.LIQ PO SCH ×4 (10:31→20:22)
--- NOTE | 2018-12-21 11:38 | Nephrology Progress Note ---
Date of Encounter: 12/21/18 Time of Encounter: 11:35 - Assessment and Plan (1) Hyponatremia Current Visit: Yes Status: Acute Mild hyponatremia that seems close to baseline. Monitor for now. (2) [place]RRA[place] (acute kidney injury) Current Visit: Yes Status: Acute resolved. (3) Empyema lung Current Visit: Yes Status: Acute (4) Hospital-acquired pneumonia Current Visit: Yes Status: Acute (5) Hyperkalemia Current Visit: Yes Status: Acute Subjective Principal diagnosis: Empyema Interval history: Patient seen. No new complaint. He is asleep. Objective - Vital Signs Vital signs: Vital Signs Temp Pulse Resp BP Pulse Ox 12/21/18 10:35 90 16 114/69 98 12/21/18 10:00 108/68 12/21/18 09:21 113/58 12/21/18 08:00 88 17 105/61 99 12/21/18 07:47 86 18 110/62 98 12/21/18 06:00 88 18 96/62 99 12/21/18 05:00 97.9 F 89 21 99/61 97 12/21/18 04:00 84 21 97/63 99 12/21/18 03:00 86 20 95/56 99 12/21/18 02:00 89 24 96/58 98 12/21/18 01:00 90 21 97/55 99 12/21/18 00:00 98.8 F 93 21 92/55 99 12/20/18 23:00 90 21 82/48 99 12/20/18 22:08 98.8 F 93 20 93/55 93 12/20/18 22:00 93 21 93/55 91 12/20/18 21:00 93 22 105/83 98 12/20/18 20:00 99.2 F 98 24 85/59 100 12/20/18 19:51 99.2 F 95 21 88/59 100 12/20/18 19:36 97.9 F 100 22 91/81 100 12/20/18 19:00 110 25 93/81 95 12/20/18 18:38 97.6 F 107 20 98/76 99 12/20/18 18:00 110 26 98/76 100 12/20/18 17:56 97.5 F L 106 19 75/51 12/20/18 17:00 82 25 186/174 100 12/20/18 16:56 97.6 F 89 25 186/174 98 12/20/18 16:38 96.6 F L 12/20/18 16:02 98.1 F 96 28 139/118 12/20/18 15:54 20 100 12/20/18 15:47 97.6 F 86 22 146/105 96 12/20/18 15:41 97.6 F 101 20 122/105 100 12/20/18 15:00 97.6 F 101 22 109/60 100 12/20/18 14:00 80 21 114/92 100 12/20/18 13:10 60 20 94/52 100 12/20/18 13:00 97.7 F 20 83/46 100 12/20/18 12:39 58 16 87/53 12/20/18 12:09 65 18 90/45 100 12/20/18 11:39 75 16 88/44 100 Intake and Output 12/20/18 12/21/18 12/21/18 23:59 07:59 15:59 Intake Total 926 / 1356 1420 / 1505 85 / 1505 Output Total 379 / 1559 340 / 373 33 / 373 Balance 547 / -203 1080 / 1132 52 / 1132 Intake: IV Fluids 250 / 600 1150 / 1235 85 / 1235 0.9 % Sodium Chloride 1,000 ML 1000 / 1085 85 / 1085 @ 75 mls/hr IVC .[id number] [facility] Rx #:[id number] ALBURX 5% 12.5 gm In 250 ml @ 250 / 500 60 mls/hr IVC .Q4H10M [facility] Rx#: [id number] Calcium Gluconate 1gm/50mL 1 gm 50 / 50 In 50 ml @ 50 mls/hr IVPB ONCE ONE Rx#:[id number] Zosyn 3.375 GM In 0.9 % Sodium 0 / 0 100 / 100 Chloride (Mini-Bag +) 100 ML @ 25 mls/hr IVPB Q8H [facility] Rx#: [id number] Oral 270 / 270 Blood Product 676 / 676 Rbcs Leuko Poor As-1 Unit 326 / 326 [id number] Rbcs Leuko Poor As-1 Unit 350 / 350 [id number] Output: Catheter 150 / 300 120 / 120 Wound Drainage 175 / 490 175 / 208 33 / 208 ANGELA 2 150 / 150 125 / 145 20 / 145 Left Chest 25 / 340 50 / 63 13 / 63 Chest Tube Drainage 54 / 119 45 / 45 Left Mid-Axillary Chest 54 / 119 45 / 45 Other: Blood Glucose* 71 93 - General Appearance General appearance: Present: well-developed, well-nourished EENT: Present: ATNC Neck: Present: supple Respiratory: Present: course breath sounds Cardiology: Present: regular rate (s) Gastrointestinal: Present: obese Integumentary: Present: warm and dry Musculoskeletal: Present: no cyanosis - Lab 12/21/18 01:52 12/21/18 01:53 Most recent lab results 12/21/18 01:53 Calcium 8.0 L Consult Discharge Plan - Plan Referrals: Osman Martinez MD [Primary Care Provider] -
[2018-12-21] MEDS: Clotrimazole 1% CRM 15 GM TUBE TP SCH ×2 (11:43→20:25)
[2018-12-21] MEDS: Ipratropium Neb 0.5 MG NEBULIZER IH SCH ×3 (14:12→21:32)
[2018-12-21] MEDS: Budesonide/Formoterol 160/4.5 1 PUFF INH IH SCH ×2 (14:13→21:32)
[2018-12-21 15:02] LABS: Hematocrit 34.1 % (37.5-50.1); Hemoglobin 10.5 g/dL (12.9-16.9); Immature Platelets 3.5 % (1.1-6.1); Mean Corpuscular HGB Conc 30.8 g/dL (31.6-35.5); Mean Corpuscular Hemoglobin 29.1 pg (28.0-33.3); Mean Corpuscular Volume 94.5 fL (83.0-100.0); Mean Platelet Volume 10.6 fL (9.4-12.4); Red Blood Count 3.61 M/mcL (4.19-5.50); Red Cell Distribution Width 18.3 % (11.5-14.5); White Blood Count 20.4 K/mcL (4.3-11.1)
[2018-12-21 15:23] LABS: Calcium 8.3 mg/dL (8.6-10.3); Potassium 5.6 mEq/L (3.5-5.1)
[2018-12-21 15:47] LABS: Bilirubin,Urine Small (Negative); Blood,Urine Large (Negative); Clarity,Urine Turbid (Clear); Color,Urine Dark Yellow (Yellow); Glucose,Urine (UA) Normal (Normal); Ketones,Urine Negative (Negative); Leukocyte Esterase,Urine Trace (Negative); Nitrite,Urine Negative (Negative); Protein,Urine 100 mg/dL (Neg-Trace); Specific Gravity,Urine > 1.030 (1.010-1.025); Urobilinogen,Urine Normal (Normal)
[2018-12-21 15:50] LABS: Hyaline Casts,Urine Few per lpf (None-Few); Squamous Epithelial Cell,Urine Many per lpf (None-Few); WBC,Urine 30-50 per hpf (0-3)
[2018-12-21 16:16] LABS: Bacteria,Urine Many per hpf (None-Few)
[2018-12-21] MEDS ORDERED: *HR* Dextrose 50 % in Water (Syg) 50 ML SYRINGE IVP ONE (17:42)
[2018-12-21] MEDS: D5% in 0.45% NACL 1,000 ML IVC SCH (18:40)
[2018-12-21] MEDS: Latanoprost 2.5 ML BOTTLE LEFT EYE SCH (20:24)
[2018-12-21 20:47] LABS: Calcium 8.1 mg/dL (8.6-10.3); Potassium 5.3 mEq/L (3.5-5.1)
[2018-12-22] MEDS: traMADol 50 MG TABLET PO PRN ×2 (02:24→12:30)
[2018-12-22] MEDS: Ipratropium Neb 0.5 MG NEBULIZER IH SCH ×4 (03:53→21:47)
[2018-12-22 04:08] LABS: Hemoglobin 9.6 g/dL (12.9-16.9); Mean Corpuscular Hemoglobin 29.2 pg (28.0-33.3); Mean Corpuscular Volume 94.2 fL (83.0-100.0); Mean Platelet Volume 10.5 fL (9.4-12.4); Platelet Count 234 K/mcL (140-400); Red Blood Count 3.29 M/mcL (4.19-5.50); Red Cell Distribution Width 18.1 % (11.5-14.5); White Blood Count 17.4 K/mcL (4.3-11.1)
[2018-12-22 04:33] LABS: Calcium 8.4 mg/dL (8.6-10.3); Potassium 4.9 mEq/L (3.5-5.1)
[2018-12-22] MEDS: Piperacillin/Tazobactam 3.375 GM in 0.9 % Sodium Chloride Mini Bag 100 ML IVPB SCH ×3 (06:09→20:56)
[2018-12-22] MEDS: *HR* Heparin 5,000 UNIT/ML VIAL SQ SCH ×3 (06:09→21:05)
[2018-12-22] MEDS: Isosorbide MONOnitrate (24 HR) 30 MG TAB.ER.24H PO SCH ×2 (09:17→11:18)
[2018-12-22] MEDS: Cholecalciferol (D-3) 1,000 UNIT (25MCG) TABLET PO SCH ×2 (09:17→11:18)
[2018-12-22] MEDS: Doxycycline 100 MG CAPSULE PO SCH ×3 (09:17→20:56)
[2018-12-22] MEDS: Nystatin SUSP 5 ML UD.LIQ PO SCH ×5 (09:17→21:05)
[2018-12-22] MEDS: Metoprolol XL (24 HR) Succ 25 MG TAB.ER.24H PO SCH ×2 (09:17→11:18)
[2018-12-22] MEDS: Clotrimazole 1% CRM 15 GM TUBE TP SCH ×3 (09:18→21:04)
[2018-12-22] MEDS: Insulin LISPRO 300 UNITS/3 ML VIAL SQ SCH ×5 (09:19→17:10)
[2018-12-22] MEDS: D5% in 0.45% NACL 1,000 ML IVC SCH ×2 (09:28→21:04)
[2018-12-22] MEDS: Budesonide/Formoterol 160/4.5 1 PUFF INH IH SCH ×2 (10:48→21:47)
--- NOTE | 2018-12-22 11:04 | Infectious Disease Progress No ---
ID Progress Note Date of Encounter: 12/22/18 Time of Encounter: 10:50 - Subjective Subjective: Patient seen and examined. No acute events noted overnight. Patient states overall he feels well. Denies pain this morning. Denies fevers, chills, or rigors. Denies chest pain or cough or shortness of breath. Denies nausea, vomiting, or diarrhea. Denies abdominal pain or urinary complaints. Denies oral thrush or skin rashes. States appetite is good. Surgery planned for tomorrow. - Objective CBC & Chem 7: 12/22/18 03:49 12/22/18 03:49 - Line Documentation Line Documentation: Chest Tube (Left lateral chest wall), Drain (ANGELA drain 2 noted to the left chest.) - Exam Vitals: Temp Pulse Resp BP Pulse Ox 97.5 F L 82 14 104/60 100 12/22/18 08:00 12/22/18 08:00 12/22/18 10:51 12/22/18 06:01 12/22/18 10:51 Exam: Head: Atraumatic, normal inspection, normocephalic. Eye: EOMI, PERRLA, no scleral icterus noted. ENT: Mucous membranes moist. No odontogenic infection noted. Neck: Normal inspection, no meningismus. Respiratory: Diminished bilateral bases. No respiratory distress, rhonchi, or wheezes noted. Chest tube noted to the left lateral chest wall with serosanguinous drainage noted. No crepitus or air leak. Cardiovascular: Regular rate and rhythm, S1 and S2 audible. No murmurs, rubs, or gallops. GI: Soft, nondistended, normal bowel sounds. Non-tender. Extremities:No joint swelling, pedal edema, or tenderness noted. Neurological: Alert, oriented 3, no focal deficits. Psychiatric: normal affect, normal mood. Skin: Dry, intact, warm. Normal color. No rashes. - Assessment and Plan (1) Sepsis Current Visit: Yes Status: Resolved The patient had two SIRS criteria on admission. Likely secondary to empyema and multifocal PNA. Improved. Blood cultures drawn 12/10/18 are negative x 2 sets. Qualifiers: Sepsis type: sepsis due to unspecified organism SNOMED Code(s): 49231507 (2) Empyema lung Current Visit: Yes Status: Acute Location: Left lung. Causative organism: P. mirabilis and S. epi (oxacillin resistant). Cardiothoracic surgery consulted and following. Status post bronchoscopy, left thoracotomy, partial rib resection, and serrated and latissimus MM flaps 12/20/[address] Angel. No additional cultures obtained. Post-op CXR unchanged per radiology. Currently on Zosyn and doxycycline. SNOMED Code(s): 134833511 (3) Multifocal pneumonia Current Visit: Yes Status: Acute Causative organism: Unclear. Previous BAL cultures 10/2018 positive for PSEA. Previous PNA in early November (unknown causative organism) treated with 6 days of Rocephin 11/18-11/23 with Levaquin x 4 days prior to that. CT chest 12/10/18 moderate sized left hydropneumothorax with chest tube in place and multifocal lung consolidation involving the lingula, RUL, and RLL. MRSA screen negative. S. pneumo and Legionella UATs negative. Low index of suspicion for aspiration. Repeat chest xrays show unchanged bilateral airspace disease. Currently on PO doxycycline and Zosyn. SNOMED Code(s): 245005936 (4) [place] (acute kidney injury) Current Visit: Yes Status: Acute Likely multifactorial. Resolved initially, but recurred post-op. Stable. Continue to trend. Dose-adjust antibiotics and avoid nephrotoxins. SNOMED Code(s): 28020591, 60595427 (5) CAD (coronary artery disease) Current Visit: No Status: Chronic Cardiology consulted. Status post [facility] 12/18/18. Qualifiers: Coronary Disease-Associated Artery/Lesion type: bypass graft [place] vs. 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 Status post diagnostic VATS, staging bronchoscopy, left thoracotomy pneumolysis, left lower lobectomy, and mediastinal lymph node dissection 11/06/[address] Angel. SNOMED Code(s): 516270369 (7) Congestive heart failure Current Visit: No Status: Chronic Qualifiers: Heart failure type: unspecified Heart failure chronicity: chronic Qualified Code(s): I50.9 - Heart failure, unspecified SNOMED Code(s): 19859476 (8) Diabetes mellitus, insulin dependent (IDDM), controlled Current Visit: No Status: Chronic SNOMED Code(s): 72153995, 421088788 - Recommendations Recommendations: Chest tube management per the CTS team. Continue Zosyn 3.375 grams IV Q8H (CrCl ~45). Continue doxycycline 100mg PO BID. Duration of treatment depends on the clinical picture. Will discuss with CTS, but can likely transition to PO antibiotics when ready for discharge. Monitor renal function and dose-adjust antibiotics. Consult Discharge Plan - Plan Referrals: Osman Martinez MD [Primary Care Provider] -
--- NOTE | 2018-12-22 12:30 | Cardiothoracic Progress Note ---
Date of Encounter: 12/22/18 Time of Encounter: 12:27 - Assessment and plan (1) Empyema of pleura Current Visit: Yes Status: Acute The assessment and plan as outlined above was discussed with the patient and/or family members who expressed understanding and agreement. All questions were answered. will stop dopamine. tx to floor labs and xray ordered for tomorrow. (2) Elevated troponin Current Visit: No Status: Acute The assessment and plan as outlined above was discussed with the patient and/or family members who expressed understanding and agreement. All questions were answered. cardiology did not have to place any new or angioplasty any old stent. - Subjective Interval history: feels better since antibx and admission frustrated waiting to hear about heart cath Vital Signs, Last 4 Hours Pulse Resp BP Pulse Ox 12/22/18 11:00 68 21 90/60 100 12/22/18 10:51 14 100 12/22/18 10:00 65 16 92/55 100 12/22/18 09:00 85 19 100/63 100 Oxgyen Flow Rate Oxygen Flow Rate (LPM) 2 Clinical Data, last 8 Hours Output, Chest Tube Drainage 10 Amount [Left Mid-Axillary Chest] Weight 12/20/18 12/21/18 12/22/18 23:59 23:59 23:59 Weight 82.3 kg - Physical Examination General: Other (somnulent) HEENT: Atraumatic, Normocephaly Cardiac: Reg Rate and Rhythm, Normal S1 and S2 Incision: No signs of infection, Dry/intact dressing Chest tubes: Minimal drainage Lungs: Decreased breath sounds Abdomen: Soft, Non-tender - Labs 12/22/18 03:49 12/22/18 03:49 Lab Results, Last 24 hours 12/21/18 12/21/18 12/21/18 14:00 14:48 20:15 WBC 20.4 H Hgb 10.5 L Hct 34.1 L Plt Count 202 Sodium 131 L 130 L Potassium 5.6 H 5.3 H Chloride 101 102 Carbon Dioxide 20 L 19 L BUN 20 24 H Creatinine 1.52 H 1.56 H Glucose 110 H 201 H Calcium 8.3 L 8.1 L 12/22/18 12/22/18 03:49 03:49 WBC 17.4 H Hgb 9.6 L Hct 31.0 L Plt Count 234 Sodium 129 L Potassium 4.9 Chloride 102 Carbon Dioxide 22 L BUN 25 H Creatinine 1.56 H Glucose 211 H Calcium 8.4 L - Imaging Chest Xray: image reviewed Consult Discharge Plan - Plan Referrals: Osman Martinez MD [Primary Care Provider] -
[2018-12-22] MEDS ORDERED: Morphine Sulfate 2 MG/ML SYRINGE IVP PRN (14:46)
[2018-12-22] MEDS ORDERED: Ondansetron 4 MG/2 ML VIAL IVP PRN (19:26)
[2018-12-22] MEDS ORDERED: D5% in Water 1,000 ML IVC PRN (19:26)
[2018-12-22] MEDS ORDERED: Acetaminophen 325 MG TABLET PO PRN (19:26)
[2018-12-22] MEDS ORDERED: Ipratropium/Albuterol Neb 3 ML IH PRN (19:26)
[2018-12-22] MEDS ORDERED: Dextrose Gel 15 GM/37.5 ML TUBE PO PRN ×2 (19:26)
[2018-12-22] MEDS ORDERED: *HR* Dextrose 50 % in Water (Syg) 50 ML SYRINGE IVP PRN (19:26)
[2018-12-22] MEDS ORDERED: Naloxone 0.4 MG/ML INJ IVP PRN (19:26)
[2018-12-22] MEDS ORDERED: Nitroglycerin 0.4 MG TAB.SUBL SL PRN (19:26)
[2018-12-22] MEDS: Latanoprost 2.5 ML BOTTLE LEFT EYE SCH (21:05)
[2018-12-23] MEDS: Ipratropium Neb 0.5 MG NEBULIZER IH SCH ×4 (04:06→21:51)
[2018-12-23] MEDS: Piperacillin/Tazobactam 3.375 GM in 0.9 % Sodium Chloride Mini Bag 100 ML IVPB SCH ×3 (04:36→20:37)
[2018-12-23 04:56] LABS: Hematocrit 30.6 % (37.5-50.1); Hemoglobin 9.5 g/dL (12.9-16.9); Mean Corpuscular Volume 93.3 fL (83.0-100.0); Platelet Count 228 K/mcL (140-400); Red Blood Count 3.28 M/mcL (4.19-5.50); Red Cell Distribution Width 17.7 % (11.5-14.5); White Blood Count 15.8 K/mcL (4.3-11.1)
[2018-12-23 05:01] LABS: BUN/Creatinine Ratio 22 (6-26); Blood Urea Nitrogen 30 mg/dL (8-23); Carbon Dioxide 18 mEq/L (23-29); Chloride 105 mEq/L (98-107); Glucose 110 mg/dL (70-105); Magnesium 2.1 mg/dL (1.6-2.6); Osmolality,Calculated 279 (280-300); Potassium 5.2 mEq/L (3.5-5.1); Sodium 131 mEq/L (136-145); eGFR For African Americans > 60 (> 60); eGFR For Non-African Americans 52 (> 60)
[2018-12-23] MEDS: *HR* Heparin 5,000 UNIT/ML VIAL SQ SCH ×3 (05:35→20:37)
[2018-12-23] MEDS ORDERED: Metoprolol XL (24 HR) Succ 25 MG TAB.ER.24H PO SCH (09:00)
[2018-12-23] MEDS ORDERED: Isosorbide MONOnitrate (24 HR) 30 MG TAB.ER.24H PO SCH (09:00)
[2018-12-23] MEDS: Insulin LISPRO 300 UNITS/3 ML VIAL SQ SCH ×3 (09:37→17:57)
[2018-12-23] MEDS: Cholecalciferol (D-3) 1,000 UNIT (25MCG) TABLET PO SCH (10:09)
[2018-12-23] MEDS: Doxycycline 100 MG CAPSULE PO SCH ×2 (10:10→20:36)
[2018-12-23] MEDS: Nystatin SUSP 5 ML UD.LIQ PO SCH ×4 (10:11→20:37)
[2018-12-23] MEDS: Budesonide/Formoterol 160/4.5 1 PUFF INH IH SCH ×2 (11:04→21:51)
--- NOTE | 2018-12-23 12:52 | Cardiothoracic Progress Note ---
Date of Encounter: 12/23/18 Time of Encounter: 12:51 - Assessment and plan (1) Empyema of pleura Current Visit: Yes Status: Acute The assessment and plan as outlined above was discussed with the patient and/or family members who expressed understanding and agreement. All questions were answered. rounded with nurse clamp chest tube tonight. (2) Elevated troponin Current Visit: No Status: Acute The assessment and plan as outlined above was discussed with the patient and/or family members who expressed understanding and agreement. All questions were answered. placed parameters of bp medications - Subjective Interval history: doesn't like the food Vital Signs, Last 4 Hours Temp Pulse Resp BP Pulse Ox 12/23/18 11:38 97.3 F L 68 17 99/64 100 12/23/18 09:15 69 Oxgyen Flow Rate Oxygen Flow Rate (LPM) 2 Clinical Data, last 8 Hours Output, Chest Tube Drainage 0 Amount [Left Mid-Axillary Chest] Weight 12/21/18 12/22/18 12/23/18 23:59 23:59 23:59 Weight 82.3 kg 82.7 kg - Physical Examination General: Conversant, No Apparent Distress, Other (looks tired ) HEENT: Atraumatic, Normocephaly Cardiac: Reg Rate and Rhythm Incision: No signs of infection, Dry/intact dressing Chest tubes: Minimal drainage Lungs: Normal Breath Sounds Neuro: Alert and responsive, No focal deficits noted, Cranial nerves intact - Labs 12/23/18 04:29 12/23/18 04:29 Lab Results, Last 24 hours 12/23/18 12/23/18 04:29 04:29 WBC 15.8 H Hgb 9.5 L Hct 30.6 L Plt Count 228 Sodium 131 L Potassium 5.2 H Chloride 105 Carbon Dioxide 18 L BUN 30 H Creatinine 1.34 H Glucose 110 H Calcium 8.0 L Magnesium 2.1 Consult Discharge Plan - Plan Referrals: Osman Martinez MD [Primary Care Provider] -
[2018-12-23] MEDS: traMADol 50 MG TABLET PO PRN (12:53)
[2018-12-23] MEDS: D5% in 0.45% NACL 1,000 ML IVC SCH (12:56)
--- NOTE | 2018-12-23 14:00 | Infectious Disease Progress No ---
ID Progress Note Date of Encounter: 12/23/18 Time of Encounter: 13:58 - Subjective Subjective: Patient seen and examined with family at the bedside. No acute events noted overnight. Patient states overall he feels unwell. States he is tired of being in the hospital and wants to go home. Denies pain since taking pain medication this morning. Denies fevers, chills, or rigors. Denies chest pain, but reports some chest congestion this morning. Denies nausea, vomiting, or diarrhea. Denies abdominal pain or urinary complaints. Denies oral thrush or skin rashes. States appetite is poor. - Objective CBC & Chem 7: 12/23/18 04:29 12/23/18 04:29 - Line Documentation Line Documentation: Chest Tube (Left lateral chest wall), Drain (ANGELA drain 2 noted to the left chest.) - Exam Vitals: Temp Pulse Resp BP Pulse Ox 97.3 F L 68 17 99/64 100 12/23/18 11:38 12/23/18 11:38 12/23/18 11:38 12/23/18 11:38 12/23/18 11:38 Exam: Head: Atraumatic, normal inspection, normocephalic. Eye: EOMI, PERRLA, no scleral icterus noted. ENT: Mucous membranes moist. No odontogenic infection noted. Neck: Normal inspection, no meningismus. Respiratory: Diminished bilateral bases. No respiratory distress, rhonchi, or wheezes noted. Chest tube noted to the left lateral chest wall with serosanguinous drainage noted. No crepitus or air leak. ANGELA drain x2 noted with serosanguinous drainage noted. Cardiovascular: Regular rate and rhythm, S1 and S2 audible. No murmurs, rubs, or gallops. GI: Soft, nondistended, normal bowel sounds. Non-tender. Jiménez catheter draining clear yellow urine. Extremities: No joint swelling, pedal edema, or tenderness noted. Neurological: Alert, oriented 3, no focal deficits. Psychiatric: normal affect, normal mood. Skin: Dry, intact, warm. Normal color. No rashes. - Assessment and Plan (1) Sepsis Current Visit: Yes Status: Resolved The patient had two SIRS criteria on admission. Likely secondary to empyema and multifocal PNA. Resolved. Blood cultures drawn 12/10/18 are negative x 2 sets. Qualifiers: Sepsis type: sepsis due to unspecified organism SNOMED Code(s): 70539593 (2) Empyema lung Current Visit: Yes Status: Acute Location: Left lung. Causative organism: P. mirabilis and S. epi (oxacillin resistant). Cardiothoracic surgery consulted and following. Status post bronchoscopy, left thoracotomy, partial rib resection, and serrated and latissimus MM flaps 12/20/[address] Angel. No additional cultures obtained. Post-op CXR unchanged per radiology. Currently on Zosyn and doxycycline. SNOMED Code(s): 885427208 (3) Multifocal pneumonia Current Visit: Yes Status: Acute Causative organism: Unclear. Previous BAL cultures 10/2018 positive for PSEA. Previous PNA in early November (unknown causative organism) treated with 6 days of Rocephin 11/18-11/23 with Levaquin x 4 days prior to that. CT chest 12/10/18 moderate sized left hydropneumothorax with chest tube in place and multifocal lung consolidation involving the lingula, RUL, and RLL. MRSA screen negative. S. pneumo and Legionella UATs negative. Low index of suspicion for aspiration. Repeat chest xrays show unchanged bilateral airspace disease. Currently on PO doxycycline and Zosyn. SNOMED Code(s): 085582696 (4) ISRRAEL (acute kidney injury) Current Visit: Yes Status: Acute Likely multifactorial. Resolved initially, but recurred post-op. Improved. Continue to trend. Dose-adjust antibiotics and avoid nephrotoxins. SNOMED Code(s): 73236433, 47523734 (5) CAD (coronary artery disease) Current Visit: No Status: Chronic Cardiology consulted. Status post [facility] 12/18/18. Qualifiers: Coronary Disease-Associated Artery/Lesion type: bypass graft [place] vs. 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 Status post diagnostic VATS, staging bronchoscopy, left thoracotomy pneumolysis, left lower lobectomy, and mediastinal lymph node dissection 11/06/[address] Angel. SNOMED Code(s): 867286668 (7) Congestive heart failure Current Visit: No Status: Chronic Qualifiers: Heart failure type: unspecified Heart failure chronicity: chronic Qualified Code(s): I50.9 - Heart failure, unspecified SNOMED Code(s): 44994034 (8) Diabetes mellitus, insulin dependent (IDDM), controlled Current Visit: No Status: Chronic SNOMED Code(s): 95667588, 355038123 - Recommendations Recommendations: Chest tube management per the CTS team. Continue Zosyn 3.375 grams IV Q8H (CrCl ~45). Continue doxycycline 100mg PO BID. Duration of treatment depends on the clinical picture. Discussed with CTS. Will plan to transition to PO antibiotics once ready for discharge. Monitor renal function and dose-adjust antibiotics. Consult Discharge Plan - Plan Referrals: Osman Martinez MD [Primary Care Provider] -
[2018-12-23] MEDS: Clotrimazole 1% CRM 15 GM TUBE TP SCH ×2 (14:43→20:40)
--- NOTE | 2018-12-23 16:13 | Nephrology Progress Note ---
Date of Encounter: 12/23/18 Time of Encounter: 14:00 - Assessment and Plan (1) ISRRAEL (acute kidney injury) Current Visit: Yes Status: Acute Creatinine 1.54 on 12/21/18 Continues to trend down 1.34 today, almost at baseline UOP remains adequate Plan: -Will continue to monitor -Trend Creatinine -Avoid Nephrotoxins if possible -Monitor I/O (2) Hyponatremia Current Visit: Yes Status: Acute Patient with mild hyponatremia Continues to improve Sodium 131 today Plan: -Continue to avoid excessive free water intake -Recommend 2 L fluid restriction -Continue to monitor and trend sodium (3) Empyema lung Current Visit: Yes Status: Acute Status post thoracotomy Cardiothoracic surgery following Subjective Principal diagnosis: Empyema Interval history: Patient seen and examined at bedside with present in room. Reports significant improvement from day before. Breathing adequate. Denies chest pain, shortness of breath. states swelling is improved today before. Urine output remains adequate. Objective - Vital Signs Vital signs: Vital Signs Temp Pulse Resp BP Pulse Ox 12/23/18 14:54 75 12/23/18 11:38 97.3 F L 68 17 99/64 100 12/23/18 11:04 16 100 12/23/18 09:15 69 12/23/18 07:24 97.5 F L 12/23/18 06:00 65 12 103/63 100 12/23/18 05:00 66 14 104/49 100 12/23/18 04:14 97.5 F L 12/23/18 04:07 14 100 12/23/18 04:00 72 14 98/52 100 12/23/18 03:00 66 13 100/51 100 12/23/18 02:00 68 11 102/58 100 12/23/18 01:00 62 10 100/54 100 12/23/18 00:19 96.8 F L 12/23/18 00:00 66 10 96/56 100 12/22/18 23:00 64 10 92/55 100 12/22/18 22:00 66 11 107/58 100 12/22/18 21:48 14 100 12/22/18 21:11 96.9 F L 12/22/18 21:00 69 13 96/52 100 12/22/18 20:00 68 10 95/57 100 12/22/18 19:00 70 13 94/56 100 12/22/18 17:55 68 11 101/59 100 12/22/18 17:00 97.5 F L 68 12 100/53 100 Intake and Output 12/23/18 12/23/18 12/23/18 07:59 15:59 23:59 Intake Total 100 / 200 100 / 200 Output Total 600 / 600 Balance -500 / -400 100 / -400 Intake: IV Fluids 100 / 200 100 / 200 Zosyn 3.375 GM In 0.9 % Sodium 100 / 200 100 / 200 Chloride (Mini-Bag +) 100 ML @ 25 mls/hr IVPB Q8H [facility] Rx#: [id number] Output: Catheter 280 / 280 Urethral (Jiménez) 115 / 115 Wound Drainage 320 / 320 ANGELA 2 280 / 280 Left Chest 40 / 40 Chest Tube Drainage 0 / 0 Left Mid-Axillary Chest 0 / 0 Other: Weight 82.7 kg Blood Glucose* 103 133 Patient Weight 12/23/18 23:59 Weight 82.7 kg - General Appearance Exam: General: A and O 3, no acute distress Head: Atraumatic, normocephalic Eyes: Anicteric sclerae, EOMI ENT: Mucous membranes moist, oropharynx clear Neck: Soft, supple, trachea midline CV: Regular rate and rhythm, no gallops murmurs or rubs Lungs: Mild crackles, heard best at the bases, some expiratory wheezes noted, good inspiratory effort Abdomen: Soft, nontender, nondistended Extremities: No rashes, ecchymosis to the left arm secondary to IVs, +1 pretibial edema noted - Lab 12/23/18 04:29 12/23/18 04:29 Most recent lab results 12/23/18 04:29 Calcium 8.0 L Magnesium 2.1 Consult Discharge Plan - Plan Referrals: Osman Martinez MD [Primary Care Provider] -
--- NOTE | 2018-12-23 17:44 | Internal Med Progress Note ---
Hospitalist Progress Note - Encounter Date of Encounter: 12/23/18 Time of Encounter: 15:45 - Subjective Interval History: Mr. medina is status post thoracotomy post op day 3 and have been stepdown telemetry floor. He has a chest tube in place and 2 ANGELA drain which continued to have high output per her nurse GEN: Denies fever, chills or malaise HEENT: Denies headache blurriness, or dysphagia RESP: Denies SOB or cough CV: Denies chest pain or palpitations GI: Denies Nausea, vomiting, diarrhea or constipation Reviewed current in hospital medications with modifications see orders Reviewed Routine labs - Exam Vitals: Temp Pulse Resp BP Pulse Ox 97.3 F L 62 17 100/64 100 12/23/18 11:38 12/23/18 16:23 12/23/18 16:23 12/23/18 16:23 12/23/18 16:23 Exam: GEN: NAD, A&O x 3, Pleasant and conversant, , and 2 sons at his bedside SKIN: [place] warm acyanotic not jaundice HEART: RRR, no murmurs LUNGS: Diminished no wheeze few scattered crackles, overall non labored chest tube noted, ANGELA noted with serosanguineous fluid ABDOMEN; Soft, non tender or distended, BS x 4 normactive EXT: trace bilateral LE edema, Pedal pulses 1+, radial pulses 2+ PSYCH: Mood and affect is appropriate - Assessment and Plan (1) Empyema lung Current Visit: Yes Status: Acute Assessment and Plan: Status post thoracotomy, antibiotics per ID team, leukocytosis trending down he is afebrile some of which could be reactive from surgery (2) DM2 (diabetes mellitus, type 2) Current Visit: Yes Status: Chronic Assessment and Plan: Patient status post surgery was hypo glycemic, given his A1c was 5.9 may not need insulin coverage. POC ranged from 75-226 (3) Hyponatremia Current Visit: Yes Status: Acute Assessment and Plan: Improving sodium improved to 129-131 anticipate to improve his oral intake improved (4) ISRRAEL (acute kidney injury) Current Visit: Yes Status: Acute Assessment and Plan: Worsening is status post surgery but improving creatinine improved from 1.56- 1.34, his hyponatremia complicates treatment of his ISRRAEL, intravascular volume expansion with saline would make his sodium trending down. Continue to monitor (5) Hypothyroidism Current Visit: No Status: Chronic Assessment and Plan: TSH within normal limits 3.296, continue levothyroxine (6) Sepsis Current Visit: Yes Status: Acute Assessment and Plan: Sepsis on initial presentation currently resolved. Sirs criteria, empyema and altered mental status. Currently leukocytosis could be reactive from surgery (7) Encephalopathy acute Current Visit: Yes Status: Acute Assessment and Plan: Resolved back to baseline, likely infectious/septic given his empyema. (8) Athlete's foot on left Current Visit: Yes Status: Acute Assessment and Plan: Patient and his has been complaining about his left foot, physical exam admission was unremarkable suspect athlete's foot clotrimazole ordered (9) Acute blood loss anemia Current Visit: Yes Status: Acute Assessment and Plan: hgb stable at 9.5 Vitals are stable (10) Hyperkalemia Current Visit: Yes Status: Acute Assessment and Plan: Mild potassium 5.2, no obvious drug causes, repeat BMP in the morning DVT Prophylaxis: scds - Time Spent with Patient Total time spent is greater than 50% in coordination of care (as documented) at patient's floor/unit and/or counseling patient: Internal Medicine: Result - Labs CBC & Chem 7: 12/23/18 04:29 12/23/18 04:29 Labs: Short CBC 12/23/18 Range/Units 04:29 WBC 15.8 H (4.3-11.1) K/mcL Hgb 9.5 L (12.9-16.9) g/dL Hct 30.6 L (37.5-50.1) % Plt Count 228 (140-400) K/mcL BMP 12/23/18 04:29 Sodium 131 L Potassium 5.2 H Chloride 105 Carbon Dioxide 18 L BUN 30 H Creatinine 1.34 H Glucose 110 H Calcium 8.0 L - ABG Interpretation ABG results: ABG ABG pH 7.42 pH Units (7.32-7.45) 12/12/18 09:55 ABG pCO2 34 mmHg (35-45) L 12/12/18 09:55 ABG pO2 139 mmHg (85-104) H 12/12/18 09:55 ABG O2 Saturation 99 % (95-98) H 12/12/18 09:55 PT/INR, D-dimer PT 16.9 Seconds (9.4-12.1) H 12/10/18 13:46 - Impressions Impressions Chest X-Ray 12/23/18 08:00 IMPRESSION: No measurable pneumothorax. Left pleural effusion with bilateral airspace opacities, left greater than right. 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
[2018-12-23] MEDS: Latanoprost 2.5 ML BOTTLE LEFT EYE SCH (20:42)
[2018-12-24 02:29] LABS: Hematocrit 31.9 % (37.5-50.1); Mean Corpuscular HGB Conc 31.3 g/dL (31.6-35.5); Mean Corpuscular Hemoglobin 29.3 pg (28.0-33.3); Mean Corpuscular Volume 93.5 fL (83.0-100.0); Mean Platelet Volume 10.8 fL (9.4-12.4); Platelet Count 212 K/mcL (140-400); Red Blood Count 3.41 M/mcL (4.19-5.50); Red Cell Distribution Width 17.8 % (11.5-14.5); White Blood Count 14.4 K/mcL (4.3-11.1)
[2018-12-24 02:43] LABS: Calcium 8.5 mg/dL (8.6-10.3); Potassium 5.3 mEq/L (3.5-5.1)
[2018-12-24] MEDS: Ipratropium Neb 0.5 MG NEBULIZER IH SCH ×4 (04:04→21:47)
[2018-12-24] MEDS: Piperacillin/Tazobactam 3.375 GM in 0.9 % Sodium Chloride Mini Bag 100 ML IVPB SCH ×3 (04:29→20:58)
[2018-12-24] MEDS: *HR* Heparin 5,000 UNIT/ML VIAL SQ SCH ×3 (05:26→21:01)
[2018-12-24] MEDS: Metoprolol XL (24 HR) Succ 25 MG TAB.ER.24H PO SCH (08:06)
[2018-12-24] MEDS: Cholecalciferol (D-3) 1,000 UNIT (25MCG) TABLET PO SCH (08:06)
[2018-12-24] MEDS: Isosorbide MONOnitrate (24 HR) 30 MG TAB.ER.24H PO SCH (08:06)
[2018-12-24] MEDS: Insulin LISPRO 300 UNITS/3 ML VIAL SQ SCH ×3 (08:07→16:35)
[2018-12-24] MEDS: Nystatin SUSP 5 ML UD.LIQ PO SCH ×4 (08:07→21:02)
[2018-12-24] MEDS: Clotrimazole 1% CRM 15 GM TUBE TP SCH ×2 (08:07→21:08)
[2018-12-24] MEDS: Doxycycline 100 MG CAPSULE PO SCH ×2 (08:07→21:02)
--- NOTE | 2018-12-24 09:51 | Internal Med Progress Note ---
Hospitalist Progress Note - Encounter Date of Encounter: 12/24/18 Time of Encounter: 09:48 - Subjective Interval History: I have seen and evaluated the patient at bedside. patient reports feeling well. denies chest pain, shortness of breath or productive cough. denies diarrhea or loose stool. denies abdominal pain, nausea or vomiting. - Exam Vitals: Temp Pulse Resp BP Pulse Ox 97.8 F 69 16 97/66 100 12/24/18 08:03 12/24/18 08:03 12/24/18 08:03 12/24/18 08:03 12/24/18 08:03 Exam: Vitals: Reviewed General: Alert and oriented x4. In no distress Cardiovascular: RRR, normal S1 & S2, no rubs, murmurs or gallops. Lungs: decrease breath sounds in the LLL, no wheezes or crackles. Abdomen: Soft, non-tender, no rigidity. Extremities: 2+ edema in the lower extr b/l. Neurological: Normal cognition and motor skills. Rest of the physical exam is non contributory - Assessment and Plan (1) DM2 (diabetes mellitus, type 2) Current Visit: Yes Status: Chronic (2) Hypothyroidism Current Visit: No Status: Chronic (3) ISRRAEL (acute kidney injury) Current Visit: Yes Status: Chronic (4) Empyema lung Current Visit: Yes Status: Acute (5) Encephalopathy acute Current Visit: Yes Status: Resolved (6) Hyponatremia Current Visit: Yes Status: Acute (7) Sepsis Current Visit: Yes Status: Resolved (8) Athlete's foot on left Current Visit: Yes Status: Chronic (9) Acute blood loss anemia Current Visit: Yes Status: Acute (10) Hyperkalemia Current Visit: Yes Status: Acute - Summary of Assessment and Plan Summary of Assessment and Plan: 73 year old male with history of recently diagnosed lung cancer status post lobectomy 4 weeks ago status post chest tube placement, history of COPD with chronic respiratory failure on 2 L nasal cannula oxygen at home, history of insulin-dependent diabetes mellitus. Patient admitted due to pneumonia, empyema of the Left lung. patient with a prolong complicated hospitalization. 1. Empyema of pleura s/p bronchoscopy, left thoracotomy partial rib resection, serratus and latissimus mm flaps - ches tube remains in place. management per CT surgery recommendations - chest Xray 11/23/18 Small left apical pneumothorax. Left chest tubes remain present. 2. Small left pleural effusion and left more than right lung opacities, not significantly changed. 2. HFrEF. - estimated E.F 40%. patient with 2+ edema in the lower extr b/l - continue furosemide 20mg/PO daily - on a bb - ACEs held due to ISRRAEL - fluids restriction to 1.5 litters a day - continue isosorbide 3. NSTEMI s/p LHC - S/P CABG 2 of 3 patent bypass grafts patent. There is severe three vessel coronary artery disease. - patient is on clopidogrel. will resume aspirin 81mg/PO daily 4. ISRRAEL/CKD with hyperkalemia - kidney function continues to trend down. will continue nephro-protective strategies - [place] 15gm/PO once ordered - Will repeat BMP at 5pm 5. Sepsis (Resolved) - Remove Jiménez cath 6. Multifocal pneumonia - Thoracic fluids: proteus mirabilis and straph epidermidis - Patient is on piperacillin/tazobactam based on sensitivity and specificity - ID recommendations appreciated 7. Lung CA - Stage IIB Squamous cell carcinoma of the lung (cT1c cN1 M0). - Status post diagnostic VATS, staging bronchoscopy, left thoracotomy pneumolysis, left lower lobectomy, and mediastinal lymph node dissection 11/06/[address] Angel. - Outpatient Hem&Onc follow up. 8. DVT prophylaxis - On heparin subQ 9. Disposition: - Patient to remain in the hospital. chest tube still in place. - Time Spent with Patient Total time spent is greater than 50% in coordination of care (as documented) at patient's floor/unit and/or counseling patient: Greater than 35 minutes (45) Plan of Care Discussed with: patient (and the nurse.) Internal Medicine: Result - Labs CBC & Chem 7: 12/24/18 01:40 12/24/18 01:40 Labs: Short CBC 12/24/18 Range/Units 01:40 WBC 14.4 H (4.3-11.1) K/mcL Hgb 10.0 L (12.9-16.9) g/dL Hct 31.9 L (37.5-50.1) % Plt Count 212 (140-400) K/mcL BMP 12/24/18 01:40 Sodium 130 L Potassium 5.3 H Chloride 102 Carbon Dioxide 20 L BUN 35 H Creatinine 1.46 H Glucose 97 Calcium 8.5 L - ABG Interpretation ABG results: ABG ABG pH 7.42 pH Units (7.32-7.45) 12/12/18 09:55 ABG pCO2 34 mmHg (35-45) L 12/12/18 09:55 ABG pO2 139 mmHg (85-104) H 12/12/18 09:55 ABG O2 Saturation 99 % (95-98) H 12/12/18 09:55 PT/INR, D-dimer PT 16.9 Seconds (9.4-12.1) H 12/10/18 13:46 - Impressions Impressions Chest X-Ray 12/24/18 08:00 IMPRESSION: 1. Small left apical pneumothorax. Left chest tubes remain present. 2. Small left pleural effusion and left more than right lung opacities, not significantly changed. 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
[2018-12-24] MEDS: Budesonide/Formoterol 160/4.5 1 PUFF INH IH SCH ×2 (10:01→21:47)
--- NOTE | 2018-12-24 13:48 | Cardiothoracic Progress Note ---
Date of Encounter: 12/24/18 Time of Encounter: 13:46 - Assessment and plan (1) Empyema of pleura Current Visit: Yes Status: Acute The assessment and plan as outlined above was discussed with the patient and/or family members who expressed understanding and agreement. All questions were answered. removed chest tube. . (2) Elevated troponin Current Visit: No Status: Acute The assessment and plan as outlined above was discussed with the patient and/or family members who expressed understanding and agreement. All questions were answered. no changes - Subjective Interval history: discouraged that PT has not worked with him in the last couple of days. Vital Signs, Last 4 Hours Pulse Resp BP Pulse Ox 12/24/18 11:45 65 17 89/59 100 12/24/18 10:04 16 95 Oxgyen Flow Rate Oxygen Flow Rate (LPM) 4 Weight 12/22/18 12/23/18 12/24/18 23:59 23:59 23:59 Weight 82.3 kg 82.7 kg - Physical Examination General: Conversant, No Apparent Distress HEENT: Atraumatic, Normocephaly Cardiac: Reg Rate and Rhythm, Normal S1 and S2 Incision: No signs of infection, Open to air Chest tubes: Minimal drainage Lungs: Other (cta except decreased at the left bbase. ) Neuro: Alert and responsive, No focal deficits noted, Cranial nerves intact Abdomen: Soft, Non-tender Extremities: Normal Pulses, Other (1+ edema ) - Labs 12/24/18 01:40 12/24/18 01:40 Lab Results, Last 24 hours 12/24/18 12/24/18 01:40 01:40 WBC 14.4 H Hgb 10.0 L Hct 31.9 L Plt Count 212 Sodium 130 L Potassium 5.3 H Chloride 102 Carbon Dioxide 20 L BUN 35 H Creatinine 1.46 H Glucose 97 Calcium 8.5 L - Imaging Chest Xray: image reviewed Consult Discharge Plan - Plan Referrals: Osman Martinez MD [Primary Care Provider] -
--- NOTE | 2018-12-24 13:49 | Infectious Disease Progress No ---
ID Progress Note Date of Encounter: 12/24/18 Time of Encounter: 13:47 - Subjective Subjective: Patient seen and examined with family at the bedside. No acute events noted overnight. Status post chest tube removal by Dr. Angel. Patient states overall he feels better. States he is tired of being in the hospital and wants to go home. Denies pain at this time. Denies fevers, chills, or rigors. Denies chest pain, but reports some chest congestion this morning. Denies nausea, vomiting, or diarrhea. Reports last BM yesterday. Denies abdominal pain or urinary complaints. Denies oral thrush or skin rashes. States appetite is poor. - Objective CBC & Chem 7: 12/24/18 01:40 12/24/18 01:40 - Line Documentation Line Documentation: Jiménez Catheter, Drain (ANGELA drain 2 noted to the left chest.) - Exam Vitals: Temp Pulse Resp BP Pulse Ox 97.8 F 65 17 89/59 100 12/24/18 08:03 12/24/18 11:45 12/24/18 11:45 12/24/18 11:45 12/24/18 11:45 Exam: Head: Atraumatic, normal inspection, normocephalic. Eye: EOMI, PERRLA, no scleral icterus noted. ENT: Mucous membranes moist. No odontogenic infection noted. Neck: Normal inspection, no meningismus. Respiratory: Clear TO. No respiratory distress, rhonchi, or wheezes noted. ANGELA drain x2 noted with serosanguinous drainage noted. Cardiovascular: Regular rate and rhythm, S1 and S2 audible. No murmurs, rubs, or gallops. GI: Soft, nondistended, normal bowel sounds. Non-tender. Jiménez catheter draining clear yellow urine. Extremities: No joint swelling, pedal edema, or tenderness noted. Neurological: Alert, oriented 3, no focal deficits. Psychiatric: normal affect, normal mood. Skin: Dry, intact, warm. Normal color. No rashes. - Assessment and Plan (1) Sepsis Current Visit: Yes Status: Resolved The patient had two SIRS criteria on admission. Likely secondary to empyema and multifocal PNA. Resolved. Blood cultures drawn 12/10/18 are negative x 2 sets. SNOMED Code(s): 35038332 (2) Empyema lung Current Visit: Yes Status: Acute Location: Left lung. Causative organism: P. mirabilis and S. epi (oxacillin resistant). Cardiothoracic surgery consulted and following. Status post bronchoscopy, left thoracotomy, partial rib resection, and serrated and latissimus MM flaps 12/20/[address] Angel. No additional cultures obtained. CXR shows unchanged bilateral airpsace opacities. Chest tube removed 12/24/18. Currently on Zosyn and doxycycline. SNOMED Code(s): 235108851 (3) Multifocal pneumonia Current Visit: Yes Status: Acute Causative organism: Unclear. Previous BAL cultures 10/2018 positive for PSEA. Previous PNA in early November (unknown causative organism) treated with 6 days of R ocephin 11/18-11/23 with Levaquin x 4 days prior to that. CT chest 12/10/18 moderate sized left hydropneumothorax with chest tube in place and multifocal lung consolidation involving the lingula, RUL, and RLL. MRSA screen negative. S. pneumo and Legionella UATs negative. Low index of suspicion for aspiration. Repeat chest xrays show unchanged bilateral airspace disease. Discussed with Dr. Angel who thinks findings are more consistent with fluid than PNA and will improved once the patient's BP is able to tolerate lasix. Currently on PO doxycycline and Zosyn. SNOMED Code(s): 670912437 (4) ISRRAEL (acute kidney injury) Current Visit: Yes Status: Chronic Likely multifactorial. Resolved initially, but recurred post-op. Improved. Continue to trend. Dose-adjust antibiotics and avoid nephrotoxins. SNOMED Code(s): 81086283, 32004166 (5) CAD (coronary artery disease) Current Visit: No Status: Chronic Cardiology consulted. Status post [facility] 12/18/18. Qualifiers: Qualified Code(s): I25.810 - Atherosclerosis of coronary artery bypass graft(s) without angina pectoris SNOMED Code(s): 23612724 (6) Cancer of lower lobe of left lung Current Visit: No Status: Acute Stage IIB Squamous cell carcinoma of the lung (cT1c cN1 M0). Status post diagnostic VATS, staging bronchoscopy, left thoracotomy pneumolysis, left lower lobectomy, and mediastinal lymph node dissection 11/06/[address] Radecki. SNOMED Code(s): 490353985 (7) Congestive heart failure Current Visit: No Status: Chronic Qualifiers: Qualified Code(s): I50.9 - Heart failure, unspecified SNOMED Code(s): 36024797 (8) Diabetes mellitus, insulin dependent (IDDM), controlled Current Visit: No Status: Chronic SNOMED Code(s): 68200295, 473818717 - Recommendations Recommendations: Drain and post-op management per the CTS team. Continue Zosyn 3.375 grams IV Q8H (CrCl ~45). Continue doxycycline 100mg PO BID. Duration of treatment depends on the clinical picture. Discussed with CTS. Will plan to transition to PO antibiotics once ready for discharge. Monitor renal function and dose-adjust antibiotics. Consult Discharge Plan - Plan Referrals: Osman Martinez MD [Primary Care Provider] -
[2018-12-24 18:43] LABS: Calcium 8.6 mg/dL (8.6-10.3); Potassium 4.7 mEq/L (3.5-5.1)
[2018-12-24] MEDS: Latanoprost 2.5 ML BOTTLE LEFT EYE SCH (21:00)
[2018-12-24] MEDS ORDERED: Furosemide 20 MG TABLET PO ONE (22:20)
[2018-12-25] MEDS ORDERED: 0.9 % Sodium Chloride 1,000 ML IVC SCH ×3 (02:15→17:00)
[2018-12-25] MEDS: Piperacillin/Tazobactam 3.375 GM in 0.9 % Sodium Chloride Mini Bag 100 ML IVPB SCH ×3 (03:04→20:15)
[2018-12-25] MEDS: Ipratropium Neb 0.5 MG NEBULIZER IH SCH ×4 (03:51→23:07)
[2018-12-25 04:30] LABS: Hematocrit 31.4 % (37.5-50.1); Mean Corpuscular HGB Conc 31.8 g/dL (31.6-35.5); Mean Corpuscular Hemoglobin 29.1 pg (28.0-33.3); Mean Corpuscular Volume 91.3 fL (83.0-100.0); Mean Platelet Volume 10.7 fL (9.4-12.4); Platelet Count 242 K/mcL (140-400); Red Blood Count 3.44 M/mcL (4.19-5.50); Red Cell Distribution Width 17.6 % (11.5-14.5); White Blood Count 12.4 K/mcL (4.3-11.1)
[2018-12-25] MEDS: *HR* Heparin 5,000 UNIT/ML VIAL SQ SCH ×3 (05:25→20:31)
[2018-12-25 05:53] LABS: Calcium 8.6 mg/dL (8.6-10.3); Potassium 4.6 mEq/L (3.5-5.1)
[2018-12-25] MEDS: Doxycycline 100 MG CAPSULE PO SCH ×2 (07:30→20:17)
[2018-12-25] MEDS: Isosorbide MONOnitrate (24 HR) 30 MG TAB.ER.24H PO SCH (07:30)
[2018-12-25] MEDS: Metoprolol XL (24 HR) Succ 25 MG TAB.ER.24H PO SCH (07:30)
[2018-12-25] MEDS: Cholecalciferol (D-3) 1,000 UNIT (25MCG) TABLET PO SCH (07:30)
[2018-12-25] MEDS: Clotrimazole 1% CRM 15 GM TUBE TP SCH ×2 (07:31→20:20)
[2018-12-25] MEDS: Aspirin Enteric Coated 81 MG Tablet PO SCH (07:31)
[2018-12-25] MEDS: traMADol 50 MG TABLET PO PRN ×2 (07:31→17:35)
[2018-12-25] MEDS: Nystatin SUSP 5 ML UD.LIQ PO SCH ×4 (07:31→20:29)
[2018-12-25] MEDS: Insulin LISPRO 300 UNITS/3 ML VIAL SQ SCH ×3 (07:32→17:19)
[2018-12-25] MEDS: Budesonide/Formoterol 160/4.5 1 PUFF INH IH SCH ×2 (10:15→23:07)
--- NOTE | 2018-12-25 11:15 | Infectious Disease Progress No ---
ID Progress Note Date of Encounter: 12/25/18 Time of Encounter: 11:13 - Subjective Subjective: Patient seen and examined with family at the bedside. No acute events noted overnight. Patient states he doesn't feel very well, but offers no specific complaints. Status post chest tube removal 12/24/[address] Angel. Patient states overall he feels better. States he is tired of being in the hospital and wants to go home and is now considering hospice. Denies pain at this time. Denies fevers, chills, or rigors. Denies chest pain, but reports some shortness of breath with exertion. Reports some blood-tinged sputum overnight. Denies nausea, vomiting, or diarrhea. Reports last BM yesterday. Denies abdominal pain or urinary complaints. Denies oral thrush or skin rashes. States appetite is poor. - Objective CBC & Chem 7: 12/25/18 04:15 12/25/18 05:10 - Line Documentation Line Documentation: Jiménez Catheter, Drain (ANGELA drain 2 noted to the left chest.) - Exam Vitals: Temp Pulse Resp BP Pulse Ox 97.3 F L 75 14 111/60 100 12/25/18 07:17 12/25/18 07:17 12/25/18 10:17 12/25/18 07:17 12/25/18 10:17 Exam: Head: Atraumatic, normal inspection, normocephalic. Eye: EOMI, PERRLA, no scleral icterus noted. ENT: Mucous membranes moist. No odontogenic infection noted. Neck: Normal inspection, no meningismus. Respiratory: Clear TO. No respiratory distress, rhonchi, or wheezes noted. ANGELA drain x2 noted with serosanguinous drainage noted. Cardiovascular: Regular rate and rhythm, S1 and S2 audible. No murmurs, rubs, or gallops. GI: Soft, nondistended, normal bowel sounds. Non-tender. Jiménez catheter draining clear yellow urine. Extremities: No joint swelling, pedal edema, or tenderness noted. Neurological: Alert, oriented 3, no focal deficits. Psychiatric: normal affect, normal mood. Skin: Dry, intact, warm. Normal color. No rashes. - Assessment and Plan (1) Sepsis Current Visit: Yes Status: Resolved The patient had two SIRS criteria on admission. Likely secondary to empyema and multifocal PNA. Resolved. Blood cultures drawn 12/10/18 are negative x 2 sets. Qualifiers: Sepsis type: sepsis due to unspecified organism SNOMED Code(s): 56788496 (2) Empyema lung Current Visit: Yes Status: Acute Location: Left lung. Causative organism: P. mirabilis and S. epi (oxacillin resistant). Cardiothoracic surgery consulted and following. Status post bronchoscopy, left thoracotomy, partial rib resection, and serrated and latissimus MM flaps 12/20/[address] Angel. No additional cultures obtained. CXR shows unchanged bilateral airpsace opacities. Chest tube removed 12/24/18. Currently on Zosyn and doxycycline. SNOMED Code(s): 733791190 (3) Multifocal pneumonia Current Visit: Yes Status: Acute Causative organism: Unclear. Previous BAL cultures 10/2018 positive for PSEA. Previous PNA in early November (unknown causative organism) treated with 6 days of Rocephin 11/18-11/23 with Levaquin x 4 days prior to that. CT chest 12/10/18 moderate sized left hydropneumothorax with chest tube in place and multifocal lung consolidation involving the lingula, RUL, and RLL. MRSA screen negative. S. pneumo and Legionella UATs negative. Low index of suspicion for aspiration. Repeat chest xrays show unchanged bilateral airspace disease. Discussed with Dr. Angel who thinks findings are more consistent with fluid than PNA and will improved once the patient's BP is able to tolerate lasix. Currently on PO doxycycline and Zosyn. SNOMED Code(s): 424443003 (4) ISRRAEL (acute kidney injury) Current Visit: Yes Status: Chronic Likely multifactorial. Resolved initially, but recurred post-op. Urine output low. Stable. Continue to trend. Nephrology consulted and following. Dose-adjust antibiotics and avoid nephrotoxins. SNOMED Code(s): 60773485, 13152779 (5) CAD (coronary artery disease) Current Visit: No Status: Chronic Cardiology consulted. Status post [facility] 12/18/18. Qualifiers: Coronary Disease-Associated Artery/Lesion type: bypass graft [place] vs. transplanted heart: [place] heart Associated angina: without angina Qualified Code(s): I25.810 - Atherosclerosis of coronary artery bypass graft(s) without an mi pectoris SNOMED Code(s): 86004137 (6) Cancer of lower lobe of left lung Current Visit: No Status: Acute Stage IIB Squamous cell carcinoma of the lung (cT1c cN1 M0). Status post diagnostic VATS, staging bronchoscopy, left thoracotomy pneumolysis, left lower lobectomy, and mediastinal lymph node dissection 11/06/[address] Angel. SNOMED Code(s): 635151341 (7) Congestive heart failure Current Visit: No Status: Chronic Qualifiers: Heart failure type: unspecified Heart failure chronicity: chronic Qualified Code(s): I50.9 - Heart failure, unspecified SNOMED Code(s): 11111751 (8) Diabetes mellitus, insulin dependent (IDDM), controlled Current Visit: No Status: Chronic SNOMED Code(s): 88530901, 128346444 - Recommendations Recommendations: Goals of care per the palliative care team. Drain and post-op management per the CTS team. Continue Zosyn 3.375 grams IV Q8H (CrCl ~45). Continue doxycycline 100mg PO BID. Duration of treatment depends on the clinical picture. Discussed with CTS. Will plan to transition to PO antibiotics once ready for discharge. Monitor renal function and dose-adjust antibiotics. Consult Discharge Plan - Plan Referrals: Osman Martinez MD [Primary Care Provider] -
--- NOTE | 2018-12-25 11:29 | Internal Med Progress Note ---
Hospitalist Progress Note - Encounter Date of Encounter: 12/25/18 Time of Encounter: 11:28 - Subjective Interval History: I have seen and evaluated the patient at bedside. Patient reported feeling tired and desires to talk to the palliative care team because he is thinking about going home with hospice. Denies chest pain, nausea or vomiting. - Exam Vitals: Temp Pulse Resp BP Pulse Ox 97.3 F L 75 14 111/60 100 12/25/18 07:17 12/25/18 07:17 12/25/18 10:17 12/25/18 07:17 12/25/18 10:17 Exam: Vitals: Reviewed General: Alert and oriented x4. In mild distress due to generalized weakness. Cardiovascular: RRR, normal S1 & S2, no rubs, murmurs or gallops. Lungs: Rales and crackles at the left lower lobe. Abdomen: Soft, non-tender, no rigidity. NABS in all 4 quadrants. Extremities: 1+ edema in the lower extr b/l. Neurological: Normal cognition and motor skills. Rest of the physical exam is non contributory - Assessment and Plan (1) DM2 (diabetes mellitus, type 2) Current Visit: Yes Status: Chronic (2) Hypothyroidism Current Visit: No Status: Chronic (3) ISRRAEL (acute kidney injury) Current Visit: Yes Status: Chronic (4) Empyema lung Current Visit: Yes Status: Acute (5) Encephalopathy acute Current Visit: Yes Status: Resolved (6) Hyponatremia Current Visit: Yes Status: Acute (7) Sepsis Current Visit: Yes Status: Resolved (8) Athlete's foot on left Current Visit: Yes Status: Chronic (9) Acute blood loss anemia Current Visit: Yes Status: Acute - Summary of Assessment and Plan Summary of Assessment and Plan: 73 year old male with history of recently diagnosed lung cancer status post lobectomy 4 weeks ago status post chest tube placement, history of COPD with chronic respiratory failure on 2 L nasal cannula oxygen at home, history of insulin-dependent diabetes mellitus. Patient admitted due to pneumonia, empyema of the Left lung. patient with a prolong complicated hospitalization. Assessment: 1. Empyema of pleura s/p bronchoscopy, left thoracotomy partial rib resection, serratus and latissimus mm flaps 2. HFrEF. 3. NSTEMI s/p LHC 4. ISRRAEL/CKD with hyperkalemia 5. Sepsis (Resolved) 6. Multifocal pneumonia 7. Lung CA 8. DVT prophylaxis 9. Generalized weakness 10. Hyponatremia likely secondary to lung disease. Plan: - Palliative care has been consulted as patient reported wishes of going home with hospice. - will continue current management pending palliative care meeting and final decision from the patient - chest tube drain, per CT surgery recommendation - on dual anti-platelet therapy - c/w bronchodilators and incentive spirometry - on broad spectrum IV antibiotics - free water restriction to 1.5 litters a day - furosemide held due to worsening kidney function. - patient on Iv hydration, will decrease rate of IV fluids to 75ml/hr x1 litter. and will re-assess kidney function. - On heparin subQ. Disposition: - Pending palliative care meeting with the patient and his family. - Time Spent with Patient Total time spent is greater than 50% in coordination of care (as documented) at patient's floor/unit and/or counseling patient: Greater than 35 minutes (45) Plan of Care Discussed with: patient (his and the nurse) Internal Medicine: Result - Labs CBC & Chem 7: 12/25/18 04:15 12/25/18 05:10 Labs: Short CBC 12/25/18 Range/Units 04:15 WBC 12.4 H (4.3-11.1) K/mcL Hgb 10.0 L (12.9-16.9) g/dL Hct 31.4 L (37.5-50.1) % Plt Count 242 (140-400) K/mcL BMP 12/24/18 12/25/18 17:15 05:10 Sodium 128 L 129 L Potassium 4.7 4.6 Chloride 99 97 L Carbon Dioxide 20 L 19 L BUN 36 H 37 H Creatinine 1.48 H 1.50 H Glucose 150 H 159 H Calcium 8.6 8.6 - ABG Interpretation ABG results: ABG ABG pH 7.42 pH Units (7.32-7.45) 12/12/18 09:55 ABG pCO2 34 mmHg (35-45) L 12/12/18 09:55 ABG pO2 139 mmHg (85-104) H 12/12/18 09:55 ABG O2 Saturation 99 % (95-98) H 12/12/18 09:55 PT/INR, D-dimer PT 16.9 Seconds (9.4-12.1) H 12/10/18 13:46 - Impressions Impressions Chest X-Ray 12/25/18 08:00 IMPRESSION: Lines and tubes as described. Suspected small left apical pneumothorax. Diffuse airspace opacities, most confluent in the left base with a moderate effusion. Findings are stable from the prior study. D/ 12/25/2018 07:30:31 Fariba Garnett MD / elton Interpreting Provider: Fariba Garnett MD Consult Discharge Plan - Plan Referrals: Osman Martinez MD [Primary Care Provider] - (1) DM2 (diabetes mellitus, type 2) Qualifiers: Diabetes mellitus nursing home insulin use: with nursing home use Diabetes mellitus complication status: with circulatory complication Diabetes mellitus complication detail: with peripheral angiopathy without gangrene Qualified Code(s): E11.51 - Type 2 diabetes mellitus with diabetic peripheral angiopathy without gangrene; Z79.4 - care home (current) use of insulin (2) Hypothyroidism Qualifiers: Hypothyroidism type: acquired Qualified Code(s): E03.9 - Hypothyroidism, unspecified
--- NOTE | 2018-12-25 17:02 | Cardiothoracic Progress Note ---
Date of Encounter: 12/25/18 Time of Encounter: 17:00 - Assessment and plan (1) Empyema of pleura Current Visit: Yes Status: Acute The assessment and plan as outlined above was discussed with the patient and/or family members who expressed understanding and agreement. All questions were answered. give ivf. check labs. schedule picc placement . (2) Elevated troponin Current Visit: No Status: Acute The assessment and plan as outlined above was discussed with the patient and/or family members who expressed understanding and agreement. All questions were answered. no changes (3) Hyponatremia with decreased serum osmolality Current Visit: Yes Status: Acute The assessment and plan as outlined above was discussed with the patient and/or family members who expressed understanding and agreement. All questions were answered. srun .9ns give nacl tables labs in am - Subjective Interval history: anxious to go home Vital Signs, Last 4 Hours Temp Pulse Resp BP Pulse Ox 12/25/18 16:42 97.2 F L 62 16 106/96 95 Oxgyen Flow Rate Oxygen Flow Rate (LPM) 1 Weight 12/23/18 12/24/18 12/25/18 23:59 23:59 23:59 Weight 82.7 kg 84.1 kg - Physical Examination General: Conversant, No Apparent Distress HEENT: Atraumatic, Normocephaly Neck: No JVD, Other (mucus membranes dry ) Cardiac: Reg Rate and Rhythm Chest tubes: Minimal drainage, Air leak Lungs: Normal Breath Sounds Neuro: Alert and responsive, No focal deficits noted, Cranial nerves intact, Motor nerves intact Extremities: Other (1+ edema ) - Labs 12/25/18 04:15 12/25/18 05:10 Lab Results, Last 24 hours 12/24/18 12/25/18 12/25/18 17:15 04:15 05:10 WBC 12.4 H Hgb 10.0 L Hct 31.4 L Plt Count 242 Sodium 128 L 129 L Potassium 4.7 4.6 Chloride 99 97 L Carbon Dioxide 20 L 19 L BUN 36 H 37 H Creatinine 1.48 H 1.50 H Glucose 150 H 159 H Calcium 8.6 8.6 - Imaging Chest Xray: image reviewed Consult Discharge Plan - Plan Referrals: Osman Martinez MD [Primary Care Provider] -
[2018-12-25] MEDS: Latanoprost 2.5 ML BOTTLE LEFT EYE SCH (20:27)
[2018-12-26 03:38] LABS: Hematocrit 31.9 % (37.5-50.1); Hemoglobin 10.1 g/dL (12.9-16.9); Mean Corpuscular HGB Conc 31.7 g/dL (31.6-35.5); Mean Corpuscular Hemoglobin 29.1 pg (28.0-33.3); Mean Corpuscular Volume 91.9 fL (83.0-100.0); Mean Platelet Volume 10.7 fL (9.4-12.4); Platelet Count 268 K/mcL (140-400); Red Blood Count 3.47 M/mcL (4.19-5.50); Red Cell Distribution Width 17.5 % (11.5-14.5); White Blood Count 10.1 K/mcL (4.3-11.1)
[2018-12-26] MEDS: Ipratropium Neb 0.5 MG NEBULIZER IH SCH ×4 (03:48→22:36)
[2018-12-26 04:00] LABS: Calcium 8.2 mg/dL (8.6-10.3); Magnesium 1.8 mg/dL (1.6-2.6); Phosphorous 2.9 mg/dL (2.7-4.5); Potassium 5.1 mEq/L (3.5-5.1)
[2018-12-26] MEDS: Piperacillin/Tazobactam 3.375 GM in 0.9 % Sodium Chloride Mini Bag 100 ML IVPB SCH ×3 (05:06→20:41)
[2018-12-26] MEDS: *HR* Heparin 5,000 UNIT/ML VIAL SQ SCH ×3 (05:10→21:13)
[2018-12-26] MEDS: Isosorbide MONOnitrate (24 HR) 30 MG TAB.ER.24H PO SCH (08:01)
[2018-12-26] MEDS: Insulin LISPRO 300 UNITS/3 ML VIAL SQ SCH ×3 (08:01→17:11)
[2018-12-26] MEDS: Morphine Sulfate 2 MG/ML SYRINGE IVP PRN ×2 (08:02→17:01)
[2018-12-26] MEDS: Doxycycline 100 MG CAPSULE PO SCH ×2 (08:02→20:43)
[2018-12-26] MEDS: Nystatin SUSP 5 ML UD.LIQ PO SCH ×4 (08:03→20:44)
[2018-12-26] MEDS: Clotrimazole 1% CRM 15 GM TUBE TP SCH ×2 (08:03→21:01)
[2018-12-26] MEDS: Aspirin Enteric Coated 81 MG Tablet PO SCH (08:03)
[2018-12-26] MEDS: Cholecalciferol (D-3) 1,000 UNIT (25MCG) TABLET PO SCH (08:06)
[2018-12-26] MEDS: Metoprolol XL (24 HR) Succ 25 MG TAB.ER.24H PO SCH (08:06)
--- NOTE | 2018-12-26 08:55 | Event Note ---
Date of Encounter: 12/26/18 Time of Encounter: 08:55 Palliative was consulted yesterday for goals of care for this patient with h/o lung cancer s/p resection, empyema. Upon arrival, patient and appreciative of visit, however, desire to speak with surgeon prior to discussing his care. Spoke with primary nurse and Dr. Barakat planned to speak with them. He did meet with pt/ yesterday and I was notified, patient would be likely d/c today, and family no longer desired to speak with me. Communicated to Dr. Zuleta who confirmed palliative did not need to see this patient. Please call if needed.
--- NOTE | 2018-12-26 08:59 | Cardiothoracic Progress Note ---
Date of Encounter: 12/26/18 Time of Encounter: 08:57 - Assessment and plan (1) Empyema of pleura Current Visit: Yes Status: Acute The assessment and plan as outlined above was discussed with the patient and/or family members who expressed understanding and agreement. All questions were answered. give ivf. check labs. schedule picc placement continue ivf for 1 more day check labs and xray in am (2) Hyponatremia with decreased serum osmolality Current Visit: Yes Status: Acute The assessment and plan as outlined above was discussed with the patient and/or family members who expressed understanding and agreement. All questions were answered. improving plan to stop po nacl 12/28 - Subjective Interval history: anxious to go home Vital Signs, Last 4 Hours Temp Pulse Resp BP Pulse Ox 12/26/18 07:32 97.6 F 69 18 116/78 100 Oxgyen Flow Rate Oxygen Flow Rate (LPM) 2 Weight 12/24/18 12/25/18 12/26/18 23:59 23:59 23:59 Weight 84.1 kg - Physical Examination HEENT: Atraumatic Cardiac: Reg Rate and Rhythm Incision: No signs of infection, Dry/intact dressing Chest tubes: Minimal drainage, Air leak Lungs: Normal Breath Sounds Neuro: Alert and responsive - Labs 12/26/18 02:52 12/26/18 02:52 Lab Results, Last 24 hours 12/26/18 12/26/18 02:52 02:52 WBC 10.1 Hgb 10.1 L Hct 31.9 L Plt Count 268 Sodium 131 L Potassium 5.1 Chloride 103 Carbon Dioxide 18 L BUN 36 H Creatinine 1.42 H Glucose 130 H Calcium 8.2 L Magnesium 1.8 Consult Discharge Plan - Plan Additional Instructions: Please go to Out Patient testing on Jan 12, 2019 around 0750 AM to get an x-ray done before you go see Dr. Angel. The office is sending the order over to out patient testing at the [facility]. Referrals: Osman Martinez MD [Primary Care Provider] - 01/02/19 1:15 pm Tra Angel MD [Partnered Physician] - 01/12/19 8:50 am
--- NOTE | 2018-12-26 09:16 | Infectious Disease Progress No ---
ID Progress Note Date of Encounter: 12/26/18 Time of Encounter: 09:14 - Subjective Subjective: Patient seen and examined with family at the bedside. No acute events noted overnight. Patient states he feels well.. Status post chest tube removal 12/24/[address] Angel. Denies pain at this time. Denies fevers, chills, or rigors. Denies chest pain or shortness of breath or cough today. Denies nausea, vomiting, or diarrhea. Reports last BM two days ago. Denies abdominal pain or urinary complaints. Denies oral thrush or skin rashes. States appetite is still not very good. - Objective CBC & Chem 7: 12/26/18 02:52 12/26/18 02:52 - Line Documentation Line Documentation: Jiménez Catheter, Drain (ANGELA drain 2 noted to the left chest.) - Exam Vitals: Temp Pulse Resp BP Pulse Ox 97.6 F 69 18 116/78 100 12/26/18 07:32 12/26/18 07:32 12/26/18 07:32 12/26/18 07:32 12/26/18 07:32 Exam: Head: Atraumatic, normal inspection, normocephalic. Eye: EOMI, PERRLA, no scleral icterus noted. ENT: Mucous membranes moist. No odontogenic infection noted. Neck: Normal inspection, no meningismus. Respiratory: Clear TO. No respiratory distress, rhonchi, or wheezes noted. ANGELA drain x2 noted with serosanguinous drainage noted. Left chest surgical site dressing C/D/I. Cardiovascular: Regular rate and rhythm, S1 and S2 audible. No murmurs, rubs, or gallops. GI: Soft, nondistended, normal bowel sounds. Non-tender. Jiménez catheter draining clear yellow urine. Extremities: No joint swelling, pedal edema, or tenderness noted. Neurological: Alert, oriented 3, no focal deficits. Psychiatric: normal affect, normal mood. Skin: Dry, intact, warm. Normal color. No rashes. - Assessment and Plan (1) Sepsis Current Visit: Yes Status: Resolved The patient had two SIRS criteria on admission. Likely secondary to empyema and multifocal PNA. Resolved. Blood cultures drawn 12/10/18 are negative x 2 sets. Qualifiers: Sepsis type: sepsis due to unspecified organism SNOMED Code(s): 21544201 (2) Empyema lung Current Visit: Yes Status: Acute Location: Left lung. Causative organism: P. mirabilis and S. epi (oxacillin resistant). Cardiothoracic surgery consulted and following. Status post bronchoscopy, left thoracotomy, partial rib resection, and serrated and latissimus MM flaps 12/20/[address] Angel. No additional cultures obtained. CXR shows unchanged bilateral airpsace opacities. Chest tube removed 12/24/18. Currently on Zosyn and doxycycline. SNOMED Code(s): 660226504 (3) Multifocal pneumonia Current Visit: Yes Status: Acute Causative organism: Unclear. Previous BAL cultures 10/2018 positive for PSEA. Previous PNA in early November (unknown causative organism) treated with 6 days of Rocephin 11/18-11/23 with Levaquin x 4 days prior to that. CT chest 12/10/18 moderate sized left hydropneumothorax with chest tube in place and multifocal lung consolidation involving the lingula, RUL, and RLL. MRSA screen negative. S. pneumo and Legionella UATs negative. Low index of suspicion for aspiration. Repeat chest xrays show unchanged bilateral airspace disease. Discussed with Dr. Angel who thinks findings are more consistent with fluid than PNA and will improved once the patient's BP is able to tolerate lasix. Currently on PO doxycycline and Zosyn. SNOMED Code(s): 478572242 (4) ISRRAEL (acute kidney injury) Current Visit: Yes Status: Chronic Likely multifactorial. Resolved initially, but recurred post-op. Urine output low. Stable. Continue to trend. Nephrology consulted and following. Dose-adjust antibiotics and avoid nephrotoxins. SNOMED Code(s): 23527562, 23659529 (5) CAD (coronary artery disease) Current Visit: No Status: Chronic Cardiology consulted. Status post [facility] 12/18/18. Qualifiers: Coronary Disease-Associated Artery/Lesion type: bypass graft [place] vs. 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 Status post diagnostic VATS, staging bronchoscopy, left thoracotomy pneumolysis, left lower lobectomy, and mediastinal lymph node dissection 11/06/[address] Angel. SNOMED Code(s): 900716618 (7) Congestive heart failure Current Visit: No Status: Chronic Qualifiers: Heart failure type: unspecified Heart failure chronicity: chronic Qualified Code(s): I50.9 - Heart failure, unspecified SNOMED Code(s): 74150317 (8) Diabetes mellitus, insulin dependent (IDDM), controlled Current Visit: No Status: Chronic SNOMED Code(s): 75366031, 030410189 - Recommendations Recommendations: Drain and post-op management per the CTS team. Continue Zosyn 3.375 grams IV Q8H (CrCl ~45). Continue doxycycline 100mg PO BID. Duration of treatment depends on the clinical picture. Discussed with CTS. Will plan to transition to PO antibiotics once ready for discharge. Monitor renal function and dose-adjust antibiotics. Consult Discharge Plan - Plan Additional Instructions: Please go to Out Patient testing on Jan 12, 2019 around 0750 AM to get an x-ray done before you go see Dr. Angel. The office is sending the order over to out patient testing at the main hospital. Referrals: Osman Martinez MD [Primary Care Provider] - 01/02/19 1:15 pm Tra Angel MD [Partnered Physician] - 01/12/19 8:50 am
[2018-12-26] MEDS: Budesonide/Formoterol 160/4.5 1 PUFF INH IH SCH ×2 (10:34→22:37)
--- NOTE | 2018-12-26 14:19 | Internal Med Progress Note ---
Hospitalist Progress Note - Encounter Date of Encounter: 12/26/18 Time of Encounter: 14:12 - Subjective Interval History: I have seen and evaluated the patient at bedside. Patient denies shortness of breath, but reports generalized weakness. denies abdominal pain, nausea or vomiting. - Exam Vitals: Temp Pulse Resp BP Pulse Ox 97.5 F L 65 18 108/62 100 12/26/18 11:17 12/26/18 11:17 12/26/18 11:17 12/26/18 11:17 12/26/18 11:17 Exam: Vitals: Reviewed General: Alert and oriented x4. In mild distress due to generalized weakness. Cardiovascular: RRR, normal S1 & S2, no rubs, murmurs or gallops. Lungs: minimal rales and crackles at the left lower lobe. Abdomen: Soft, non-tender, no rigidity. NABS in all 4 quadrants. Extremities: 1+ edema in the lower extr b/l. Neurological: Normal cognition and motor skills. Rest of the physical exam is non contributory - Assessment and Plan (1) DM2 (diabetes mellitus, type 2) Current Visit: Yes Status: Chronic (2) Hypothyroidism Current Visit: No Status: Chronic (3) ISRRAEL (acute kidney injury) Current Visit: Yes Status: Chronic (4) Empyema lung Current Visit: Yes Status: Acute (5) Encephalopathy acute Current Visit: Yes Status: Resolved (6) Hyponatremia Current Visit: Yes Status: Acute (7) Sepsis Current Visit: Yes Status: Resolved (8) Athlete's foot on left Current Visit: Yes Status: Chronic (9) Acute blood loss anemia Current Visit: Yes Status: Acute - Summary of Assessment and Plan Summary of Assessment and Plan: 73 year old male with history of recently diagnosed lung cancer status post lobectomy 4 weeks ago status post chest tube placement, history of COPD with chronic respiratory failure on 2 L nasal cannula oxygen at home, history of insulin-dependent diabetes mellitus. Patient admitted due to pneumonia, empyema of the Left lung. patient with a prolong complicated hospitalization. Assessment: 1. Empyema of pleura s/p bronchoscopy, left thoracotomy partial rib resection, serratus and latissimus mm flaps 2. HFrEF. 3. NSTEMI s/p LHC 4. ISRRAEL/CKD 5. Sepsis (Resolved) 6. Multifocal pneumonia 7. Lung CA 8. DVT prophylaxis 9. Generalized weakness 10. Hyponatremia likely secondary to lung disease. 11. HLD 12. Hypothyroidism Plan: - After family discussion with CT surgery. They want to continue medical ma nagement - thoracic fluid culture: grew proteous and Staph epidermidis. - C/W broad spectrum IV antibiotics - chest tube drain, per CT surgery recommendation - on dual anti-platelet therapy - On bronchodilators and incentive spirometry - free water restriction to 1.5 litters a day - Cautious needed with IV hydration on NS @75ml/hr x1 litter. - On soidum chloride 1gm/PO TID due to hyponatremia - Levothyroxine 50mcg/Po daily - On heparin subQ. - c/w lipid lowering medication - c/w daily PT/OT Disposition: - Discussed with CT surgery goal of care and patient is not clinically stable to be discharge home as yet. - Time Spent with Patient Total time spent is greater than 50% in coordination of care (as documented) at patient's floor/unit and/or counseling patient: Greater than 35 minutes (45) Plan of Care Discussed with: patient (and the nurse.) Internal Medicine: Result - Labs CBC & Chem 7: 12/26/18 02:52 12/26/18 02:52 Labs: Short CBC 12/26/18 Range/Units 02:52 WBC 10.1 (4.3-11.1) K/mcL Hgb 10.1 L (12.9-16.9) g/dL Hct 31.9 L (37.5-50.1) % Plt Count 268 (140-400) K/mcL BMP 12/26/18 02:52 Sodium 131 L Potassium 5.1 Chloride 103 Carbon Dioxide 18 L BUN 36 H Creatinine 1.42 H Glucose 130 H Calcium 8.2 L - ABG Interpretation ABG results: ABG ABG pH 7.42 pH Units (7.32-7.45) 12/12/18 09:55 ABG pCO2 34 mmHg (35-45) L 12/12/18 09:55 ABG pO2 139 mmHg (85-104) H 12/12/18 09:55 ABG O2 Saturation 99 % (95-98) H 12/12/18 09:55 PT/INR, D-dimer PT 16.9 Seconds (9.4-12.1) H 12/10/18 13:46 - Impressions Impressions Chest X-Ray 12/25/18 08:00 IMPRESSION: Lines and tubes as described. Suspected small left apical pneumothorax. Diffuse airspace opacities, most confluent in the left base with a moderate effusion. Findings are stable from the prior study. D/ / 12/25/2018 07:30:31 Fariba Garnett MD / elton Interpreting Provider: Fariba Garnett MD Consult Discharge Plan - Plan Additional Instructions: Please go to Out Patient testing on Jan 12, 2019 around 0750 AM to get an x-ray done before you go see Dr. Angel. The office is sending the order over to out patient testing at the main hospital. 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
[2018-12-26] MEDS: Latanoprost 2.5 ML BOTTLE LEFT EYE SCH (20:44)
[2018-12-27 02:24] LABS: Basophils # 0.1 K/mcL (0.0-0.2); Eosinophils # 0.6 K/mcL (0.0-0.6); Eosinophils % 5.1 %; Hematocrit 32.9 % (37.5-50.1); Hemoglobin 10.1 g/dL (12.9-16.9); Immature Granulocytes % 0.7 % (0-4); Lymphocytes % 8.7 %; Mean Corpuscular HGB Conc 30.7 g/dL (31.6-35.5); Mean Corpuscular Hemoglobin 28.9 pg (28.0-33.3); Monocytes % 9.5 %; Neutrophils # 8.2 K/mcL (1.6-8.9); Nucleated Red Blood Cells 0.3 /100 WBC (0); Platelet Count 298 K/mcL (140-400); Red Cell Distribution Width 17.8 % (11.5-14.5); White Blood Count 10.9 K/mcL (4.3-11.1)
[2018-12-27 02:43] LABS: BUN/Creatinine Ratio 25 (6-26); Blood Urea Nitrogen 31 mg/dL (8-23); Calcium 8.3 mg/dL (8.6-10.3); Carbon Dioxide 22 mEq/L (23-29); Chloride 105 mEq/L (98-107); Glucose 63 mg/dL (70-105); Magnesium 2.1 mg/dL (1.6-2.6); Osmolality,Calculated 283 (280-300); Phosphorous 2.5 mg/dL (2.7-4.5); Potassium 4.2 mEq/L (3.5-5.1); Sodium 134 mEq/L (136-145); eGFR For African Americans > 60 (> 60); eGFR For Non-African Americans 56 (> 60)
[2018-12-27] MEDS: Ipratropium Neb 0.5 MG NEBULIZER IH SCH ×4 (03:32→21:45)
[2018-12-27] MEDS: Piperacillin/Tazobactam 3.375 GM in 0.9 % Sodium Chloride Mini Bag 100 ML IVPB SCH ×3 (04:08→20:10)
[2018-12-27] MEDS: *HR* Heparin 5,000 UNIT/ML VIAL SQ SCH ×3 (06:14→20:13)
[2018-12-27] MEDS: Insulin LISPRO 300 UNITS/3 ML VIAL SQ SCH ×3 (08:57→17:22)
[2018-12-27] MEDS: Nystatin SUSP 5 ML UD.LIQ PO SCH ×5 (08:58→20:12)
[2018-12-27] MEDS: Metoprolol XL (24 HR) Succ 25 MG TAB.ER.24H PO SCH (08:59)
[2018-12-27] MEDS: Aspirin Enteric Coated 81 MG Tablet PO SCH (08:59)
[2018-12-27] MEDS: Cholecalciferol (D-3) 1,000 UNIT (25MCG) TABLET PO SCH (08:59)
[2018-12-27] MEDS: Isosorbide MONOnitrate (24 HR) 30 MG TAB.ER.24H PO SCH (08:59)
[2018-12-27] MEDS: Doxycycline 100 MG CAPSULE PO SCH ×2 (08:59→20:10)
[2018-12-27] MEDS: Clotrimazole 1% CRM 15 GM TUBE TP SCH ×2 (09:01→20:12)
--- NOTE | 2018-12-27 09:03 | Cardiothoracic Progress Note ---
Date of Encounter: 12/27/18 Time of Encounter: 08:02 - Assessment and plan (1) Empyema lung Current Visit: Yes Status: Acute The patient recovering from his left latissimus dorsi muscle flap/serratus anterior muscle flap closure of a bronchopleural fistula. The patient was encouraged to improve his respiratory function by walking and using his incentiv e spirometer. The assessment and plan as outlined above was discussed with the patient and/or family members who expressed understanding and agreement. All questions were answered. - Subjective Procedure(s) Performed: POD#7 S/P Left latissimus dorsi muscle flap/serratus muscle flap Interval history: The patient remained hemodynamically stable overnight. He is resting comfortably in his hospital bed. He is breathing comfortably and has no complaints. Vital Signs, Last 4 Hours Temp Pulse Resp BP Pulse Ox 12/27/18 07:16 97.0 F L 67 18 108/55 98 Oxgyen Flow Rate Oxygen Flow Rate (LPM) 2 Weight 12/25/18 12/26/18 12/27/18 23:59 23:59 23:59 Weight 84.1 kg 85.2 kg - Physical Examination General: Conversant, No Apparent Distress Neck: No JVD, Normal carotid pulses Cardiac: Reg Rate and Rhythm, Normal S1 and S2, No Murmur Incision: No signs of infection, Dry/intact dressing Lungs: Other (Coarse rhonchi bilaterally) Neuro: Alert and responsive, No focal deficits noted Vascular: Normal capillary refill Extremities: No Clubbing, No Cyanosis, No Edema - Labs 12/27/18 02:06 12/27/18 02:06 Lab Results, Last 24 hours 12/27/18 12/27/18 02:06 02:06 WBC 10.9 Hgb 10.1 L Hct 32.9 L Plt Count 298 Sodium 134 L Potassium 4.2 Chloride 105 Carbon Dioxide 22 L BUN 31 H Creatinine 1.25 Glucose 63 L Calcium 8.3 L Magnesium 2.1 - Imaging Chest Xray: image reviewed (No pneumothorax. Increased left lung airspace opacity.) Consult Discharge Plan - Plan Additional Instructions: Please go to Out Patient testing on Jan 12, 2019 around 0750 AM to get an x-ray done before you go see Dr. Angel. The office is sending the order over to out patient testing at the [facility]. Referrals: Osman Martinez MD [Primary Care Provider] - 01/02/19 1:15 pm Tra Angel MD [Partnered Physician] - 01/12/19 8:50 am
[2018-12-27] MEDS: Budesonide/Formoterol 160/4.5 1 PUFF INH IH SCH ×2 (10:38→21:45)
--- NOTE | 2018-12-27 13:45 | Internal Med Progress Note ---
Hospitalist Progress Note - Encounter Date of Encounter: 12/27/18 Time of Encounter: 13:43 - Subjective Interval History: I have seen and evaluated the patient at bedside. Patient reported feeling better today but still a little weak. reported he has not had a bowel movement of the past 3 days and regularly has a BM every day at home. Denies chest pain, nausea, vomiting or abdominal pain. - Exam Vitals: Temp Pulse Resp BP Pulse Ox 97.5 F L 68 18 91/57 97 12/27/18 11:53 12/27/18 11:53 12/27/18 11:53 12/27/18 11:53 12/27/18 11:53 Exam: Vitals: Reviewed General: Alert and oriented x4. In mild distress due to constipation. Cardiovascular: RRR, normal S1 & S2, no rubs, murmurs or gallops. Lungs: Rales and crackles at the left lower lobe. Abdomen: Soft, non-tender, no rigidity. NABS in all 4 quadrants. Extremities: 2+ edema in the lower extr b/l. Neurological: No focal neurological deficits Rest of the physical exam is non contributory - Assessment and Plan (1) DM2 (diabetes mellitus, type 2) Current Visit: Yes Status: Chronic (2) Hypothyroidism Current Visit: No Status: Chronic (3) ISRRAEL (acute kidney injury) Current Visit: Yes Status: Resolved (4) Empyema lung Current Visit: Yes Status: Acute (5) Encephalopathy acute Current Visit: Yes Status: Resolved (6) Hyponatremia Current Visit: Yes Status: Resolved (7) Sepsis Current Visit: Yes Status: Resolved (8) Athlete's foot on left Current Visit: Yes Status: Chronic (9) Acute blood loss anemia Current Visit: Yes Status: Acute - Summary of Assessment and Plan Summary of Assessment and Plan: 73 year old male with history of recently diagnosed lung cancer status post lobectomy 4 weeks ago status post chest tube placement, history of COPD with chronic respiratory failure on 2 L nasal cannula oxygen at home, history of insulin-dependent diabetes mellitus. Patient admitted due to pneumonia, empyema of the Left lung. patient with a prolong complicated hospitalization. Assessment: 1. Empyema of pleura s/p bronchoscopy, left thoracotomy partial rib resection, serratus and latissimus mm flaps POD #7 2. HFrEF. 3. NSTEMI s/p LHC 4. ISRRAEL/CKD (resolved) 5. Sepsis (Resolved) 6. Multifocal pneumonia 7. Lung CA 8. DVT prophylaxis 9. Generalized weakness 10. Hyponatremia likely secondary to lung disease. 11. HLD 12. Hypothyroidism 13. Constipation Plan: - On piperacillin/tazobactam and doxycycline - Place midline for IV access - thoracic fluid culture: grew proteous and Staph epidermidis. - chest tube drain, per CT surgery recommendation - c/w dual anti-platelet therapy - bronchodilators and incentive spirometry - free water restriction to 1.5 litters a day - As ISRRAEL has resolved and patient with 2+ pitting edema and total fluid balance positive for >3 litters will re-start furosemide 20mg/PO daily - c/w sodium chloride 1gm/PO TID - Levothyroxine 50mcg/Po daily - On heparin subQ. - Daily PT/OT - KUB ordered, senna plus added Disposition: - Not clinically stable to be discharge home as yet. - Time Spent with Patient Total time spent is greater than 50% in coordination of care (as documented) at patient's floor/unit and/or counseling patient: Greater than 35 minutes (45) Plan of Care Discussed with: patient (and his ) Internal Medicine: Result - Labs CBC & Chem 7: 12/27/18 02:06 12/27/18 02:06 Labs: Short CBC 12/27/18 Range/Units 02:06 WBC 10.9 (4.3-11.1) K/mcL Hgb 10.1 L (12.9-16.9) g/dL Hct 32.9 L (37.5-50.1) % Plt Count 298 (140-400) K/mcL Neutrophils # 8.2 (1.6-8.9) K/mcL BMP 12/27/18 02:06 Sodium 134 L Potassium 4.2 Chloride 105 Carbon Dioxide 22 L BUN 31 H Creatinine 1.25 Glucose 63 L Calcium 8.3 L - ABG Interpretation ABG results: ABG ABG pH 7.42 pH Units (7.32-7.45) 12/12/18 09:55 ABG pCO2 34 mmHg (35-45) L 12/12/18 09:55 ABG pO2 139 mmHg (85-104) H 12/12/18 09:55 ABG O2 Saturation 99 % (95-98) H 12/12/18 09:55 PT/INR, D-dimer PT 16.9 Seconds (9.4-12.1) H 12/10/18 13:46 - Impressions Impressions Chest X-Ray 12/27/18 08:00 IMPRESSION: 1. No evident pneumothorax. 2. Unchanged moderate to large left pleural effusion and underlying left basilar airspace opacity likely due primarily to passive atelectasis. Superimposed pneumonia and aspiration are not excluded. 3. Unchanged diffuse interstitial opacities and bilateral perihilar airspace opacities worse on the left, potentially asymmetric edema or pneumonia. D/ / Pavel Swan MD / Pavel Swan MD Interpreting Provider: Pavel Swan MD Consult Discharge Plan - Plan Additional Instructions: Please go to Out Patient testing on Jan 12, 2019 around 0750 AM to get an x-ray done before you go see Dr. Angel. The office is sending the order over to out patient testing at the [facility]. 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
[2018-12-27] MEDS: Sennosides/Docusate Sodium TABLET PO SCH (20:10)
[2018-12-27] MEDS: Latanoprost 2.5 ML BOTTLE LEFT EYE SCH (20:11)
[2018-12-28 04:21] LABS: Hematocrit 34.2 % (37.5-50.1); Hemoglobin 10.3 g/dL (12.9-16.9); Mean Corpuscular HGB Conc 30.1 g/dL (31.6-35.5); Mean Corpuscular Hemoglobin 29.3 pg (28.0-33.3); Mean Corpuscular Volume 97.2 fL (83.0-100.0); Mean Platelet Volume 10.1 fL (9.4-12.4); Platelet Count 283 K/mcL (140-400); Red Blood Count 3.52 M/mcL (4.19-5.50); Red Cell Distribution Width 18.4 % (11.5-14.5); White Blood Count 9.4 K/mcL (4.3-11.1)
[2018-12-28 04:22] LABS: Basophils # 0.1 K/mcL (0.0-0.2); Basophils % 1.3 %; Eosinophils # 0.5 K/mcL (0.0-0.6); Eosinophils % 5.5 %; Hematocrit 33.9 % (37.5-50.1); Hemoglobin 10.3 g/dL (12.9-16.9); Immature Granulocytes % 0.7 % (0-4); Lymphocytes # 0.8 K/mcL (0.6-4.6); Lymphocytes % 8.2 %; Mean Corpuscular HGB Conc 30.4 g/dL (31.6-35.5); Mean Corpuscular Hemoglobin 29.5 pg (28.0-33.3); Mean Corpuscular Volume 97.1 fL (83.0-100.0); Mean Platelet Volume 10.3 fL (9.4-12.4); Monocytes # 0.8 K/mcL (0.0-1.3); Monocytes % 8.9 %; Neutrophils # 7.1 K/mcL (1.6-8.9); Nucleated Red Blood Cells 0.3 /100 WBC (0); Platelet Count 276 K/mcL (140-400); Red Blood Count 3.49 M/mcL (4.19-5.50); Red Cell Distribution Width 18.2 % (11.5-14.5); Segmented Neutrophils % 75.4 %; White Blood Count 9.4 K/mcL (4.3-11.1)
[2018-12-28] MEDS: Ipratropium Neb 0.5 MG NEBULIZER IH SCH ×4 (04:23→21:57)
[2018-12-28 04:43] LABS: BUN/Creatinine Ratio 22 (6-26); Blood Urea Nitrogen 28 mg/dL (8-23); Calcium 8.2 mg/dL (8.6-10.3); Carbon Dioxide 21 mEq/L (23-29); Chloride 105 mEq/L (98-107); Glucose 202 mg/dL (70-105); Osmolality,Calculated 291 (280-300); Potassium 4.4 mEq/L (3.5-5.1); Sodium 135 mEq/L (136-145); eGFR For African Americans > 60 (> 60); eGFR For Non-African Americans 54 (> 60)
[2018-12-28] MEDS: Piperacillin/Tazobactam 3.375 GM in 0.9 % Sodium Chloride Mini Bag 100 ML IVPB SCH ×3 (04:45→21:17)
[2018-12-28] MEDS: *HR* Heparin 5,000 UNIT/ML VIAL SQ SCH ×3 (05:53→22:30)
[2018-12-28] MEDS: Budesonide/Formoterol 160/4.5 1 PUFF INH IH SCH ×2 (07:45→21:57)
[2018-12-28] MEDS: Metoprolol XL (24 HR) Succ 25 MG TAB.ER.24H PO SCH (07:48)
[2018-12-28] MEDS: Cholecalciferol (D-3) 1,000 UNIT (25MCG) TABLET PO SCH (07:53)
[2018-12-28] MEDS: Isosorbide MONOnitrate (24 HR) 30 MG TAB.ER.24H PO SCH (07:53)
[2018-12-28] MEDS: Sennosides/Docusate Sodium TABLET PO SCH ×2 (07:53→21:16)
[2018-12-28] MEDS: Doxycycline 100 MG CAPSULE PO SCH ×2 (07:53→21:15)
[2018-12-28] MEDS: Furosemide 20 MG TABLET PO SCH (07:53)
[2018-12-28] MEDS: Nystatin SUSP 5 ML UD.LIQ PO SCH ×4 (07:53→21:16)
[2018-12-28] MEDS: Aspirin Enteric Coated 81 MG Tablet PO SCH (07:53)
[2018-12-28] MEDS: Clotrimazole 1% CRM 15 GM TUBE TP SCH ×2 (07:55→21:16)
[2018-12-28] MEDS: Insulin LISPRO 300 UNITS/3 ML VIAL SQ SCH ×3 (07:55→16:45)
--- NOTE | 2018-12-28 08:50 | Cardiothoracic Progress Note ---
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 The patient was encouraged to improve his respiratory function by walking and using his incentiv e spirometer. The assessment and plan as outlined above was discussed with the patient and/or family members who expressed understanding and agreement. All questions were answered. - Subjective Procedure(s) Performed: POD#8 S/P Left latissimus dorsi muscle flap/serratus muscle flap Interval history: The patient remained hemodynamically stable overnight. He is sitting in a chair at the bedside eating breakfast. He is breathing comfortably and has no complaints. Vital Signs, Last 4 Hours Temp Pulse Resp BP Pulse Ox 12/28/18 07:47 14 90 12/28/18 07:26 97.5 F L 65 18 92/48 95 Oxgyen Flow Rate Oxygen Flow Rate (LPM) 2 Weight 12/26/18 12/27/18 12/28/18 23:59 23:59 23:59 Weight 85.2 kg 90.6 kg - Physical Examination General: Conversant, No Apparent Distress Neck: No JVD, Normal carotid pulses Cardiac: Reg Rate and Rhythm, Normal S1 and S2, No Murmur Incision: No signs of infection, Dry/intact dressing Chest tubes: Minimal drainage Lungs: Normal Breath Sounds, No Wheeze, Rales, Rhonchi Neuro: Alert and responsive, No focal deficits noted Vascular: Normal capillary refill Skin: No rashes noted on visualized skin Extremities: No Clubbing, No Cyanosis, No Edema - Labs 12/28/18 03:38 12/28/18 03:38 Lab Results, Last 24 hours 12/28/18 12/28/18 12/28/18 03:38 03:38 03:38 WBC 9.4 9.4 Hgb 10.3 L 10.3 L Hct 34.2 L 33.9 L Plt Count 283 276 Sodium 135 L Potassium 4.4 Chloride 105 Carbon Dioxide 21 L BUN 28 H Creatinine 1.29 Glucose 202 H Calcium 8.2 L - Imaging Chest Xray: image reviewed (No pneumothorax. Persistent left pleural effusion with bilateral atelectasis.) Consult Discharge Plan - Plan Additional Instructions: Please go to Out Patient testing on Jan 12, 2019 around 0750 AM to get an x-ray done before you go see Dr. Angel. The office is sending the order over to out patient testing at the [facility]. Referrals: Osman Martinez MD [Primary Care Provider] - 01/02/19 1:15 pm Tra Angel MD [Partnered Physician] - 01/12/19 8:50 am
--- NOTE | 2018-12-28 10:48 | Internal Med Progress Note ---
Hospitalist Progress Note - Encounter Date of Encounter: 12/28/18 Time of Encounter: 10:44 - Subjective Interval History: I have seen and evaluated the patient at bedside. Patient report improvement on his breathing. reports still being constipated, denies nausea, vomiting of abdominal pain. - Exam Vitals: Temp Pulse Resp BP Pulse Ox 97.5 F L 65 14 92/48 90 12/28/18 07:26 12/28/18 07:26 12/28/18 07:47 12/28/18 07:26 12/28/18 07:47 Exam: Vitals: Reviewed General: Alert and oriented x4. In no distress Cardiovascular: RRR, normal S1 & S2, no rubs, murmurs or gallops. Lungs: Rales and crackles at the left lower lobe. right lung clear to auscultation. Abdomen: Soft, non-tender, no rigidity. NABS in all 4 quadrants. Extremities: 2+ edema in the lower extr b/l. Neurological: No focal neurological deficits Rest of the physical exam is non contributory - Assessment and Plan (1) DM2 (diabetes mellitus, type 2) Current Visit: Yes Status: Chronic (2) Hypothyroidism Current Visit: No Status: Chronic (3) ISRRAEL (acute kidney injury) Current Visit: Yes Status: Resolved (4) Empyema lung Current Visit: Yes Status: Acute (5) Encephalopathy acute Current Visit: Yes Status: Resolved (6) Hyponatremia Current Visit: Yes Status: Resolved (7) Sepsis Current Visit: Yes Status: Resolved (8) Athlete's foot on left Current Visit: Yes Status: Chronic (9) Acute blood loss anemia Current Visit: Yes Status: Acute - Summary of Assessment and Plan Summary of Assessment and Plan: 73 year old male with history of recently diagnosed lung cancer status post lobectomy 4 weeks ago status post chest tube placement, history of COPD with chronic respiratory failure on 2 L nasal cannula oxygen at home, history of insulin-dependent diabetes mellitus. Patient admitted due to pneumonia, empyema of the Left lung. patient with a prolong complicated hospitalization. Assessment: 1. Empyema of pleura s/p bronchoscopy, left thoracotomy partial rib resection, serratus and latissimus mm flaps POD #7 2. HFrEF. 3. NSTEMI s/p LHC 4. ISRRAEL/CKD (resolved) 5. Sepsis (Resolved) 6. Multifocal pneumonia 7. Lung CA 8. DVT prophylaxis 9. Generalized weakness 10. Hyponatremia likely secondary to lung disease. 11. HLD 12. Hypothyroidism 13. Constipation Plan: - c/w piperacillin/tazobactam and doxycycline - Thoracic fluid culture: grew proteous and Staph epidermidis. - chest tube drain, per CT surgery recommendation - c/w dual anti-platelet therapy aspirin and Plavix - bronchodilators and incentive spirometry - free water restriction to 1.5 litters a day - on furosemide 20mg/PO daily - sodium chloride 1gm/PO TID - Levothyroxine 50mcg/Po daily - On heparin subQ. - Daily PT/OT - c/w Senna plus. MiraLax added Disposition: - Not clinically stable to be discharge home as yet. - Time Spent with Patient Total time spent is greater than 50% in coordination of care (as documented) at patient's floor/unit and/or counseling patient: Greater than 35 minutes (45) Plan of Care Discussed with: patient (and the nurse.) Internal Medicine: Result - Labs CBC & Chem 7: 12/28/18 03:38 12/28/18 03:38 Labs: Short CBC 12/28/18 12/28/18 Range/Units 03:38 03:38 WBC 9.4 9.4 (4.3-11.1) K/mcL Hgb 10.3 L 10.3 L (12.9-16.9) g/dL Hct 34.2 L 33.9 L (37.5-50.1) % Plt Count 283 276 (140-400) K/mcL Neutrophils # 7.1 (1.6-8.9) K/mcL BMP 12/28/18 03:38 Sodium 135 L Potassium 4.4 Chloride 105 Carbon Dioxide 21 L BUN 28 H Creatinine 1.29 Glucose 202 H Calcium 8.2 L - ABG Interpretation ABG results: ABG ABG pH 7.42 pH Units (7.32-7.45) 12/12/18 09:55 ABG pCO2 34 mmHg (35-45) L 12/12/18 09:55 ABG pO2 139 mmHg (85-104) H 12/12/18 09:55 ABG O2 Saturation 99 % (95-98) H 12/12/18 09:55 PT/INR, D-dimer PT 16.9 Seconds (9.4-12.1) H 12/10/18 13:46 - Impressions Impressions KUB X-Ray 12/27/18 13:43 IMPRESSION: 1. Moderate to large volume of stool in the colon. This is in keeping with clinical history of constipation. 2. No evidence of small bowel obstruction. D/ / Heri Lei MD / Heri Lei MD Interpreting Provider: Heri Lei MD Chest X-Ray 12/28/18 06:00 IMPRESSION: The left chest tube appears somewhat retracted compared to yesterday's exam. No pneumothorax is visible. Persistent multifocal airspace disease and left pleural effusion. D/ / Johann Parikh MD / Johann Parikh MD Interpreting Provider: Johann Parikh MD Consult Discharge Plan - Plan Additional Instructions: Please go to Out Patient testing on Jan 12, 2019 around 0750 AM to get an x-ray done before you go see Dr. Angel. The office is sending the order over to out patient testing at the [facility]. Referrals: Osman Martinez MD [Primary Care Provider] - 01/02/19 1:15 pm Tra Angel MD [Partnered Physician] - 01/12/19 8:50 am (1) DM2 (diabetes mellitus, type 2) Qualifiers: Diabetes mellitus custodial insulin use: with terminal press operator use Diabetes mellitus complication status: with circulatory complication Diabetes mellitus complication detail: with peripheral angiopathy without gangrene Qualified Code(s): E11.51 - Type 2 diabetes mellitus with diabetic peripheral angiopathy without gangrene; Z79.4 - terminal press operator (current) use of insulin (2) Hypothyroidism Qualifiers: Hypothyroidism type: acquired Qualified Code(s): E03.9 - Hypothyroidism, unspecified (7) Sepsis Qualifiers: Sepsis type: sepsis due to unspecified organism Sepsis acute organ dysfunction status: unspecified Qualified Code(s): A41.9 - Sepsis, unspecified organism
[2018-12-28] MEDS: Latanoprost 2.5 ML BOTTLE LEFT EYE SCH (21:16)
[2018-12-29 01:41] LABS: Basophils # 0.1 K/mcL (0.0-0.2); Basophils % 1.3 %; Eosinophils # 0.6 K/mcL (0.0-0.6); Hematocrit 32.5 % (37.5-50.1); Hemoglobin 9.9 g/dL (12.9-16.9); Immature Granulocytes % 0.6 % (0-4); Lymphocytes # 0.8 K/mcL (0.6-4.6); Lymphocytes % 9.8 %; Mean Corpuscular HGB Conc 30.5 g/dL (31.6-35.5); Mean Corpuscular Hemoglobin 29.2 pg (28.0-33.3); Mean Corpuscular Volume 95.9 fL (83.0-100.0); Mean Platelet Volume 10.2 fL (9.4-12.4); Monocytes # 0.8 K/mcL (0.0-1.3); Monocytes % 9.4 %; Neutrophils # 6.1 K/mcL (1.6-8.9); Nucleated Red Blood Cells 0.2 /100 WBC (0); Platelet Count 278 K/mcL (140-400); Red Blood Count 3.39 M/mcL (4.19-5.50); Red Cell Distribution Width 18.1 % (11.5-14.5); Segmented Neutrophils % 71.9 %; White Blood Count 8.5 K/mcL (4.3-11.1)
[2018-12-29 01:58] LABS: BUN/Creatinine Ratio 19 (6-26); Blood Urea Nitrogen 23 mg/dL (8-23); Calcium 8.3 mg/dL (8.6-10.3); Carbon Dioxide 20 mEq/L (23-29); Chloride 106 mEq/L (98-107); Glucose 144 mg/dL (70-105); Magnesium 1.7 mg/dL (1.6-2.6); Osmolality,Calculated 288 (280-300); Phosphorous 2.5 mg/dL (2.7-4.5); Potassium 4.4 mEq/L (3.5-5.1); Sodium 136 mEq/L (136-145); eGFR For African Americans > 60 (> 60); eGFR For Non-African Americans 59 (> 60)
[2018-12-29] MEDS: Ipratropium Neb 0.5 MG NEBULIZER IH SCH ×3 (04:15→15:42)
[2018-12-29] MEDS: Piperacillin/Tazobactam 3.375 GM in 0.9 % Sodium Chloride Mini Bag 100 ML IVPB SCH ×2 (04:36→11:44)
[2018-12-29] MEDS: *HR* Heparin 5,000 UNIT/ML VIAL SQ SCH ×2 (06:55→14:21)
[2018-12-29] MEDS: Metoprolol XL (24 HR) Succ 25 MG TAB.ER.24H PO SCH (07:48)
[2018-12-29] MEDS: Doxycycline 100 MG CAPSULE PO SCH (07:49)
[2018-12-29] MEDS: Cholecalciferol (D-3) 1,000 UNIT (25MCG) TABLET PO SCH (07:50)
[2018-12-29] MEDS: Furosemide 20 MG TABLET PO SCH (07:50)
[2018-12-29] MEDS: Sennosides/Docusate Sodium TABLET PO SCH (07:50)
[2018-12-29] MEDS: Aspirin Enteric Coated 81 MG Tablet PO SCH (07:50)
[2018-12-29] MEDS: Isosorbide MONOnitrate (24 HR) 30 MG TAB.ER.24H PO SCH (07:50)
[2018-12-29] MEDS: Nystatin SUSP 5 ML UD.LIQ PO SCH ×3 (07:51→16:19)
[2018-12-29] MEDS: Clotrimazole 1% CRM 15 GM TUBE TP SCH (07:54)
[2018-12-29] MEDS: Insulin LISPRO 300 UNITS/3 ML VIAL SQ SCH ×3 (08:00→16:17)
[2018-12-29] MEDS ORDERED: *HR* OxyCODONE Immed Rel 5 MG TABLET PO PRN (09:09)
[2018-12-29] MEDS: Budesonide/Formoterol 160/4.5 1 PUFF INH IH SCH (09:33)
--- NOTE | 2018-12-29 10:02 | Infectious Disease Progress No ---
ID Progress Note Date of Encounter: 12/29/18 Time of Encounter: 10:00 - Subjective Subjective: Patient seen and examined. No acute events noted overnight. Patient states he feels well. Status post chest tube removal 12/24/[address] Angel. Patient inadvertently removed ANGELA drain over the weekend. Denies pain at this time. Denies fevers, chills, or rigors. Denies chest pain or shortness of breath or cough today. Denies nausea, vomiting, or diarrhea. Reports last BM a few days ago. Denies abdominal pain or urinary complaints. Denies oral thrush or skin rashes. States appetite is still not very good. Jiménez catheter removed this morning. - Objective CBC & Chem 7: 12/29/18 00:53 12/29/18 00:53 - Line Documentation Line Documentation: Jiménez Catheter, Drain (ANGELA drain 2 noted to the left chest.) - Exam Vitals: Temp Pulse Resp BP Pulse Ox 97.3 F L 75 16 104/59 96 12/29/18 07:35 12/29/18 07:35 12/29/18 09:36 12/29/18 07:35 12/29/18 09:36 Exam: Head: Atraumatic, normal inspection, normocephalic. Eye: EOMI, PERRLA, no scleral icterus noted. ENT: Mucous membranes moist. No odontogenic infection noted. Neck: Normal inspection, no meningismus. Respiratory: Clear TO. No respiratory distress, rhonchi, or wheezes noted. ANGELA drain x1 noted with serosanguinous drainage noted. Left chest surgical site abdirashid ssing C/D/I. Cardiovascular: Regular rate and rhythm, S1 and S2 audible. No murmurs, rubs, or gallops. GI: Soft, nondistended, normal bowel sounds. Non-tender. Extremities: No joint swelling, pedal edema, or tenderness noted. Neurological: Alert, oriented 3, no focal deficits. Psychiatric: normal affect, normal mood. Skin: Dry, intact, warm. Normal color. No rashes. - Assessment and Plan (1) Sepsis Current Visit: Yes Status: Resolved The patient had two SIRS criteria on admission. Likely secondary to empyema and multifocal PNA. Resolved. Blood cultures drawn 12/10/18 are negative x 2 sets. Qualifiers: Sepsis type: sepsis due to unspecified organism SNOMED Code(s): 86813323 (2) Empyema lung Current Visit: Yes Status: Acute Location: Left lung. Causative organism: P. mirabilis and S. epi (oxacillin resistant). Cardiothoracic surgery consulted and following. Status post bronchoscopy, left thoracotomy, partial rib resection, and serrated and latissimus MM flaps 12/20/[address] Angel. No additional cultures obtained. CXR shows unchanged bilateral airpsace opacities. Chest tube removed 12/24/18. ANGELA drain removed 12/27/18. Currently on Zosyn and doxycycline. SNOMED Code(s): 325679241 (3) Multifocal pneumonia Current Visit: Yes Status: Acute Causative organism: Unclear. Previous BAL cultures 10/2018 positive for PSEA. Previous PNA in early November (unknown causative organism) treated with 6 days of Rocephin 11/18-11/23 with Levaquin x 4 days prior to that. CT chest 12/10/18 moderate sized left hydropneumothorax with chest tube in place and multifocal lung consolidation involving the lingula, RUL, and RLL. MRSA screen negative. S. pneumo and Legionella UATs negative. Low index of suspicion for aspiration. Repeat chest xrays show unchanged bilateral airspace disease. Currently on PO doxycycline and Zosyn. SNOMED Code(s): 414442564 (4) ISRRAEL (acute kidney injury) Current Visit: Yes Status: Resolved Likely multifactorial. Resolved initially, but recurred post-op. Urine output improved. Resolved. Continue to trend. Nephrology consulted and following. Dose-adjust antibiotics and avoid nephrotoxins. SNOMED Code(s): 50427566, 39117036 (5) CAD (coronary artery disease) Current Visit: No Status: Chronic Cardiology consulted. Status post [facility] 12/18/18. Qualifiers: Coronary Disease-Associated Artery/Lesion type: bypass graft [place] vs. 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 Status post diagnostic VATS, staging bronchoscopy, left thoracotomy pneumolysis, left lower lobectomy, and mediastinal lymph node dissection 11/06/[address] Angel. SNOMED Code(s): 393015208 (7) Congestive heart failure Current Visit: No Status: Chronic Qualifiers: Heart failure type: unspecified Heart failure chronicity: chronic Qualif ied Code(s): I50.9 - Heart failure, unspecified SNOMED Code(s): 07235161 (8) Diabetes mellitus, insulin dependent (IDDM), controlled Current Visit: No Status: Chronic SNOMED Code(s): 44269119, 688033058 - Recommendations Recommendations: Drain and post-op management per the CTS team. Continue Zosyn 3.375 grams IV Q8H (CrCl ~45). Continue doxycycline 100mg PO BID. Duration of treatment depends on the clinical picture. Discussed with CTS. Will plan to transition to PO augmentin 875mg BID and continue doxycycline 100mg BID once ready for discharge to complete a 4 week course. Treat through 01/06/19. Monitor renal function and dose-adjust antibiotics. Consult Discharge Plan - Plan Additional Instructions: Please go to Out Patient testing on Jan 12, 2019 around 0750 AM to get an x-ray done before you go see Dr. Angel. The office is sending the order over to out patient testing at the [facility]. Referrals: Osman Martinez MD [Primary Care Provider] - 01/02/19 1:15 pm Tra Angel MD [Partnered Physician] - 01/12/19 8:50 am
[2018-12-29 11:16] VITALS: BP 94/63
--- NOTE | 2018-12-29 14:11 | Cardiothoracic Progress Note ---
Date of Encounter: 12/29/18 Time of Encounter: 14:09 - Assessment and plan (1) Empyema of pleura Current Visit: Yes Status: Acute The assessment and plan as outlined above was discussed with the patient and/or family members who expressed understanding and agreement. All questions were answered. discharge home discussed with id and hospitalist follow up with me in 2 weeks with a chest xray - Subjective Interval history: ate better today Vital Signs, Last 4 Hours Temp Pulse Resp BP Pulse Ox 12/29/18 11:15 97.4 F L 69 16 94/63 94 12/29/18 11:00 67 Oxgyen Flow Rate Oxygen Flow Rate (LPM) 2 Weight 12/27/18 12/28/18 12/29/18 23:59 23:59 23:59 Weight 85.2 kg 90.6 kg - Physical Examination General: Conversant, No Apparent Distress HEENT: Atraumatic, Normocephaly Cardiac: Reg Rate and Rhythm, Normal S1 and S2 Incision: No signs of infection, Dry/intact dressing, Open to air Chest tubes: Minimal drainage Lungs: Decreased breath sounds Neuro: Alert and responsive, No focal deficits noted, Cranial nerves intact, Motor nerves intact - Labs 12/29/18 00:53 12/29/18 00:53 Lab Results, Last 24 hours 12/29/18 12/29/18 00:53 00:53 WBC 8.5 Hgb 9.9 L Hct 32.5 L Plt Count 278 Sodium 136 Potassium 4.4 Chloride 106 Carbon Dioxide 20 L BUN 23 Creatinine 1.20 Glucose 144 H Calcium 8.3 L Magnesium 1.7 Consult Discharge Plan - Plan Additional Instructions: Please go to Out Patient testing on Jan 12, 2019 around 0750 AM to get an x-ray done before you go see Dr. Angel. The office is sending the order over to out patient testing at the [facility]. Referrals: Osman Martinez MD [Primary Care Provider] - 01/02/19 1:15 pm Tra Angel MD [Partnered Physician] - 01/12/19 8:50 am
--- NOTE | 2018-12-29 14:25 | Discharge Summary ---
Date of Encounter: 12/29/18 Time of Encounter: 14:18 - Discharge Diagnosis (1) DM2 (diabetes mellitus, type 2) Priority: Secondary Status: Chronic Qualifiers: Diabetes mellitus continuous churn buttermaker insulin use: with continuous churn buttermaker use Diabetes mellitus complication status: with circulatory complication Diabetes mellitus complication detail: with peripheral angiopathy without gangrene Qualified Code(s): E11.51 - Type 2 diabetes mellitus with diabetic peripheral angiopathy without gangrene; Z79.4 - assisted (current) use of insulin (2) Hypothyroidism Priority: Secondary Status: Chronic Qualifiers: Hypothyroidism type: acquired Qualified Code(s): E03.9 - Hypothyroidism, unspecified (3) ISRRAEL (acute kidney injury) Priority: Secondary Status: Resolved (4) Empyema lung Priority: Primary Status: Acute (5) Encephalopathy acute Priority: Secondary Status: Resolved (6) Hyponatremia Priority: Secondary Status: Resolved (7) Sepsis Priority: Primary Status: Resolved Qualifiers: Sepsis type: sepsis due to unspecified organism Sepsis acute organ dysfunction status: unspecified Qualified Code(s): A41.9 - Sepsis, unspecified organism (8) Athlete's foot on left Priority: Secondary Status: Chronic (9) Acute blood loss anemia Priority: Secondary Status: Acute (10) COPD (chronic obstructive pulmonary disease) Priority: Secondary Status: Chronic Qualifiers: Emphysema type: unspecified Qualified Code(s): J43.9 - Emphysema, unspecified (11) Hyponatremia Priority: Secondary Status: Resolved (12) Multifocal pneumonia Priority: Primary Status: Acute (13) Cancer of lower lobe of left lung Priority: Secondary Status: Chronic (14) NSTEMI (non-ST elevated myocardial infarction) Priority: Secondary Status: Resolved (15) CAD (coronary artery disease) Priority: Secondary Status: Chronic Qualifiers: Coronary Disease-Associated Artery/Lesion type: bypass graft [place] vs. transplanted heart: [place] heart Associated angina: without angina Qualified Code(s): I25.810 - Atherosclerosis of coronary artery bypass graft(s) without angina pectoris (16) Ischemic cardiomyopathy Priority: Secondary Status: Chronic Hospital course: Mr. Beaulieu is a 73 year old male extensive past medical history mentioned below including diabetes mellitus type 2, coronary artery disease and CHF. 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 Patient was evaluated by cardiothoracic surgery and underwent a left thoracotomy with left lower lobe resection by Dr. Angel on 11/06/18. Present with possible infected chest tube. patient noted increasing greenish/ brownish fluid drainage from the chest tube which became very foul-smelling sine approximately 3 days associated with increased shortness of breath, poor appetite, weight loss. CT chest in the ER revealed moderate-sized left hydropneumothorax with chest tube in place on there are multifocal lung consolidation involving the right upper lobe and the right lower lobe most likely representing multifocal pneumonia. Patient was admitted to the hospital due to above mentioned problems. Managed with broad spectrum IV antibiotics. CT surgery consulted. Patient was found to have and Empyema. Underwent bronchoscopy, left thoracotomy partial rib resection, serratus and latissimus mm flaps. His hospital stay was complicated by non-ST [place], acute renal failure. Kidney function is back to his baseline. Blood culture: No growth. Thoracic fluid culture: Proteous mirabillis and staph epidermidis. ID consulted recommended to complete 4 weeks of oral and IV antibiotics. Patient with a signi ficant improvement, hemodynamically stable to be discharged home on oral antibiotics. - Time Spent with Patient Total time spent providing and/or coordinating discharge services: Time spent: Greater than 30 minutes (35) - Discharge Medications Prescriptions: New Amoxicillin/Clavulanate [Augmentin] 875 mg PO BIDWM 9 Days #18 tablet Doxycycline 100 mg PO BID 9 Days #18 capsule Tamsulosin [Flomax] 0.4 mg PO DAILY 30 Days #30 capsule Clotrimazole 1% CRM [Lotrimin 1%] 1 appl TP BID 10 Days #1 tube OxyCODONE Immed Rel [Roxicodone 5 MG] 5 mg PO Q4HR PRN 5 Days #10 tablet PRN Reason: Breakthrough Pain Sennosides/Docusate Sodium [Senna Plus] 1 each PO BID 30 Days #60 tablet Continued Aspirin [Lo-Dose Aspirin EC] 81 mg PO DAILY Atorvastatin [Lipitor] 40 mg PO HS Latanoprost [Xalatan] 1 drop LEFT EYE HS Clopidogrel [Plavix] 75 mg PO DAILY Metoprolol XL (24 HR) Succ [Toprol Xl] 25 mg PO DAILY Omeprazole [PriLOSEC] 20 mg PO DAILY@0730 Nitroglycerin [Nitrostat] 0.4 mg SL Q5MIN PRN PRN Reason: Chest Pain Isosorbide MONOnitrate [Isosorbide Mononitrate ER] 30 mg PO DAILY Tiotropium [place] [Spiriva Respimat] 2 puff IH DAILY Budesonide/Formoterol 160/4.5 [Symbicort 160/4.5] 2 puff IH BIDR Albuterol Sulfate [Proair Hfa] 2 puff IH Q6H PRN PRN Reason: Wheezing Fluconazole [Diflucan] 100 mg PO DAILY Levothyroxine Sodium [Levoxyl] 50 mcg PO QAM Nystatin [Nystatin Suspension] 500,000 unit PO QID PRN PRN Reason: INFECTION Spironolactone [Aldactone] 50 mg PO DAILY Timolol Maleate 0.5% 1 drop LEFT EYE QAM Tramadol HCl [Ultram] 50 mg PO Q6H PRN PRN Reason: Pain Cholecalciferol (Vitamin D3) [Vitamin D3] 2,000 unit PO DAILY Changed Furosemide [Lasix] 20 mg PO DAILY 30 Days #30 tablet Discontinued Cefdinir [Omnicef] 300 mg PO BID Home Medications: Aspirin [Lo-Dose Aspirin EC] 81 mg PO DAILY 11/26/17 [History] Atorvastatin [Lipitor] 40 mg PO HS 11/26/17 [History] Clopidogrel [Plavix] 75 mg PO DAILY 08/11/18 [History] Latanoprost [Xalatan] 1 drop LEFT EYE HS 08/11/18 [History] Metoprolol XL (24 HR) Succ [Toprol Xl] 25 mg PO DAILY 08/14/18 [History] Omeprazole [PriLOSEC] 20 mg PO DAILY@0730 08/14/18 [History] Albuterol Sulfate [Proair Hfa] 2 puff IH Q6H PRN 10/29/18 [History] Budesonide/Formoterol 160/4.5 [Symbicort 160/4.5] 2 puff IH BIDR 10/29/18 [History] Isosorbide MONOnitrate [Isosorbide Mononitrate ER] 30 mg PO DAILY 10/29/18 [History] Nitroglycerin [Nitrostat] 0.4 mg SL Q5MIN PRN 10/29/18 [History] Tiotropium [place] [Spiriva Respimat] 2 puff IH DAILY 10/29/18 [History] Cholecalciferol (Vitamin D3) [Vitamin D3] 2,000 unit PO DAILY 12/11/18 [History] Fluconazole [Diflucan] 100 mg PO DAILY 12/11/18 [History] Levothyroxine Sodium [Levoxyl] 50 mcg PO QAM 12/11/18 [History] Nystatin [Nystatin Suspension] 500,000 unit PO QID PRN 12/11/18 [History] Spironolactone [Aldactone] 50 mg PO DAILY 12/11/18 [History] Timolol Maleate 0.5% 1 drop LEFT EYE QAM 12/11/18 [History] Tramadol HCl [Ultram] 50 mg PO Q6H PRN 12/11/18 [History] Amoxicillin/Clavulanate [Augmentin] 875 mg PO BIDWM 9 Days #18 tablet 12/29/18 [Rx] Clotrimazole 1% CRM [Lotrimin 1%] 1 appl TP BID 10 Days #1 tube 12/29/18 [Rx] Doxycycline 100 mg PO BID 9 Days #18 capsule 12/29/18 [Rx] Furosemide [Lasix] 20 mg PO DAILY 30 Days #30 tablet 12/29/18 [Rx] OxyCODONE Immed Rel [Roxicodone 5 MG] 5 mg PO Q4HR PRN 5 Days #10 tablet 12/29/18 [Rx] Sennosides/Docusate Sodium [Senna Plus] 1 each PO BID 30 Days #60 tablet 12/29/18 [Rx] Tamsulosin [Flomax] 0.4 mg PO DAILY 30 Days #30 capsule 12/29/18 [Rx] Allergies/Adverse Reactions: Allergy/AdvReac Type Severity Reaction Status Date / Time gabapentin [From Neurontin] AdvReac Hallucinati Verified 12/11/18 17:43 ng lisinopril AdvReac Cough Verified 12/11/18 17:43 Varenicline [From Chantix] AdvReac Nightmare Verified 12/11/18 17:43 Date of admission: 12/11/18 15:01 Primary care physician: Osman Martinez MD Consults: 12/10/18 13:57 Consult to Cardiothoracic Surgery [CONS] Stat Consulting Provider: Cardiothoracic Surgery [place] Reason for Consult: recent lobectomy with brown/green fluid coming from chest tube Call Completed: No 12/10/18 13:58 Consult to Infectious Diseases [CONS] Stat Consulting Provider: Infectious Disease [place] Reason for Consult: fluid from chest tube Time Notified: 13:58 Call Completed: Yes 12/10/18 16:14 Consult to Physical Therapy [CONS] Routine Comment: Evaluate, develop and implement POC Reason for Consult: weakness Does patient have active BEDREST order?: No Is patient medically & hemodynamically stable?: Yes Patient assessed for mobility or mobilized this visit?: Yes 12/10/18 16:45 Consult for Pharmacy Education [CONS] Routine Reason for Consult: dose vancomycin Call Completed: Yes 12/10/18 17:51 Consult to Nutrition [CONS] Routine Comment: Consulting Provider: NUTRITION Reason for Dietary Consult: PO Supplementation Consult to Real Estate Financial Analyst [CONS] Routine Reason for SW Consult: Family will need set back up with home health care 12/11/18 08:29 Consult to Nephrology [CONS] Routine Consulting Provider: Kidney Bailey/KISHA/ANCELMO/JOSUÉ Reason for Consult: ISRRAEL Call Completed: No 12/15/18 10:02 Consult to Cardiology [CONS] Routine Comment: Consulting Provider: Cardiology [place] Reason for Consult: cardiomyopahy with elevated troponin Call Completed: Yes 12/16/18 15:12 Consult to Nurse Navigator [CONS] Routine Comment: PN 12/21/18 09:21 Consult to Invasive Line Access Team [CONS] Routine Reason for Consult: Picc Line Insertion Line Type: PICC 12/25/18 11:30 Consult to Palliative Care [CONS] Routine Comment: Consulting Provider: Palliative Care Bailey Reason for Consult: lung ca Call Completed: Yes - Constitutional Vitals: Temp Pulse Resp BP Pulse Ox 97.4 F L 69 16 94/63 94 12/29/18 11:15 12/29/18 11:15 12/29/18 11:15 12/29/18 11:15 12/29/18 11:15 Exam: Vitals: Reviewed General: Alert and oriented x4. In no distress Cardiovascular: RRR, normal S1 & S2, no rubs, murmurs or gallops. Lungs: Rales and crackles at the left lower lobe. right lung clear to auscultation. Abdomen: Soft, non-tender, no rigidity. NABS in all 4 quadrants. Extremities: 2+ edema in the lower extr b/l. Neurological: No focal neurological deficits Rest of the physical exam is non contributory - Patient Status Disposition: Home Health Service Condition: Fair Functional capacity at discharge: uses cane/walker Overall status at discharge: patient is progressing back to baseline - Discharge Instructions Follow Up With: Osman Martinez MD [Primary Care Provider] - 01/02/19 1:15 pm Tra Angel MD [Partnered Physician] - 01/12/19 8:50 am Additional Instructions: Please go to Out Patient testing on Jan 12, 2019 around 0750 AM to get an x-ray done before you go see Dr. Angel. The office is sending the order over to out patient testing at the main hospital. - Diet and Activity Activity: as per physical therapy Diet: diabetic diet, low salt diet
--- NOTE | 2018-12-29 14:34 | Physician Discharge Referral ---
ExtendedCare Referral Info Transfer To: Home health - Diagnosis (1) DM2 (diabetes mellitus, type 2) Priority: Secondary Status: Chronic (2) Hypothyroidism Priority: Secondary Status: Chronic (3) ISRRAEL (acute kidney injury) Priority: Secondary Status: Resolved (4) Empyema lung Priority: Primary Status: Acute (5) Encephalopathy acute Priority: Secondary Status: Resolved (6) Hyponatremia Priority: Secondary Status: Resolved (7) Sepsis Priority: Primary Status: Resolved (8) Athlete's foot on left Priority: Secondary Status: Chronic (9) Acute blood loss anemia Priority: Secondary Status: Acute (10) COPD (chronic obstructive pulmonary disease) Priority: Secondary Status: Chronic (11) Hyponatremia Priority: Secondary Status: Resolved (12) Multifocal pneumonia Priority: Primary Status: Acute (13) Cancer of lower lobe of left lung Priority: Secondary Status: Chronic (14) NSTEMI (non-ST elevated myocardial infarction) Priority: Secondary Status: Resolved (15) CAD (coronary artery disease) Priority: Secondary Status: Chronic (16) Ischemic cardiomyopathy Priority: Secondary Status: Chronic Prognosis: Fair Aware of Diagnosis: Patient, Family Aware of Prognosis: Patient, Family - Transfer Medications Prescriptions: Amoxicillin/Clavulanate [Augmentin] 875 mg PO BIDWM 9 Days #18 tablet Doxycycline 100 mg PO BID 9 Days #18 capsule Tamsulosin [Flomax] 0.4 mg PO DAILY 30 Days #30 capsule Furosemide [Lasix] 20 mg PO DAILY 30 Days #30 tablet Clotrimazole 1% CRM [Lotrimin 1%] 1 appl TP BID 10 Days #1 tube OxyCODONE Immed Rel [Roxicodone 5 MG] 5 mg PO Q4HR PRN 5 Days #10 tablet PRN Reason: Breakthrough Pain Sennosides/Docusate Sodium [Senna Plus] 1 each PO BID 30 Days #60 tablet Home Medications: Aspirin [Lo-Dose Aspirin EC] 81 mg PO DAILY 11/26/17 [History] Atorvastatin [Lipitor] 40 mg PO HS 11/26/17 [History] Clopidogrel [Plavix] 75 mg PO DAILY 08/11/18 [History] Latanoprost [Xalatan] 1 drop LEFT EYE HS 08/11/18 [History] Metoprolol XL (24 HR) Succ [Toprol Xl] 25 mg PO DAILY 08/14/18 [History] Omeprazole [PriLOSEC] 20 mg PO DAILY@0730 08/14/18 [History] Albuterol Sulfate [Proair Hfa] 2 puff IH Q6H PRN 10/29/18 [History] Budesonide/Formoterol 160/4.5 [Symbicort 160/4.5] 2 puff IH BIDR 10/29/18 [History] Isosorbide MONOnitrate [Isosorbide Mononitrate ER] 30 mg PO DAILY 10/29/18 [History] Nitroglycerin [Nitrostat] 0.4 mg SL Q5MIN PRN 10/29/18 [History] Tiotropium [place] [Spiriva Respimat] 2 puff IH DAILY 10/29/18 [History] Cholecalciferol (Vitamin D3) [Vitamin D3] 2,000 unit PO DAILY 12/11/18 [History] Fluconazole [Diflucan] 100 mg PO DAILY 12/11/18 [History] Levothyroxine Sodium [Levoxyl] 50 mcg PO QAM 12/11/18 [History] Nystatin [Nystatin Suspension] 500,000 unit PO QID PRN 12/11/18 [History] Spironolactone [Aldactone] 50 mg PO DAILY 12/11/18 [History] Timolol Maleate 0.5% 1 drop LEFT EYE QAM 12/11/18 [History] Tramadol HCl [Ultram] 50 mg PO Q6H PRN 12/11/18 [History] Amoxicillin/Clavulanate [Augmentin] 875 mg PO BIDWM 9 Days #18 tablet 12/29/18 [Rx] Clotrimazole 1% CRM [Lotrimin 1%] 1 appl TP BID 10 Days #1 tube 12/29/18 [Rx] Doxycycline 100 mg PO BID 9 Days #18 capsule 12/29/18 [Rx] Furosemide [Lasix] 20 mg PO DAILY 30 Days #30 tablet 12/29/18 [Rx] OxyCODONE Immed Rel [Roxicodone 5 MG] 5 mg PO Q4HR PRN 5 Days #10 tablet 12/29/18 [Rx] Sennosides/Docusate Sodium [Senna Plus] 1 each PO BID 30 Days #60 tablet 12/29/18 [Rx] Tamsulosin [Flomax] 0.4 mg PO DAILY 30 Days #30 capsule 12/29/18 [Rx] Allergies/Adverse Reactions: Allergy/AdvReac Type Severity Reaction Status Date / Time gabapentin [From Neurontin] AdvReac Hallucinati Verified 12/11/18 17:43 ng lisinopril AdvReac Cough Verified 12/11/18 17:43 Varenicline [From Chantix] AdvReac Nightmare Verified 12/11/18 17:43 - Respiratory Orders Oxygen / L per min (2 litters) Smoking Cessation: Smoking cessation has been advised. For more information, call the [place] Tobacco Quit Line at 2-593-DDYONOW. - Advance Directives Code Status: Full Code - Mobility Orders Ambulate - Rehabiliation Orders Rehab Potential: Fair Rehab Orders: Evaluation for Physical Therapy, Evaluation for Occupational Therapy - Diet Orders Regular CERTIFICATION: I certify that the transfer of the above named patient to an Extended Care Facility is necessary for the continuing treatment of the diagnosis listed. The above information is true and accurate reflection of patient's current condition. Confidential - Redisclosure prohibited without a patient's written consent.
== END 2018-12-29 18:42 | disposition home health service (06) | DRG 907 ==
LOC: EMEROOARM 13:02 → 2NENU 13:02 → SUATTDRO 12-11 15:01 → 2NENU 12-11 23:55 → ICNU 12-20 08:12 → 2ANU 12-23 08:48 → 2NNU 12-23 19:58
PROVIDERS: ADMIT Internal Medicine; ATTEND Internal Medicine

== ENCOUNTER 2019-01-26 10:02 | Observation (INO) ==
[2019-01-26] MEDS ORDERED: Naloxone 0.4 MG/ML INJ IVP PRN (12:08)
[2019-01-26] MEDS ORDERED: Ondansetron 4 MG/2 ML VIAL IVP PRN (12:13)
--- NOTE | 2019-01-26 12:40 | Internal Med History&Physical ---
Date of Encounter: 01/26/19 Time of Encounter: 13:35 Internal Medicine - H&P: HPI History of present illness: Mr. Beaulieu is a 73 year old male with PMH of CAD, CA s/p CABG and ICM, HFrEF with EF 35-40%, HTN, HLD, DM, CKD, s/p R CEA, cirrhosis, PVD, lung cancer s/p LLL resection, history of GI bleed, presents as a direct admission for weakness and dehydration. Patient was at a follow-up office visit with Dr. Angel after being discharged from the hospital on 12/29/18 for empyema, pneumonia, hyd ropneumothorax. His hospital stay was complicated by an NSTEMI and acute renal failure. He had a follow-up with Cardiology 5 days ago for this, currently on dual antiplatelet therapy. In the past 3 days he has had complaints of lethargy, poor appetite, poor PO intake with no urine output in the last two days. He has MARCY with exertion which is chronic. He was reported to have dysphasia during recent office visits. He denies fevers/chills, night sweats, chest pain, MARCY at rest, n/v, diarrhea/palpitations, worsening edema,headaches, blurry vision. His was concerned and gave him an extra dose of Lasix. Family history reviewed, father had HTN, DM, Cancer, mother with HTN. Past Med Surg Social Fam HX - Past Medical History Medical history: cancer, CHF, coronary artery disease, diabetes, GERD, GI bleed, hyperlipidemia, hypertension, myocardial infarction, peripheral artery disease, renal disease Additional medical history: Lumbar degenerative disc disease, carotid artery disease, right eye blind Psychiatric history: no psych history - Past Surgical History Surgical History: cancer surgery, cholecystectomy, coronary bypass (CABG) Additional surgical history: Stent placed a year ago, Right subclavian bypass graft, skin cancer. - Social History Smoking Status: Former smoker Smokeless Tobacco Status: No Alcohol use: none Drug use: none - Family History Father Adopted: No Family Member Ethnicity: Non- Living Status: Hx Family Cardiac Disorders: No Hx Family Respiratory Disorders: No Hx Family Cancer: Yes Hx Family GI Disorders: No Hx Family Endocrine Disorder: No Hx Family Neuromuscular Disorders: No Hx Family Neurologic Disorders: No Hx Family HEENT Disorders: No Hx Family Autoimmune Disorders: No Mother Adopted: No Living Status: Hx Family Cardiac Disorders: No Hx Family Respiratory Disorders: No Hx Family Cancer: No Hx Family GI Disorders: No Hx Family Endocrine Disorder: No Hx Family Neuromuscular Disorders: No Hx Family Neurologic Disorders: No Hx Family HEENT Disorders: No Hx Family Autoimmune Disorders: No Internal Medicine - H&P: Meds Aspirin [Lo-Dose Aspirin EC] 81 mg PO DAILY 11/26/17 [History] Atorvastatin [Lipitor] 40 mg PO HS 11/26/17 [History] Clopidogrel [Plavix] 75 mg PO DAILY 08/11/18 [History] Latanoprost [Xalatan] 1 drop LEFT EYE HS 08/11/18 [History] Metoprolol XL (24 HR) Succ [Toprol Xl] 25 mg PO DAILY 08/14/18 [History] Omeprazole [PriLOSEC] 20 mg PO DAILY@0730 08/14/18 [History] Albuterol Sulfate [Proair Hfa] 2 puff IH Q6H PRN 10/29/18 [History] Budesonide/Formoterol 160/4.5 [Symbicort 160/4.5] 2 puff IH BIDR 10/29/18 [History] Isosorbide MONOnitrate [Isosorbide Mononitrate ER] 30 mg PO DAILY 10/29/18 [History] Nitroglycerin [Nitrostat] 0.4 mg SL Q5MIN PRN 10/29/18 [History] Tiotropium [place] [Spiriva Respimat] 2 puff IH DAILY 10/29/18 [History] Cholecalciferol (Vitamin D3) [Vitamin D3] 2,000 unit PO DAILY 12/11/18 [History] Fluconazole [Diflucan] 100 mg PO DAILY 12/11/18 [History] Levothyroxine Sodium [Levoxyl] 50 mcg PO QAM 12/11/18 [History] Nystatin [Nystatin Suspension] 500,000 unit PO QID PRN 12/11/18 [History] Spironolactone [Aldactone] 50 mg PO DAILY 12/11/18 [History] Timolol Maleate 0.5% 1 drop LEFT EYE QAM 12/11/18 [History] Tramadol HCl [Ultram] 50 mg PO Q6H PRN 12/11/18 [History] Amoxicillin/Clavulanate [Augmentin] 875 mg PO BIDWM 9 Days #18 tablet 12/29/18 [Rx] Clotrimazole 1% CRM [Lotrimin 1%] 1 appl TP BID 10 Days #1 tube 12/29/18 [Rx] Doxycycline 100 mg PO BID 9 Days #18 capsule 12/29/18 [Rx] Furosemide [Lasix] 20 mg PO DAILY 30 Days #30 tablet 12/29/18 [Rx] OxyCODONE Immed Rel [Roxicodone 5 MG] 5 mg PO Q4HR PRN 5 Days #10 tablet 12/29/18 [Rx] Sennosides/Docusate Sodium [Senna Plus] 1 each PO BID 30 Days #60 tablet 12/29/18 [Rx] Tamsulosin [Flomax] 0.4 mg PO DAILY 30 Days #30 capsule 12/29/18 [Rx] Allergy/AdvReac Type Severity Reaction Status Date / Time gabapentin [From Neurontin] AdvReac Hallucinati Verified 12/11/18 17:43 ng lisinopril AdvReac Cough Verified 12/11/18 17:43 Varenicline [From Chantix] AdvReac Nightmare Verified 12/11/18 17:43 All Systems PM: A 10-system review of systems was performed and is negative for pertinent findings except as documented above in the HPI. - Constitutional Vitals: Temp Pulse Resp BP Pulse Ox 96.3 F L 87 15 109/76 100 01/26/19 10:44 01/26/19 10:44 01/26/19 10:44 01/26/19 10:44 01/26/19 10:44 General appearance: Present: A&O X 3 Exam: . - Head Head exam: Present: atraumatic, normocephalic - Eye Eye exam: Present: PERRL, conjuntiva pink, sclera anicteric Pupils: Present: PERRL - ENT ENT exam: Present: mucous membranes dry - Neck Neck exam general surgery: Present: supple, trachea midline. Absent: lymphadenopathy - Respiratory Respiratory exam: Present: decreased breath sounds. Absent: accessory muscle use, rales, rhonchi, wheezes - Cardiovascular Cardiovascular exam: Present: irregular rhythm, +S1, +S2. Absent: bradycardia, diastolic murmur, gallop, rubs, systolic murmur, tachycardia - GI/Abdominal GI/Abdominal exam: Present: normal bowel sounds, soft, no peritoneal signs. Absent: distended, tenderness - Extremities Exam Extremities exam: Present: pedal edema (symmetrical bilateral, 1+. states this is better than normal.), warm, radial pulses palpable and symmetrical. Absent: calf tenderness, cyanotic - Neurological Exam Neurological exam: Present: CN II-XII intact, oriented X3, no focal deficits. Absent: pronater drift, facial droop, speech deficit - Skin Skin exam: Present: dry, intact Internal Med - H&P Results - Labs CBC & Chem 7: 01/26/19 12:47 01/26/19 12:47 - Assessment and Plan (1) Weakness Current Visit: Yes Status: Acute Assessment and plan: Likely dehydration, malnutrition, deconditioning. Continue IV fluids, PT/OT, check electrolytes, iron, B12, TSH. (2) Weight loss Current Visit: Yes Status: Acute Assessment and plan: Appears to be a chronic issue that is gradually worsening. Nutrition consult. Patient takes Megace at home which will need increased once med rec completed. (3) History of GI bleed Current Visit: Yes Status: Acute Assessment and plan: Reviewed prior medical records. states he had an episode of GI bleed ignacio ral years ago. Patient has history of chronic gastritis and grade A reflux esophagitis. Prior EGD in 2014 showed several gastric ulcers. Does not seem to have any active bleeding history. Will need initiation of heparin drip due to high risk for thrombotic events. Will monitor H&H and vitals closely for any signs of bleed. Resume home ppi. (4) Cirrhosis Current Visit: Yes Status: Acute Assessment and plan: No acute issues. Does not appear to have any ascites on exam. Patient is currently requiring IV fluids for dehydration which will be given cautiously due to cirrhosis and CHF. Qualifiers: Hepatic cirrhosis type: unspecified hepatic cirrhosis Ascites presence: without ascites Qualified Code(s): K74.60 - Unspecified cirrhosis of liver (5) CAD (coronary artery disease) Current Visit: No Status: Chronic Assessment and plan: Continue home medications. Qualifiers: Coronary Disease-Associated Artery/Lesion type: [place] artery [place] vs. transplanted heart: [place] heart Associated angina: angina presence unspecified Qualified Code(s): I25.10 - Atherosclerotic heart disease of [place] coronary artery without angina pectoris (6) COPD (chronic obstructive pulmonary disease) Current Visit: No Status: Chronic Assessment and plan: No acute exacerbation. Qualifiers: Emphysema type: unspecified Qualified Code(s): J43.9 - Emphysema, unspecified (7) Cancer of lower lobe of left lung Current Visit: No Status: Chronic Assessment and plan: s/p LLL resection three months ago. (8) Carotid arterial disease Current Visit: No Status: Chronic Qualifiers: Carotid artery disease type: unspecified Laterality: bilateral Qualified Code(s): I77.9 - Disorder of arteries and arterioles, unspecified (9) Chronic renal disease, stage 3, moderately decreased glomerular filtration rate between 30-59 mL/min/1.73 square meter Current Visit: No Status: Chronic Assessment and plan: Creatinine today 1.38, slightly above baseline 1.25. Continue IV fluid hydration and recheck in AM. (10) Diabetes mellitus, insulin dependent (IDDM), controlled Current Visit: No Status: Chronic Assessment and plan: ISS, diabetic diet (11) Hypothyroidism Current Visit: No Status: Chronic Assessment and plan: TSH wnl, continue Synthroid. Qualifiers: Hypothyroidism type: acquired Qualified Code(s): E03.9 - Hypothyroidism, unspecified (12) Ischemic cardiomyopathy Current Visit: No Status: Chronic (13) S/P coronary artery stent placement Current Visit: No Status: Chronic Assessment and plan: Currently on ASA/Plavix. (14) Systolic and diastolic CHF, chronic Current Visit: No Status: Chronic Assessment and plan: Last EF 30-35%. Denies any MARCY at rest currently. Peipheral edema is better than baseline, likely because patient is dehydrated. Will need cautious IV fluid hydration. Hold Lasix, continue Toprol XL, spironolactone once med rec complete. No MICKIE/ARB listed on home medications but med rec not complete at this time. Also noted that he is hypotensive and that could be reason why. (15) Abnormal blood level of iron Current Visit: Yes Status: Acute Assessment and plan: Has history of elevated iron levels which were worked up in the past. Given current weakness, will recheck. (16) Dehydration Current Visit: Yes Status: Acute Assessment and plan: IV fluids as mentioned above. Will need cautiously as patient has reduced EF and also cirrhosis. (17) Severe protein-calorie malnutrition Current Visit: Yes Status: Acute Assessment and plan: Consult nutrition (18) New onset atrial fibrillation Current Visit: Yes Status: Acute Assessment and plan: Start heparin drip Consult to Cardiology Currently rate controlled, resume home Metoprolol. (19) DVT prophylaxis Current Visit: No Status: Acute Assessment and plan: Patient being started on heparin drip. - Time Spent With Patient Total time spent is greater than 50% in coordination of care (as documented) at patient's floor/unit and/or counseling patient:
[2019-01-26] MEDS ORDERED: 0.9 % Sodium Chloride 1,000 ML IVC SCH (13:15)
[2019-01-26 13:17] LABS: Basophils # 0.1 K/mcL (0.0-0.2); Basophils % 0.5 %; Eosinophils # 0.2 K/mcL (0.0-0.6); Eosinophils % 1.3 %; Hematocrit 35.8 % (37.5-50.1); Hemoglobin 11.2 g/dL (12.9-16.9); Immature Granulocytes % 0.6 % (0-4); Lymphocytes % 7.8 %; Mean Corpuscular HGB Conc 31.3 g/dL (31.6-35.5); Mean Corpuscular Hemoglobin 28.9 pg (28.0-33.3); Mean Corpuscular Volume 92.3 fL (83.0-100.0); Mean Platelet Volume 10.6 fL (9.4-12.4); Monocytes # 0.9 K/mcL (0.0-1.3); Monocytes % 7.1 %; Neutrophils # 10.4 K/mcL (1.6-8.9); Nucleated Red Blood Cells 0.2 /100 WBC (0); Platelet Count 336 K/mcL (140-400); Red Blood Count 3.88 M/mcL (4.19-5.50); Red Cell Distribution Width 16.5 % (11.5-14.5); Segmented Neutrophils % 82.7 %; White Blood Count 12.6 K/mcL (4.3-11.1)
[2019-01-26 13:26] LABS: INR 1.4; Prothrombin Time 16.4 Seconds (9.4-12.1)
[2019-01-26 13:35] LABS: Magnesium 1.9 mg/dL (1.6-2.6); Phosphorous 3.1 mg/dL (2.7-4.5)
[2019-01-26 13:36] LABS: BUN/Creatinine Ratio 30 (6-26); Blood Urea Nitrogen 42 mg/dL (8-23); Calcium 9.5 mg/dL (8.6-10.3); Carbon Dioxide 26 mEq/L (23-29); Chloride 97 mEq/L (98-107); Glucose 128 mg/dL (70-105); Osmolality,Calculated 280 (280-300); Potassium 5.2 mEq/L (3.5-5.1); Sodium 129 mEq/L (136-145); eGFR For African Americans > 60 (> 60); eGFR For Non-African Americans 50 (> 60)
[2019-01-26 13:45] LABS: Thyroid Stimulating Hormone 4.087 mcIU/mL (0.340-5.600)
[2019-01-26] MEDS ORDERED: *HR* Heparin 5,000 UNIT/ML VIAL IVP PRN ×4 (14:14→14:25)
[2019-01-26] MEDS ORDERED: *HR* Heparin 5,000 UNIT/ML VIAL IVP ONE ×2 (14:14→14:25)
[2019-01-26] MEDS ORDERED: Heparin 25,000 UNIT/250 ML D5W 25,000 UNIT/250 ML IV.SOLN IVC SCH (14:30)
[2019-01-26 15:30] LABS: Hematocrit 35.1 % (37.5-50.1); Hemoglobin 11.2 g/dL (12.9-16.9); Mean Corpuscular HGB Conc 31.9 g/dL (31.6-35.5); Mean Corpuscular Hemoglobin 29.2 pg (28.0-33.3); Mean Corpuscular Volume 91.4 fL (83.0-100.0); Mean Platelet Volume 10.5 fL (9.4-12.4); Platelet Count 301 K/mcL (140-400); Red Blood Count 3.84 M/mcL (4.19-5.50); Red Cell Distribution Width 16.7 % (11.5-14.5); White Blood Count 12.5 K/mcL (4.3-11.1)
[2019-01-26 15:37] LABS: Heparin anti-factor XA UFH 0.02 IU/mL (0.30-0.70)
[2019-01-26 15:38] LABS: INR 1.4; Prothrombin Time 15.8 Seconds (9.4-12.1)
[2019-01-26 16:22] LABS: Bilirubin,Urine Small (Negative); Blood,Urine Negative (Negative); Clarity,Urine Clear (Clear); Color,Urine Dark Yellow (Yellow); Glucose,Urine (UA) Normal (Normal); Ketones,Urine Negative (Negative); Leukocyte Esterase,Urine Negative (Negative); Nitrite,Urine Negative (Negative); Protein,Urine Negative (Neg-Trace); Specific Gravity,Urine 1.019 (1.010-1.025); Urobilinogen,Urine Normal (Normal)
[2019-01-26] MEDS ORDERED: *HR* Heparin 5,000 UNIT/ML VIAL SQ SCH (18:00)
[2019-01-26] MEDS: Insulin LISPRO 300 UNITS/3 ML VIAL SQ SCH ×2 (18:40→21:05)
[2019-01-26] MEDS ORDERED: *HR* Dextrose 50 % in Water (Syg) 50 ML SYRINGE IVP PRN (21:23)
[2019-01-26] MEDS ORDERED: Dextrose Gel 15 GM/37.5 ML TUBE PO PRN ×2 (21:23)
[2019-01-26] MEDS ORDERED: D5% in Water 1,000 ML IVC PRN (21:23)
[2019-01-26] MEDS: Latanoprost 2.5 ML BOTTLE LEFT EYE SCH (22:21)
[2019-01-26 23:10] LABS: Calcium 8.9 mg/dL (8.6-10.3); Potassium 4.7 mEq/L (3.5-5.1)
[2019-01-27] MEDS ORDERED: 0.9 % Sodium Chloride 500 ML ONE (02:06)
[2019-01-27 03:24] LABS: Basophils # 0.1 K/mcL (0.0-0.2); Basophils % 0.9 %; Eosinophils # 0.5 K/mcL (0.0-0.6); Eosinophils % 4.3 %; Hematocrit 34.9 % (37.5-50.1); Hemoglobin 11.1 g/dL (12.9-16.9); Immature Granulocytes % 0.5 % (0-4); Lymphocytes # 1.3 K/mcL (0.6-4.6); Lymphocytes % 12.5 %; Mean Corpuscular HGB Conc 31.8 g/dL (31.6-35.5); Mean Corpuscular Hemoglobin 28.9 pg (28.0-33.3); Mean Corpuscular Volume 90.9 fL (83.0-100.0); Mean Platelet Volume 10.6 fL (9.4-12.4); Monocytes % 9.1 %; Neutrophils # 7.6 K/mcL (1.6-8.9); Nucleated Red Blood Cells 0.5 /100 WBC (0); Platelet Count 301 K/mcL (140-400); Red Blood Count 3.84 M/mcL (4.19-5.50); Segmented Neutrophils % 72.7 %; White Blood Count 10.5 K/mcL (4.3-11.1)
[2019-01-27 03:44] LABS: BUN/Creatinine Ratio 31 (6-26); Blood Urea Nitrogen 42 mg/dL (8-23); Calcium 8.9 mg/dL (8.6-10.3); Carbon Dioxide 22 mEq/L (23-29); Chloride 100 mEq/L (98-107); Glucose 92 mg/dL (70-105); Osmolality,Calculated 284 (280-300); Sodium 132 mEq/L (136-145); eGFR For African Americans > 60 (> 60); eGFR For Non-African Americans 52 (> 60)
--- NOTE | 2019-01-27 08:34 | Internal Med Progress Note ---
Hospitalist Progress Note - Encounter Date of Encounter: 01/27/19 Time of Encounter: 08:34 - Subjective Interval History: Patient seen and examined this morning at bedside. No acute overnight events. Patient somewhat tearful. Mentions she is feeling weak. and patient somewhat upset that he did not get IV sooner and no one told them what was the plan of care. He denies any chest pain. Denies any abdominal pain. Shortness of breath at baseline. - Exam Vitals: Temp Pulse Resp BP Pulse Ox 97.4 F L 107 16 109/75 100 01/27/19 06:38 01/27/19 06:38 01/27/19 06:38 01/27/19 06:38 01/27/19 06:38 Exam: General: In no acute distress. occasionally tearful Respiratory exam: CTAB. no accessory muscle use, rales, rhonchi, wheezes. Decreased breath sounds. Cardiovascular exam: irregular, tachycardia, +S1, +S2. no murmur, gallop, rubs. GI/Abdominal exam: Non-tender, Non-distended, normal bowel sounds, soft, no peritoneal signs. Extremities exam: 1+ pedal edema, pulses palpable in b/l lower extremities. no calf tenderness Neurological exam: CN II-XII intact, AO X3, no focal deficits. Skin exam: multiple ecchymosis and bruise from fall. - Assessment and Plan (1) CAD (coronary artery disease) Current Visit: No Status: Chronic (2) Hypothyroidism Current Visit: No Status: Chronic (3) DVT prophylaxis Current Visit: No Status: Acute (4) Systolic and diastolic CHF, chronic Current Visit: No Status: Chronic (5) Carotid arterial disease Current Visit: No Status: Chronic (6) S/P coronary artery stent placement Current Visit: No Status: Chronic (7) Cancer of lower lobe of left lung Current Visit: No Status: Chronic (8) Diabetes mellitus, insulin dependent (IDDM), controlled Current Visit: No Status: Chronic (9) Chronic renal disease, stage 3, moderately decreased glomerular filtration rate between 30-59 mL/min/1.73 square meter Current Visit: No Status: Chronic (10) Ischemic cardiomyopathy Current Visit: No Status: Chronic (11) COPD (chronic obstructive pulmonary disease) Current Visit: No Status: Chronic (12) History of GI bleed Current Visit: Yes Status: Acute (13) Cirrhosis Current Visit: Yes Status: Acute (14) Abnormal blood level of iron Current Visit: Yes Status: Acute (15) Weight loss Current Visit: Yes Status: Acute (16) Weakness Current Visit: Yes Status: Acute (17) Dehydration Current Visit: Yes Status: Acute (18) Severe protein-calorie malnutrition Current Visit: Yes Status: Acute (19) New onset atrial fibrillation Current Visit: Yes Status: Acute - Summary of Assessment and Plan Summary of Assessment and Plan: Assessment Acute Failure to thrive new Afib elevated troponin dysphagia Chronic CAD s/p CABG Ischemic cardiomyopathy systolic CHF with EF 35-40 HTN HLD DM CKD Cirrhosis PVD Lung cancer s/p LLL resection, recently discharge for emypema, hydropneumothorax. Plan - deconditioning due to multiple comorbidities, multiple hospital admissions and decrease oral intake. Discussed about parenteral and enteral nutrition. Patient okay with PEG tube placement. We will consult CT surgery for PEG tube would be able to follow outpatient as well. Nutrition consulted. Also complains of difficulty swallowing. We will consult speech therapy for further evaluation and possible barium swallow - Patient with new onset A. fib. Currently hon heparin drip. Likely not good candidate for night clerk AC for CVA risk. Cardiology input appreciated. Will resume home betablocker. Will stop all other antihypertensives. - elevate troponins without chest pain, on baseline CAD and ISRRAEL. - recently had VATs with CT surgery gia LLL cancer and lt hydropneumothroax and empyema and finishing course of antibiotics. CT surgery consulted. Has not followed with oncology - c/w SSI and accuchecks - Resume home bronchodilators. - Time Spent with Patient Total time spent is greater than 50% in coordination of care (as documented) at patient's floor/unit and/or counseling patient: Internal Medicine: Result - Labs CBC & Chem 7: 01/27/19 03:08 01/27/19 03:08 Labs: Short CBC 01/26/19 01/26/19 01/27/19 Range/Units 12:47 15:03 03:08 WBC 12.6 H 12.5 H 10.5 (4.3-11.1) K/mcL Hgb 11.2 L 11.2 L 11.1 L (12.9-16.9) g/dL Hct 35.8 L 35.1 L 34.9 L (37.5-50.1) % Plt Count 336 301 301 (140-400) K/mcL Neutrophils # 10.4 H 7.6 (1.6-8.9) K/mcL BMP 01/26/19 01/26/19 01/26/19 12:47 15:51 22:15 Sodium 129 L 132 L Potassium 5.2 H 5.4 H 4.7 Chloride 97 L 98 Carbon Dioxide 26 25 BUN 42 H 44 H Creatinine 1.38 H 1.41 H Glucose 128 H 74 Calcium 9.5 8.9 01/27/19 03:08 Sodium 132 L Potassium 5.0 Chloride 100 Carbon Dioxide 22 L BUN 42 H Creatinine 1.34 H Glucose 92 Calcium 8.9 Cardiac Enzymes 01/26/19 01/26/19 01/27/19 Range/Units 12:47 19:34 03:08 Troponin I 0.04 H* 0.05 H* 0.04 H* (< 0.04) ng/mL Urine 01/26/19 Range/Units 16:09 Urine Color Dark Yellow (Yellow) Urine Clarity Clear (Clear) Urine pH 5.0 (5.0-8.0) pH Units Ur Specific [place] 1.019 (1.010-1.025) Urine Protein Negative (Neg-Trace) mg/dL Urine Glucose (UA) Normal (Normal) mg/dL - ABG Interpretation ABG results: PT/INR, D-dimer PT 15.8 Seconds (9.4-12.1) H 01/26/19 15:03 - Impressions Impressions Chest X-Ray 01/26/19 12:12 IMPRESSION: No interval change in multifocal airspace opacities and left pleural effusion. D/ / Kenyetta Burdick MD / Kenyetta Burdick MD Interpreting Provider: Kenyetta Burdick MD Consult Discharge Plan - Plan Referrals: Osman Martinez MD [Primary Care Provider] - (1) CAD (coronary artery disease) Qualifiers: Qualified Code(s): I25.10 - Atherosclerotic heart disease of [place] coronary artery without angina pectoris (2) Hypothyroidism Qualifiers: Qualified Code(s): E03.9 - Hypothyroidism, unspecified (5) Carotid arterial disease Qualifiers: Qualified Code(s): I77.9 - Disorder of arteries and arterioles, unspecified (11) COPD (chronic obstructive pulmonary disease) Qualifiers: Qualified Code(s): J43.9 - Emphysema, unspecified (13) Cirrhosis Qualifiers: Qualified Code(s): K74.60 - Unspecified cirrhosis of liver
[2019-01-27] MEDS: Insulin LISPRO 300 UNITS/3 ML VIAL SQ SCH ×4 (08:35→20:45)
[2019-01-27] MEDS ORDERED: Iron Sucrose Complex 400 MG in 0.9 % Sodium Chloride 250 ML IVPB ONE (09:07)
--- NOTE | 2019-01-27 10:56 | Cardiology Consult Note ---
<Angel Luis Andersen - Last Filed: 01/27/19 11:36> Date of Encounter: 01/27/19 Time of Encounter: 10:45 Assessment and Plan (1) Weakness Current Visit: Yes Status: Acute Per Cardiology: Presented with overall worsening weakness, weight loss, decreased appetite. Saw PCP with barium swallow pending, recommend further evaluation as inpatient. (2) Cancer of lower lobe of left lung Current Visit: No Status: Chronic Per Cardiology: Recent surgeries: 10/2018: "VATs, staging bronchoscopy, left thoracotomy lysis, left lower lobectomy, mediastinal lymph node dissection" 12/2018: "Bronchoscopy, left thoracotomy and partial rib resection, serratus and latissimus and mm flaps" Seen by Dr. Angel as outpatient and sent to hospital. Consider oncology consult for evaluation during hospital stay since patient has been able to follow-up in outpatient setting and unsure of assisted prognosis or next steps in care. Patient did confirm desire to be DNR/CCA/DNI. (3) New onset atrial fibrillation Current Visit: Yes Status: Acute Per Cardiology: New onset atrial flutter/fibrillation. Currently in the 100's -110s. Average heart rate past 24 hours 101. Systolic blood pressures in the 100s to 110s. Home dose of Toprol XL 25mg PO daily resumed by primary service to start tomorrow, will decrease to 12.5 mg by mouth daily now and monitor HR and BP. Patient appears asymptomatic with atrial fibrillation. Continue with rate control strategy. Regarding long-term anticoagulation, [id number]: 6. Currently on IV heparin drip. Has hx of GI Bleed, recent mechanical fall with weakness, history of cirrhosis, receiving iron transfusion. No hx of TIA or CVA. Will discuss and review with Dr. Mak recommendations for long-term anticoagulation. (4) Elevated troponin I level Current Visit: No Status: Acute Per Cardiology: Troponins of 0.04, 0.05, 0.04 in setting of multiple comorbids. Chest pain- free. Has known CAD being medically managed. Do not suspect non-STEMI, suspect type II demand ischemia. No cardiac rehabilitation consult warranted. (5) CAD (coronary artery disease) Current Visit: No Status: Chronic Per Cardiology: [facility] 11/2018: Lesion Findings/Interventions * Left Main Coronary Artery There is a 100% stenosis in the Proximal LMCA. * Left Anterior Descending There is a 100% stenosis in the Proximal LAD. * Circumflex There is a 100% stenosis in the Proximal Circumflex. * Right Coronary Artery There is a 75% stenosis in the Mid RCA. SVG to OM/Circ is occluded. MALLOY to LAD patent SVG to RCA patent with graft to the intraventricular groove artery that provide right to left collaterals. Beyond the insertion the is tubular disease of 55%. Additional Findings: Grafts * The saphenous vein graft to the Mid RCA is patent. MERNA flow is 3. * The left internal mammary graft to the Mid LAD is patent. MERNA flow is 3. * The saphenous vein graft to the Mid Circumflex is occluded. Being medically managed. Outpatient medications include aspirin, Plavix, statin, long-acting nitrate, beta may. Currently on aspirin, statin, beta may. Qualifiers: Coronary Disease-Associated Artery/Lesion type: beaver artery [place] vs. transplanted heart: beaver heart Associated angina: angina presence unspecified Qualified Code(s): I25.10 - Atherosclerotic heart disease of beaver coronary artery without angina pectoris (6) Ischemic cardiomyopathy Current Visit: No Status: Chronic Per Cardiology: Impressions: LVEF 30-35%. Atypical septal motion consistent with post-operative status. Definity echo contrast was used. There is no LV thrombus. Euvolemic on exam. Chest x-ray stable, unchanged left pleural effusion. Lasix currently on hold. On beta may. Consider resuming Aldactone if able. We will evaluate ability to add MICKIE inhibitor/ARB based on hospital course (has allergy to lisinopril). (7) CKD (chronic kidney disease) stage 3, GFR 30-59 ml/min Current Visit: No Status: Chronic Per Cardiology: History of CKD stage IIIa, current kidney function around baseline. Discussion w patient/family: The assessment and plan as outlined above was discussed with the patient and/or family members who expressed understanding and agreement. All questions were answered. Thank you for involving us in the care of your patient. Please call with any questions. History of Present Illness Consult date: 01/27/19 Consult reason: Afib Chief complaint: Weakness History of present illness: Mr. Beaulieu is a 73 year old male with PMH of CAD, GA s/p CABG and ICM, HFrEF with EF 35-40%, HTN, HLD, DM, CKD 3A, s/p R CEA, cirrhosis, PVD, lung cancer s/p LLL resection, history of GI bleed. Seen recently by Cardiology by Dr. Sintia Voss; "underwent successful thoracotomy, decortication, muscle flap surgery by Dr. Angel. Prior to surgery, had cardiac catheterization performed which demo nstrated 3VCAD with 2/3 patent grafts. L main stent was occluded which likely was culprit for perioperative GA in October 2018". Saw PCP-- PCP ordered outpatient barium swallow for difficulty swallowing and decreased appetite with weakness. Patient was at a follow-up office visit with Dr. Angel after being discharged from the hospital on 12/29/18 for empyema, pneumonia, hydropneumothorax and sent for direct admit. Cardiology consult for afib. Of note, patient is DNR/CCA/DNI. Patient confirms overall decreased appetite with difficulty swallowing and drinking since most recent discharge. He reports overall increased weakness as well. He feels like food is sticking in his throat. Reports barium swallow as outpatient pending. He also indicates has not followed up with oncology for further evaluation of his lung cancer since surgery due to multiple hospitalizations. 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 Patient reports feeling lightheaded with walking and recent mechanical fall with tripping over walker recently. He de nies any chest pain or palpitations. Reports short of breath at rest and with exertion about baseline. He denies any edema. He denies any fever, chills, nausea, vomiting, diarrhea. Denies any current active bleeding or blood loss. Denies any known history of atrial fibrillation. Denies any past history of TIA or CVA. Past Med Surg Social Fam HX - Past Medical History Attestation: Yes The following information was validated with the patient. Source: patient, old records reviewed, obtained from family Medical history: cancer, CHF, coronary artery disease, diabetes, GERD, GI bleed, hyperlipidemia, hypertension, myocardial infarction, peripheral artery disease, renal disease Additional medical history: Lumbar degenerative disc disease, carotid artery disease, right eye blind Psychiatric history: no psych history - Past Surgical History Surgical History: cancer surgery, cholecystectomy, coronary bypass (CABG) Additional surgical history: Stent placed a year ago, Right subclavian bypass graft, skin cancer. - Social History Smoking Status: Former smoker Smokeless Tobacco Status: No Alcohol use: none Drug use: none - Family History Father Adopted: No Family Member Ethnicity: Non- Living Status: Hx Family Cardiac Disorders: No Hx Family Respiratory Disorders: No Hx Family Cancer: Yes Hx Family GI Disorders: No Hx Family Endocrine Disorder: No Hx Family Neuromuscular Disorders: No Hx Family Neurologic Disorders: No Hx Family HEENT Disorders: No Hx Family Autoimmune Disorders: No Mother Adopted: No Living Status: Hx Family Cardiac Disorders: No Hx Family Respiratory Disorders: No Hx Family Cancer: No Hx Family GI Disorders: No Hx Family Endocrine Disorder: No Hx Family Neuromuscular Disorders: No Hx Family Neurologic Disorders: No Hx Family HEENT Disorders: No Hx Family Autoimmune Disorders: No Medications and Allergies Aspirin [Lo-Dose Aspirin EC] 81 mg PO DAILY 11/26/17 [History] Atorvastatin [Lipitor] 40 mg PO HS 11/26/17 [History] Clopidogrel [Plavix] 75 mg PO DAILY 08/11/18 [History] Latanoprost [Xalatan] 1 drop LEFT EYE HS 08/11/18 [History] Metoprolol XL (24 HR) Succ [Toprol Xl] 25 mg PO DAILY 08/14/18 [History] Omeprazole [PriLOSEC] 20 mg PO DAILY@0730 08/14/18 [History] Albuterol Sulfate [Proair Hfa] 2 puff IH Q6H PRN 10/29/18 [History] Budesonide/Formoterol 160/4.5 [Symbicort 160/4.5] 2 puff IH BIDR 10/29/18 [History] Isosorbide MONOnitrate [Isosorbide Mononitrate ER] 30 mg PO DAILY 10/29/18 [H istory] Nitroglycerin [Nitrostat] 0.4 mg SL Q5MIN PRN 10/29/18 [History] Tiotropium [place] [Spiriva Respimat] 2 puff IH DAILY 10/29/18 [History] Cholecalciferol (Vitamin D3) [Vitamin D3] 2,000 unit PO DAILY 12/11/18 [History] Levothyroxine Sodium [Levoxyl] 50 mcg PO QAM 12/11/18 [History] Spironolactone [Aldactone] 50 mg PO DAILY 12/11/18 [History] Timolol Maleate 0.5% 1 drop LEFT EYE QAM 12/11/18 [History] Tramadol HCl [Ultram] 50 mg PO Q6H PRN 12/11/18 [History] Clotrimazole 1% CRM [Lotrimin 1%] 1 appl TP BID 10 Days #1 tube 12/29/18 [Rx] Doxycycline 100 mg PO BID 9 Days #18 capsule 12/29/18 [Rx] Furosemide [Lasix] 20 mg PO DAILY 30 Days #30 tablet 12/29/18 [Rx] OxyCODONE Immed Rel [Roxicodone 5 MG] 5 mg PO Q4HR PRN 5 Days #10 tablet 12/29/18 [Rx] Sennosides/Docusate Sodium [Senna Plus] 1 each PO BID 30 Days #60 tablet 12/29/18 [Rx] Tamsulosin [Flomax] 0.4 mg PO DAILY 30 Days #30 capsule 12/29/18 [Rx] Silver Sulfadiazine 1 appl TP DAILY 01/26/19 [History] Allergy/AdvReac Type Severity Reaction Status Date / Time gabapentin [From Neurontin] AdvReac Hallucinati Verified 12/11/18 17:43 ng lisinopril AdvReac Cough Verified 12/11/18 17:43 Varenicline [From Chantix] AdvReac Nightmare Verified 12/11/18 17:43 All Systems Review: The remainder of the systems were reviewed and are negative - Constitutional Constitutional: fatigue, weakness, weight loss - EENT Nose, mouth and throat: dysphagia - Cardiovascular Cardiovascular: as per HPI, lightheadedness Physical Examination Selected Entries 01/27/19 06:38 Temperature 97.4 F L Pulse Rate 107 Respiratory Rate 16 Blood Pressure 109/75 O2 Sat by Pulse Oximetry 100 Oxygen Flow Rate (LPM) 3 Oxygen Delivery Method Nasal Cannula General: Conversant, No Apparent Distress, Other (significant weight loss noted) HEENT: Atraumatic, Normocephaly, Mucus Membranes Moist Neck: No JVD, Normal carotid pulses Cardiac: No Murmur, Other (Irregularly irregular) Lungs: Normal Breath Sounds, No Wheeze, Rales, Rhonchi Neuro: Alert and responsive, No focal deficits noted Abdomen: Soft, Non-Tender Skin: No rashes noted on visualized skin, Other (pale in color) Musculoskeletal: No Chest Wall Tenderness Extremities: No Clubbing, No Cyanosis, No Edema, Normal Pulses Results 01/27/19 03:08 01/27/19 03:08 Lab Results Laboratory Tests 01/26/19 01/26/19 01/26/19 12:47 12:47 12:47 Hgb Hct INR 1.4 Creatinine Est GFR (Non-Af Amer) Magnesium 1.9 Troponin I TSH 4.087 01/26/19 01/26/19 01/27/19 12:47 19:34 03:08 Hgb 11.1 L Hct 34.9 L INR Creatinine Est GFR (Non-Af Amer) Magnesium Troponin I 0.04 H* 0.05 H* TSH 01/27/19 01/27/19 03:08 03:08 Hgb Hct INR Creatinine 1.34 H Est GFR (Non-Af Amer) 52 L Magnesium Troponin I 0.04 H* TSH ITS Impressions Chest X-Ray 01/26/19 12:12 IMPRESSION: No interval change in multifocal airspace opacities and left pleural effusion. D/ / Kenyetta Burdick MD / Kenyetta Burdick MD Interpreting Provider: Kenyetta Burdick MD Active Medications Atorvastatin Calcium (Lipitor) 40 mg PO HS DAVIE Stop: 07/28/19 21:01 Last Admin: 01/26/19 22:21 Dose: 40 mg Documented by: Dextrose/Water (Dextrose 50% (Syg)) 25 ml IVP AD PRN PRN Reason: Hypoglycemia Stop: 07/28/19 21:24 Glucagon (Glucagen) 1 mg IM ONCE PRN PRN Reason: Hypoglycemia Stop: 07/28/19 21:24 Glucose (Gluctose) 15 gm PO ONCE PRN PRN Reason: Hypoglycemia Stop: 07/28/19 21:24 Glucose (Gluctose) 30 gm PO ONCE PRN PRN Reason: Hypoglycemia Stop: 07/28/19 21:24 Heparin Sodium (Porcine) (Heparin) 5,100 unit 70 unit/kg (5100 unit) IVP Q6HR PRN PRN Reason: SEE COMMENTS Stop: 07/28/19 14:26 Heparin Sodium (Porcine) (Heparin) 2,500 unit 35 unit/kg (2500 unit) IVP Q6H PRN PRN Reason: SEE COMMENTS Stop: 07/28/19 14:26 Heparin Sodium/Dextrose (Heparin 25,000 Unit/250 Ml D5w) 25,000 unit in 250 mls @ 10.161 mls/hr IVC .Q24H DAVIE; Protocol Stop: 07/28/19 14:31 Last Titration: 01/27/19 10:50 Dose: 14.05 unit/kg/hr, 10.2 mls/hr Documented by: Dextrose (Dextrose 5%) 1,000 mls @ 100 mls/hr IVC .Q10H PRN PRN Reason: HYPOGLYCEMIA Stop: 07/28/19 21:24 Iron Sucrose 400 mg/ Sodium (Chloride) 270 mls @ 120 mls/hr IVPB ONCE ONE Stop: 01/27/19 11:21 Insulin Human Lispro (Humalog) 0 units SQ HS DAVIE; Protocol Stop: 07/28/19 21:01 Last Admin: 01/26/19 21:05 Dose: Not Given Documented by: Insulin Human Lispro (Humalog) 0 units SQ TIDWM DAVIE; Protocol Stop: 07/28/19 17:01 Last Admin: 01/27/19 08:35 Dose: Not Given Documented by: Latanoprost (Xalatan) 1 drop LEFT EYE HS DAVIE; Protocol Stop: 07/28/19 21:01 Last Admin: 01/26/19 22:21 Dose: 1 drop Documented by: Naloxone HCl (Narcan) 0.4 mg IVP Q2MPRN PRN PRN Reason: SEE COMMENTS Stop: 07/28/19 12:09 Ondansetron HCl (Zofran) 4 mg IVP Q8HR PRN; Protocol PRN Reason: Nausea And Vomiting Stop: 07/28/19 12:14 - Imaging and Cardiology Echo: report reviewed Cardiac cath: report reviewed Consult Discharge Plan - Plan Referrals: Osman Martinez MD [Primary Care Provider] - CHADS2-VASC Score - Score Age: Greater than or equal to 75 Sex: Male CHF History: Yes Hypertension history: Yes Vascular disease history: Yes (lung cancer) Diabetes history: Yes Score: 6 <Aidan Mak P - Last Filed: 01/27/19 13:02> Date of Encounter: 01/27/19 - Attending Attestation Patient seen and examined. Unfortunately clinical situation with cardiac status clearly following noncardiac issues. A defibrillation is present but his rate is controlled on monitor. In light of all of his comorbidities and severe anemia it long-term anticoagulat ion does not seem to be a reasonable alternative. There is some concern that he is aspirating but a swallowing study has not been performed. There are tentative plans for a PEG tube tomorrow but at this time swallowing study should be added to his testing. I discussed this with the patient and family and they are comfortable with this. General supportive measures for his noncardiac issues which seem to have worsened since last time I saw this patient. Some consideration of palliative care should be made but I will leave this to the caregivers for his underlying medical problems. Assessment and Plan Discussion w patient/family: The assessment and plan as outlined above was discussed with the patient and/or family members who expressed understanding and agreement. All questions were answered. Thank you for involving us in the care of your patient. Please call with any questions. History of Present Illness History of present illness: Mr. Beaulieu is a 73 year old male All Systems Review: The remainder of the systems were reviewed and are negative Physical Examination Vital Signs, Last 4 Hours Temp Pulse Resp BP Pulse Ox 01/27/19 12:03 96.8 F L 114 18 94/66 01/27/19 11:36 16 100 Results 01/27/19 03:08 01/27/19 03:08 Lab Results 01/26/19 01/26/19 01/26/19 12:47 12:47 12:47 WBC 12.6 H Hgb 11.2 L Hct 35.8 L Plt Count 336 INR 1.4 Sodium Potassium Chloride Carbon Dioxide BUN Creatinine Glucose Calcium Magnesium 1.9 Troponin I TSH 01/26/19 01/26/19 01/26/19 12:47 12:47 12:47 WBC Hgb Hct Plt Count INR Sodium 129 L Potassium 5.2 H Chloride 97 L Carbon Dioxide 26 BUN 42 H Creatinine 1.38 H Glucose 128 H Calcium 9.5 Magnesium Troponin I 0.04 H* TSH 4.087 01/26/19 01/26/19 01/26/19 15:03 15:03 15:51 WBC 12.5 H Hgb 11.2 L Hct 35.1 L Plt Count 301 INR 1.4 Sodium Potassium 5.4 H Chloride Carbon Dioxide BUN Creatinine Glucose Calcium Magnesium Troponin I TSH 01/26/19 01/26/1901/27/19 19:34 22:15 03:08 WBC 10.5 Hgb 11.1 L Hct 34.9 L Plt Count 301 INR Sodium 132 L Potassium 4.7 Chloride 98 Carbon Dioxide 25 BUN 44 H Creatinine 1.41 H Glucose 74 Calcium 8.9 Magnesium Troponin I 0.05 H* TSH 01/27/19 01/27/19 03:08 03:08 WBC Hgb Hct Plt Count INR Sodium 132 L Potassium 5.0 Chloride 100 Carbon Dioxide 22 L BUN 42 H Creatinine 1.34 H Glucose 92 Calcium 8.9 Magnesium Troponin I 0.04 H* TSH
[2019-01-27] MEDS ORDERED: Metoprolol XL (24 HR) Succ 50 MG TAB.ER.24H PO SCH (12:00)
--- NOTE | 2019-01-27 12:23 | Internal Med Progress Note ---
Hospitalist Progress Note - Encounter Date of Encounter: 01/27/19 Time of Encounter: 12:23 - Exam Vitals: Temp Pulse Resp BP Pulse Ox 96.8 F L 114 18 94/66 100 01/27/19 12:03 01/27/19 12:03 01/27/19 12:03 01/27/19 12:03 01/27/19 11:36 - Assessment and Plan (1) CAD (coronary artery disease) Current Visit: No Status: Chronic (2) Hypothyroidism Current Visit: No Status: Chronic (3) DVT prophylaxis Current Visit: No Status: Acute (4) Systolic and diastolic CHF, chronic Current Visit: No Status: Chronic (5) Carotid arterial disease Current Visit: No Status: Chronic (6) S/P coronary artery stent placement Current Visit: No Status: Chronic (7) Cancer of lower lobe of left lung Current Visit: No Status: Chronic (8) Diabetes mellitus, insulin dependent (IDDM), controlled Current Visit: No Status: Chronic (9) Chronic renal disease, stage 3, moderately decreased glomerular filtration rate between 30-59 mL/min/1.73 square meter Current Visit: No Status: Chronic (10) Ischemic cardiomyopathy Current Visit: No Status: Chronic (11) COPD (chronic obstructive pulmonary disease) Current Visit: No Status: Chronic (12) History of GI bleed Current Visit: Yes Status: Acute (13) Cirrhosis Current Visit: Yes Status: Acute (14) Abnormal blood level of iron Current Visit: Yes Status: Acute (15) Weight loss Current Visit: Yes Status: Acute (16) Weakness Current Visit: Yes Status: Acute (17) Dehydration Current Visit: Yes Status: Acute (18) Severe protein-calorie malnutrition Current Visit: Yes Status: Acute (19) New onset atrial fibrillation Current Visit: Yes Status: Acute - Time Spent with Patient Total time spent is greater than 50% in coordination of care (as documented) at patient's floor/unit and/or counseling patient: Internal Medicine: Result - Labs CBC & Chem 7: 01/27/19 03:08 01/27/19 03:08 Labs: Short CBC 01/26/19 01/26/19 01/27/19 Range/Units 12:47 15:03 03:08 WBC 12.6 H 12.5 H 10.5 (4.3-11.1) K/mcL Hgb 11.2 L 11.2 L 11.1 L (12.9-16.9) g/dL Hct 35.8 L 35.1 L 34.9 L (37.5-50.1) % Plt Count 336 301 301 (140-400) K/mcL Neutrophils # 10.4 H 7.6 (1.6-8.9) K/mcL BMP 01/26/19 01/26/19 01/26/19 12:47 15:51 22:15 Sodium 129 L 132 L Potassium 5.2 H 5.4 H 4.7 Chloride 97 L 98 Carbon Dioxide 26 25 BUN 42 H 44 H Creatinine 1.38 H 1.41 H Glucose 128 H 74 Calcium 9.5 8.9 01/27/19 03:08 Sodium 132 L Potassium 5.0 Chloride 100 Carbon Dioxide 22 L BUN 42 H Creatinine 1.34 H Glucose 92 Calcium 8.9 Cardiac Enzymes 01/26/19 01/26/19 01/27/19 Range/Units 12:47 19:34 03:08 Troponin I 0.04 H* 0.05 H* 0.04 H* (< 0.04) ng/mL Urine 01/26/19 Range/Units 16:09 Urine Color Dark Yellow (Yellow) Urine Clarity Clear (Clear) Urine pH 5.0 (5.0-8.0) pH Units Ur Specific [place] 1.019 (1.010-1.025) Urine Protein Negative (Neg-Trace) mg/dL Urine Glucose (UA) Normal (Normal) mg/dL - ABG Interpretation ABG results: PT/INR, D-dimer PT 15.8 Seconds (9.4-12.1) H 01/26/19 15:03 - Impressions Impressions Chest X-Ray 01/26/19 12:12 IMPRESSION: No interval change in multifocal airspace opacities and left pleural effusion. D/ / Kenyetta Burdick MD / Kenyetta Burdick MD Interpreting Provider: Kenyetta Burdick MD Consult Discharge Plan - Plan Referrals: Osman Martinez MD [Primary Care Provider] - (1) CAD (coronary artery disease) Qualifiers: Coronary Disease-Associated Artery/Lesion type: [place] artery [place] vs. transplanted heart: [place] heart Associated angina: angina presence unspecified Qualified Code(s): I25.10 - Atherosclerotic heart disease of [place] coronary artery without angina pectoris (2) Hypothyroidism Qualifiers: Hypothyroidism type: acquired Qualified Code(s): E03.9 - Hypothyroidism, unspecified (5) Carotid arterial disease Qualifiers: Carotid artery disease type: unspecified Laterality: bilateral Qualified Code(s): I77.9 - Disorder of arteries and arterioles, unspecified (11) COPD (chronic obstructive pulmonary disease) Qualifiers: Emphysema type: unspecified Qualified Code(s): J43.9 - Emphysema, unspecified (13) Cirrhosis Qualifiers: Hepatic cirrhosis type: unspecified hepatic cirrhosis Ascites presence: without ascites Qualified Code(s): K74.60 - Unspecified cirrhosis of liver
[2019-01-27] MEDS ORDERED: ceFAZolin 2,000 MG in Water for inj. (sterile) 20 ML IVP ONE (13:32)
--- NOTE | 2019-01-27 13:35 | Cardiothoracic Consult Note ---
Date of Encounter: 01/27/19 Time of Encounter: 13:33 Assessment and Plan (1) Malnutrition of moderate degree Current Visit: Yes Status: Chronic The assessment and plan as outlined above was discussed with the patient and/or family members who expressed understanding and agreement. All questions were answered. (2) Dysphagia Current Visit: Yes Status: Chronic The assessment and plan as outlined above was discussed with the patient and/or family members who expressed understanding and agreement. All questions were answered. i have offered and mrs. medina a gastrostomy feeding tube, which we will place tomorrow. preop orders written Qualifiers: Dysphagia type: unspecified Qualified Code(s): R13.10 - Dysphagia, unspecif ied - History of Present Illness Consult date: 01/27/19 Requesting physician: Tomeka Burdick Consult reason: dysphagia, malnutrition Chief complaint: as above History of present illness: Mr. Medina is a 73 year old male who presented to my office yesterday with a2 weeks history of progressive weakness, failure to eat, dysphagia. Past Med Surg Social Fam HX - Past Medical History Medical history: cancer, CHF, coronary artery disease, diabetes, GERD, GI bleed, hyperlipidemia, hypertension, myocardial infarction, peripheral artery disease, renal disease Additional medical history: Lumbar degenerative disc disease, carotid artery disease, right eye blind Psychiatric history: no psych history - Past Surgical History Surgical History: cancer surgery, cholecystectomy, coronary bypass (CABG) Additional surgical history: Stent placed a year ago, Right subclavian bypass graft, skin cancer. - Social History Smoking Status: Former smoker Smokeless Tobacco Status: No Alcohol use: none Drug use: none - Family History Father Adopted: No Family Member Ethnicity: Non- Living Status: Hx Family Cardiac Disorders: No Hx Family Respiratory Disorders: No Hx Family Cancer: Yes Hx Family GI Disorders: No Hx Family Endocrine Disorder: No Hx Family Neuromuscular Disorders: No Hx Family Neurologic Disorders: No Hx Family HEENT Disorders: No Hx Family Autoimmune Disorders: No Mother Adopted: No Living Status: Hx Family Cardiac Disorders: No Hx Family Respiratory Disorders: No Hx Family Cancer: No Hx Family GI Disorders: No Hx Family Endocrine Disorder: No Hx Family Neuromuscular Disorders: No Hx Family Neurologic Disorders: No Hx Family HEENT Disorders: No Hx Family Autoimmune Disorders: No Medications and Allergies Aspirin [Lo-Dose Aspirin EC] 81 mg PO DAILY 11/26/17 [History] Atorvastatin [Lipitor] 40 mg PO HS 11/26/17 [History] Clopidogrel [Plavix] 75 mg PO DAILY 08/11/18 [History] Latanoprost [Xalatan] 1 drop LEFT EYE HS 08/11/18 [History] Metoprolol XL (24 HR) Succ [Toprol Xl] 25 mg PO DAILY 08/14/18 [History] Omeprazole [PriLOSEC] 20 mg PO DAILY@0730 08/14/18 [History] Albuterol Sulfate [Proair Hfa] 2 puff IH Q6H PRN 10/29/18 [History] Budesonide/Formoterol 160/4.5 [Symbicort 160/4.5] 2 puff IH BIDR 10/29/18 [History] Isosorbide MONOnitrate [Isosorbide Mononitrate ER] 30 mg PO DAILY 10/29/18 [History] Nitroglycerin [Nitrostat] 0.4 mg SL Q5MIN PRN 10/29/18 [History] Tiotropium Milo [Spiriva Respimat] 2 puff IH DAILY 10/29/18 [History] Cholecalciferol (Vitamin D3) [Vitamin D3] 2,000 unit PO DAILY 12/11/18 [History] Levothyroxine Sodium [Levoxyl] 50 mcg PO QAM 12/11/18 [History] Spironolactone [Aldactone] 50 mg PO DAILY 12/11/18 [History] Timolol Maleate 0.5% 1 drop LEFT EYE QAM 12/11/18 [History] Tramadol HCl [Ultram] 50 mg PO Q6H PRN 12/11/18 [History] Clotrimazole 1% CRM [Lotrimin 1%] 1 appl TP BID 10 Days #1 tube 12/29/18 [Rx] Doxycycline 100 mg PO BID 9 Days #18 capsule 12/29/18 [Rx] Furosemide [Lasix] 20 mg PO DAILY 30 Days #30 tablet 12/29/18 [Rx] OxyCODONE Immed Rel [Roxicodone 5 MG] 5 mg PO Q4HR PRN 5 Days #10 tablet 12/29/18 [Rx] Sennosides/Docusate Sodium [Senna Plus] 1 each PO BID 30 Days #60 tablet 12/29/18 [Rx] Tamsulosin [Flomax] 0.4 mg PO DAILY 30 Days #30 capsule 12/29/18 [Rx] Silver Sulfadiazine 1 appl TP DAILY 01/26/19 [History] Allergy/AdvReac Type Severity Reaction Status Date / Time gabapentin [From Neurontin] AdvReac Hallucinati Verified 12/11/18 17:43 ng lisinopril AdvReac Cough Verified 12/11/18 17:43 Varenicline [From Chantix] AdvReac Nightmare Verified 12/11/18 17:43 All Systems Review: The remainder of the systems were reviewed and are negative - Constitutional Constitutional: anorexia, fatigue, lethargy, weakness - Cardiovascular Cardiovascular: rapid heart rate - Genitourinary Genitourinary: other (no urine output for the last 72 hours ) - Musculoskeletal Musculoskeletal: abnormal gait - Integumentary Integumentary: unusual bruising - Hematological/Lymphatic Hematologic/Lymphatic: easy bruising, blood thinners Physical Examination Vital Signs, Last 4 Hours Temp Pulse Resp BP Pulse Ox 01/27/19 12:03 96.8 F L 114 18 94/66 01/27/19 11:36 16 100 General: Conversant, No Apparent Distress HEENT: Atraumatic, Normocephaly, Trachea midline, Other (temporal mm waisting ) Cardiac: Other (irregular irregular ) Lungs: Decreased breath sounds Neuro: Alert and responsive, No focal deficits noted, Cranial nerves intact, Motor nerves intact Vascular: Normal capillary refill Abdomen: Soft, Non-tender Skin: No rashes noted on visualized skin Musculoskeletal: No Chest Wall Tenderness Extremities: No Clubbing, No Cyanosis Results 01/27/19 03:08 01/27/19 03:08 Lab Results, Last 24 hours 01/26/19 01/26/19 01/26/19 12:47 12:47 12:47 WBC Hgb Hct Plt Count INR Sodium 129 L Potassium 5.2 H Chloride 97 L Carbon Dioxide 26 BUN 42 H Creatinine 1.38 H Glucose 128 H Calcium 9.5 Magnesium 1.9 Troponin I TSH 4.087 01/26/19 01/26/19 01/26/19 12:47 15:03 15:03 WBC 12.5 H Hgb 11.2 L Hct 35.1 L Plt Count 301 INR 1.4 Sodium Potassium Chloride Carbon Dioxide BUN Creatinine Glucose Calcium Magnesium Troponin I 0.04 H* TSH 01/26/19 01/26/19 01/26/19 15:51 19:34 22:15 WBC Hgb Hct Plt Count INR Sodium 132 L Potassium 5.4 H 4.7 Chloride 98 Carbon Dioxide 25 BUN 44 H Creatinine 1.41 H Glucose 74 Calcium 8.9 Magnesium Troponin I 0.05 H* TSH 01/27/19 01/27/19 01/27/19 03:08 03:08 03:08 WBC 10.5 Hgb 11.1 L Hct 34.9 L Plt Count 301 INR Sodium 132 L Potassium 5.0 Chloride 100 Carbon Dioxide 22 L BUN 42 H Creatinine 1.34 H Glucose 92 Calcium 8.9 Magnesium Troponin I 0.04 H* TSH Consult Discharge Plan - Plan Referrals: Osman Martinez MD [Primary Care Provider] -
--- NOTE | 2019-01-27 13:52 | Event Note ---
Date of Encounter: 01/27/19 Time of Encounter: 13:30 - Cardiology Event Note I had lengthy discussion with patient and regarding anticoagulation and long-term anticoagulation plans. Discussed and reviewed with Dr. Elizabeth Voss and Dr. Mak, unfortunately risk of anticoagulation outweighs benefit due to weakness with falls, history of GI bleed, anemia, and cirrhosis. Patient and aware of increased stroke risk. Will discontinue IV heparin drip and start subcutaneous heparin for DVT prophylaxis. Dr. Angel seen at bedside with patient with plans for feeding tube placement tomorrow under general anesthesia. He indicated atient with stage 3A lung cancer. Unfortunately, cheomotherapy would appear at risk of causing more harm. I had lengthy discussion with patient and regarding long-term plans of care and at this point they are unsure of their desires for his CODE STATUS and would like to discuss with palliative care team. Cardiology will continue to follow. HAS-BLED Score - Score Bleeding: Prior major bleeding or predisposition to bleeding Elderly: Age>65 years Medication usage predisposing to bleeding: Antiplatelet agents, NSAIDs, Anticoagulants Score: 3
--- NOTE | 2019-01-27 15:29 | Palliative - Consult Note ---
Date of Encounter: 01/27/19 Time of Encounter: 15:25 - Assessment and Plan (1) Advanced care planning/counseling discussion Current Visit: Yes Status: Acute Assessment and plan: Met with patient and his Natty for discussion. Patient discusses multiple medical problems and frustration at seeing many different physician, however, very pleased with the care he is currently receiving. His adv directives have already been established and a copy of these are present on his medical record. His code status previously was a DNR-Arrest - he has decided during this stay that he does not desire intubation or placed on ventilator and code status has been transitioned to DNR/DNI. State form was completed and placed in record as well as copies given to his . Patient is on schedule to have PEG placed tomorrow. They have been well informed regarding the feeding tube risk/benefit. He is looking forward to being able to take alternate means of nutrition, and is hoping to gain strength from this. We did have discussion regarding his multiple medical problems, and that while hoping for the best, he is at high risk for complications related to his multiple medical problems. Patient and verbalized understanding. Discussed that if he has further complications with his health in the future, and he would decide to change his course of care to primarily focusing on comfort, that he could be evaluated for hospice care and support, and instructed on this referral process. They have good support at home and Natty is able to care for him. [facility] health including nursing PT/OT are involved in his care. He has walker, home oxygen, bsc, shower chair in place. He has follow up appt with Dr. Jones this Saturday - I notified oncology that he is back in hospital and PEG is planned. Palliative will f/u tomorrow. (2) Palliative care encounter Current Visit: Yes Status: Acute (3) Cirrhosis Current Visit: Yes Status: Acute Qualifiers: Hepatic cirrhosis type: unspecified hepatic cirrhosis Ascites presence: without ascites Qualified Code(s): K74.60 - Unspecified cirrhosis of liver (4) Severe protein-calorie malnutrition Current Visit: Yes Status: Acute Assessment and plan: Megestrol will likely be restarted after PEG in place. (5) Dysphagia Current Visit: Yes Status: Chronic Assessment and plan: PEG to be placed tomorrow. Speech is following. Qualifiers: Dysphagia type: unspecified Qualified Code(s): R13.10 - Dysphagia, unspecified (6) COPD (chronic obstructive pulmonary disease) Current Visit: No Status: Chronic Assessment and plan: Continues with home oxygen and MDI's as per home. Qualifiers: Emphysema type: unspecified Qualified Code(s): J43.9 - Emphysema, unspecified (7) Ischemic cardiomyopathy Current Visit: No Status: Chronic Assessment and plan: Cardiology following. (8) Systolic and diastolic CHF, chronic Current Visit: No Status: Chronic Palliative-CN HPI - Data of Consult Consult date: 01/27/19 Requesting Physician: Tomeka Burdick MD Primary Care Provider: Osman Martinez MD - Consult Narrative History of present illness: Mr. Beaulieu is a 73 year old male who was admitted with increasing weakness, poor appetite, and difficulty swallowing. He has complex medical history including CAD, AR s/p PCI/CABG, Ischemic cardiomyopathy EF 35-40%, HTN, HLD, DM, CKD, Cirrhosis, PVD, and lung cancer IIb s/p resection per Dr. Angel. He developed empyema and required decortication and muscle flap as well. Patient has had decreased appetite not respondent to appetite stimulants, including Marinol and Megestrol. Dr. Angel saw him in office and felt he warranted hospital admission. Cardiology is following regarding his atrial fibrillation. Human Resource Statistician consult and recommendations for alternate form of nutrition was discussed and patient agreeable to PEG for nutrition support. DNR status was i nitially discussed with Dr Martinez in the office and a state form of DNR-Arrest is currently in the system along with his POA/living will. He has not been able to follow up with Dr. Jones r/t repeated admissions, but states was supposed to see him this Saturday. Upon my visit, patient is awake and oriented x3. Natty is at bedside. He is blind in right eye and slightly [place]. Denies any pain or discomfort. On o2 per nasal cannula as at home. Denies nausea, vomiting, constipation. + BM this am. Angel Luis Andersen - AGRICULTURAL EXTENSION SPECIALIST Cardiology asked us to see patient regarding further discussion of code status and goals of care discussion as well as advanced care planning for this patient with multiple comorbid conditions. CC: Tomeka Burdick MD - Time Spent with Patient Time: Total time spent is greater than 50% in coordination of care (as documented) at patient's floor/unit and/or counseling patient: Time with patient: 60 minutes Past Med Surg Social Fam HX - Past Medical History Medical history: cancer, CHF, coronary artery disease, diabetes, GERD, GI bleed, hyperlipidemia, hypertension, myocardial infarction, peripheral artery disease, renal disease Additional medical history: Lumbar degenerative disc disease, carotid artery di sease, right eye blind Psychiatric history: no psych history - Past Surgical History Surgical History: cancer surgery, cholecystectomy, coronary bypass (CABG) Additional surgical history: Stent placed a year ago, Right subclavian bypass graft, skin cancer. - Social History Smoking Status: Former smoker Smokeless Tobacco Status: No Alcohol use: none Drug use: none - Family History Father Adopted: No Family Member Ethnicity: Non- Living Status: Hx Family Cardiac Disorders: No Hx Family Respiratory Disorders: No Hx Family Cancer: Yes Hx Family GI Disorders: No Hx Family Endocrine Disorder: No Hx Family Neuromuscular Disorders: No Hx Family Neurologic Disorders: No Hx Family HEENT Disorders: No Hx Family Autoimmune Disorders: No Mother Adopted: No Living Status: Hx Family Cardiac Disorders: No Hx Family Respiratory Disorders: No Hx Family Cancer: No Hx Family GI Disorders: No Hx Family Endocrine Disorder: No Hx Family Neuromuscular Disorders: No Hx Family Neurologic Disorders: No Hx Family HEENT Disorders: No Hx Family Autoimmune Disorders: No Medications and Allergies Aspirin [Lo-Dose Aspirin EC] 81 mg PO DAILY 11/26/17 [History] Atorvastatin [Lipitor] 40 mg PO HS 11/26/17 [History] Clopidogrel [Plavix] 75 mg PO DAILY 08/11/18 [History] Latanoprost [Xalatan] 1 drop LEFT EYE HS 08/11/18 [History] Metoprolol XL (24 HR) Succ [Toprol Xl] 25 mg PO DAILY 08/14/18 [History] Omeprazole [PriLOSEC] 20 mg PO DAILY@0730 08/14/18 [History] Albuterol Sulfate [Proair Hfa] 2 puff IH Q6H PRN 10/29/18 [History] Budesonide/Formoterol 160/4.5 [Symbicort 160/4.5] 2 puff IH BIDR 10/29/18 [History] Isosorbide MONOnitrate [Isosorbide Mononitrate ER] 30 mg PO DAILY 10/29/18 [History] Nitroglycerin [Nitrostat] 0.4 mg SL Q5MIN PRN 10/29/18 [History] Tiotropium Echo [Spiriva Respimat] 2 puff IH DAILY 10/29/18 [History] Cholecalciferol (Vitamin D3) [Vitamin D3] 2,000 unit PO DAILY 12/11/18 [History] Levothyroxine Sodium [Levoxyl] 50 mcg PO QAM 12/11/18 [History] Spironolactone [Aldactone] 50 mg PO DAILY 12/11/18 [History] Timolol Maleate 0.5% 1 drop LEFT EYE QAM 12/11/18 [History] Tramadol HCl [Ultram] 50 mg PO Q6H PRN 12/11/18 [History] Clotrimazole 1% CRM [Lotrimin 1%] 1 appl TP BID 10 Days #1 tube 12/29/18 [Rx] Doxycycline 100 mg PO BID 9 Days #18 capsule 12/29/18 [Rx] Furosemide [Lasix] 20 mg PO DAILY 30 Days #30 tablet 12/29/18 [Rx] OxyCODONE Immed Rel [Roxicodone 5 MG] 5 mg PO Q4HR PRN 5 Days #10 tablet 12/29/18 [Rx] Sennosides/Docusate Sodium [Senna Plus] 1 each PO BID 30 Days #60 tablet [Rx] Tamsulosin [Flomax] 0.4 mg PO DAILY 30 Days #30 capsule 12/29/18 [Rx] Silver Sulfadiazine 1 appl TP DAILY 01/26/19 [History] Allergy/AdvReac Type Severity Reaction Status Date / Time gabapentin [From Neurontin] AdvReac Hallucinati Verified 12/11/18 17:43 ng lisinopril AdvReac Cough Verified 12/11/18 17:43 Varenicline [From Chantix] AdvReac Nightmare Verified 12/11/18 17:43 - Constitutional Constitutional ROS PAL: decreased appetite, anorexia, malaise, weight loss - EENT Eyes: loss of vision Additional comments: Blind in right eye - Cardiovascular Cardiovascular ROS: dyspnea on exertion - Respiratory Respiratory: dyspnea on exertion - Gastrointestinal Gastrointestinal: constipation, no nausea, no vomiting - Genitourinary Genitourinary ROS male: as per HPI - Musculoskeletal Musculoskeletal ROS IM: muscle weakness - Integumentary ROS Integumentary: dry skin, other Additional comments: Skin tear bilateral arms - Neurological Neurological ROS: as per HPI - Psychiatric Psychiatric general PM: as per HPI Palliative Care-Exam - Constitutional Vitals: Temp Pulse Resp BP Pulse Ox 96.8 F L 114 18 94/66 100 01/27/19 12:03 01/27/19 12:03 01/27/19 12:03 01/27/19 12:03 01/27/19 11:36 General appearance: Present: no acute distress - Head Head Exam: Present: normal inspection, normocephalic - Eye Additional comments: Blind in right eye - Respiratory Respiratory exam: Present: decreased breath sounds, CTAB - Cardiovascular Cardiovascular exam: Present: irregular rhythm - GI/Abdominal Exam GI/Abdominal exam: Present: normal bowel sounds, soft - Extremities Exam Extremities exam: Present: normal capillary refill Additional comments: Dressing to skin tears bilateral forearms D/I - Neurological Exam Neurological exam: Present: alert, oriented X3, strengths equal and symetr throughout - Psychiatric Psychiatric exam: Present: normal affect, normal mood - Skin Skin exam: Present: abrasion, dry, pallor, warm Internal Medicine - CN: Reslt - Labs CBC & Chem 7: 01/27/19 03:08 01/27/19 03:08 Labs: Short CBC 01/26/19 01/27/19 Range/Units 15:03 03:08 WBC 12.5 H 10.5 (4.3-11.1) K/mcL Hgb 11.2 L 11.1 L (12.9-16.9) g/dL Hct 35.1 L 34.9 L (37.5-50.1) % Plt Count 301 301 (140-400) K/mcL Neutrophils # 7.6 (1.6-8.9) K/mcL BMP 01/26/19 01/26/19 01/27/19 15:51 22:15 03:08 Sodium 132 L 132 L Potassium 5.4 H 4.7 5.0 Chloride 98 100 Carbon Dioxide 25 22 L BUN 44 H 42 H Creatinine 1.41 H 1.34 H Glucose 74 92 Calcium 8.9 8.9 Cardiac Enzymes 01/26/19 01/27/19 Range/Units 19:34 03:08 Troponin I 0.05 H* 0.04 H* (< 0.04) ng/mL Urine 01/26/19 Range/Units 16:09 Urine Color Dark Yellow (Yellow) Urine Clarity Clear (Clear) Urine pH 5.0 (5.0-8.0) pH Units Ur Specific Crosby 1.019 (1.010-1.025) Urine Protein Negative (Neg-Trace) mg/dL Urine Glucose (UA) Normal (Normal) mg/dL - ABG Interpretation ABG results: PT/INR, D-dimer PT 15.8 Seconds (9.4-12.1) H 01/26/19 15:03 Consult Discharge Plan - Plan Referrals: Osman Martinez MD [Primary Care Provider] - Palliative Quality Palliative Quality: Screen for Code Status: Yes, Screen for Goals of Care: Yes, Screen for Pain: Yes, If Pain Regimen Started, Initiate Bowel Regimen: NA, Screen for Nausea/Vomitting: Yes Code Status: 01/26/19 12:08 Resuscitation Status: Active [RES] Routine Comment: Resuscitation Status: Full Code 01/26/19 12:46 CODE [Resuscitation Status: Active] [RES] Routine Comment: Resuscitation Status: [id number]
[2019-01-27] MEDS ORDERED: *HR* Heparin 5,000 UNIT/ML VIAL SQ SCH (18:00)
[2019-01-27] MEDS ORDERED: traMADol 50 MG TABLET PO PRN ×2 (18:06→23:18)
[2019-01-27] MEDS: Latanoprost 2.5 ML BOTTLE LEFT EYE SCH (20:47)
[2019-01-27] MEDS ORDERED: Doxycycline 100 MG CAPSULE PO SCH (21:00)
[2019-01-27] MEDS ORDERED: Sennosides/Docusate Sodium TABLET PO SCH (21:00)
[2019-01-27] MEDS ORDERED: Budesonide/Formoterol 160/4.5 1 PUFF INH IH SCH (22:00)
[2019-01-27 23:08] LABS: ABG Base Excess -13 mEq/L (-2 to 3); ABG HCO3 11 mEq/L (21-27); ABG Oxygen Saturation 99 % (95-98); ABG PCO2 22 mmHg (35-45); ABG PH 7.31 pH Units (7.32-7.45); ABG PO2 159 mmHg (85-104); ABG TCO2 12 mEq/L (20-26)
[2019-01-27] MEDS ORDERED: Sodium Bicarbonate 150 MEQ in D5% in Water 1,000 ML IVC STA (23:15)
[2019-01-27] MEDS ORDERED: *HR* Dextrose 50 % in Water (Syg) 50 ML SYRINGE IVP PRN (23:18)
[2019-01-27] MEDS ORDERED: D5% in Water 1,000 ML IVC PRN (23:18)
[2019-01-27] MEDS ORDERED: Dextrose Gel 15 GM/37.5 ML TUBE PO PRN ×2 (23:18)
[2019-01-27] MEDS ORDERED: Amiodarone Premix 150 MG/100 ML BAG IVPB ONE ×2 (23:18→23:32)
[2019-01-27 23:31] LABS: Albumin/Globulin Ratio 0.7 (1.1-2.2); Calcium 8.6 mg/dL (8.6-10.3); Globulin 4.2 g/dL (2.4-3.5); Magnesium 1.9 mg/dL (1.6-2.6); Phosphorous 4.4 mg/dL (2.7-4.5); Potassium 5.7 mEq/L (3.5-5.1); Total Protein 7.2 g/dL (6.4-8.9); Troponin I 0.08 ng/mL (< 0.04)
[2019-01-27] MEDS ORDERED: Isovue-370 500 ML BOTTLE IVP ONE (23:32)
[2019-01-27] MEDS ORDERED: 0.9 % Sodium Chloride 1,000 ML IV ONE (23:36)
[2019-01-27] MEDS ORDERED: Piperacillin/Tazobactam 3.375 GM in 0.9 % Sodium Chloride Mini Bag 100 ML IVP ONE (23:39)
[2019-01-28 00:05] LABS: Bilirubin,Total 0.8 mg/dL (0.3-1.0)
--- NOTE | 2019-01-28 00:46 | AcuteCare Surgery Consult Note ---
Date of Encounter: 01/28/19 Time of Encounter: 00:30 Assessment and Plan (1) Abdominal pain Current Visit: Yes Status: Acute There was concern for evaluation of ischemic bowel with an elevated lactate as well as some complaints of left upper quadrant pain. The left upper quadrant pain is likely from the muscle flap for the left chest. There are no diffuse peritoneal signs the abdominal examination is completely negative. The patient has no evidence of leukocytosis. This point there is no evidence of acute abdomen or bowel ischemia. Qualifiers: Abdominal location: left upper quadrant Qualified Code(s): R10.12 - Left upper quadrant pain History of Present Illness Consult date: 01/28/19 Reason for consult: other (Abnormal labs) History of present illness: The patient is a 73-year-old male who has undergone treatment for lung cancer. He has had a postoperative empyema treated with a muscle flap into the left chest. The patient stated sustained a continuous running of V. tach earlier thi s evening and afterwards developed high potassium levels, and elevated lactate level to 8, and complained of some left upper quadrant pain. Concern was raised for ischemic bowel. The patient was seen and evaluated and he was able to give me a history of no abdominal pain but pain in the lower left chest where his thoracotomy and muscle flap was performed. The patient is not complaining of abdominal pain at time of my examination. Physical examination the abdomen is completely negative. A noncontrast CAT scan of the abdomen was ordered. There were no areas of acute inflammation identified to my interpretation of the CT. At this time there is no evidence of ischemic bowel or acute abdomen Past Med Surg Social Fam HX - Past Medical History Medical history: cancer, CHF, coronary artery disease, diabetes, GERD, GI bleed, hyperlipidemia, hypertension, myocardial infarction, peripheral artery disease, renal disease Additional medical history: Lumbar degenerative disc disease, carotid artery dis ease, right eye blind Psychiatric history: no psych history - Past Surgical History Surgical History: cancer surgery, cholecystectomy, coronary bypass (CABG) Additional surgical history: Stent placed a year ago, Right subclavian bypass graft, skin cancer. - Social History Smoking Status: Former smoker Smokeless Tobacco Status: No Alcohol use: none Drug use: none - Family History Father Adopted: No Family Member Ethnicity: Non- Living Status: Hx Family Cardiac Disorders: No Hx Family Respiratory Disorders: No Hx Family Cancer: Yes Hx Family GI Disorders: No Hx Family Endocrine Disorder: No Hx Family Neuromuscular Disorders: No Hx Family Neurologic Disorders: No Hx Family HEENT Disorders: No Hx Family Autoimmune Disorders: No Mother Adopted: No Living Status: Hx Family Cardiac Disorders: No Hx Family Respiratory Disorders: No Hx Family Cancer: No Hx Family GI Disorders: No Hx Family Endocrine Disorder: No Hx Family Neuromuscular Disorders: No Hx Family Neurologic Disorders: No Hx Family HEENT Disorders: No Hx Family Autoimmune Disorders: No Medications and Allergies Aspirin [Lo-Dose Aspirin EC] 81 mg PO DAILY 11/26/17 [History] Atorvastatin [Lipitor] 40 mg PO HS 11/26/17 [History] Clopidogrel [Plavix] 75 mg PO DAILY 08/11/18 [History] Latanoprost [Xalatan] 1 drop LEFT EYE HS 08/11/18 [History] Metoprolol XL (24 HR) Succ [Toprol Xl] 25 mg PO DAILY 08/14/18 [History] Omeprazole [PriLOSEC] 20 mg PO DAILY@0730 08/14/18 [History] Albuterol Sulfate [Proair Hfa] 2 puff IH Q6H PRN 10/29/18 [History] Budesonide/Formoterol 160/4.5 [Symbicort 160/4.5] 2 puff IH BIDR 10/29/18 [History] Isosorbide MONOnitrate [Isosorbide Mononitrate ER] 30 mg PO DAILY 10/29/18 [History] Nitroglycerin [Nitrostat] 0.4 mg SL Q5MIN PRN 10/29/18 [History] Tiotropium [place] [Spiriva Respimat] 2 puff IH DAILY 10/29/18 [History] Cholecalciferol (Vitamin D3) [Vitamin D3] 2,000 unit PO DAILY 12/11/18 [History] Levothyroxine Sodium [Levoxyl] 50 mcg PO QAM 12/11/18 [History] Spironolactone [Aldactone] 50 mg PO DAILY 12/11/18 [History] Timolol Maleate 0.5% 1 drop LEFT EYE QAM 12/11/18 [History] Tramadol HCl [Ultram] 50 mg PO Q6H PRN 12/11/18 [History] Clotrimazole 1% CRM [Lotrimin 1%] 1 appl TP BID 10 Days #1 tube 12/29/18 [Rx] Doxycycline 100 mg PO BID 9 Days #18 capsule 12/29/18 [Rx] Furosemide [Lasix] 20 mg PO DAILY 30 Days #30 tablet 12/29/18 [Rx] OxyCODONE Immed Rel [Roxicodone 5 MG] 5 mg PO Q4HR PRN 5 Days #10 tablet 12/29/18 [Rx] Sennosides/Docusate Sodium [Senna Plus] 1 each PO BID 30 Days #60 tablet 9 [Rx] Tamsulosin [Flomax] 0.4 mg PO DAILY 30 Days #30 capsule 12/29/18 [Rx] Silver Sulfadiazine 1 appl TP DAILY 01/26/19 [History] Allergy/AdvReac Type Severity Reaction Status Date / Time gabapentin [From Neurontin] AdvReac Hallucinati Verified 12/11/18 17:43 ng lisinopril AdvReac Cough Verified 12/11/18 17:43 Varenicline [From Chantix] AdvReac Nightmare Verified 12/11/18 17:43 Review of Systems All systems PM: The remainder of the systems were reviewed and are negative General Surgery Exam Initial Vital Signs Temp Pulse Resp BP Pulse Ox 96.3 F L 87 15 109/76 100 01/26/19 10:44 01/26/19 10:44 01/26/19 10:44 01/26/19 10:44 01/26/19 10:44 - General physical appearance moderate distress, moderate pain, chronically ill, other (Conversational and appropriate) - Respiratory wheezing: right, absent breath sounds: left - Cardiovascular Cardiovascular exam: Present: irregular rhythm - Abdomen Abdomen general surgery: Present: bowel sounds present, soft, non tender - Integumentary Integumentary general surgery: Present: warm and dry, no abnormal pigmentation - Neurologic Present: CN 2-12 grossly intact - Psychiatric Psychiatric general surgery: Present: appropriate, oriented to person, oriented to place, oriented to time, speech is normal, memory intact Exam Initial Vital Signs Temp Pulse Resp BP Pulse Ox 96.3 F L 87 15 109/76 100 01/26/19 10:44 01/26/19 10:44 01/26/19 10:44 01/26/19 10:44 01/26/19 10:44 Results - Labs 01/27/19 03:08 01/27/19 22:36 Abnormal lab results WBC 12.5 K/mcL (4.3-11.1) H 01/26/19 15:03 RBC 3.84 M/mcL (4.19-5.50) L 01/27/19 03:08 Hgb 11.1 g/dL (12.9-16.9) L 01/27/19 03:08 Hct 34.9 % (37.5-50.1) L 01/27/19 03:08 MCHC 31.3 g/dL (31.6-35.5) L 01/26/19 12:47 RDW 17.0 % (11.5-14.5) H 01/27/19 03:08 Neutrophils # 10.4 K/mcL (1.6-8.9) H 01/26/19 12:47 Nucleated RBCs/100 WBC 0.5 /100 WBC (0) H 01/27/19 03:08 PT 15.8 Seconds (9.4-12.1) H 01/26/19 15:03 Heparin Anti-Xa, Unfract 0.02 IU/mL (0.30-0.70) L 01/26/19 15:03 ABG pH 7.31 pH Units (7.32-7.45) L 01/27/19 23:03 ABG pCO2 22 mmHg (35-45) L 01/27/19 23:03 ABG pO2 159 mmHg (85-104) H 01/27/19 23:03 ABG HCO3 11 mEq/L (21-27) L 01/27/19 23:03 ABG Total CO2 12 mEq/L (20-26) L 01/27/19 23:03 ABG O2 Saturation 99 % (95-98) H 01/27/19 23:03 ABG Base Excess -13 mEq/L (-2 to 3) L 01/27/19 23:03 Sodium 133 mEq/L (136-145) L 01/27/19 22:36 Potassium 5.7 mEq/L (3.5-5.1) H 01/27/19 22:36 Chloride 97 mEq/L (98-107) L 01/26/19 12:47 Carbon Dioxide 17 mEq/L (23-29) L 01/27/19 22:36 BUN 44 mg/dL (8-23) H 01/27/19 22:36 Creatinine 1.69 mg/dL (0.70-1.30) H 01/27/19 22:36 Est GFR ( Amer) 48 (> 60) L 01/27/19 22:36 Est GFR (Non-Af Amer) 40 (> 60) L 01/27/19 22:36 BUN/Creatinine Ratio 31 (6-26) H 01/27/19 03:08 Glucose 128 mg/dL (70-105) H 01/26/19 12:47 POC Glucose 127 mg/dL (70-99) H 01/27/19 16:51 Lactic Acid 8.6 mmol/L (0.5-2.2) H* 01/27/19 22:26 Iron 20 mcg/dL (65-175) L 01/26/19 12:47 % Saturation 9 % (20-55) L 01/26/19 12:47 Transferrin 155 mg/dL (203-362) L 01/26/19 12:47 AST 98 Units/L (13-39) H 01/27/19 22:36 Alkaline Phosphatase 147 Units/L (34-104) H 01/27/19 22:36 Troponin I 0.08 ng/mL (< 0.04) H* 01/27/19 22:36 Albumin 3.0 g/dL (3.5-5.7) L 01/27/19 22:36 Globulin 4.2 g/dL (2.4-3.5) H 01/27/19 22:36 Albumin/Globulin Ratio 0.7 (1.1-2.2) L 01/27/19 22:36 Urine Bilirubin Small (Negative) H 01/26/19 16:09 Diabetes panel 01/27/19 01/27/19 Range/Units 03:08 22:36 Sodium 132 L 133 L (136-145) mEq/L Potassium 5.0 5.7 H (3.5-5.1) mEq/L Chloride 100 99 (98-107) mEq/L Carbon Dioxide 22 L 17 L (23-29) mEq/L BUN 42 H 44 H (8-23) mg/dL Creatinine 1.34 H 1.69 H (0.70-1.30) mg/dL Glucose 92 100 (70-105) mg/dL Calcium 8.9 8.6 (8.6-10.3) mg/dL AST 98 H (13-39) Units/L ALT 46 (7-52) Units/L Alkaline Phosphatase 147 H (34-104) Units/L Albumin 3.0 L (3.5-5.7) g/dL Calcium panel 01/27/19 01/27/19 Range/Units 03:08 22:36 Calcium 8.9 8.6 (8.6-10.3) mg/dL Phosphorus 4.4 (2.7-4.5) mg/dL Albumin 3.0 L (3.5-5.7) g/dL Pituitary panel 01/27/19 01/27/19 Range/Units 03:08 22:36 Sodium 132 L 133 L (136-145) mEq/L Potassium 5.0 5.7 H (3.5-5.1) mEq/L Chloride 100 99 (98-107) mEq/L Carbon Dioxide 22 L 17 L (23-29) mEq/L BUN 42 H 44 H (8-23) mg/dL Creatinine 1.34 H 1.69 H (0.70-1.30) mg/dL Glucose 92 100 (70-105) mg/dL Calcium 8.9 8.6 (8.6-10.3) mg/dL Adrenal panel 01/27/19 01/27/19 Range/Units 03:08 22:36 Sodium 132 L 133 L (136-145) mEq/L Potassium 5.0 5.7 H (3.5-5.1) mEq/L Chloride 100 99 (98-107) mEq/L Carbon Dioxide 22 L 17 L (23-29) mEq/L BUN 42 H 44 H (8-23) mg/dL Creatinine 1.34 H 1.69 H (0.70-1.30) mg/dL Glucose 92 100 (70-105) mg/dL Calcium 8.9 8.6 (8.6-10.3) mg/dL Total Bilirubin 0.8 (0.3-1.0) mg/dL AST 98 H (13-39) Units/L ALT 46 (7-52) Units/L Alkaline Phosphatase 147 H (34-104) Units/L Albumin 3.0 L (3.5-5.7) g/dL All other labs normal. - Imaging CT scan - abdomen: image reviewed (I personally reviewed the CAT scan of the chanel patel. There is no evidence of acute changes. Our was normal caliber with no evidence of edema. Retroperitoneal planes were all within normal limits. No evidence of acute bowel ischemia) Consult Discharge Plan - Plan Referrals: Osman Martinez MD [Primary Care Provider] -
[2019-01-28] MEDS ORDERED: 0.9 % Sodium Chloride 1,000 ML IVC SCH (01:00)
[2019-01-28] MEDS ORDERED: Sodium Bicarbonate 150 MEQ in D5% in Water 1,000 ML IVC SCH (01:00)
[2019-01-28] MEDS ORDERED: 0.9 % Sodium Chloride 500 ML IVC PRN (01:12)
[2019-01-28] MEDS ORDERED: *HR* Promethazine 25 MG/ML VIAL IVP PRN (01:36)
[2019-01-28] MEDS ORDERED: Ondansetron 4 MG/2 ML VIAL ONE (01:39)
[2019-01-28 02:34] LABS: Basophils % 0.2 %; Hematocrit 34.8 % (37.5-50.1); Hemoglobin 10.8 g/dL (12.9-16.9); Immature Granulocytes % 1.3 % (0-4); Lymphocytes # 0.5 K/mcL (0.6-4.6); Lymphocytes % 2.7 %; Mean Corpuscular Volume 93.5 fL (83.0-100.0); Mean Platelet Volume 10.1 fL (9.4-12.4); Monocytes % 6.2 %; Nucleated Red Blood Cells 1.2 /100 WBC (0); Platelet Count 248 K/mcL (140-400); Red Blood Count 3.72 M/mcL (4.19-5.50); Red Cell Distribution Width 17.2 % (11.5-14.5); Segmented Neutrophils % 89.6 %
[2019-01-28 02:36] LABS: White Blood Count 16.7 K/mcL (4.3-11.1)
[2019-01-28 02:39] VITALS: BP 86/58
--- NOTE | 2019-01-28 02:39 | Event Note ---
<Makayla Tuttle L - Last Filed: 01/28/19 06:27> Date of Encounter: 01/28/19 Time of Encounter: 23:00 I received a page to the floor regarding the patient experiencing SOB and pain in LUQ. Patient was stable on arrival to the floor so I ordered repeat vitals, they had a hard time obtaining pulse ox in the room on patient's extremities, but blood pressure remained stable although patient showed signs of tachycardia. On exam patient was CTAB, no rhonchi, wheezing or rhales. Pain was not reproducible on palpation, there were no peritoneal signs. I obtained CBC, CMP, Mg, Phos, ABG, lactic acid and an EKG at bedside. I also consulted Dr. Woods for assistance with the patient. Upon obtaining an and reviewing EKG at bedside with Dr. Woods, we further obtained repeat troponins and ordered patient to be moved to [place], in addition to starting amiodarone. On arrival to patient was given Amiodarone, patient iv bolus and lactic acid resulted at 8.6. Acute care surgery was then consulted due to concerns for mesenteric ischemia. Dr. Guerin responded and requested a stat abdominal CT abdomen/ pelvis with contrast. As patient could not take anything PO it was completed without contrast. After consultation with surgery he decided there was no need for acute surgery. Patient was order Bicarb, IV fluid bolus and repeat labs to be completed following completion of bicarb and bolus. On repeat Vitals patient began to have diaphoresis, and repeat EKG and troponins were completed, as well as CBC, CMP,and lactic acid. Shortly after patient's blood pressure began to decrease. On consult consultation with Dr. Woods's decision was made to be transferred to ICU. Prior to ICU transfer patient began to go into bradycardia and became unresponsive. After speaking to the , decided to change CODE STATUS to full code. CODE BLUE was then called and CPR was administered to the patient, after a few minutes we did obtain Rosc he was then able to be transferred to ICU. In ICU further labs were obtained which consisted of CBC, CMP, troponin, lactic acid, ABG. Patient was stabilized and upon arrival of family, family decided to withdraw invasive procedures. He was then extubated and changed to comfort care. <Bridgette Woods - Last Filed: 01/28/19 07:52> Date of Encounter: 01/28/19 Patient seen and examined independently, including review of objective data including labs. I agree with plan of care as documented below by the resident with the following comments: While the patient was on the floor, labs,ABG,EKG, CXR were orderred. My review of EKG was monomorphic VT rate 150s, Patient was hemodynamically stable, AOx3, complained of abdominal pain. Tele reviewed and showed sustained VT. Amiodarone bolus was given with rate control achieved. Patient was transferred to the 2n as he remained hemodynamically stable. Lactic acid came back elevated and surgery was called. CT abdomen obtained and reviewed. Patient BP continued to decline. ABG resulted Metabolic acidosis with respiratory compensation. Bicarb drip was started, IV fluids given. Patient continued to be hypotensive progressive with worsening acidosis and bradycardia occurred. Pacer with pacing was attempted and thereafter, the patient became pulseless. Patient at that time was a DNR/DNI. Natty was contacted and power of workers compensation defense attorney reverted the code status to full code. First code blue, Please see flowsheet for more details. ROSC was obtained and patient transferred to ICU. Second code occurred (see flowsheet) ROSC was obtained. Fast exam performed with noted hematoma on the left side. Labs came back an reviewed. third code blue occurred see flowsheet. ROSC was achieved. in between each code, the power of workers compensation defense attorney was contacted and given an update. CCT: atleast 98 minutes. The power of workers compensation defense attorney and patients' sons came to the ICU. A conversation about patient condition, progression, and events was shared. The whole family proceeded with withdrawaing care and comfort care mangamenet. Patient was extubated, epinephrine was stopped. Patient was given anxiolytic and pain m edication. Patient (please see note).
[2019-01-28 02:52] LABS: Calcium 8.3 mg/dL (8.6-10.3); Potassium 5.6 mEq/L (3.5-5.1)
[2019-01-28 03:04] LABS: Troponin I 0.09 ng/mL (< 0.04)
[2019-01-28] MEDS ORDERED: Norepinephrine 4 MG in 0.9 % Sodium Chloride 250 ML IVC SCH (03:45)
[2019-01-28] MEDS ORDERED: Insulin Human Regular 10 UNIT in D10% in Water 500 ML IVC ONE (04:45)
[2019-01-28] MEDS ORDERED: Hyoscyamine SL 0.125 MG TAB.SUBL SL PRN (04:48)
[2019-01-28] MEDS ORDERED: *HR* LORazepam 2 MG/ML VIAL IVP PRN (04:48)
[2019-01-28] MEDS ORDERED: Atropine Sulfate 1% 40 DROP/2 ML BOTTLE SL PRN (04:48)
[2019-01-28] MEDS ORDERED: *HR* HYDROmorphone (PF) 1 MG/ML SYRINGE IVP PRN (04:48)
--- NOTE | 2019-01-28 04:59 | Procedure Note ---
Date of procedure: 01/28/19 Pre-op diagnosis: Acute respiratory distress Post-op diagnosis: same Procedure: Date: 01/28/2019 Time: 02:59 Indication: Respiratory Distress Resident: Dr. Berumen Attending: Dr. Woods A time-out was completed verifying correct patient, procedure, site, positi oning, and special equipment if applicable. The patient was placed in a flat position. Sedation was not given because he was un-responsive. The patient was easily ventilated using an ambu bag. The MAC 3 BLADE was used and inserted into the oropharynx at which time there was a Grade 1 view of the vocal cords. A 7.5- luxembourger endotracheal tube was inserted and visualized going through the vocal cords. The stylette was removed. Colorimetric change was visualized on the CO2 meter. Breath sounds were heard in both lung sauer equally. The endotracheal tube was placed at 23 cm, measured at the teeth. Dr. Woods was present for the entire procedure. Estimated Blood Loss: 0cc The patient tolerated the procedure well and there were no complications. Anesthesia: IV sedation Was there an delivery driver assistant present: No Estimated blood loss (cc): 0 Specimen: none Pathology: none sent Condition: critical Disposition: ICU
[2019-01-28] MEDS ORDERED: *HR* HYDROmorphone 2 MG/ML SYRINGE IVP PRN ×2 (05:00→05:15)
[2019-01-28] MEDS ORDERED: Scopolamine Patch 1.5 MG PATCH.TD72 TD SCH (05:00)
[2019-01-28] MEDS ORDERED: Morphine Sulfate 2 MG/ML SYRINGE IVP ONE (05:00)
[2019-01-28 05:02] LABS: ABG Base Excess -8 mEq/L (-2 to 3); ABG HCO3 21 mEq/L (21-27); ABG Oxygen Saturation 91 % (95-98); ABG PCO2 61 mmHg (35-45); ABG PH 7.14 pH Units (7.32-7.45); ABG PO2 80 mmHg (85-104); ABG TCO2 23 mEq/L (20-26); Blood Gas Modality ASSIST CONTROL; Blood Gas PEEP 12 cm H2O; Blood Gas VT 450 cc
--- NOTE | 2019-01-28 05:30 | Procedure Note ---
Date of procedure: 01/28/19 Pre-op diagnosis: Cardiac arrest, hypotensive Post-op diagnosis: same Procedure: Date: 01/28/2019 Time: 0400 Indication: Hemodynamic monitoring/Intravenous access Resident: Dr. Berumen Attending: Dr. Woods A time-out was completed verifying correct patient, procedure, site, positioning, and special equipment if applicable. The patient was placed in a dependent position appropriate for central line placement based on the vein to be cannulated. The patients right groin was prepped and draped in sterile fashion. 1% Lidocaine was used to anesthetize the surrounding skin area. A triple lumen 9-Occitan Cordis catheter was introduced into the the common femoral vein using the Seldinger technique and under ultrasound guidance. The catheter was threaded smoothly over the guide wire and appropriate blood return was obtained. Each lumen of the catheter was evacuated of air and flushed with sterile saline. The catheter was then sutured in place to the skin and a sterile dressing applied. Perfusion to the extremity distal to the point of catheter insertion was checked and found to be adequate. Dr. Woods was present for the entire procedure. Estimated Blood Loss: 3cc The patient tolerated the procedure well and there were no complications. Anesthesia: local Was there an payroll administrative assistant present: No Estimated blood loss (cc): 3 Specimen: none Pathology: none sent Condition: critical Disposition: ICU
--- NOTE | 2019-01-28 05:38 | Death Note ---
Discharge Sum: Summary - Date and Time Date of admission: 01/26/19 10:12 Date of : 01/28/19 Time of : 05:25 - Summary Details: Patient had went into cardiac arrest 2 times for which CPR had been initiated with ROSC. Patient remained in critical condition intubated on mechanical ventilation with vassopressors. Family was alerted and all came to the bedside. The family decided to withdraw care for the patient to be DNR CC. Time of was 05:25. There were no heart sounds, respirations, pulse, peoples were fixed in dilated. Family was at the bedside when the patient had passed. - Additional Data Confirmation of as documented by pronouncing clinician: no pulse, no respirations, no heart sounds, pupils fixed and dilated Family: at bedside Attending/PCP notified?: Yes Attending physician: Tomeka Burdick MD Was code activated?: Yes Discharge Sum: Diag - PCOD Probable Cause of : Cardiac arrest Discharge Sum: Prov - Provider Primary care physician: Osman Martinez MD Admitting clinician: Samantha Castillo Consults: 01/26/19 12:11 Consult to Occupational Therapy [CONS] Routine Comment: Evaluate, develop and implement POC Reason for Consult: weakness Does patient have active BEDREST order?: No Is patient medically & hemodynamically stable?: Yes Consult to Physical Therapy [CONS] Routine Comment: Evaluate, develop and implement POC Reason for Consult: weakness Does patient have active BEDREST order?: No Is patient medically & hemodynamically stable?: Yes 01/26/19 14:13 Consult to Cardiology [CONS] Routine Comment: Consulting Provider: Cardiology Bailey Reason for Consult: new onset afib Call Completed: Yes 01/26/19 20:37 Consult to Nutrition [CONS] Routine Comment: severe protein calorie malnutrition Consulting Provider: NUTRITION Reason for Dietary Consult: Other 01/27/19 12:21 Consult to Cardiothoracic Surgery [CONS] Routine Consulting Provider: Cardiothoracic Surgery Loa Reason for Consult: PEG placement Call Completed: Yes 01/27/19 13:43 Consult to Palliative Care [CONS] Routine Comment: Consulting Provider: Palliative Care Bailey Reason for Consult: Lung Cancer, patient and desire to discuss wishes for code status, etc. Discussed with Laura Booth Time Notified: 13:35 Call Completed: Yes Pronouncing clinician: Lydia Berumen
--- NOTE | 2019-01-28 05:50 | Procedure Note ---
Date of procedure: 01/28/19 Pre-op diagnosis: Cardiac arrest Procedure: At approximately 0324 the patient went to cardiac arrest for which a CLS was initiated. He underwent 3 rounds of CPR along with receiving epinephrine 3 times and calcium chloride. He had return of ROSC. Please see code flowsheet for further details.
--- NOTE | 2019-01-28 05:52 | Event Note ---
<Lydai Berumen - Last Filed: 01/28/19 05:50> Date of Encounter: 01/28/19 Time of Encounter: 03:24 At approximately 0324 the patient went into PEA for which ACLS was initiated. He underwent 3 rounds of CPR along with receiving epinephrine 3 times and calcium chloride. He had return of ROSC. Please see code flowsheet for further details. The patient's family had been notified upon initial code and were on way to hospital. <Bridgette Woods - Last Filed: 01/28/19 07:53> Date of Encounter: 01/28/19 Time of Encounter: 01:00
[2019-01-28] MEDS ORDERED: Dexamethasone 4 MG/ML VIAL IVP SCH (06:00)
[2019-01-28] MEDS ORDERED: Insulin LISPRO 300 UNITS/3 ML VIAL SQ SCH ×2 (08:00→21:00)
--- NOTE | 2019-01-28 08:55 | Event Note ---
Date of Encounter: 01/29/19 Time of Encounter: 01:30 Was contacted by nurse around 1:30 AM and inform the patient was having nausea and vomiting. Patient received Zofran prior. Given patient's recent finding of what appeared to be monomorphic V. tach, I requested the value of the patient's QTC on his most recent EKG which was obtained an hour prior. Nurse reported that it was approximately 480. I suggested possibly giving a lower dose of his Zofran but instructed the nurse to hold off and await my official before giving. Low dose of Phenergan was subsequently ordered by me after a brief discussion with the on-call pharmacist around 1:36 AM. Patient went into cardiac arrest shortly thereafter. Lab work just prior also noted a significant lactic acidosis with a lactic acid of greater than 8 which was likely the etiology of the patient's cardiac arrest. Nonetheless, I was informed by the nurse during a [id number] conversation later on that she had given Zofran anyway prior to patient's initial arrest. I again reiterated to her that I had instructed her to wait for my order before giving any antiemetics.
[2019-01-28] MEDS ORDERED: Metoprolol XL (24 HR) Succ 50 MG TAB.ER.24H PO SCH (09:00)
[2019-01-28] MEDS ORDERED: Doxycycline 100 MG CAPSULE PO SCH (09:00)
[2019-01-28] MEDS ORDERED: Cholecalciferol (D-3) 1,000 UNIT (25MCG) TABLET PO SCH ×2 (09:00)
[2019-01-28] MEDS ORDERED: Aspirin Enteric Coated 81 MG Tablet PO SCH ×2 (09:00)
[2019-01-28] MEDS ORDERED: Tiotropium 18 MCG inhalation IH SCH ×2 (09:00)
[2019-01-28] MEDS ORDERED: Budesonide/Formoterol 160/4.5 1 PUFF INH IH SCH (10:00)
--- NOTE | 2019-01-28 12:01 | Electrocardiograph Report ---
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
--- NOTE | 2019-01-28 15:12 | Electrocardiograph Report ---
[address] [place], [place] [address] Test Date: 2019-01-27 Pat Name: [place] [facility] [place] 115 Room: 10 Gender: M Group Practice Pediatrician: : 1945 Requested By: [id number] Order Number: [id number] Reading MD: Ric Díaz Measurements Intervals [place] Rate: 127 P: 257 MD: 217 QRS: 246 QRSD: 149 T: 67 QT: 346 QTc: 421 Interpretive Statements ATRIAL FIBRILLATION WITH RVR MARKED RIGHT AXIS DEVIATION RIGHT BUNDLE BRANCH BLOCK INFERIOR MYOCARDIAL INFARCTION, PROBABLY OLD Electronically Signed On 01-28-2019 15:11:06 EDT by Ric Díaz
--- NOTE | 2019-01-28 15:14 | Electrocardiograph Report ---
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
--- NOTE | 2019-02-02 11:39 | Electrocardiograph Report ---
[address] [place], [place] [address] Test Date: 2019-01-27 Pat Name: Torrey Fee Department: 110 Room: 10 Gender: Rn Radiology: : 1945 Requested By: [id number] Order Number: [id number] Reading MD: Ric Díaz Measurements Intervals [place] Rate: 89 P: 209 SD: 113 QRS: 257 QRSD: 157 T: 59 QT: 430 QTc: 477 Interpretive Statements SINUS RHYTHM WITH SHORT SD INTERVAL MARKED RIGHT AXIS DEVIATION RIGHT BUNDLE BRANCH BLOCK POSSIBLE ANTERIOR MYOCARDIAL INFARCTION, OF INDETERMINATE AGE Electronically Signed On 02-02-2019 11:37:45 EDT by Ric Díaz
--- NOTE | 2019-02-02 11:39 | Electrocardiograph Report ---
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
== END 2019-01-28 07:25 | disposition expired ==
LOC: 3ANU → SUATTDRO 10:12 → 2NNU 01-27 23:25 → ICNU 01-28 03:59
PROVIDERS: ADMIT Student in an Organized Health Care Education/Training Program; ATTEND Internal Medicine